=== PATIENT | female | born 1945 | race Caucasian/White ===

== ENCOUNTER 2022-05-08 15:24 | Outpatient (CLI) | payer MEDICARE, BC, SELFPAY ==
[2022-05-08 19:47] LABS: Albumin* 4.6 g/dL (3.3-5.0); Chloride* 98 mmol/L (96-114); Potassium* 3.9 mmol/L (3.6-5.1); Sodium* 137 mmol/L (135-149)
[2022-05-08 19:49] LABS: Bilirubin Total* 0.3 mg/dL (0.1-1.5); Creatinine* 1.2 mg/dL (0.5-1.5); Estimated Glomerular Filt Rate 47 ml/min
[2022-05-08 19:50] LABS: Alanine Aminotransferase* 53 U/L (4-35); Alkaline Phosphatase* 99 U/L (40-150); Aspartate Amino Transferase* 60 U/L (12-35); Blood Urea Nitrogen* 25 mg/dL (7-30); Carbon Dioxide* 21 mmol/L (20-32); Glucose* 219 mg/dL (60-115); Total Protein* 7.6 g/dL (6.0-8.3)
[2022-05-08 20:21] LABS: TSH With Reflex to FT4* 0.293 uIU/mL (0.270-4.200)
== END 2022-05-08 15:25 | disposition home or self-care (01) ==
PROVIDERS: PCP Internal Medicine; Visit Provider Internal Medicine
DX: R40.4 Transient alteration of awareness (principal); I10 Essential (primary) hypertension; E03.9 Hypothyroidism, unspecified; E78.5 Hyperlipidemia, unspecified
CPT/HCPCS: 80053; 84443

== ENCOUNTER 2022-05-09 15:26 | Outpatient (CLI) | payer MEDICARE, BC, SELFPAY ==
--- OUTSIDE RECORDS SUMMARY | 2022-05-09 17:04 | XMS_ITS | Encounter Summary ---
:1945 Author Organization [facility] Address [address] [place] [address] Care Team Providers Name Role Phone Unavailable Primary Care Provider Unavailable Encounter Details Date Type Department Care Team Description 04/26/2021 Hospital Encounter Department of Georges, Abdulaziz Walker Low Back Radiology in [facility], [facility] [address], [address] [place] [address] [facility] [phone] (Wo rk) Social History Tobacco Use Types Packs/Day Years Used Date Smoking Tobacco: Never Smokeless Tobacco: Never Alcohol Use Standard Drinks/Week Comments No 0 (1 standard drink = 0.6 oz pure alcoho l) Alcohol Habits Answer Date Recorded How often do you have a drink containing alcohol? Never 04/26/2021 How many drinks containing alcohol do you have on a typical Not asked day when you are drinking? How often do you have six or more drinks on one occasion? No t asked Comment: Not asked Social Isolation Answer Date Recorded In a typical week, how many times do you Three times a week 04/26/2021 talk on the phone with family, friends, or neighbors? How often do you get together with friends Three times a wee k 06/02/2019 or relatives? How often do you attend denominational or hinduism More than 4 time s per year 04/26/2021 services? Do you belong to any clubs or organizations Yes 04/26/2021 such as denominational groups, unions, fraternal or athletic groups, or school groups? How often do you attend meetings of the More than 4 times pe r year 04/26/2021 clubs or organizations you belong to? Are you now , , , 04/26/2021 , never or living with a partner? Physical Activity Answer Date Recorded On average, how many days per week do you engage in moderate to 0 days 04/26/2021 strenuous exercise (like walking fast, running, jogging, dancing, swimming, biking, or other activities that cause a light or heavy sweat)? On average, how many minutes do you engage in exercise at th is 0 min 04/26/2021 level? Stress Answer Date Recorded Do you feel stress - tense, restless, nervous, or Only a lit tle 04/26/2021 anxious, or unable to sleep at night because your mind is troubled all the time - these days? Financial Resource Strain Answer Date Recorded How hard is it for you to pay for the very basics like Not h areli at all 04/26/2021 food, housing, medical care, and heating? Food Insecurity Answer Date Recorded Within the past 12 months, you worried that your food would Never true 04/26/2021 run out before you got money to buy more. Within the past 12 months, the food you bought just didn't N ever true 04/26/2021 last and you didn't have money to get more. Transportation Needs Answer Date Recorded In the past 12 months, has lack of transportation kept you f rom No 04/26/2021 medical appointments or from getting medications? In the past 12 months, has lack of transportation kept you f rom No 04/26/2021 meetings, work, or getting things needed for daily living? Housing Stability Answer Date Recorded In the last 12 months, was there a time when you were not ab le No 04/26/2021 to pay the mortgage or rent on time? In the last 12 months, how many places have you lived? 1 04/26/2021 In the last 12 months, was there a time when you did not hav e a No 04/26/[address] or slept in a usp (including now)? Education Answer Date Recorded What is the highest level of school Bachelor's degree (e.g., BA, AB, 06/02/2019 you have completed or the highest BS) degree you have received? 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 0 2016 tablet atenolol (for_TENORMIN) 25 Take 25 mg by mouth. 0 03/22/2014 mg tablet B.ANI/L.ACI/L.JULIO/L.PLAN/L. Take 1 capsule by 0 0 03/27/2017 DONAVAN (PROBIOTIC FORMULA mouth daily. ORAL) cetirizine (for_ZyrTEC) 10 Take 10 mg by mouth. 0 03/22/2014 mg tablet ESOMEPRAZOLE MAGNESIUM Take by mouth daily. 0 11/2013 (NEXIUM ORAL) gabapentin (for_NEURONTIN) Take 300 mg by 0 03/22 300 mg capsule mouth. levothyroxine 0 08/14/2017 (for_SYNTHROID, LEVOTHROID) 100 mcg tablet levothyroxine Take 1 tablet by 0 04/29/2013 (for_SYNTHROID, LEVOTHROID) mouth daily. 75 mcg tablet lisinopril Take 1 tablet by 0 03/12/2017 (for_PRINIVIL,ZESTRIL) 10 mouth daily. mg tablet lovastatin (for_ALTOPREV) Take 0.5 tablets by 0 0 04/29/2013 40 mg 24 hr tablet mouth at bedtime. METFORMIN HCL (METFORMIN Take 750 mg by mouth 0 0 10/17/2015 ORAL) daily. MULTIVITAMIN WITH MINERALS Take 1 capsule by 0 ORAL mouth daily. psyllium (for_KONSYL) oral Take by mouth. 0 03/22 powder triamterene-hydroCHLOROthia Take 1 capsule by 0 0 03/22/2014 zide (for_DYAZIDE) 37.5-25 mouth. mg per capsule documented as of this encounter Plan of Treatment Not on filedocumented as of this encounter Procedures Procedure Name Priority Date/Time Associated Comments Diagnosis DX LUMBAR SPINE RAD - Routine 04/26/2021 10:07 Pain Low Back Result s for this 2-3 VIEWS (most inpatients AM CDT procedure a re in and all the results outpatients) section. documented in this encounter Results DX Lumbar Spine 2-3 Views (04/26/2021 10:07 AM CDT) Anatomical Region Laterality Modality Lumbar Spine, Musculoskeletal RST LOS, Neuroradiology N/A Digital Radiography ARZ LOS, Muskuloskeletal FLA LOS Specimen (Source) Anatomical Collection Method Collection Time Re ceived Time Location / / Volume Laterality 04/26/2021 10:07 AM CDT Impressions 04/26/2021 10:10 AM CDT Multilevel disc degeneration, greatest L4-5. Mild anterolisthesis L4 on 5. Trace anterolisthesis L3 on L4. These findings are similar to prior. Moderate to severe mid and lower lumbar facet arthritis. Bilateral THAs. Mild degenerative arthritis of the SI joints and symphysis pubis. Aortic calcifications. Narrative 04/26/2021 10:10 AM CDT EXAM: ??DX LUMBAR SPINE 2-3 VIEWS Procedure Note Porfirio Miller M.D. - 04/26/2021Format ting of this note might be different from the original. EXAM: DX LUMBAR SPINE 2-3 VIEWS IMPRESSION: Multilevel disc degeneration, greatest L 4-5. Mild anterolisthesis L4 on 5. Trace anterolisthesis L3 on L4. These findings are similar to prior. Moderate to severe mid and lower lumbar facet arthritis. Bilateral THAs. Mild degenerative arthritis of the SI joints and symphysis pubis. Aortic calcifications. León [facility] PROCE DAV documented in this encounter Visit Diagnoses Diagnosis Pain Low Back Unspecified documented in this encounter
--- OUTSIDE RECORDS SUMMARY | 2022-05-09 17:04 | XMS_ITS | Encounter Summary ---
:1945 Author Organization [facility] Address [address] [place] [address] Care Team Providers Name Role Phone Unavailable Primary Care Provider Unavailable Reason for Visit Reason Comments Referral Encounter Details Date Type Department Care Team Description 04/26/2021 Clinical Communication Department of Sports Georges, Isaac Quan, Referral Medicine in [address] [place], [place] [id number] Social History Tobacco Use Types Packs/Day Years [...] or relatives? How often do you attend yazidism or yazidism More than 4 time s per year 04/26/2021 services? Do you belong to any clubs or organizations Yes 04/26/2021 such as yazidism groups, unions, fraternal or athletic groups, or [...] place to sleep or slept in a detention (including now)? Education Answer Date Recorded What is the highest level of school Bachelor's degree (e.g., BA, AB, 06/02/2019 you have completed or the highest BS) degree you have received? 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 Telephone Encounter - Basil Cotton - 04/26/2021 1:23 PM CDT Nilo Villegas, I received a call from patient [phone] Su today and she said he had given her an order for PT and she was wondering if we could send her a new one because she forgot it. Thank you, Basil documented in this encounter Plan of Treatment Not on filedocumented as of this encounter Visit Diagnoses Not on filedocumented in this encounter
--- OUTSIDE RECORDS SUMMARY | 2022-05-09 17:04 | XMS_ITS | Encounter Summary ---
:1945 Author Organization [facility] Address [address] [place] [address] Care Team Providers Name Role Phone Unavailable Primary Care Provider Unavailable Reason for Referral Physical Therapy (Routine) - Closed Specialty Diagnoses / Procedures Referred By Contact Refer red To Contact Diagnoses Pain Low Back Unspecified Pain Neck Pain Shoulder Left León Su M.D. [address], [address] [place], [place] [address] Referral ID Status Reason Start Date Expiration Visits Visits Date Requested Authorized [id number] Closed Patient 04/26/2021 04/26/2022 12 12 Preference Reason for Visit Appointment Request (Routine) - Closed Specialty Diagnoses / Procedures Referred By Contact Refer red To Contact Sports Medicine Diagnoses Pain Low Back Unspecified Referral ID Status Reason Start Date Expiration Date Visits Requ ested Visits Authorized [id number] Closed 03/17/2021 03/17/2022 1 1 Encounter Details Date Type Department Care Team Description 04/26/2021 Office Visit Department of León Russell Pa in Low Back (Primary Dx); Medicine in M.D. Spondylosis Lumbar Without Myelopathy; [place], [facility] [address], Pain Neck; [place] [address] Pain Shoulder Left; [address] [place], [place] Primary Osteoarthritis Wrist Left; [place] [address] Primary Osteoarthritis Wrist Right [phone] Social History Tobacco Use Types Packs/Day [...] or relatives? How often do you attend taoism or evangelical More than 4 time s per year 04/26/2021 services? Do you belong to any clubs or organizations Yes 04/26/2021 such as taoism groups, unions, fraternal or athletic groups, or [...] place to sleep or slept in a snf (including now)? Education Answer Date Recorded What is the highest level of school Bachelor's degree (e.g., BA, AB, 06/02/2019 you have completed or the highest BS) degree you have received? 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 - 04/26/2021 10:30 AM CDT SUBJECTIVE CHIEF COMPLAINT/REASON FOR VISIT Followup low back pain, left greater than right shoulder pain, bilateral hand pain, and thoracic pain. HISTORY OF PRESENT ILLNESS Mrs. Bosch returns today in followup. I last saw her on September 01, 2019. She reports that jeison has been doing well over the past nearly 2 years. She did receive excellent benefit following the right L4-L5 transforaminal epidural corticosteroid injection performed on October 06, 2019. She does report that she has lost approximately 25 pounds over the past year and a half secondary to changesin her diet which she feels has been very helpful for her overall. She does note, however, that she is very inactive. She feels that she is limited with what she can do from a mobility standpoint because when she tries to do things she does develop pain in multiple areas of her body. She describes her low back pain as being located across the low back. That typically is worse the more active that she is, including any type of lifting. She has not been experiencing the pain radiating into the right lower extremity as she had been previously. She denies any new paresthesias or focalweakness in her lower extremities. She also can experience pain in the midthoracic region which is similar to what she has had previously. She reports that is very dependent on what she does, especially lifting with her arms in front ofher. Occasionally the pain can radiate into the right and left flank. She also describes right-sidedneck pain on occasion that can radiate to the right upper trapezius. She feels this is very much related to the amount of time that she spends on her laptop computer playing games on her [employer] She has not been experiencing any paresthesias in the left hand that she was previously. She does note pain in both the right and left hand, primarily the region of the 1st CMC joint bilaterally. She wears a brace on her left wrist at night which she does find to be helpful. She also describes left greater than right shoulder pain. This typically occurs in the anterior shoulder on the left and posterior shoulder on the right. Again, this is very much related to the amount of lifting that she does. She tries to avoid things such as carrying groceries or lifting overhead, such as when cooking. OBJECTIVE PHYSICAL EXAMINATION General: Very pleasant 75-year-old female in no acute distress. Spine: Preserved cervical spine range of motion today. Negative Spurling bilaterally. Shoulders: Full range of motion of the bilateral shoulders without pain. Normal strength on testing of rotator cuff musculature bilaterally. Positive Neer's, positive Harden' bilaterally. There is tenderness to palpation of the left greater than right 1st CMC joint without any significant swelling, warmth, erythema about either CMC joint. Spine: -1 globally decreased lumbar spine range of motion. There is palpation tenderness to palpation over the bilateral lower lumbar paraspinals. Strength: All major muscle groups of the bilateral lower extremities have normal and symmetric muscle strength, bulk and tone. DIAGNOSTICS I reviewed lumbar spine x-rays as well as the radiology report from earlier today. Significant findings include there is multilevel disk degeneration, greatest at L4-L5. There is mild anterolisthesis of L4 on L5. There is trace anterolisthesis of L3 on L4. These findings are similar to previous examina tions. There is moderate to severe mid and lower lumbar facet arthritis. There is bilateral total hip arthroplasty. There is mild degenerative arthritis of the SI joints and symphysis pubis. There are aortic calcifications. 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 Bosch has a normal neurologic examination today. I discussed that overall I am very pleased with how she is doing and commended her on her excellent weight loss regimen that she has implemented over the past year and a half. PLAN: 1. I am going to have Mrs. Bosch involved in physical therapy. We are going to work on a comprehensive program including lumbar spine range of motion as well as a scapular stabilizer strengthening program and focusing on her posture. We will also work on a gentle thoracic strengthening program as well. 2. She will continue to use her splint on the left wrist at night. We discussed that if those symptoms were to worsen, we could also consider proceeding with bilateral 1st CMC joint corticosteroid injections. We also discussed the use of topical Voltaren. 3. We spent several minutes today discussing the importance of movement for Mrs. Bosch. I feel thatfredy would benefit greatly from returning to the water which she has been involved with in the past in an aquatic-based aerobic program. We discussed even just walking in the water would be excellent for her. I would like her to start with approximately 15 minutes 3 times per week and increase that by 5 minutes every couple of weeks, depending on how she is progressing. 4. I will plan no formal followup with Mrs. Bosch at the current time as I anticipate she will do well with what is described above, but I am happy to see her any time in the future if she were to have any change in her symptoms or any new symptoms. Mrs. Bosch voiced agreement and understanding withthis plan. Total time 55 minutes. León Su M.D. CT CT Job ID: [id number] documented in this encounter Plan of Treatment Not on filedocumented as of this encounter Results DX Lumbar Spine 2-3 [...] pubis. Aortic calcifications. [facility]ón [facility] MAGGY DEMARCO documented in this encounter Visit Diagnoses Diagnosis Pain Low Back Unspecified - Primary Spondylosis Lumbar Without Myelopathy Pain Neck Pain Shoulder Left Primary Osteoarthritis Wrist Left Primary Osteoarthritis Wrist Right Pain Low Back Unspecified documented in this encounter
--- OUTSIDE RECORDS SUMMARY | 2022-05-09 17:04 | XMS_ITS | Encounter Summary ---
:1945 Author Organization [facility] Address [address] [place] [address] Care Team Providers Name Role Phone Unavailable Primary Care Provider Unavailable Reason for Visit Reason Comments Appointment Encounter Details Date Type Department Care Team Description 03/16/2021 Clinical Communication Department of Sports Georges, Isaac Quan, Appointment Medicine in [address] [place], [place] [phone] Social History Tobacco Use Types Packs/Day [...] or relatives? How often do you attend congregational or congregational More than 4 time s per year 04/26/2021 services? 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 Su. Telephone Encounter - Paola Billingsley - 03/16/2021 12:21 PM CDT Who is calling: Patient Release of information on file: N/A Best call back number: [phone] NOT okay to leave a detailed message. Physician: Dr. Lóen Su Side: back Body Part/Region: Low Back Reason for call: Other: Patient is requesting an appointment with Dr. Su for back pain and other associated issues. She states she has been a long time patient and he will take care of her the rest of her life. She has not been in quite some time due to Covid. Please advise. Action: Message routed to [facility] Athletic Trainers at [facility] documented in this encounter Plan of Treatment Not on filedocumented as of this encounter Visit Diagnoses Not on filedocumented in this encounter
--- OUTSIDE RECORDS SUMMARY | 2022-05-09 17:04 | XMS_ITS | Clinical Summary ---
:1945 Author Organization [facility] Address [address] [place] [address] Care Team Providers Name Role Phone Unavailable Primary Care Provider Unavailable Source Comments Patient records contain information from all sites at [facility]. For routine questions regarding patient records, call [phone] during business hours, M-F 8:00 AM - 5:00 PM Central Time. Record requests for emergency care only can be directed to [phone] at any time.[facility] Allergies Active Allergy Reactions Severity Noted Date Comments Erythromycin GI intolerance 04/29/2013 Morphine Rash 07/23/2018 Medications Medication Sig Dispensed Refills Start Date End Date Status aspirin 81 mg chewable Chew 81 mg daily. 0 7 Active tablet cetirizine (for_ZyrTEC) Take 10 mg by 0 03/22/2014 Active 10 mg tablet mouth. atenolol (for_TENORMIN) Take 25 mg by 0 03/22/2014 Active 25 mg tablet mouth. B.ANI/L.ACI/L.JULIO/L.STACIE Take 1 capsule by 0 03/27/20 17 Active N/L.DONAVAN (PROBIOTIC mouth daily. FORMULA ORAL) lisinopril Take 1 tablet by 0 03/12/2017 A ctive (for_PRINIVIL,ZESTRIL) mouth daily. 10 mg tablet METFORMIN HCL Take 750 mg by 0 10/17/2015 Active (METFORMIN ORAL) mouth daily. MULTIVITAMIN WITH Take 1 capsule by 0 04/29/2013 Active MINERALS ORAL mouth daily. psyllium (for_KONSYL) Take by mouth. 0 03/22/2014 Active oral powder levothyroxine Take 1 tablet by 0 04/29/2013 Active (for_SYNTHROID, mouth daily. LEVOTHROID) 75 mcg tablet gabapentin Take 300 mg by 0 03/22/2014 Act jose (for_NEURONTIN) 300 mg mouth. capsule ESOMEPRAZOLE MAGNESIUM Take by mouth 0 07/19/2014 Active (NEXIUM ORAL) daily. lovastatin Take 0.5 tablets 0 04/29/2013 A ctive (for_ALTOPREV) 40 mg 24 by mouth at hr tablet bedtime. triamterene-hydroCHLORO Take 1 capsule by 0 03/22/20 14 Active thiazide (for_DYAZIDE) mouth. 37.5-25 mg per capsule levothyroxine 0 08/14/2017 Activ e (for_SYNTHROID, LEVOTHROID) 100 mcg tablet Active Problems No known active problems Immunizations Name Administration Dates Next Due HepB Adult 12/08/1993, 07/24/1993, 06/22/1993 Family History Medical History Relation Name Comments Hyperlipidemia Mother paco anna Hypertension Mother paco anna Lung cancer Mother paco anna Transient ischemic attack Mother paco anna Diabetes Paternal Grandfather angelo e wilfrido Relation Name Status Comments Mother paco anna Paternal Grandfather angelo anna Social History Tobacco Use Types Packs/Day Years [...] or relatives? How often do you attend moravian or jew More than 4 time s per year 04/26/2021 services? Do you belong to any clubs or organizations Yes 04/26/2021 such as moravian groups, unions, fraternal or athletic groups, or [...] place to sleep or slept in a long-term (including now)? Education Answer Date Recorded What is the highest level of school Bachelor's degree (e.g., BA, AB, 06/02/2019 you have completed or the highest BS) degree you have received? 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 Filed Vital Signs Vital Sign Reading Time Taken Comments Blood Pressure 128/60 06/02/2019 9:14 AM CDT Pulse 66 06/02/2019 9:14 AM CDT Temperature - - Respiratory Rate - - Oxygen Saturation - - Inhaled Oxygen Concentration - - Weight 93.3 kg (205 lb 11.2 oz) 06/02/2019 9:14 AM CDT Height 162.6 cm (5' 4.02) 06/02/2019 9:14 AM CDT Body Mass Index 35.29 06/02/2019 9:14 AM CDT Plan of Treatment Health Maintenance Due Date Last Done Comments Creatinine Level 1945 Hepatitis C Screening 1945 Potassium Level 1945 Sodium Level 1945 Thyroid Stimulating Hormone (TSH) 1945 test for thyroid function Depression Screening (Annual 09/16/2021 PHQ-2) Fall Risk Screen (Annual) 09/16/2021 Influenza Vaccine (#1) 2022 06/01/2021, 05/30/2020, 06/16/2019, Additional history exists DTaP,Tdap,and Td Vaccines (3 - Td 09/14/2031 09/14/2021, , or Tdap) 04/20/2005 Pneumococcal vaccine (65+ years) Completed 10/21/2014, 10/2010 Zoster Vaccines Completed 10/02/2018, 05/30/2018, 05/28/2007 COVID-19 Vaccine Completed 12/21/2021, 07/13/2021, 11/18/2020, Additional history exists Medical Devices Implanted Type Area Lathing Supervisor Device Shelf Model / Identifier Expiration Serial / Date Lot Hip Implant Hip Implant Bilateral : Hip Insurance Payer Benefit Plan Subscriber ID Effective Phone Address Typ e / Group Dates MEDICARE MEDICARE A [id number] 2010-Pre [address] Medicare AND B garret WalkerEUFEMIA [id number] BLUE CROSS BCBS NIKOLAI [id number] 2016-Pres [phone] PO AMANDEEP X Cost Share BLUE SHIELD BLUE COST ent [phone] [place] [address]
--- OUTSIDE RECORDS SUMMARY | 2022-05-09 17:05 | XMS_ITS | Encounter Summary ---
:1945 Author Organization [facility] Address [address] [place] [address] Care Team Providers Name Role Phone Unavailable Primary Care Provider Unavailable Reason for Visit Appointment Request (Routine) - Closed Specialty Diagnoses / Procedures Referred By Contact Refer red To Contact Sports Medicine Referral ID Status Reason Start Date Expiration Date Visits Requ ested Visits Authorized [id number] Closed 07/14/2018 07/14/2019 1 Encounter Details Date Type Department Care Team Description 07/23/2018 Comprehensive Visit Department of León Su Pain Hip Right (Primary Dx); Sports Medicine in [place] Pain Low Back; [place], [facility] Spondylosis Lum bar Without Myelopathy; [address], [address] Numbness Hand [address] [place] [phone] Social History Tobacco Use Types Packs/Day Years [...] or relatives? How often do you attend baptist or anabaptist More than 4 time s per year 04/26/2021 services? Do you belong to any clubs or organizations Yes 04/26/2021 such as baptist groups, unions, fraternal or athletic groups, or [...] place to sleep or slept in a penitentiary (including now)? Sex Assigned at Date Recorded Female 07/23/2018 9:43 AM GARDENER FLORIST documented as of this encounter Last Filed Vital Signs Vital Sign Reading Time Taken Comments Blood Pressure 143/61 07/23/2018 10:08 AM GARDENER FLORIST Pulse 72 07/23/2018 10:08 AM GARDENER FLORIST Temperature - - Respiratory Rate - - Oxygen Saturation - - Inhaled Oxygen Concentration - - Weight 91.3 kg (201 lb 4.8 oz) 07/23/2018 10:08 AM GARDENER FLORIST Height 163.1 cm (5' 4.21) 07/23/2018 10:08 AM GARDENER FLORIST Body Mass Index 34.32 07/23/2018 10:08 AM GARDENER FLORIST documented in this encounter Consult Notes León Su M.D. - 07/23/2018 10:30 AM CST SUBJECTIVE REFERRAL SOURCE: Self CHIEF COMPLAINT / REASON FOR VISIT Right hip pain and left sided low back pain and left hand paresthesias HISTORY OF PRESENT ILLNESS Ms. Bosch is a very pleasant 73 y.o.-year-old female who is here for evaluation of right hip pain and low back pain. She has a past medical history significant for diabetes, right shoulder arthroscopyin December 2017 and bilateral CHANTEL's. She reports her pain began 1 year(s) ago, with an inciting event.She fell and hyperextended her right leg. The pain is located in the right hip that wraps from the medial groin to the lateral hip. She describes the pain as achy to sharp. It is constant. She rates the pain as a 9/10 at its worst and a 1/10 at its best. Things that tend to worsen the pain include standing, walking and sitting. Things that make the pain better include rest. She has never had pain like this previously. She denies any numbness, tingling or weakness in the bilateral lower extremity. She denies any fever or chills or recent unintentional weight loss. She denies any pain at night. She denies any swelling or mechanical symptoms. She describes primarily left-sided low back pain. This pain is located in the left lower lumbar region. She denies any pain radiating to the left lower extremity. This pain is worse when she goes from a seated to a standing position or if she does any twisting, bending, or lifting. She also describes left hand paresthesias. This typically involves the index, long, and occasionallyring finger. It is worse when she does any knitting or if she uses her hand such as using her phone.Occasionally she can awaken in the morning with the symptoms as well. The paresthesias never extend into the left upper extremity. She has a longstanding history of neck pain which is not worsened withthe left hand paresthesias. She denies any focal weakness in the left upper extremity. MEDS Current Outpatient Prescriptions: ??? aspirin 81 mg chewable tablet, Chew 81 mg daily., Disp: , Rfl: ??? atenolol (for_TENORMIN) 25 mg tablet, Take 25 mg by mouth., Disp: , Rfl: ??? B.ANI/L.ACI/L.JULIO/L.PLAN/L.DONAVAN (PROBIOTIC FORMULA ORAL), Take 1 capsule by mouth daily., Disp: ,Rfl: ??? cetirizine (for_ZyrTEC) 10 mg tablet, Take 10 mg by mouth., Disp: , Rfl: ??? ESOMEPRAZOLE MAGNESIUM (NEXIUM ORAL), Take by mouth daily., Disp: , Rfl: ??? gabapentin (for_NEURONTIN) 300 mg capsule, Take 300 mg by mouth., Disp: , Rfl: ??? glipiZIDE (for_GLUCOTROL) 10 mg tablet, Take 1 tablet by mouth daily., Disp: , Rfl: ??? levothyroxine (for_SYNTHROID, LEVOTHROID) 100 mcg tablet, , Disp: , Rfl: ??? levothyroxine (for_SYNTHROID, LEVOTHROID) 75 mcg tablet, Take 1 tablet by mouth daily., Disp: , Rfl: ??? lisinopril (for_PRINIVIL,ZESTRIL) 10 mg tablet, Take 1 tablet by mouth daily., Disp: , Rfl: ??? lovastatin (for_ALTOPREV) 40 mg 24 hr tablet, Take 1 tablet by mouth at bedtime., Disp: , Rfl: ??? METFORMIN HCL (METFORMIN ORAL), Take 750 mg by mouth daily., Disp: , Rfl: ??? MULTIVITAMIN WITH MINERALS ORAL, Take 1 capsule by mouth daily., Disp: , Rfl: ??? psyllium (for_KONSYL) oral powder, Take by mouth., Disp: , Rfl: ??? triamterene-hydroCHLOROthiazide (for_DYAZIDE) 37.5-25 mg per capsule, Take 1 capsule by mouth., Disp: , Rfl: ALLERGIES Allergies Allergen Reactions ??? Erythromycin GI intolerance ??? Morphine Rash PAST MEDICAL HISTORY Past Medical History: Diagnosis Date ??? Cataract ??? Diabetes Mellitus NOS ??? Gastroesophageal Reflux Disease NOS ??? Hypertension NOS ??? Hyperthyroidism ??? Hypothyroidism ??? Irritable Bowel Syndrome Without Diarrhea ??? Sleep Apnea PAST SURGICAL HISTORY No past surgical history on file. SOCIAL HISTORY Retired FAMILY HISTORY Family History Problem Relation Age of Onset ??? Diabetes Paternal Grandfather ??? Hypertension Mother ??? Hyperlipidemia Mother ??? Transient ischemic attack Mother ??? Lung cancer Mother Vitals: 07/23/18 1008 BP: 143/61 Pulse: 72 OBJECTIVE PHYSICAL EXAM GENERAL: Pleasant 73 y.o. year old female in no acute distress. MENTAL: Oriented to person, place and time. PSYCH: Mood is euthymic, affect is congruent. HEART: No clubbing, cyanosis, or edema. SKIN: No increased erythema, warmth, rashes, or concerning skin lesions. STRENGTH: All major muscle groups of the bilateral upper and lower extremities have normal and symmetric muscle strength, bulk, and tone. NEURO: Normal light touch sensation throughout the bilateral upper and lower extremities. GAIT: Gait is non-antalgic. MUSCULOSKELETAL: No pain with hip range of motion on the right. There is mild tenderness to palpation over the adductor longus tendon on the right. SPINE: Preserved lumbar flexion. She has pain at end range of extension in the left side of her low back. There is tenderness to palpation over the left lower lumbar paraspinals. Positive carpal tunnel compression test on the left at 20 sec. Negative [place] bilaterally. Preserved cervical spine range of motion without pain. IMAGING STUDIES: X-Ray of the right hip and lumbar spine, dated 07/23/18, revealed Mild multilevel disc degeneration throughout the lumbar spine. There is slight anterolisthesis of L3 on L4 and L4 on L5. Moderately severe mid and lower lumbar facet arthritis. Osteopenia. Aortic calcifications. Bilateral THAs. No radiographic evidence for loosening. Nonunited greater trochanteric fragment on the right. Grade II to III heterotopic ossifications about the prostheses, right greater than left.. I personally reviewed these images and shared the findings with the patient. IMPRESSION #1 Chronic low back pain #2 Intermittent left lower extremity pain, currently asymptomatic #3 Intermittent right groin pain #4 History of bilateral total hip arthroplasty #5 Left hand paresthesias, most consistent with carpal tunnel syndrome #6 History of bilateral carpal tunnel release Ms. Bosch has a normal neurologic examination today. We had a long discussion, and I answered several appropriate questions that she had. I feel that her left- sided low back pain is likely multifactorial, with a significant facetogenic etiology. She has known marked degenerative changes in the lower lumbar spine. Her right hip pain could be consistent with a right adductor tendinopathy. Reassuringly, her prosthesis looks well-seated, with no evidence of loosening on her x-rays today, and she did see Dr. Rosenthal, who did not feel that her right hip prosthesis was the cause of her current discomfort.Her left hand paresthesias are most consistent with carpal tunnel syndrome. PLAN: 1. We are going to arrange for left L4-L5 and L5-S1 facet joint corticosteroid injections with Ms. Bosch's discomfort. 2. I am going to have her reinitiate her aquatic-based aerobic fitness program. We went through manyof the exercises she does in the water today in detail, and discussed exercises I would like her notto perform at the current time, but otherwise it could be excellent for her to reinitiate that program, and she is also in agreement with this. 3. She is going to use her left wrist cock-up splint at night, with respect to the left hand paresthesias. 4. We will plan to contact Ms. Bosch in 1 month, to assess her progress, over the phone. She knows she may contact us prior to that time if she notes any worsening symptoms, which were detailed today.Ms. Bosch voiced agreement and understands the plan. Total time 45 minutes, counseling and coordination of care time greater than 25 minutes. ENER FLORIST documented in this encounter Plan of Treatment Not on filedocumented as of this encounter Visit Diagnoses Diagnosis Pain Hip Right - Primary Pain Low Back Unspecified Spondylosis Lumbar Without Myelopathy Numbness Hand documented in this encounter
--- OUTSIDE RECORDS SUMMARY | 2022-05-09 17:05 | XMS_ITS | Encounter Summary ---
:1945 Author Organization [facility] Address [address] [place] [id number] Care Team Providers Name Role Phone Unavailable Primary Care Provider Unavailable Reason for Referral Outpatient (Routine) - Closed Specialty Diagnoses / Procedures Referred By Contact Refer denise To Contact Sports Medicine León Su M. D. [facility] [address] [facility], [address] [place] [address] 3 Referral ID Status Reason Start Date Expiration Date Visits Requ ested Visits Authorized [id number] Closed 06/02/2019 06/01/2020 1 1 hysical Therapy (Routine) - Closed Specialty Diagnoses / Procedures Referred By Contact Bree walker To Contact Diagnoses Pain Low Back Unspecified León Su M.D. [address] [facility], [address] [place] [address] Referral ID Status Reason Start Date Expiration Visits Visits Date Requested Authorized [id number] Closed Patient 06/02/2019 06/01/2020 8 8 Preference Reason for Visit Appointment Request (Routine) - Closed Specialty Diagnoses / Procedures Referred By Contact Bree walker To Contact Sports Medicine Referral ID Status Reason Start Date Expiration Date Visits Requ ested Visits Authorized [id number] Closed 04/27/2019 04/26/2020 1 1 Encounter Details Date Type Department Care Team Description 06/02/2019 Comprehensive Visit Department of León Su Pain Low Back (Primary Dx); Sports Medicine in [place], M.[facility]. Spondylosis Lumbar Without Myelopathy; [place], [address] [place] [facility] [address]; [address] Pain Hip Right; [address] [place], [place]urs[place] [phone] Social History Tobacco Use Types Packs/Day [...] or relatives? How often do you attend bahai or scientologist More than 4 time s per year 04/26/2021 services? Do you belong to any clubs or organizations Yes 04/26/2021 such as bahai groups, unions, fraternal or athletic groups, or [...] place to sleep or slept in a senior care (including now)? Education Answer Date Recorded What is the highest level of school Bachelor's degree (e.g., BA, AB, 06/02/2019 you have completed or the highest BS) degree you have received? Sex Assigned at Date Recorded Female 07/23/2018 9:43 AM PREPLEATER documented as of this encounter Last Filed [...] Mass Index 35.29 06/02/2019 9:14 AM CDT documented in this encounter Progress Notes León Su M.D. - 06/02/2019 9:30 AM CDT SUBJECTIVE CHIEF COMPLAINT/REASON FOR VISIT Low back pain, bilateral lateral hip pain, right lower extremity pain, and left shoulder pain. HISTORY OF PRESENT ILLNESS Mrs. Bosch is a very pleasant 73-year-old female whom I last saw in July 2018. She returns today. She feels that, if anything, her pain is slightly worse than it was when I saw her 10 months ago as well as she feels that she is not as active as she was when I saw her 10 months ago. The main issuefor her is low back pain which can be located across her low back and then radiates into her right gluteal region, right posterior lateral thigh, and then wraps around her knee and then into the anterior leg to the level of the ankle. She has started to note some tingling that can occur in the toes, but she equates that more to her diabetes than related to the pain she can experience in her right lower extremity. She rates the pain at its worst as an 8/10 and at its best as a 3/10. In addition, she can experience a sharp pain that is located in the right groin. That is not new, and she did see Dr. Rosenthal, orthopedic surgeon, with respect to that previously who did not feel it was related to her total hip arthroplasty. Mrs. Bosch denies any focal weakness in her lower extremities, change in her lonnie wel or bladder habits, fever or chills, or recent unintentional weight loss. She does have pain at night when she lies on the right or left lateral hip region. She typically uses 2 Extra-Strength Tylenol in the morning when awakening from sleep. The pain is worse when she is weightbearing. She also describes left shoulder pain. This pain is located in the anterolateral aspect of the left shoulder. It is typically worse when she is doing lifting or carrying. She can occasionally have painin the left shoulder if she lies on her left side as well. She denies any pain radiating distal to the left shoulder. OBJECTIVE PHYSICAL EXAMINATION General: Pleasant 73-year-old female in no acute distress. Gait: Nonantalgic. Strength: All major muscle groups of the bilateral lower extremities have normal and symmetric muscle strength, bulk, and tone except for -1 weakness with testing of the bilateral hip abductors. Normalstrength with testing bilateral upper extremity musculature except for mild weakness with testing the supraspinatus bilaterally which is limited by pain. Reflexes: The right patellar tendon reflex is slightly decreased as compared to the left. The Achilles tendon reflexes are -3 bilaterally. Sensation: Decreased sensation to light touch in a stocking distribution to the level of the ankles bilaterally. Musculoskeletal: No pain with passive hip range of motion on the right. There is mild tenderness to palpation over the proximal adductor tendons on the right. There is marked tenderness to palpation ofthe right greater than left greater trochanteric bursa region. Spine: Preserved lumbar flexion, -1 lumbar extension. There is tenderness to palpation of the bilateral lower lumbar paraspinals. Shoulder: Forward elevation is 160 degrees on the left, abduction 160 degrees on the left with pain in the mid arc on the left. Positive Harden. Negative Neer's. Positive Speed's on the left. There istenderness to palpation on the anterior subacromial space on the left. DIAGNOSTICS I reviewed left shoulder x-rays as well as the radiology report from earlier today. There is a 2.5-cm rounded focus of peripheral calcifications in the medial aspect of the proximal left upper arm which may represent a focus of myositis ossificans. There is moderate degenerative arthritis of the acromi oclavicular and glenohumeral joints. There is no fracture or dislocation. There is remodeling and enthesophyte at the acromial undersurface suggests a component of chronic rotator cuff pathology. The lumbar spine x-rays show a slight convex right midthoracic and convex left thoracolumbar curve with mild degenerative endplate spurring throughout the thoracic and lumbar spine. There is trace anterolisthesis of L3 on L4 and grade 1 anterolisthesis of L4 on L5. There is marked mid and lower lumbar facetarthritis. ASSESSMENT / PLAN #1 Chronic low back pain #2 Lumbar spondylosis #3 Lumbar spinal stenosis #4 Right greater than left bilateral lateral hip pain #5 Intermittent right lower extremity pain #6 History of bilateral total hip arthroplasty #7 Chronic right groin pain #8 Bilateral shoulder pain with history of right rotator cuff repair Mrs. Bosch continues to have a normal neurologic examination. I feel that her symptoms are multifactorial. I do feel that a significant component of her low back pain is related to a facetogenic etiology. She does have pain that can radiate into the right lower extremity which would be in an L4 or potentially L5 distribution. She has known moderate central canal stenosis in the lower lumbar spine. That would not account for her right groin pain, and potentially she may have a component of right adductor pathology. She has seen Dr. Rosenthal who did not feel her pain was related to her hip prosthesis,and there has been no evidence of loosening on her previous right hip x-rays. She has marked weakness with testing of her bilateral hip abductors and has a component of bilateral greater trochanteric pain syndrome. Her left shoulder pain is likely multifactorial, related to both a component of rotatorcuff pathology and likely potentially a full-thickness tear of the supraspinatus and glenohumeral DJD. PLAN: 1. I am going to have Mrs. Bosch involved in physical therapy. We are going to initiate a comprehensive program especially focused on strengthening her hip groups, especially her hip abductors, as well as a core strength and stability program. 2. We will also work on her posture, working on thoracic extension, and a very basic scapular stabilizer strengthening program. 3. I have encouraged Mrs. Bosch to return to her aquatic exercise program as I think that would be very beneficial for her and hopefully that would not cause any exacerbation of her symptoms. 4. Mrs. Bosch will take Extra-Strength Tylenol 2 tablets twice daily. I will plan on seeing Mrs. Bosch in in 3 months to assess her progress. If she has not improved, sandy likely consider proceeding with an MRI of the lumbar spine. She knows she may contact me prior to that time if she notes any worsening or worrisome symptoms which were detailed today. She voiced agreement and understanding with this plan. Total time 45 minutes, counseling and coordination of care time greater than [address] Job ID: [id number]/jeremy documented in this encounter Plan of Treatment Scheduled Referrals Name Type Priority Associated Diagnoses Order [facility] Sports Medicine Outpatient Referral Routine Expec taylor: office visit 09/01/2019 (clinic) (Approximate), Expires: 06/02/2022 documented as of this encounter Visit Diagnoses Diagnosis Pain Low Back Unspecified - Primary Spondylosis Lumbar Without Myelopathy Pain Back Thoracic Pain Hip Right Bursitis Trochanteric Bilateral documented in this encounter
--- OUTSIDE RECORDS SUMMARY | 2022-05-09 17:05 | XMS_ITS | Encounter Summary ---
:1945 Author Organization [facility] Address [address] [place] [id number] Care Team Providers Name Role Phone Unavailable Primary Care Provider Unavailable Encounter Details Date Type Department Care Team Description 04/08/2017 Telemedicine Department of Physical Medicine and Rehab Social History Tobacco Use Types Packs/Day Years Used Date Smoking Tobacco: Never Alcohol Habits Answer Date Recorded How often [...] or relatives? How often do you attend sikh or advent More than 4 time s per year 04/26/2021 services? Do you belong to any clubs or organizations Yes 04/26/2021 such as sikh groups, unions, fraternal or athletic groups, or [...] place to sleep or slept in a retirement (including now)? Sex Assigned at Date Recorded Female 07/23/2018 9:43 AM SAFE EXPERT documented as of this encounter Plan of Treatment Not on filedocumented as of this encounter Procedures Procedure Name Priority Date/Time Associated Diagnosis Comme nts PHYSICAL MEDICINE Routine 04/08/2017 11:25 AM Res ults for this AND REHAB IMAGE CDT procedure ar e in EXAM the results section. documented in this encounter Results PHYSICAL MEDICINE AND REHAB IMAGE EXAM (04/08/2017 11:25 AM CDT) Specimen (Source) Anatomical Collection Method Collection Time Re ceived Time Location / / Volume Laterality 04/08/2017 11:22 AM CDT Narrative [facility] - 04/08/2017 11:28 AM CDT This order has been created and auto-finalized to support the import of images acquired without order. The clini marcos documentation to support these images can be found on the encounter jacob t produced images. Provider Not In System IMG NON RAD IMAGING PROCEDUR ES Performing Organization Address City/State/ZIP Code Phon e Number [facility] NA documented in this encounter Visit Diagnoses Not on filedocumented in this encounter
--- OUTSIDE RECORDS SUMMARY | 2022-05-09 17:05 | XMS_ITS | Encounter Summary ---
:1945 Author Organization [facility] Address [address] [place] [address] Care Team Providers Name Role Phone Unavailable Primary Care Provider Unavailable Encounter Details Date Type Department Care Team Description 11/22/2016 Hospital Encounter HX [facility] PMTR Pranay Engle M.D. [address] [place] [address], [address] [place] [address] (Wo rk) Social History Tobacco Use Types [...] or relatives? How often do you attend protestant or rastafarian More than 4 time s per year 04/26/2021 services? Do you belong to any clubs or organizations Yes 04/26/2021 such as protestant groups, unions, fraternal or athletic groups, or [...] place to sleep or slept in a mcc (including now)? 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 cetirizine (for_ZyrTEC) 10 Take 10 mg by 0 2013 mg tablet mouth. ESOMEPRAZOLE MAGNESIUM Take by mouth 0 07/19/2014 (NEXIUM ORAL) daily. gabapentin (for_NEURONTIN) Take 300 mg by 0 03/22 300 mg capsule mouth. levothyroxine Take 1 tablet by 0 04/29/2013 (for_SYNTHROID, mouth daily. LEVOTHROID) 75 mcg tablet lovastatin (for_ALTOPREV) Take 0.5 tablets by 0 0 04/29/2013 40 mg 24 hr tablet mouth at bedtime. METFORMIN HCL (METFORMIN Take 750 mg by 0 016 ORAL) mouth daily. MULTIVITAMIN WITH MINERALS Take 1 capsule by 0 ORAL mouth daily. psyllium (for_KONSYL) oral Take by mouth. 0 03/22 powder triamterene-hydroCHLOROthi Take 1 capsule by 0 azide (for_DYAZIDE) mouth. 37.5-25 mg per capsule cholecalciferol Take 1 tablet by 0 04/29/201303/2018 (cholecalciferol) 400 Unit mouth daily. tablet diclofenac sodium Apply 2 g topically 0 7 07/23/2018 (VOLTAREN) 1 % gel 3 (three) times a day as needed. documented as of this encounter Progress Notes Harry Engle M.D. - 11/22/2016 10:56 AM CST [id number] CHIEF COMPLAINT/REASON FOR VISIT Low back pain, left greater than right lower extremity pain, and left wrist pain. HISTORY OF PRESENT ILLNESS Ms. Bosch returns today. She has a few different new issues since I saw her in October 2015. She reports that she has been having increased pain in her low back radiating to the left gluteal region. She reports that she can walk for approximately 2 blocks before the pain will intensify and then it is very difficult for her to walk for any distance farther than that because of the pain she can experience primarily in the left gluteal region but also in the right gluteal region and then a heavy sensation especially in her left lower extremity. She denies any focal weakness in her lower extremities,change in her bowel or bladder habits, fevers or chills, or recent unintentional weight loss. She also describes pain as located in the left wrist. She points to the region primarily of the right first CMC joint. She is an avid knitter and it is becoming more and more difficult for her to knit because of the pain she can experience in the region of left 1st CMC joint.Ms. Bosch has not had a fall in the past 12 months. PHYSICAL EXAMINATION GENERAL: A pleasant 71-year-old female, in no acute distress. WRIST: There is tenderness to palpation directly over left 1st CMC joint. Positive 1st CMC grind on the left. SPINE: -1 globally decreased lumbar spine range of motion. Palpation: There is tenderness to palpation of the left lower lumbar paraspinals. STRENGTH: All major muscle groups of the bilateral lower extremities have normal and symmetric muscle strength, bulk and tone. IMPRESSION/REPORT/PLAN 1. Low back pain. 2. Left greater than right lower extremity pain. 3. History of left lower extremity pain and weakness following a left total hip arthroplasty on 2012. 4. Left wrist pain. Ms. Bosch's neurologic examination is unchanged. I feel her symptoms are multifactorial. Some of the pain she is describing especially when she is ambulating could be consistent with lumbar spinal stenosis. She does report using a shopping cart typically helps improve her symptoms. However the majority of her pain is confined to her low back. She describes a heaviness that can occur in her bilaterallower extremities after walking for approximately 2 blocks. PLAN: 1. We are going to proceed today with x-rays of the left wrist with Ms. Bosch's discomfort. 2. I am going to provide her a prescription for a left opponens splint as well as I am going to provide her a prescription for Voltaren gel which she can use in the region of the left 1st carpometacarpal joint. 3. We are going to proceed with an MRI of the lumbar spine with Ms. Bosch's discomfort. 4. I will plan on seeing Ms. Bosch following the lumbar spine MRI to discuss the results and the next step in her management. She knows to be in contact with me prior to that time if she notes any worsening symptoms which we went over in detail today. She voiced agreement and understanding with this plan. Total time 25 minutes, counseling, coordination and coordination of care time greater than 15 minutes. Harry Engle M.D./epi Electronically Signed By: HARRY ENGLE MD On: 11/26/2016 10:51 AM Modified by and Electronically Signed by: HARRY ENGLE MD On: 11/26/2016 10:51 AM Source: [facility] MHSDOLBEYNONRADSYS Document Id: [id number] documented in this encounter Miscellaneous Notes Telephone Encounter - Conversion, Historical Provider Ser - 11/27/2016 12:16 PM CDT *Phone Message/Dr. Engle Document Contains Addenda Addendum by CRYSTAL BALL LPN on December 03, 2016 14:57:48 CDT Order faxed Addendum by MJ LAST on December 03, 2016 14:51:02 CDT Frannie from [facility] calling, would like MRI order faxed, states patient has contacted themto get this scheduled. Please advise. Fax number is [phone] Addendum by MARCO ANTONIO KHAN on November 27, 2016 13:33:15 CDT I called the patient and let her know that we did fax the results over today after waiting to see if a prior auth was needed from [employer]. From: TORI MCGOWAN ( [employer]ist) To: Physical Medicine and Rehabilitation Staff; Sent: 11/27/2016 12:16:19 CDT Subject: *Phone Message/Dr. Engle Caller is: (x ) Patient ( ) Mother ( ) Father ( ) Spouse ( ) Daughter ( ) Son ( ) Pharmacy ( ) Other: Physician: Dr. Engle Patient MRN #: Reason for Call: Message: Patient states that Dr. Engle was going to order an MRI for her in [place]. She just called them and they have not received an order yet. Please call her back at [phone] to advise. Advice/Action: Source used: ( ) Verbalizes understanding of instructions ( ) Instructed to call back if symptoms worsen or do not resolve ( ) Refused to see provider ( ) Appointment Scheduled ( ) OK to leave message on voice mail ( ) Patient told to expect return call: ( ) today ( ) tomorrow ( ) next work day ( ) Patient's email ( ) Patient told physician out of office, will call upon return call on ( ) ( ) Patient told physician out of office, routed to other physician ( ) Other ( ) Call back telephone number ( ) Call back cell phone number ( ) Source: [facility] [employer] Document Id: [id number] Miscellaneous - Harry Engle M.D. - 11/22/2016 12:58 PM CST Ambulatory Patient Summary [address] [id number] Visit Information Name: ALISHA BOSCH [facility] Number: [id number] Current Date: 11/22/2016 12:58:07 Physicians Attending Provider: HARRY ENGLE MD Primary Care Provider: PCP, ALISHA TYLER BRAYAN has been given the following list of follow-up instructions, medication list, and patient education materials: Follow-up Instructions Your Medications Here is a list of your medications. It is important to take your medications as directed. Use a pillbox or chart to help remind you to take your medications. Please let your doctor or nurse know if you have problems taking your medications. Medication/Strength How to Take Indications/Special Instructions/Comments/Notes for Patient Medication Changes/Routing atenolol (atenolol 25 mg oral tablet) 0.5 Tablet(s), once a day cetirizine (ZyrTEC 10 mg oral tablet) 1 Tablet(s), Oral, once a day diclofenac topical (Voltaren 1% topical gel) 2 gm, Topical, three times a day as needed for Pain NewRouted to [facility] [address] [place], [place] [id number] ergocalciferol (Vitamin D 400 iu oral tablet) 1 Tablet(s), Oral, once a day esomeprazole (NexIUM) Oral, once a day gabapentin (gabapentin 300 mg oral capsule) 3 cap, Oral, three times a day levothyroxine (Levothroid 75 mcg (0.075 mg) oral tablet) 1 Tablet(s), Oral, once a day lovastatin (lovastatin 40 mg oral tablet, extended release) 1 Tablet(s), Oral, once a day (at bedtime) metFORMIN (metFORMIN) 750 mg, Oral, once a day Misc Prescription (Krill Oil) See Instructions Daily multivitamin with minerals (multivitamin with minerals Multiple Vitamins with Zinc oral capsule) 1 cap, Oral, once a day psyllium (Metamucil) Oral with calcium. triamterene-hydrochlorothiazide (triamterene-hydrochlorothiazide 37.5 mg-25 mg oral tablet) 1 Tablet(s), Oral, once a day Stop Taking the Following Medications: Medication list as of 11-22-16 12:58 Attention: If you have any medications at home that are not on this list, DO NOT take them until youcontact your provider for clarification. Give a copy of your medication list to your primary care provider. Update your medication list any time medications or doses are changed and carry your medication list at all times in case of emergency. Electronically Signed By: HARRY ENGLE MD Signed On:22-NOV-2016 12:57:43 Your Allergies & Intolerances Substance Reaction Symptoms Category Comments erythromycin Emesis Drug Your Problem List Problem Status Onset Comments No Problems found Your Upcoming Appointments Date Time Location Provider 12/10/2016 13:00 [facility] PM&R Harry Engle MD Attention: Contact your local Clinic if further appointment detail needed. Consider Using Patient Online Services Patient Online Services is a secure online and Mobile application that lets you: ?? View lab and test results ?? View portions of your medical record including clinical notes, immunizations and discharge summaries ?? Request an appointment or medication refill ?? Review your appointment schedule ?? Send secure messages to your care team Its easy to create an account if you dont have one. Go to [email or web address] and click on Create Your Account. Then, follow the directions to complete the online form. Youll be asked for your [facility] number which you can find at the top of this document. Your Goals/Additional instructions: Source: [facility] POWERCHART Document Id: [id number] ITURE STAINER Miscellaneous - Harry Engle M.D. - 11/22/2016 12:58 PM CST Ambulatory Discharge Medication List [address] [id number] Visit Information Name: DOUGLASALISHA KELLOGG [facility] Number: [id number] Current Date: 11/22/2016 12:58:06 Attending Provider: HARRY ENGLE MD Primary Care Provider: PCP, HERNAN BOSCH ALISHA BRAYAN has been given the following list of medications: Your Medications It is important to take your medications as directed. Use a pill box or chart to help remind you to take your medications. Please let your doctor or nurse know if you have problems taking your medications. Medication/Strength How to Take Indications/Special Instructions/Comments/Notes for Patient Medication Changes/Routing atenolol (atenolol 25 mg oral tablet) 0.5 Tablet(s), once a day cetirizine (ZyrTEC 10 mg oral tablet) 1 Tablet(s), Oral, once a day diclofenac topical (Voltaren 1% topical gel) 2 gm, Topical, three times a day as needed for Pain NewRouted to [address] [phone] ergocalciferol (Vitamin D 400 iu oral tablet) 1 Tablet(s), Oral, once a day esomeprazole (NexIUM) Oral, once a day gabapentin (gabapentin 300 mg oral capsule) 3 cap, Oral, three times a day levothyroxine (Levothroid 75 mcg (0.075 mg) oral tablet) 1 Tablet(s), Oral, once a day lovastatin (lovastatin 40 mg oral tablet, extended release) 1 Tablet(s), Oral, once a day (at bedtime) metFORMIN (metFORMIN) 750 mg, Oral, once a day Misc Prescription (Krill Oil) See Instructions Daily multivitamin with minerals (multivitamin with minerals Multiple Vitamins with Zinc oral capsule) 1 cap, Oral, once a day psyllium (Metamucil) Oral with calcium. triamterene-hydrochlorothiazide (triamterene-hydrochlorothiazide 37.5 mg-25 mg oral tablet) 1 Tablet(s), Oral, once a day Stop Taking the Following Medications: Medication list as of 11-22-16 12:58 Attention: If you have any medications at home that are not on this list, DO NOT take them until youcontact your provider for clarification. Give a copy of your medication list to your primary care provider. Update your medication list any time medications or doses are changed and carry your medication list at all times in case of emergency. Electronically Signed By: HARRY ENGLE MD Signed On:22-NOV-2016 12:57:43 Additional Information: Source: [facility] POWERCHART Document Id: [id number] ITURE STAINER Miscellaneous - Clifford Turner LKatalinaPKatalinaN. - 11/22/2016 12:08 PM CST *General Message Document Contains Addenda Addendum by CLIFFORD TURNER LPN on November 27, 2016 09:36:49 CDT Order faxed Addendum by NICKY GREER on November 23, 2016 16:29:51 FURNITURE STAINER From: NICKY GREER ([facility] Chemistry Account Manager/Radiology [facility]) To: CLIFFORD TURNER LPN; Sent: 11/23/2016 16:29:51 FURNITURE STAINER Subject: RE: *General Message No auth needed, ok to schedule From: CLIFFORD TURNER LPN To: [facility] Chemistry Account Manager/Radiology [facility]; Sent: 11/22/2016 12:08:45 FURNITURE STAINER Subject: *General Message Patient Referred to Provider or Facility: _[facility] Ordering Provider: _Pranay Engle Appointment Date (if known): _ Imaging Service Ordered: (list CPT code or body part to be scanned) _ _ W/ Contrast _x W/O Contrast _ W/O Contrast followed by with _ _ CT/CTA _x MRI _ MRA _ PET _Nuclear Cardiology Study _ Other: (list): _ Diagnosis (CPT code if Known): _ Injury Related _ Yes x_ No If yes, date and type of injury: _ [facility] Document Id: [id number] Electronically signed by S[facility] Laborer [place] [id number] at 02/26/2017 6:21 AM CDT Miscellaneous - Clifford Turner L.P.N. - 11/22/2016 11:06 AM CST Adult Insulation Engineman Intake/History Adult Insulation Engineman Intake/History Entered On: 11/22/2016 11:07 FURNITURE STAINER Performed On: 11/22/2016 11:06 FURNITURE STAINER by CLIFFORD TURNER LPN Intake Systolic Blood Pressure : 130 mmHg Diastolic Blood Pressure : 58 mmHg NIBP Mean : 82 mmHg BP Location : Left upper extremity Blood Pressure Cuff Size : Regular Actual Weight : 97.85 kg(Converted to: 215 lb 12 oz) Dosing Weight Clinic : 97.85 kg CLIFFORD TURNER LPN - 11/22/2016 11:06 FURNITURE STAINER General Info Information Given By : Patient Languages : Urdu Is Patient Female and 13-50 no hysterectomy : No CLIFFORD TURNER LPN - 11/22/2016 11:06 FURNITURE STAINER Subjective Pain Symptoms : CLIFFORD Oates LPN - 11/22/2016 11:06 FURNITURE STAINER Dependent Habits Exposure to Tobacco Smoke : Other: never Smoking Status : Never smoker Tobacco 2A : No Tobacco Use/Currently Using : No Tobacco Use/Last 30 Days : No Tobacco Use/Last 12 months : CLIFFORD Oates LPN - 11/22/2016 11:06 FURNITURE STAINER [facility] POWER[facility] Document Id: [id number] FURNITURE STAINER!22 ITURE STAINER documented in this encounter Plan of Treatment Not on filedocumented as of this encounter Procedures Procedure Name Priority Date/Time Associated Diagnosis Comme nts DX WRIST LEFT 2 Routine 11/22/2016 12:07 PM Resul ts for this VIEWS FURNITURE STAINER procedure are i n the results section. documented in this encounter Results DX Wrist Left 2 Views (11/22/2016 12:07 PM FURNITURE STAINER) Anatomical Region Laterality Modality Upper Extremity, Wrist Left Radiographic Imag ing Specimen (Source) Anatomical Collection Method Collection Time Re ceived Time Location / / Volume Laterality 11/22/2016 12:07 PM FURNITURE STAINER Addenda Addendum by Provider, Parker Mcdaniels 11/22/2016 12:07 PM FURNITURE STAINER RAD^^^OW XR Wrist Left 2 views 11/22/2016 12:07:53 Impressions 11/22/2016 12:45 PM FURNITURE STAINER Moderately prominent degenerative changes of the left first MCP, CMC, STT joint spaces. 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 No erosions. No appreciable acute osseou s injury of the left wrist. Narrative 11/22/2016 12:45 PM FURNITURE STAINER EXAM: ??XR Wrist Left 2 views. DEMOGRAPHICS: ??71 years Female. INDICATION: ??wrist pain. ??No reported trauma. COMPARISON: ??None FINDINGS/ Procedure Note Saulo Prakash M.D. / Provider, Harriet mccormack M.D. - 03/04/2017 EXAM: XR Wrist Left 2 views. DEMOGRAPHICS: 71 years Female. INDICATION: wrist pain. No reported trau ma. COMPARISON: None FINDINGS/IMPRESSION: Moderately prominen t degenerative changes of the left first MCP, CMC, STT joint spaces. 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 No erosions. No appreciable acute osseou s injury of the left wrist. Sarah Martinez(R), RDana(R)(M) IMG DIAGNOSTIC IMAGING PROCEDURES documented in this encounter Visit Diagnoses Not on filedocumented in this encounter
--- OUTSIDE RECORDS SUMMARY | 2022-05-09 17:05 | XMS_ITS | Encounter Summary ---
:1945 Author Organization [facility] Address [address] [place] [address] Care Team Providers Name Role Phone Unavailable Primary Care Provider Unavailable Reason for Visit Outpatient (Routine) - Closed Specialty Diagnoses / Procedures Referred By Contact Refer red To Contact Sports Medicine León Su M. D. [facility] [address], [address] [place], [place] [address] Referral ID Status Reason Start Date Expiration Date Visits Requ ested Visits Authorized [id number] Closed 06/02/2019 06/01/2020 1 1 Encounter Details Date Type Department Care Team Description 09/01/2019 Office Visit Department of Sports León Su Sp ondylosis Lumbar Without Myelopathy (Primary Dx); Medicine in M.D. 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 - 09/01/2019 1:30 PM CST SUBJECTIVE CHIEF COMPLAINT / REASON FOR VISIT Follow up: Low back pain, bilateral lateral hip pain, right lower extremity pain, and left shoulder pain. HISTORY OF PRESENT ILLNESS Ms. Bosch returns in follow up. She reports she is 0% improved since I saw her 3 months ago. Today she localizes her pain to her right low back into her right leg. She describes the pain as sharp shooting pain in her low back. She denies any new symptoms, however states the frequency and intensity ofof her pain has increased. She is unable to lay on her right side without pain and has difficulty sitting on hard surfaces. She also reports difficulty with walking more than 100 yards. She has recently completed her physical therapy. It was recommended for her to workout in the pool 3x a week which she states is very helpful when she is able to do it on a regular basis. She enjoys sitting in the hottub and especially likes using the jets against her back and leg. She has increased her extra strength Tylenol use to 4x/day with 1-2 Tylenol PM's at night. MEDS Current Outpatient Medications: ??? lovastatin (for_ALTOPREV) 40 mg 24 hr tablet, Take 0.5 tablets by mouth at bedtime. , Disp: , Rfl: ??? aspirin 81 mg chewable tablet, Chew [...] by mouth daily., Disp: , Rfl: ??? METFORMIN HCL (METFORMIN [...] ??? Erythromycin GI intolerance ??? Morphine Rash OBJECTIVE PHYSICAL EXAM GENERAL: Pleasant 74 y.o. year old female in no acute distress. STRENGTH: All major muscle groups of the bilateral lower extremities have normal and symmetric muscle strength, bulk, and tone except for mild weakness with testing of her right hip abductors. NEURO: Straight leg raise is negative for radiating pain and paraesthesias bilaterally. GAIT: Gait is non-antalgic. MUSCULOSKELETAL: There's tenderness to palpation over the right lower lumbar paraspinals as well as over the right greater trochanter bursa region IMPRESSION #1 Chronic low back pain #2 Lumbar spondylosis #3 Lumbar spinal stenosis #4 Right greater than left bilateral hip pain #5 Intermittent right lower extremity pain #6 History of bilateral total hip arthroplasty I had a long discussion today with Mrs. Bosch. I feel that her symptoms are likely multifactorial. The symptoms she is describing into her right lower extremity could be consistent with potentially a right L4 or right L5 radiculopathy. I also feel she has a component of right greater trochanteric pain syndrome with her tenderness to palpation of the right greater trochanteric bursa region and the weakness today with testing of her right hip abductors. She does have a normal neurologic examination today. PLAN: 1. With the length of time these symptoms have persisted for Mrs. Bosch despite a variety of interventions, we are going to proceed with an MRI of the lumbar spine. We will have this performed in [place] which will be closer to her home for her. I will then plan on contacting her over the phone todiscuss the results of the MRI with her at that time. 2. Mrs. Bosch will continue to progress her aerobic program in the pool, and we discussed the importance of that today, and she is very motivated to continue with that. 3. I will plan to contact Mrs. Bosch over the phone following the lumbar spine MRI. She knows to contact me prior to that time if she notes any worsening symptoms which were detailed today. She voicedagreement and understanding with this plan. Total time 30 minutes, counseling and coordination of care time greater than 15 minutes. STANT SALES MANAGER documented in this encounter Plan of Treatment Not on filedocumented as of this encounter Visit Diagnoses Diagnosis Spondylosis Lumbar Without Myelopathy - Primary Pain Low Back Unspecified Bursitis Trochanteric Bilateral documented in this encounter
--- OUTSIDE RECORDS SUMMARY | 2022-05-09 17:05 | XMS_ITS | Encounter Summary ---
:1945 Author Organization [facility] Address [address] [place] [id number] Care Team Providers Name Role Phone Unavailable Primary Care Provider Unavailable Encounter Details Date Type Department Care Team Description 07/23/2018 Hospital Encounter Department of Georges, Abdulaziz Walker Hip Right; Radiology in M.D. Pain Low Back [address] [place] [address] [phone] Social History Tobacco Use Types Packs/Day Years [...] How often do you attend taoism or scientology More than 4 time s per year [...] at Date Recorded Female 07/23/2018 9:43 AM DIRECTOR CLINICAL APPLICATIONS documented as of this encounter Medications at Time of Discharge Medication Sig Dispensed Refills Start Date End Date aspirin 81 mg chewable Chew 81 mg daily. 0 2016 tablet atenolol (for_TENORMIN) 25 Take 25 mg by 0 2013 mg tablet mouth. B.ANI/L.ACI/L.JULIO/L.PLAN/L Take 1 capsule by 0 .DONAVAN (PROBIOTIC FORMULA mouth daily. ORAL) cetirizine (for_ZyrTEC) 10 Take 10 mg by 0 2013 mg tablet mouth. ESOMEPRAZOLE MAGNESIUM Take by mouth 0 07/19/2014 (NEXIUM ORAL) daily. gabapentin (for_NEURONTIN) Take 300 mg by 0 03/22 300 mg capsule mouth. levothyroxine 0 08/14/2017 (for_SYNTHROID, LEVOTHROID) 100 mcg tablet levothyroxine Take 1 tablet by 0 04/29/2013 (for_SYNTHROID, mouth daily. LEVOTHROID) 75 mcg tablet lisinopril Take 1 tablet [...] azide (for_DYAZIDE) mouth. 37.5-25 mg per capsule glipiZIDE (for_GLUCOTROL) Take 1 tablet by 0 11/1504/26/2021 10 mg tablet mouth daily. documented as of this encounter Plan of Treatment Not on filedocumented as of this encounter Procedures Procedure Name Priority Date/Time Associated Comments Diagnosis DX HIP AND PELVIS RAD - Routine 07/23/2018 9:31 Pain Hip Right Resu lts for this RIGHT 2-3 VIEWS (most inpatients AM DIRECTOR CLINICAL APPLICATIONS procedur e are in and all the results outpatients) section. DX LUMBAR SPINE RAD - Routine 07/23/2018 9:31 Pain Low Back Results for this 2-3 VIEWS (most inpatients AM DIRECTOR CLINICAL APPLICATIONS procedure a re in and all the results outpatients) section. documented in this encounter Results DX Lumbar Spine 2-3 Views (07/23/2018 9:31 AM DIRECTOR CLINICAL APPLICATIONS) Anatomical Region Laterality Modality Lumbar Spine, Musculoskeletal RST LOS, Neuroradiology N/A Digital Radiography ARZ LOS, Muskuloskeletal FLA LOS Specimen (Source) Anatomical Collection Method Collection Time Re ceived Time Location / / Volume Laterality 07/23/2018 9:36 AM DIRECTOR CLINICAL APPLICATIONS Impressions 07/23/2018 9:39 AM DIRECTOR CLINICAL APPLICATIONS IMPRESSION: ??Mild multilevel disc degeneration throughout the lumbar spine. There is slight anterolisthesis of L3 on L4 and L4 on L5. Moderately severe mid and lower lumbar facet arthritis. Osteop enia. Aortic calcifications. Bilateral THAs. No radiographic evidence for loose key. 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 Narrative 07/23/2018 9:39 AM DIRECTOR CLINICAL APPLICATIONS EXAM: ??DX LUMBAR SPINE 2-3 VIEWS, DX HIP AND PELVIS RIGHT 2-3 VIEWS Procedure Note Porfirio Miller M.D. - 07/23/2018Format ting of this note might be different from the original. EXAM: DX LUMBAR SPINE 2-3 VIEWS, DX HIP AND PELVIS RIGHT 2-3 VIEWS IMPRESSION: Mild multilevel disc degener ation throughout the lumbar spine. There is slight anterolisthesis of L3 on L4 and L4 on L5. Moderately severe mid and lower lumbar facet arthritis. Osteop enia. Aortic calcifications. Bilateral THAs. No radiographic evidence for loose key. 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 [facility]E DAV DX Hip And Pelvis Right 2-3 Views (07/23/2018 9:31 AM DIRECTOR CLINICAL APPLICATIONS) Anatomical Region Laterality Modality Lower Extremity, Pelvis, Hip, Musculoskeletal RST LOS, Right Digital Radiography Musculoskeletal ARZ LOS, Muskuloskeletal FLA LOS Specimen (Source) Anatomical Collection Method Collection Time Re ceived Time Location / / Volume Laterality 07/23/2018 9:36 AM DIRECTOR CLINICAL APPLICATIONS Impressions 07/23/2018 9:39 AM DIRECTOR CLINICAL APPLICATIONS IMPRESSION: ??Mild multilevel disc degeneration throughout the lumbar spine. There is slight anterolisthesis of L3 on L4 and L4 on L5. Moderately severe mid and lower lumbar facet arthritis. Osteop enia. Aortic calcifications. Bilateral THAs. No radiographic evidence for loose key. 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 Narrative 07/23/2018 9:39 AM DIRECTOR CLINICAL APPLICATIONS EXAM: ??DX LUMBAR SPINE 2-3 VIEWS, DX HIP AND PELVIS RIGHT 2-3 VIEWS Procedure Note Porfirio Miller M.D. - 07/23/2018Format ting of this note might be different from the original. EXAM: DX LUMBAR SPINE 2-3 VIEWS, DX HIP AND PELVIS RIGHT 2-3 VIEWS IMPRESSION: Mild multilevel disc degener ation throughout the lumbar spine. There is slight anterolisthesis of L3 on L4 and L4 on L5. Moderately severe mid and lower lumbar facet arthritis. Osteop enia. Aortic calcifications. Bilateral THAs. No radiographic evidence for loose key. 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 [facility] MAGGY DEMARCO documented in this encounter Visit Diagnoses Diagnosis Pain Hip Right Pain Low Back Unspecified documented in this encounter
--- OUTSIDE RECORDS SUMMARY | 2022-05-09 17:05 | XMS_ITS | Encounter Summary ---
:1945 Author Organization [facility] Address [address] [place] [address] Care Team Providers Name Role Phone Unavailable Primary Care Provider Unavailable Encounter Details Date Type Department Care Team Description 03/12/2017 Hospital Encounter HX [facility] Pranay Su M.D. [address] [place] [address], [address] [place] [address] (Wo rk) Social History Tobacco [...] or relatives? How often do you attend yarsanism or moravian More than 4 time s per year 04/26/2021 services? Do you belong to any clubs or organizations Yes 04/26/2021 such as yarsanism groups, unions, fraternal or athletic groups, or [...] place to sleep or slept in a nursing home (including now)? 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 glipiZIDE (for_GLUCOTROL) Take 1 tablet by 0 11/1504/26/2021 10 mg tablet mouth daily. documented as of this encounter Progress Notes Harry Su M.D. - 03/12/2017 9:22 AM CDT [id number] CHIEF COMPLAINT/REASON FOR VISIT Follow up low back pain and history of left shoulder pain. HISTORY OF PRESENT ILLNESS Ms. Bosch returns today. Unfortunately on February 17 she was at her water aerobics class and she was walking at the [facility] she had a fall in the shower area when she was walking from the tile to the cement. She fell and landed on her left side and left shoulder. She reports that she had immediate pain in the left shoulder. She was hoping that it would resolve but it has been persistent since that time. She also developed some pain in her left gluteal region but that has been steadily improving. She describes her left shoulder pain as being located diffusely in the left shoulder that is worse if she does certain movements such as trying to reach her arm out to the side or behind her back or overhead. She can have pain at night when she lies on her left side as well. She can also have some pain in the region the left trapezius that can radiate into the left side of her neck although that is not as frequent. Very occasionally the pain can radiate into the lateral humerus and into the dorsal aspect of the forearm although again that is also not frequent. She has had intermittent pain in the left shoulder previously but nothing to this extent since her fall that she had on February 17. With respect to her low back pain she feels that she has been making progress working in physical therapy until the fall that she experienced. She has been going to water aerobics 4 times per week which she finds to be very helpful overall. She has been able to continue that even following the fall but she has been having to alter what she has been doing with her left shoulder. PHYSICAL EXAMINATION GENERAL: Pleasant 71-year-old female in no acute distress. NEUROLOGICAL: Oriented to person, place and time. Appropriate mood and affect. GAIT: Normal сергей and stride. Toe and heel walking are normal. STRENGTH: All major muscle groups of the bilateral upper and lower extremities have normal and symmetric muscle strength, bulk and tone except for -1 weakness with testing of left supraspinatus which is limited by pain. SPINE: Preserved cervical spine range of motion today without pain. There is no midline cervical spinous process tenderness. There is negative Spurling bilaterally. PALPATION: There is minimal tenderness to palpation in the left upper trapezius. Shoulder forward elevation is to 1 70 degrees bilaterally, abduction is 100 degrees in the right and 90 degrees in the left, internal rotation is to L1 bilaterally, rotation is 75 degrees bilaterally. Positive Neer's, positive Harden, [place] causes pain in the 1st and 2nd positions equally and positive Speed's on the left. IMPRESSION/REPORT/PLAN 1. Left shoulder pain following a fall on February 17. 2. Chronic low back pain. 3. Intermittent left lower extremity pain. 4. History of left lower extremity pain and weakness following a left total hip arthroplasty performed on March 25, 2013. 5. Lumbar spondylosis. 6. Lumbar spinal stenosis. PLAN: 1. We are going to proceed today with x-rays of Ms. Bosch's left shoulder as well as an MRI of the left shoulder with her weakness that she has with testing of her supraspinatus today following the fall that she experienced on February 17. 2. I will plan to see Ms. Bosch back following her imaging studies to review the results and discuss the next step in her management. She knows to be in contact with me prior to that time if she notesany worsening or worrisome symptoms which we went over in detail today. Ms. Bosch voiced agreement and understanding with this plan. Total time 25 minutes, counseling and coordination of care time greater than 15 minutes. Harry Su M.D./epi Electronically Signed By: HARRY SU MD On: 03/13/2017 10:06 AM Modified by and Electronically Signed by: HARRY SU MD On: 03/13/2017 10:06 AM Source: [facility] MHSDOLBEYNONRADSYS Document Id: [id number] documented in this encounter Miscellaneous Notes Miscellaneous - Clifford Turner L.P.N. - 03/12/2017 11:07 AM CDT *General Message Document Contains Addenda Addendum by CRYSTAL BALL LPN on March 13, 2017 16:30:07 CDT Order faxed Addendum by NICKY GREER on March 13, 2017 15:54:41 CDT From: NICKY GREER ([facility] Medical Records Library Professor/Radiology Outside [facility]) To: Physical Medicine and Rehabilitation Staff; Sent: 03/13/2017 15:54:41 CDT Subject: RE: *General Message No auth needed From: CLIFFORD TURNER LPN ( Physical Medicine and Rehabilitation Staff) To: [facility] Medical Records Library Professor/Radiology Outside [facility]; Sent: 03/12/2017 11:07:00 CDT Subject: *General Message Patient Referred to Provider or Facility: _[facility] Ordering Provider: _Pranay Su Appointment Date (if known): _ Imaging Service Ordered: (list CPT code or body part to be scanned) _Left Shoulder _ W/ Contrast _X W/O Contrast _ W/O Contrast followed by with _ _ CT/CTA _X MRI _ MRA _ PET _Nuclear Cardiology Study _ Other: (list): _ Diagnosis (CPT code if Known): _Left shoulder pain and limited movement Injury Related _X Yes _ No If yes, date and type of injury: _ 02/20/2017 Source: [facility] [employer] Document Id: [id number] Miscellaneous - Harry Su M.D. - 03/12/2017 10:56 AM CDT Ambulatory Patient Summary [facility] [address] [place] [id number] Visit Information Name: ALISHA BOSCH [facility] Number: [id number] Current Date: 03/12/2017 10:56:26 Physicians Attending Provider: HARRY US MD Primary Care Provider: PCPHERNAN ALISHA BOSCH has been given the following list of [...] Take Indications/Special Instructions/Comments/Notes for Patient Medication Changes/Routing aspirin (Aspir 81) 81 mg, Oral, once a day atenolol (atenolol 25 mg oral tablet) 0.5 Tablet(s), once a day cetirizine (ZyrTEC 10 mg oral tablet) 1 Tablet(s), Oral, once a day diclofenac topical (Voltaren 1% topical gel) 2 gm, Topical, three times a day as needed for Pain ergocalciferol (Vitamin D 400 iu oral tablet) 1 Tablet(s), Oral, once a day esomeprazole (NexIUM) Oral, once a day gabapentin (gabapentin 300 mg oral capsule) 3 cap, Oral, three times a day glipiZIDE (glipiZIDE 10 mg oral tablet) 1 Tablet(s), Oral, once a day levothyroxine (Levothroid 75 mcg (0.075 mg) oral tablet) 1 Tablet(s), Oral, once a day lisinopril (lisinopril 10 mg oral tablet) 1 Tablet(s), Oral, once a day lovastatin (lovastatin 40 mg oral tablet, extended release) 1 Tablet(s), Oral, once a day (at bedtime) metFORMIN (metFORMIN) 750 mg, Oral, once a day multivitamin with minerals (multivitamin with minerals Multiple Vitamins with Zinc oral capsule) 1 cap, Oral, once a day psyllium (Metamucil) Oral with calcium. triamterene-hydrochlorothiazide (triamterene-hydrochlorothiazide 37.5 mg-25 mg oral tablet) 1 Tablet(s), Oral, once a day Stop Taking the Following Medications: Medication list as of 03-12-17 10:56 Attention: If you have any medications at home that are not on this list, DO NOT take them until youcontact your provider for clarification. Give a copy of your medication list to your primary care provider. Update your medication list any time medications or doses are changed and carry your medication list at all times in case of emergency. Electronically Signed By: HARRY SU MD Signed On:12-MAR-2017 10:43:58 Your Allergies & Intolerances Substance Reaction Symptoms Category Comments erythromycin Emesis Drug Your Problem List Problem Status Onset Comments No Problems found Your Upcoming Appointments Date Time Location Provider No Appointments found Attention: Contact your local Clinic if further [...] if you dont have one. Go to [email or web address] and click on Create Your Account. Then, follow the directions to complete the online form. Youll be asked for your [facility] number which you can find at the top of this document. Your Goals/Additional instructions: Source: [facility] [employer] Document Id: [id number] Miscellaneous - Harry Su M.D. - 03/12/2017 10:56 AM CDT Ambulatory Discharge Medication List [address] [phone] Visit Information Name: ALISHA BOSCH [facility] Number: [id number] Current Date: 03/12/2017 10:56:25 Attending Provider: HARRY SU MD Primary Care Provider: PCP, HERNAN COLEKOJOFco ALISHA BRAYAN has been given the following list of medications: Your Medications It is important to take your medications as directed. Use a pill box or chart to help remind you to take your medications. Please let your doctor or nurse know if you have problems taking your medications. Medication/Strength How to Take Indications/Special Instructions/Comments/Notes for Patient Medication Changes/Routing aspirin (Aspir 81) 81 mg, Oral, once a day atenolol (atenolol 25 mg oral tablet) 0.5 Tablet(s), once a day cetirizine (ZyrTEC 10 mg oral tablet) 1 Tablet(s), Oral, once a day diclofenac topical (Voltaren 1% topical gel) 2 gm, Topical, three times a day as needed for Pain ergocalciferol (Vitamin D 400 iu oral tablet) 1 Tablet(s), Oral, once a day esomeprazole (NexIUM) Oral, once a day gabapentin (gabapentin 300 mg oral capsule) 3 cap, Oral, three times a day glipiZIDE (glipiZIDE 10 mg oral tablet) 1 Tablet(s), Oral, once a day levothyroxine (Levothroid 75 mcg (0.075 mg) oral tablet) 1 Tablet(s), Oral, once a day lisinopril (lisinopril 10 mg oral tablet) 1 Tablet(s), Oral, once a day lovastatin (lovastatin 40 mg oral tablet, extended release) 1 Tablet(s), Oral, once a day (at bedtime) metFORMIN (metFORMIN) 750 mg, Oral, once a day multivitamin with minerals (multivitamin with minerals Multiple Vitamins with Zinc oral capsule) 1 cap, Oral, once a day psyllium (Metamucil) Oral with calcium. triamterene-hydrochlorothiazide (triamterene-hydrochlorothiazide 37.5 mg-25 mg oral tablet) 1 Tablet(s), Oral, once a day Stop Taking the Following Medications: Medication list as of 03-12-17 10:56 Attention: If you have any medications at home that are not on this list, DO NOT take them until youcontact your provider for clarification. Give a copy of your medication list to your primary care provider. Update your medication list any time medications or doses are changed and carry your medication list at all times in case of emergency. Electronically Signed By: HARRY SU MD Signed On:12-MAR-2017 10:43:58 Additional Information: Source: [facility] Document Id: [id number] Miscellaneous - Clifford Turner LKatalinaPKatalinaN. 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 Intake/History Entered On: 03/12/2017 10:14 CDT Performed On: 03/12/2017 10:12 CDT by CLIFFORD TURNER POLISHER DIAL Intake Systolic Blood Pressure : 124 mmHg Diastolic Blood Pressure : 68 mmHg NIBP Mean : 87 mmHg BP Location : Left upper extremity Blood Pressure Cuff Size : Regular Actual Weight : 98.40 kg(Converted to: 216 lb 15 oz) Dosing Weight Clinic : 98.4 kg CLIFFORD TURNER [employer] D[employer] - 03/12/2017 10:12 CDT General Info Information Given By : Patient Languages : Palestinian Is Patient Female and 13-50 no hysterectomy : No CLIFFORD TURNER [facility] - 03/12/2017 10:12 CDT Subjective Pain Symptoms : No CLIFFORD TURNER [employer] - 03/12/2017 10:12 CDT Dependent Habits Exposure to Tobacco Smoke : Other: never Smoking Status : Never smoker Tobacco 2A : No Tobacco Use/Currently Using : No Tobacco Use/Last 30 Days : No Tobacco Use/Last 12 months : CLIFFORD Oates POLISHER DIAL - 03/12/2017 10:12 CDT Source: [facility] [employer] Document Id: [id number] CDT!22 documented in this encounter Plan of Treatment Not on filedocumented as of this encounter Procedures Procedure Name Priority Date/Time Associated Diagnosis Comme nts DX SHOULDER LEFT 2+ Routine 03/12/2017 10:54 AM R esults for this VIEWS CDT procedure are i n the results section. documented in this encounter Results DX Shoulder Left 2+ Views (03/12/2017 10:54 AM CDT) Anatomical Region Laterality Modality Upper Extremity, Shoulder Left Radiographic I maging Specimen (Source) Anatomical Collection Method Collection Time Re ceived Time Location / / Volume Laterality 03/12/2017 10:54 AM CDT Addenda Addendum by Provider, Parker Mcdaniels 03/12/2017 10:54 AM CDT RAD^^^OW XR Shoulder Left 2 or more views 03/12/2017 10:54:03 Impressions 03/12/2017 12:20 PM CDT No acute findings. Narrative 03/12/2017 12:20 PM CDT EXAM: ??XR Shoulder Left 2 or more views . DEMOGRAPHICS: ??71 years Female. INDICATION: ??shoulder pain after a fall . COMPARISON: ??October 17, 2015. FINDINGS: ??Moderately prominent degener ative changes of the left acromioclavicular joint space. Mild/mode rately prominent degenerative changes of the left acromioclavicular mónica int space. Negative for fracture or dislocation. Minimal change since prior evaluation. I f pain persists consider follow-up imaging. Procedure Note Saulo Prakash M.D. / Provider, Harriet mccormack M.D. - 03/22/2017 EXAM: XR Shoulder Left 2 or more views. DEMOGRAPHICS: 71 years Female. INDICATION: shoulder pain after a fall. COMPARISON: October 17, 2015. FINDINGS: Moderately prominent degenerat jose changes of the left acromioclavicular joint space. Mild/mode rately prominent degenerative changes of the left acromioclavicular mónica int space. Negative for fracture or dislocation. Minimal change since prior evaluation. I f pain persists consider follow-up imaging. IMPRESSION: No acute findings. Shanthi Jason R.T.(R), R.T.(R)(M) IMG DIAGNOSTIC IM AGING PROCEDURES documented in this encounter Visit Diagnoses Not on filedocumented in this encounter
--- OUTSIDE RECORDS SUMMARY | 2022-05-09 17:05 | XMS_ITS | Encounter Summary ---
:1945 Author Organization [facility] Address [address] [place] [address] Care Team Providers Name Role Phone Unavailable Primary Care Provider Unavailable Encounter Details Date Type Department Care Team Description 12/10/2016 Hospital Encounter HX [facility] Pranay Su M.D. [address] [place] [address], [address] [place] [address] (Wo rk) Social History Tobacco [...] or relatives? How often do you attend hindu or hoahaoism More than 4 time s per year 04/26/2021 services? Do you belong to any clubs or organizations Yes 04/26/2021 such as hindu groups, unions, fraternal or athletic groups, or [...] place to sleep or slept in a long term (including now)? 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 - 12/10/2016 12:39 PM CDT [id number] CHIEF COMPLAINT/REASON FOR VISIT Low back pain and left greater than right lower extremity pain. HISTORY OF PRESENT ILLNESS Ms. Bosch returns today in followup. She had an MRI performed of the lumbar spine on December 04, 2016. I reviewed the images with her in detail. Significant findings include moderate central canal stenosis at L3-L4 and L4-L5 with 6 mm of degenerative spondylolisthesis, L4 on L5. There are hypertrophic facet changes at L3-L4, L4-L5, and L5-S1. There is an intra-foraminal synovial cyst at L4-L5 on the left resulting in a left L4 ganglionic nerve root impingement. Also at L3-L4, there is right disk protrusion moderately compressing the right L4 nerve root. Ms. Manns symptoms continue to be primarily located in her low back with occasional pain radiating to her lower extremities, more of a feeling of heaviness and pain per se in the lower extremities. PHYSICAL EXAMINATION None performed today. IMPRESSION/REPORT/PLAN 1. Low back pain. 2. Left greater than right lower extremity pain. 3. History of left lower extremity pain and weakness following a left total hip arthroplasty on 2012. 4. Lumbar spondylosis. 5. Lumbar spinal stenosis. 6. Left wrist pain. 7. Left 1st carpometacarpal degenerative joint disease. I feel that Ms. Manns symptoms are multifactorial. She does have central canal stenosis at L3-L4 and L4-L5 but the majority of her pain is located in her low back. PLAN: 1. At the current time, I am going to have Ms. Bosch involved in physical therapy. I am giving her a detailed prescription today. We are going to work on a comprehensive program including primarily anaquatic-based rehabilitation program. Ms. Bosch recently has been diagnosed with diabetes mellitus and so hopefully this will help her be able to initiate an aerobic exercise program as well. I also discussed the use of a recumbent bicycle. 2. Ms. Bosch will continue to use her gabapentin 300 mg 3 times daily. 3. I will plan on seeing Ms. Bosch following physical therapy or sooner if she notes any worsening or worrisome symptoms, which we went over in detail today. Ms. Bosch voiced agreement and understanding with this plan. Total time 30 minutes, counseling and coordination of care time greater than 25 minutes. Harry Su M.D./epi Electronically Signed By: HARRY SU MD On: 12/11/2016 05:44 PM Modified by and Electronically Signed by: HARRY SU MD On: 12/11/2016 05:44 PM Source: [facility] MHSDOLBEYNONRADSYS Document Id: [id number] documented in this encounter Miscellaneous Notes Miscellaneous - Harry Su M.D. - 12/10/2016 1:42 PM CDT Ambulatory Patient Summary [address] [id number] Visit Information Name: ALISHA BOSCH [facility] Number: [id number] Current Date: 12/10/2016 13:42:37 Physicians Attending Provider: HARRY SU MD Primary Care Provider: PCPHERNAN ALISHA BOSCH [...] the Following Medications: Medication list as of 12-10-16 13:42 Attention: If you have any medications at [...] Electronically Signed By: HARRY SU MD Signed On:10-DEC-2016 13:42:16 Your Allergies & Intolerances Substance Reaction Symptoms [...] if you dont have one. Go to [email or web address] and click on Create Your Account. Then, follow the directions to complete the online form. Youll be asked for your [facility] number which you can find at the top of this document. Your Goals/Additional instructions: Source: [facility] POWERCHART Document Id: [id number] Miscellaneous - Harry Su M.D. - 12/10/2016 1:42 PM CDT Ambulatory Discharge Medication List [address] [id number] Visit Information Name: ALISHA BOCSH [facility] Number: [id number] Current Date: 12/10/2016 13:42:36 Attending Provider: HARRY SU MD Primary Care Provider: PCPHERNAN ALISHA BOSCH [...] the Following Medications: Medication list as of 12-10-16 13:42 Attention: If you have any medications at [...] Electronically Signed By: HARRY SU MD Signed On:10-DEC-2016 13:42:16 Additional Information: Source: [facility] [employer] Document Id: [id number] Miscellaneous - Heena Ball L.P.N. 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 Intake/History Entered On: 12/10/2016 13:03 CDT Performed On: 12/10/2016 13:02 CDT by HEENA BALL LPN Intake Systolic Blood Pressure : 104 mmHg Diastolic Blood Pressure : 60 mmHg NIBP Mean : 75 mmHg BP Location : Left upper extremity Blood Pressure Cuff Size : Large Actual Weight : 98.15 kg(Converted to: 216 lb 6 oz) Dosing Weight Clinic : 98.15 kg HEENA BALL LPN - 12/10/2016 13:02 CDT General Info Information Given By : Patient Languages : Lithuanian Is Patient Female and 13-50 no hysterectomy : No HEENA BALL LPN - 12/10/2016 13:02 CDT Subjective Pain Symptoms : No HEENA BALL LPN - 12/10/2016 13:02 CDT Dependent Habits Exposure to Tobacco Smoke : Other: never Smoking Status : Never smoker Tobacco 2A : No Tobacco Use/Currently Using : No Tobacco Use/Last 30 Days : No Tobacco Use/Last 12 months : No HEENA BALL LPN - 12/10/2016 13:02 CDT Source: [facility] [employer] Document Id: [id number] CDT!22 documented in this encounter Plan of Treatment Not on filedocumented as of this encounter Visit Diagnoses Not on filedocumented in this encounter
--- OUTSIDE RECORDS SUMMARY | 2022-05-09 17:05 | XMS_ITS | Encounter Summary ---
:1945 Author Organization [facility] Address [address] [place] [address] Care Team Providers Name Role Phone Unavailable Primary Care Provider Unavailable Reason for Referral Outpatient (Routine) - Closed Specialty Diagnoses / Referred By Contact Referred To Contact Procedures Physical Medicine and León Su, [facility] M.D. [address] [facility], [address] [place] [address] Referral ID Status Reason Start Date Expiration Date Visits Requ ested Visits Authorized [id number] Closed 08/28/2017 02/24/2018 1 1 EL SCRAPPER Reason for Visit Reason Comments Other left leg pain Appointment Request (Routine) - Closed Specialty Diagnoses / Procedures Referred By Contact Refer red To Contact Pain Medicine Referral ID Status Reason Start Date Expiration Date Visits Requ ested Visits Authorized [id number] Closed 07/26/2017 01/22/2018 1 1 Encounter Details Date Type Department Care Team Description 08/28/2017 Office Visit Department of Physical León Su, Pain Low Back (Primary Dx); Medicine and M.D. Spondylosis Lumbar Without Myelopathy; Rehabilitation in [address] [facility], Radic ulopathy Lumbar Fourth; [place], [place] [address] Bursitis Trochanteric Left [address] [place] [id number] [phone] Social History Tobacco Use Types Packs/Day Years Used Date Smoking Tobacco: Never Smokeless Tobacco: Never Alcohol Habits Answer Date Recorded [...] or relatives? How often do you attend hinduism or jewish More than 4 time s per year 04/26/2021 services? Do you belong to any clubs or organizations Yes 04/26/2021 such as hinduism groups, unions, fraternal or athletic groups, or [...] place to sleep or slept in a group home (including now)? 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 - 08/28/2017 12:00 AM CST SUBJECTIVE CHIEF COMPLAINT/REASON FOR VISIT Followup low back pain and left lower extremity pain. HISTORY OF PRESENT ILLNESS Patient returns today in followup. She does feel that the left greater trochanteric bursa corticosteroid injection was helpful for her performed in March. However, she had a fall in July where she fell with her left leg extending in front of her and her right leg out to the side. She rep orts that s samantha that time she has been having more pain in her low back with pain radiating into the left lowerextremity primarily into the left gluteal region and the left anterior thigh and anterior leg to thelevel of the ankle. She estimates that she can stand for approximately 5 to 10 minutes before the pain intensifies in her left lower extremity. If she is sitting she typically does not have as much disc omfort. She denies any new paresthesias in the left lower extremity or focal weakness in the left lower extremity. OBJECTIVE PHYSICAL EXAMINATION General: Pleasant 72-year-old female in no acute distress. Gait: Non-antalgic. Spine: -1 globally decreased lumbar spine range of motion. Palpation: There is tenderness on palpation of the left lower lumbar paraspinals as well as in the left gluteal region. Strength: Normal strength in the lower extremities except for -1 weakness testing of left hip abductors. There is tenderness to palpation of the left greater trochanteric bursa region. Straight leg raise causes pain in the left gluteus without any radiating pain. There is mild tenderness on palpation of the hamstring origin on the ischium. ASSESSMENT / PLAN #1 Acute exacerbation of chronic low back pain following a fall on July 24 #2 Left lower cervical extremity pain #3 History of left lower extremity pain and weakness following a left total hip arthroplasty performed on March 25, 2013 #4 Left greater trochanteric pain syndrome #5 Spondylosis #6 Lumbar spinal stenosis Ms. Manns symptoms and examination are suspicious for a diagnosis of a left L4 radiculopathy as being the cause of her pain. I also feel she has a component of left greater trochanteric pain syndrome as documented in my notes previously. Her neurologic examination is unchanged. Her previous lumbar spine MRI performed in November does show potential compression of the left L4 nerve root. Plan 1. We are going to arrange for a left L4 transforaminal epidural corticosteroid injection for both diagnostic and therapeutic purposes with Ms. Bosch's discomfort. 2. I would like her to return to her aquatic-based exercise program approximately 7 to 10 days following the epidural corticosteroid injection. She has been holding off on that recently because of the degree of her discomfort, and hopefully this will help decrease her pain and allow her to return to the water which I think is very beneficial for her overall. 3. I will plan on Ms. Bosch will slowly start to reinitiate the exercises she was shown in physicaltherapy as well hopefully following the epidural corticosteroid injection. 4. I will plan on seeing Ms. Bosch in 6 weeks to assess her progress or sooner if she notes any worsening symptoms which we went over in detail today. She voiced agreement and understanding with this plan. Total time 30 minutes, counseling and coordination of care time greater than 15 minutes. Job ID: [id number] CC: - - - - Sir[facility] Quiroga [facility].D., [facility] [address] [address] F: [phone] EL SCRAPPER documented in this encounter Plan of Treatment Scheduled Referrals Name Type Priority Associated Order Schedule Diagnoses Physical Medicine and Outpatient Referral Routine Expected: Rehabilitation office 2017 visit (clinic) (Approximate) , Expires: 08/28/2020 documented as of this encounter Visit Diagnoses Diagnosis Pain Low Back Unspecified - Primary Spondylosis Lumbar Without Myelopathy Radiculopathy Lumbar Fourth Bursitis Trochanteric Left documented in this encounter
--- OUTSIDE RECORDS SUMMARY | 2022-05-09 17:05 | XMS_ITS | Encounter Summary ---
:1945 Author Organization [facility] Address [address] [place] [address] Care Team Providers Name Role Phone Unavailable Primary Care Provider Unavailable Encounter Details Date Type Department Care Team Description 04/27/2019 Clinical Communication Department of Sports Isaac Su, Medicine in .[place], [place] [address], [address] [facility] [address] [place] [address] [phone] Social History Tobacco Use Types Packs/Day Years [...] or relatives? How often do you attend confucianism or advent More than 4 time s per year 04/26/2021 services? Do you belong to any clubs or organizations Yes 04/26/2021 such as confucianism groups, unions, fraternal or athletic groups, or [...] place to sleep or slept in a [facility] (including now)? 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 - 04/27/2019 11:58 AM CDT Ok to see back in 60 minutes. I have added x-ray orders for the following (lumbar spine, thoracic spine and shoulder) please schedule accordingly. Telephone Encounter - Carleen Stephens - 04/27/2019 11:39 AM CDT Who is calling: Patient Physician: Dr. Su Body Part/Region: Back pain-- lumbar and thoracic, left shoulder Reason for call: Other: The patient called us today seeking an appointment. She had seen Dr. Su for her lower back and shoulder last year and is wanting to come back for those as well as pain in herthoracic back, which he saw her for in [facility]. She did have a recent fall and thinks she may havedone her shoulder more harm. I would like to confirm that Dr. Su will see her for a follow up of these concerns. Can you advise if he will and if he wants more time beyond the standard hour to address these? Action: Message routed to Athletic Trainers at [facility] documented in this encounter Plan of Treatment Not on filedocumented as of this encounter Results DX Shoulder Left 2+ Views (06/02/2019 8:49 AM CDT) Anatomical Region Laterality Modality Upper Extremity, Shoulder, Musculoskeletal RST LOS, Left Digital Radiography Musculoskeletal ARZ LOS, Muskuloskeletal FLA LOS Specimen (Source) Anatomical Collection Method Collection Time Re ceived Time Location / / Volume Laterality 06/02/2019 8:51 AM CDT Impressions 06/02/2019 8:54 AM CDT There is a 2.5 cm rounded focus of peripheral calcification within the medial aspect of the proximal left u pper arm may represent a focus of myositis ossificans. Moderate degenerati ve arthritis of the acromioclavicular and glenohumeral joints, similar to prio r radiographs. No fracture or dislocation. There is remodeling and ent hesophyte at the acromial undersurface suggesting a component of chronic rotato r cuff pathology. Aortic calcifications. Narrative 06/02/2019 8:54 AM CDT EXAM: ??DX SHOULDER LEFT 2+ VIEWS Procedure Note Porfirio Miller M.D. - 06/02/2019Format ting of this note might be different from the original. EXAM: DX SHOULDER LEFT 2+ VIEWS IMPRESSION: There is a 2.5 cm rounded focus of perip heral calcification within the medial aspect of the proximal left u pper arm may represent a focus of myositis ossificans. Moderate degenerati ve arthritis of the acromioclavicular and glenohumeral joints, similar to prio r radiographs. No fracture or dislocation. There is remodeling and ent hesophyte at the acromial undersurface suggesting a component of chronic rotato r cuff pathology. Aortic calcifications. León HANSON DIAGNOSTIC IMAGING PROCE DAV DX Thoracic Spine 2 Views (06/02/2019 8:49 AM CDT) Anatomical Region Laterality Modality Thoracic Spine, Musculoskeletal RST LOS, N/A Digital Radiography Neuroradiology ARZ LOS, Muskuloskeletal FLA LOS Specimen (Source) Anatomical Collection Method Collection Time Re ceived Time Location / / Volume Laterality 06/02/2019 8:54 AM CDT Impressions 06/02/2019 8:57 AM CDT Slight convex right midthoracic and convex left thoracolumbar curve. Mild multilevel degenerative endp late spurring throughout the thoracic and lumbar spine. Trace anterolisthesis L3 on L4. Grade 1 anterolisthesis L4 on L5. These findings are similar to prior radiographs. Marked mid and lower lumbar facet arthritis bilateral THAs. Osteopen ia. No fractures. Aortic calcifications. Narrative 06/02/2019 8:57 AM CDT EXAM: ??DX THORACIC SPINE 2 VIEWS, DX LUMBAR SPINE 2-3 VIEWS Procedure Note Porfirio Miller M.D. - 06/02/2019Format ting of this note might be different from the original. EXAM: DX THORACIC SPINE 2 VIEWS, DX LUMB AR SPINE 2-3 VIEWS IMPRESSION: Slight convex right midthoracic and conv ex left thoracolumbar curve. Mild multilevel degenerative endp late spurring throughout the thoracic and lumbar spine. Trace anterolisthesis L3 on L4. Grade 1 anterolisthesis L4 on L5. These findings are similar to prior radiographs. Marked mid and lower lumbar facet arthritis bilateral THAs. Osteopen ia. No fractures. Aortic calcifications. León HANSON DIAGNOSTIC IMAGING PROCE DURES DX Lumbar Spine 2-3 Views (06/02/2019 8:49 AM CDT) Anatomical Region Laterality Modality Lumbar Spine, Musculoskeletal RST LOS, Neuroradiology N/A Digital Radiography ARZ LOS, Muskuloskeletal FLA LOS Specimen (Source) Anatomical Collection Method Collection Time Re ceived Time Location / / Volume Laterality 06/02/2019 8:54 AM CDT Impressions 06/02/2019 8:57 AM CDT Slight convex right midthoracic and convex left thoracolumbar curve. Mild multilevel degenerative endp late spurring throughout the thoracic and lumbar spine. Trace anterolisthesis L3 on L4. Grade 1 anterolisthesis L4 on L5. These findings are similar to prior radiographs. Marked mid and lower lumbar facet arthritis bilateral THAs. Osteopen ia. No fractures. Aortic calcifications. Narrative 06/02/2019 8:57 AM CDT EXAM: ??DX THORACIC SPINE 2 VIEWS, DX LUMBAR SPINE 2-3 VIEWS Procedure Note Porfirio Miller M.D. - 06/02/2019Format ting of this note might be different from the original. EXAM: DX THORACIC SPINE 2 VIEWS, DX LUMB AR SPINE 2-3 VIEWS IMPRESSION: Slight convex right midthoracic and conv ex left thoracolumbar curve. Mild multilevel degenerative endp late spurring throughout the thoracic and lumbar spine. Trace anterolisthesis L3 on L4. Grade 1 anterolisthesis L4 on L5. These findings are similar to prior radiographs. Marked mid and lower lumbar facet arthritis bilateral THAs. Osteopen ia. No fractures. Aortic calcifications. León HANSON DIAGNOSTIC IMAGING PROCE DURDANIE documented in this encounter Visit Diagnoses Diagnosis Pain Shoulder Left - Primary Pain Back Lumbar Pain Back Thoracic Pain Back Lumbar Pain Back Thoracic Pain Shoulder Left documented in this encounter
--- OUTSIDE RECORDS SUMMARY | 2022-05-09 17:05 | XMS_ITS | Encounter Summary ---
:1945 Author Organization [facility] Address [address] [place] [address] Care Team Providers Name Role Phone Unavailable Primary Care Provider Unavailable Encounter Details Date Type Department Care Team Description 08/20/2017 Abstract Department of Family Medicine, Provider, Historical [facility], in [place], [place] [address], [place] [address] [facility] [phone] Social History Tobacco Use Types Packs/Day Years [...] or relatives? How often do you attend presybeterian or bahai More than 4 time s per year 04/26/2021 services? 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
--- OUTSIDE RECORDS SUMMARY | 2022-05-09 17:05 | XMS_ITS | Encounter Summary ---
:1945 Author Organization [facility] Address [address] [place] [address] Care Team Providers Name Role Phone Unavailable Primary Care Provider Unavailable Reason for Visit Reason Onset Date Comments Triage for Sarah Pt 07/14/2018 Encounter Details Date Type Department Care Team Description 07/14/2018 Clinical Department of León Su for Communication Sports Medicine [place] Pt [address], [address] [place] [phone] Social History Tobacco Use Types Packs/Day Years [...] or relatives? How often do you attend zoroastrian or jehovah's witness More than 4 time s per year 04/26/2021 services? Do you belong to any clubs or organizations Yes 04/26/2021 such as zoroastrian groups, unions, fraternal or athletic groups, or [...] place to sleep or slept in a alf (including now)? 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 - 07/14/2018 2:12 PM CDT XR ordered. Please schedule. Thanks! Telephone Encounter - Cristy Guzman - 07/14/2018 2:04 PM CDT The patient is scheduled to see Dr. Su on 07/15 3:45, Right hip and low back. This is scheduled as a [address] x-ray orders. Please route all messages to T SPM SCHEDULING Thank you, Cristy Telephone Encounter - Mirian Tee L.A.T., A.T.C. - 07/14/2018 9:33 AM CDT Please schedule the patient for 30 min follow up appointment with Dr. Su Telephone Encounter - Carleen Stephens - 07/14/2018 9:29 AM CDT The patient is one of Dr. Su's [facility] patients seeking return care. She was last seen in [place] would like to be seen in [place] to address her right hip and lower back. Please let us knowif he would be willing to see. Thank you, Harika documented in this encounter Plan of Treatment Not on filedocumented as of this encounter Results DX Lumbar Spine 2-3 Views (07/23/2018 9:31 AM LABORATORY MECHANIC HELPER) Anatomical Region Laterality Modality Lumbar Spine, Musculoskeletal RST LOS, Neuroradiology N/A Digital Radiography ARZ LOS, Muskuloskeletal FLA LOS Specimen (Source) Anatomical Collection Method Collection Time Re ceived Time Location / / Volume Laterality 07/23/2018 9:36 AM LABORATORY MECHANIC HELPER Impressions 07/23/2018 9:39 AM LABORATORY MECHANIC HELPER IMPRESSION: ??Mild multilevel disc degeneration throughout the [...] greater than left. Narrative 07/23/2018 9:39 AM LABORATORY MECHANIC HELPER EXAM: ??DX LUMBAR SPINE 2-3 VIEWS, DX [...] the prostheses, right greater than left. León Su M.D. IMG DIAGNOSTIC IMAGING PROCE DAV DX Hip And Pelvis Right 2-3 Views (07/23/2018 9:31 AM LABORATORY MECHANIC HELPER) Anatomical Region Laterality Modality Lower Extremity, Pelvis, Hip, Musculoskeletal RST LOS, Right Digital Radiography Musculoskeletal ARZ LOS, Muskuloskeletal FLA LOS Specimen (Source) Anatomical Collection Method Collection Time Re ceived Time Location / / Volume Laterality 07/23/2018 9:36 AM LABORATORY MECHANIC HELPER Impressions 07/23/2018 9:39 AM LABORATORY MECHANIC HELPER IMPRESSION: ??Mild multilevel disc degeneration throughout the [...] greater than left. Narrative 07/23/2018 9:39 AM LABORATORY MECHANIC HELPER EXAM: ??DX LUMBAR SPINE 2-3 VIEWS, DX [...] the prostheses, right greater than left. León Su M.D. IMXavi DIAGNOSTIC IMAGING MAGGY DEMARCO documented in this encounter Visit Diagnoses Diagnosis Pain Hip Right - Primary Pain Low Back Unspecified Pain Hip Right Pain Low Back Unspecified documented in this encounter
--- OUTSIDE RECORDS SUMMARY | 2022-05-09 17:05 | XMS_ITS | Encounter Summary ---
:1945 Author Organization [facility] Address [address] [place] [address] Care Team Providers Name Role Phone Unavailable Primary Care Provider Unavailable Reason for Visit Reason Comments Communication Encounter Details Date Type Department Care Team Description 10/31/2017 Clinical Communication Department [facility] Isaac Kimball, [facility], [address] [phone] Social History Tobacco Use Types Packs/Day Years [...] or relatives? How often do you attend taoist or worship More than 4 time s per year 04/26/2021 services? Do you belong to any clubs or organizations Yes 04/26/2021 such as taoist groups, unions, fraternal or athletic groups, or [...] place to sleep or slept in a skilled nursing (including now)? 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 - 10/31/2017 1:32 PM CST Spoke with patient. AGE CONTROL CLERK Telephone Encounter - Genesis Nelson - 10/31/2017 1:04 PM CST Pt calling to speak with nurse regarding an appt for shoulder surgery, please call back AGE CONTROL CLERK documented in this encounter Plan of Treatment Not on filedocumented as of this encounter Visit Diagnoses Not on filedocumented in this encounter
--- OUTSIDE RECORDS SUMMARY | 2022-05-09 17:05 | XMS_ITS | Encounter Summary ---
:[address] [facility] Address [address] [place] [address] Care Team Providers Name Role Phone Unavailable Primary Care Provider Unavailable Encounter Details Date Type Department Care Team Description 07/26/2017 Clinical Communication Department of León Su, Internal Medicine in [place], [place] 600 [facility], [address] [place] [address] [address] [place] [address] [phone] Social History Tobacco Use Types Packs/Day Years [...] How often do you attend taoism or synagogue More than 4 time s per year [...] to sleep or slept in a senior living (including now)? 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
--- OUTSIDE RECORDS SUMMARY | 2022-05-09 17:05 | XMS_ITS | Encounter Summary ---
:1945 Author Organization [facility] Address [address] [place] [address] Care Team Providers Name Role Phone Unavailable Primary Care Provider Unavailable Encounter Details Date Type Department Care Team Description 10/12/2019 Documentation Department of Sports Georges, Pranay Quan M.D. Medicine in [place], [address] [place] [address] [address] [place] [address] [place], [place] [phone] (Wo rk) [phone] Social History Tobacco Use Types Packs/Day Years [...] How often do you attend taoism or anabaptist More than 4 time s [...] place to sleep or slept in a chcf (including now)? Education Answer Date Recorded What is the highest level of school Bachelor's degree (e.g., BA, AB, 06/02/2019 you have completed or the highest BS) degree you have received? 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 - 10/12/2019 12:37 PM CST I spoke with Mrs. Bosch on the phone today following the right L4-L5 transforaminal corticosteroid injection she had performed on October 06 at [facility]. She reports that this has been very helpful for thelower extremity pain that she has been experiencing. She still does have some focal pain in the right lateral hip, but the pain she is experiencing radiating distal has improved markedly which she is very pleased with. She reports that her pain at this point is livable. She did, however, have what sounds like a reaction to the contrast. She has developed a rash all over her body. She reports that shedid develop similar symptoms after her last epidural which I was not aware of. She reports she was pretreated by [facility] this time with methylprednisolone, but these symptoms have been persistent. I also discussed with her the results of her MRI of the thoracic spine performed on October 05, 2019. Significant findings include there is multilevel spondylosis with left disk protrusions at T6-T7, T7-T8 with no significant central stenosis or cord compression. There is also multilevel chronic hypert rophic facet joint degeneration with foraminal stenosis. This is most pronounced bilaterally at T8-T9 and T10-T11, but there is mild to moderate bilateral foraminal stenosis and mild to moderate foraminal stenosis in left T9-T10. I am going to have Mrs. Bosch meet with her primary care physician, Dr. Quiroga in [place], with the symptoms she is experiencing. I did discuss placing her on prednisone, but she does report that she has noticed some areas of the rash around her eyes, and so I think it would be best if she saw . Mrs. Bosch is also in agreement with this, and I very much appreciate Dr. Quiroga's input with respect to Mrs. Bosch's situation. We discussed that, if we were to ever proceed with an epiduralagain, we may want to use gadolinium. With respect to her thoracic pain, Mrs. Bosch will continue to advance her current program that shehas been working on in physical therapy. We also discussed that, if she were to note any change in her symptoms or worsening symptoms, I would like to see her with respect to that. She did voice agreement with this. We also discussed that potentially we may consider proceeding with an ultrasound-guided right greater trochanteric bursa corticosteroid injection, but we will defer that currently with the symptoms she is experiencing related to the contrast, and Mrs. Bosch is also in agreement with this. She will contact me in 1 week to let me know if she is progressing or sooner if she notes any change in her symptoms. Mrs. Bosch voiced agreement with this plan. CT CT Job ID: [id number] CHANGER documented in this encounter Plan of Treatment Not on filedocumented as of this encounter Visit Diagnoses Not on filedocumented in this encounter
--- OUTSIDE RECORDS SUMMARY | 2022-05-09 17:05 | XMS_ITS | Encounter Summary ---
:1945 Author Organization [facility] Address [address] [place] [address] Care Team Providers Name Role Phone Unavailable Primary Care Provider Unavailable Encounter Details Date Type Department Care Team Description 04/08/2017 Hospital Encounter HX [facility] Pranay Su M.D. [address] [place] [address], [address] [place] [address] (Wo rk) Social History Tobacco [...] or relatives? How often do you attend synagogue or mormon More than 4 time s per year 04/26/2021 services? 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 documented as of this encounter Procedure Notes Harry Su M.D. - 04/08/2017 12:00 AM CDT 1RPT DIAGNOSIS: Left greater trochanteric bursitis. HISTORY/INDICATION: Please see my clinical note dated 03/27/17 for details of the HPI. PROCEDURE PERFORMED: Ultrasound-guided left greater trochanteric bursa corticosteroid injection. PATIENT EDUCATION: Ready to learn. No apparent learning barriers were identified. Learning preferences include listening. Explained diagnosis and treatment of plan. The patient expressed understanding of the content. Following denial of allergy and review of potential side effects and complications including but notnecessarily limited to infection, allergic reaction, local tissue breakdown, systemic effects of corticosteroids, elevation of blood glucose, injury to soft tissues and/or nerves, and seizure, the patient indicated understanding and agreed to proceed. Signed informed consent was obtained. Ms. Bosch is diabetic. She understands her blood sugar may become elevated following today's procedure. If it becomes quite elevated, she will be in contact with either ne or Dr. Quiroga. The use of direct ultrasound visualization of the needle (rather than a non- guided injection) was required to increase patient safety by excluding inadvertent intramuscular or intratendinous placement and minimizing bleeding by avoiding osteochondral or vascular injury from the needle. Additionally, the increased accuracy of placement may increase clinical effectiveness and will allow higher diagnostic specificity when evaluating effectiveness of this injection. DESCRIPTION OF PROCEDURE: Prior to starting the procedure, a pause was performed to confirm the patients name, affected area, and proposed procedure. The patient was placed in a lateral decubitus position. Next, an optimal, ultrasound image of the tissue plane between the left gluteus angie and gluteus medius, as well as the left greater trochanter was obtained with a 5-1 curvilinear array transducer. A preprocedure image was saved to the hard drive. Following this, the area was prepped with a ChloraPrep scrub x2, then re-examined using the same transducer, a sterile ultrasound transducer cover, and sterile ultrasound transducer gel. Next, 2 mL of 1% lidocaine was used for local anesthesia usinga 25-gauge 2-inch needle. Following delivery of local anesthesia, real time ultrasound was used to guide a 22-gauge 2-1/2-inch needle into the tissue plane between the gluteus angie and gluteus medius. After visualization of the tip in the target area and negative aspiration for blood, a mixture of 5 mL 1% lidocaine and 1 mL of 40 mg/mL of Depo-Medrol was delivered to the target area while observing injectate flow with real time ultrasonographic imaging. The injectate was delivered without complications. No Depo-Medrol was wasted due to single use vials for infection control purposes. The patient tolerated the procedure well. She was observed for an appropriate amount of time and discharged under her own power. She was given my card and instructed to contact me with any questions pertaining to the injection. She was also instructed that should she experience any fever, chills, excessive redness at the injection site, or numbness or weakness, she should phone me immediately. She was instructed that she should use ice over the area of injection, and limit activity for the rest of the day. ADDITIONAL INSTRUCTIONS: Ms. Bosch will be in contact with us if she has any difficulty following todays procedure. Otherwise, we will plan on being in contact with her over the phone in two weeks to assess her progress. Ms. Bosch voiced agreement and understanding with this plan. Harry Su M.D./jay Electronically Signed By: HARRY SU MD On: 04/09/2017 01:24 PM Modified by and Electronically Signed by: HARRY SU MD On: 04/09/2017 01:24 PM Source: [facility] MHSDOLBEYNONRADSYS Document Id: [id number] documented in this encounter Miscellaneous Notes Miscellaneous - Clifford Turner L.PKatalinaNKatalina - 04/08/2017 12:15 PM CDT Reminder Msg Document Contains Addenda Addendum by CLIFFORD TURNER LPN on April 26, 2017 10:28:28 CDT Patient stated that the injection didn't help at all. Patient stated that she will try using ice more often and see if that helps. From: CLIFFORD TURNER LPN ([facility] Physical Medicine and Rehabilitation Staff) To: Physical Medicine and Rehabilitation Staff; Sent: 04/08/2017 12:15:08 CDT Show up: 04/22/2017 12:14:00 CDT Subject: Reminder Msg Please Remember to: Call Patient to see how she is doing after left greater troch corticosteroid injection. PATIENT: ( ) Call Patient ( ) Ask Patient to ( ) ( ) Call Relative ( ) Schedule Patient ( ) ( ) Call for Sugar Plantation Manager ( ) Follow up on Results ( ) Other: PROVIDER: ( ) Call Physician ( ) Call Pharmacist ( ) Call Lab ( ) Other: Special Instructions: Comments: Source: [facility] POWERCHART Document Id: [id number] DDLE BUG Miscellaneous - Harry Su M.D. - 04/08/2017 11:26 AM CDT Ambulatory Patient Summary [address] [id number] Visit Information Name: AVNI BOSCHBertrand SCHMIDT [facility] Number: [id number] Current Date: 04/08/2017 11:26:19 Physicians Attending Provider: HARRY SU MD Primary Care Provider: PCP, HERNAN ALISHA BOSCH has been given the following [...] oral tablet) 0.5 Tablet(s), once a day bifidobacterium-lactobacillus (Probiotic Formula) 1 cap, Oral, once a day cetirizine (ZyrTEC 10 mg [...] the Following Medications: Medication list as of 04-08-17 11:26 Attention: If you have any medications at [...] Electronically Signed By: HARRY SU MD Signed On:08-APR-2017 11:26:05 Your Allergies & Intolerances Substance Reaction Symptoms [...] if you dont have one. Go to [email or web address] and click on Create Your Account. Then, follow the directions to complete the online form. Youll be asked for your [facility] number which you can find at the top of this document. Your Goals/Additional instructions: Source: [facility] POWERCHART Document Id: [id number] Miscellaneous - Harry Su M.D. - 04/08/2017 11:26 AM CDT Ambulatory Discharge Medication List [address] [id number] Visit Information Name: ALIHSA BOSCH [facility] Number: [id number] Current Date: 04/08/2017 11:26:18 Attending Provider: HARRY SU MD Primary Care Provider: PCP, HERNAN BOSCH [...] oral tablet) 0.5 Tablet(s), once a day bifidobacterium-lactobacillus (Probiotic Formula) 1 cap, Oral, once a day cetirizine (ZyrTEC 10 mg [...] the Following Medications: Medication list as of 04-08-17 11:26 Attention: If you have any medications at [...] Electronically Signed By: HARRY SU MD Signed On:08-APR-2017 11:26:05 Additional Information: Source: [facility] POWERCHART Document Id: [id number] Miscellaneous - Clifford Turner, L.P.N. - 04/08/2017 11:01 AM CDT Adult Station Mechanic Intake/History Adult Station Mechanic Intake/History Entered On: 04/08/2017 11:02 CDT Performed On: 04/08/2017 11:01 CDT by CLIFFORD TURNER LPN Intake Systolic Blood Pressure : 126 mmHg Diastolic Blood Pressure : 68 mmHg NIBP Mean : 87 mmHg BP Location : Left upper extremity Blood Pressure Cuff Size : Regular Actual Weight : 97.70 kg(Converted to: 215 lb 6 oz) Dosing Weight Clinic : 97.7 kg CLIFFORD TURNER LPN - 04/08/2017 11:01 CDT General Info Information Given By : Patient Languages : Irish Is Patient Female and 13-50 no hysterectomy : No CLIFFORD TURNER LPN - 04/08/2017 11:01 CDT Subjective Pain Symptoms : No CLIFFORD TURNER LPN - 04/08/2017 11:01 CDT Dependent Habits Exposure to Tobacco Smoke : Other: never Smoking Status : Never smoker Tobacco 2A : No Tobacco Use/Currently Using : No Tobacco Use/Last 30 Days : No Tobacco Use/Last 12 months : CLIFFORD Oates LPN - 04/08/2017 11:01 CDT [facility] Document Id: [id number] CDT!22 documented in this encounter Plan of Treatment Not on filedocumented as of this encounter Visit Diagnoses Not on filedocumented in this encounter
--- OUTSIDE RECORDS SUMMARY | 2022-05-09 17:05 | XMS_ITS | Encounter Summary ---
:1945 Author Organization [facility] Address [address] [place] [address] Care Team Providers Name Role Phone Unavailable Primary Care Provider Unavailable Reason for Visit Reason Comments Communication Encounter Details Date Type Department Care Team Description 09/20/2017 Clinical Communication Department of León Su, Communication Internal Medicine in [place], [place] 600 [facility], [address] [place] [address] [address] [place] [address] [phone] Social History Tobacco Use Types Packs/Day Years [...] or relatives? How often do you attend rastafari or faith More than 4 time s per year 04/26/2021 services? 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 - 09/20/2017 10:39 AM ENVIRONMENTAL SERVICES SUPERVISOR Spoke with patient. RONMENTAL SERVICES SUPERVISOR Telephone Encounter - Namrata Wolff - 09/20/2017 10:14 AM CST Patient would like to know where Dr. Su referred her in [place]. States she has an appointment with them next week, and was told something would be mailed to her with instructions, and she has notreceived it. She does not know the name of the facility so she can't call them. Please advise and call [phone] RONMENTAL SERVICES SUPERVISOR documented in this encounter Plan of Treatment Not on filedocumented as of this encounter Visit Diagnoses Not on filedocumented in this encounter
--- OUTSIDE RECORDS SUMMARY | 2022-05-09 17:05 | XMS_ITS | Encounter Summary ---
:1945 Author Organization [facility] Address [address] [place] [address] Care Team Providers Name Role Phone Unavailable Primary Care Provider Unavailable Reason for Visit Reason Comments Communication Encounter Details Date Type Department Care Team Description 08/30/2017 Clinical Communication Department of [facility] Vinod Blanco, Communication Medicine, [facility], in [address] [address] Social History Tobacco Use Types Packs/Day Years [...] or relatives? How often do you attend latter day or yazdanism More than 4 time s per year 04/26/2021 services? 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 - 09/05/2017 12:51 PM BOND WRITER Order faxed. WRITER documented in this encounter Plan of Treatment Not on filedocumented as of this encounter Visit Diagnoses Not on filedocumented in this encounter
--- OUTSIDE RECORDS SUMMARY | 2022-05-09 17:05 | XMS_ITS | Encounter Summary ---
:1945 Author Organization [facility] Address [address] [place] [address] Care Team Providers Name Role Phone Unavailable Primary Care Provider Unavailable Reason for Referral Outpatient (Routine) - Closed Specialty Diagnoses / Referred By Contact Referred To Contact Procedures Physical León Wilson [facility] Rehabilitation M.Bud [address] [facility], [address] [place] [address] Referral ID Status Reason Start Date Expiration Date Visits Requ ested Visits Authorized [id number] Closed 10/09/2017 04/07/2018 1 1 ING CONSULTANT Reason for Visit Reason Comments Follow-up after injection- has helped Outpatient (Routine) - Closed Specialty Diagnoses / Referred By Contact Referred To Contact Procedures León Zepeda [facility] M.DKatalina [address] [facility], [address] [place] [address] Referral ID Status Reason Start Date Expiration Date Visits Requ ested Visits Authorized [id number] Closed 08/28/2017 02/24/2018 1 1 Encounter Details Date Type Department Care Team Description 10/09/2017 Office Visit Department of Physical León Su, Radiculopathy Lumbar Fourth (Primary Dx); Medicine and M.DKatalina Pain Shoulder Right Rehabilitation in [address] [place] [address] [address] [place] [phone] Social History Tobacco Use Types Packs/Day Years [...] or relatives? How often do you attend spiritism or sabianist More than 4 time s per year 04/26/2021 services? Do you belong to any clubs or organizations Yes 04/26/2021 such as spiritism groups, unions, fraternal or athletic groups, or [...] or slept in a detention (including now)? 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 - 10/09/2017 12:00 AM CST SUBJECTIVE CHIEF COMPLAINT/REASON FOR VISIT Follow up left L4 radiculopathy and new issue of right shoulder pain. HISTORY OF PRESENT ILLNESS Ms. Bosch returns today. She did have a left L4 transforaminal epidural corticosteroid injection performed at [facility] and she has found that to be very helpful. All the sharp stabbing pain she was having in her left lower extremity has resolved. She still has a dull ache in the left lower extremity but that is much more tolerable for her and she is very pleased with the progress she has made following the injection. She would like to discuss right shoulder pain. She reports it has been present for several months, worse after a fall that she experienced in July. It is located in the anterior lateral right shoulder and is especially prominent at night when she tries to sleep on her right side which will often wake her from sleep. She also has to be careful reaching across her body or behind her back. OBJECTIVE PHYSICAL EXAMINATION General: Pleasant 72-year-old female in no acute distress. Shoulder: Forward elevation is 170 degrees bilaterally, abduction 180 degrees on the right with painin the mid arc on the right, positive Neer's, positive Harden, negative Speed, negative scarf on the right. There is tenderness to palpation in the anterior subacromial space on the right. Relatively preserved strength testing of right rotator cuff musculature except for mild weakness at the right supraspinatus which is limited by pain. ASSESSMENT / PLAN #1 Low back and left lower extremity pain, consistent with left L4 radiculopathy #2 Right shoulder pain Ms. Bosch has made excellent progress following the left L4 transforaminal epidural corticosteroid injection. PLAN: 1. I encouraged Ms. Bosch to reinitiate her aquatic-based rehabilitation program and she is going to begin that next week hopefully. 2. We are going to proceed with an MRI of the right shoulder for Ms. Bosch's persistent discomfort and her physical examination findings today as I cannot rule out a full-thickness rotator cuff tear. 3. I will plan to see Ms. Bosch following the right shoulder MRI. She knows she may contact me prior to that time if she notes any worsening symptoms which we went over in detail today. Ms. Bosch voiced agreement and understanding with this plan. Total time 25 minutes, counseling and coordination of care time greater than 15 minutes. Job ID: [id number] ING CONSULTANT documented in this encounter Plan of Treatment Scheduled Referrals Name Type Priority Associated Order Schedule Diagnoses Physical Medicine and Outpatient Referral Routine Expected: Rehabilitation office 2017 visit (clinic) (Approximate) , Expires: 10/09/2020 documented as of this encounter Visit Diagnoses Diagnosis Radiculopathy Lumbar Fourth - Primary Pain Shoulder Right documented in this encounter
--- OUTSIDE RECORDS SUMMARY | 2022-05-09 17:05 | XMS_ITS | Encounter Summary ---
:1945 Author Organization [facility] Address [address] [place] [address] Care Team Providers Name Role Phone Unavailable Primary Care Provider Unavailable Reason for Visit Reason Comments Communication Encounter Details Date Type Department Care Team Description 10/10/2017 Clinical Communication Department of [facility] Vinod Blanco, Communication Medicine, [facility], in [address] [phone] Social History Tobacco Use Types [...] How often do you attend taoist or oriental orthodox More than 4 time s per year [...] slept in a senior care (including now)? 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
--- OUTSIDE RECORDS SUMMARY | 2022-05-09 17:05 | XMS_ITS | Encounter Summary ---
:1945 Author Organization [facility] Address [address] [place] [address] Care Team Providers Name Role Phone Unavailable Primary Care Provider Unavailable Reason for Visit Reason Onset Date Comments Injection reaction 10/12/2019 Encounter Details Date Type Department Care Team Description 10/12/2019 Clinical Department of León Su Injection re action Communication Sports Medicine in [place] [facility], [address] [place] [address], [address] [place] [phone] Social History Tobacco Use Types Packs/Day Years [...] How often do you attend confucianism or adventism More than 4 time s per year [...] at Date Recorded 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 - 10/12/2019 12:[address] Su spoke with the patient and she will be following up with her PCP. Appointment with Dr. Su today was cancelled. TRICAL AND INSTRUMENT MECHANIC Telephone Encounter - Alana Esquivel - 10/12/2019 10:00 AM CST Frannie, Patient is aware and will keep her phone close by. Thank you Alana TRICAL AND INSTRUMENT MECHANIC Telephone Encounter - Frannie Bedoya L.A.T., A.T.C. - 10/12/2019 9:18 AM ELECTRICAL AND INSTRUMENT MECHANIC Dr. Su said he will call her. He'll make a decision after the call if he'd like to see her in clinic so still hang onto the appointment. Thank you. TRICAL AND INSTRUMENT MECHANIC Telephone Encounter - Carleen Stephens - 10/12/2019 8:45 AM CST Who is calling: Patient Best call back number: [phone] Okay to leave detailed voicemail message on number listed. Physician: Dr. León Su Side: Lumbar Body Part/Region: Back Reason for call: The patient had a lumbar injection a week ago and beginning Saturday, she started to break out in a rash. This rash is all over her body, she has warm patches all over her body, but doesnot note any swelling She wanted to discuss results of thoracic MR done the same day of the procedure and the bursitis in her right leg as well. I did find an appointment for today at 4:15, which we will hold onto for now. Can Dr. Su spare a call to discuss all of these things, or should we keep the appointment? Action: Message routed to [facility] Athletic Trainers at [facility] TRICAL AND INSTRUMENT MECHANIC documented in this encounter Plan of Treatment Not on filedocumented as of this encounter Visit Diagnoses Not on filedocumented in this encounter
--- OUTSIDE RECORDS SUMMARY | 2022-05-09 17:05 | XMS_ITS | Encounter Summary ---
:1945 Author Organization [facility] Address [address] [place] [address] Care Team Providers Name Role Phone Unavailable Primary Care Provider Unavailable Reason for Visit Reason Comments Phone Contact Encounter Details Date Type Department Care Team Description 09/25/2019 Clinical Communication Department of Sports Georges, Isaac Quan, Phone Contact Medicine in [address] [place], [place] [phone] Social History Tobacco Use Types Packs/Day [...] or relatives? How often do you attend restorationist or jainism More than 4 time s per year 04/26/2021 services? Do you belong to any clubs or organizations Yes 04/26/2021 such as restorationist groups, unions, fraternal or athletic groups, or [...] place to sleep or slept in a custodial (including now)? Education Answer Date Recorded What is the highest level of school Bachelor's degree (e.g., BA, AB, 06/02/2019 you have completed or the highest BS) degree you have received? 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 Su an order for a right L4 transforaminal epidural and thoracic spine MRI at [facility] in [facility]. Confirmation # [id number] - [id number] L ASSEMBLER Telephone Encounter - Carleen Stephens - 09/25/2019 10:56 AM CST Who is calling: Patient Best call back number: [phone] Okay to leave detailed voicemail message on number listed. Physician: Dr. León Su Side: Lumbar Body Part/Region: Spine Reason for call: Other: The patient called wondering if Dr. Su had hgotten the chance to review last week's MRI. She would like to proceed with the injection discussed if Dr. Su is in agreement. Action: Message routed to [facility] Athletic Trainers at [facility] L ASSEMBLER documented in this encounter Plan of Treatment Not on filedocumented as of this encounter Visit Diagnoses Not on filedocumented in this encounter
--- OUTSIDE RECORDS SUMMARY | 2022-05-09 17:05 | XMS_ITS | Encounter Summary ---
:1945 Author Organization [facility] Address [address] [place] [address] Care Team Providers Name Role Phone Unavailable Primary Care Provider Unavailable Reason for Referral Outpatient (Routine) - Closed Specialty Diagnoses / Referred By Contact Referred To Contact Procedures León Zepeda [facility] [place] [facility] Rehabilitation M.Bud [address] [facility], [address] [place] [address] Referral ID Status Reason Start Date Expiration Date Visits Requ ested Visits Authorized [id number] Closed 10/23/2017 04/21/2018 1 1 CLUB REPAIRER Reason for Visit Reason Comments Results MRI 10/18/17 Outpatient (Routine) - Closed Specialty Diagnoses / Referred By Contact Referred To Contact Procedures León Zepeda [facility] M.DKatalina [address] [facility], [address] [place] [address] Referral ID Status Reason Start Date Expiration Date Visits Requ ested Visits Authorized [id number] Closed 10/09/2017 04/07/2018 1 1 Encounter Details Date Type Department Care Team Description 10/23/2017 Office Visit Department of Physical León Su, Pain Shoulder Right (Primary Dx); Medicine and MRadha Rotator Cuff Disorder Right Rehabilitation in [address] [place] [address] [address] [place] [phone] Social History Tobacco Use Types Packs/Day Years [...] or relatives? How often do you attend rastafarian or christianity More than 4 time s per year 04/26/2021 services? Do you belong to any clubs or organizations Yes 04/26/2021 such as rastafarian groups, unions, fraternal or athletic groups, or [...] place to sleep or slept in a [place] [facility] [place] (including now)? 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 - 10/23/2017 12:00 AM CST SUBJECTIVE CHIEF COMPLAINT/REASON FOR VISIT Follow up right shoulder pain. HISTORY OF PRESENT ILLNESS Ms. Bosch returns today in followup. She had an MRI performed of her right shoulder on October 18. I reviewed the findings with her in detail today. There is a moderate size segment of tear involving superficial and deep fibers of the mid to anterior supraspinatus tendon insertion with likely superimposed 6 mm full-thickness component. There is no evidence of any tendon retraction or muscle belly atrophy. There is moderate infraspinatus tendinopathy. There is moderate to marked AC joint DJD and moderate fluid signal within the subacromial/subdeltoid bursa. Ms. Bosch's symptoms have not changed since I saw her just previous to the MRI. OBJECTIVE PHYSICAL EXAMINATION None performed today. ASSESSMENT / PLAN #1 Right shoulder pain #2 Right rotator cuff tear Ms. Bosch's MRI does show findings consistent with a short segment of full- thickness tear of the supraspinatus tendon. Reassuring there is no tender retraction or atrophy at this time. PLAN: 1. I discussed various options with Ms. Bosch. With the fact that her pain did start following a fall in July and her findings on her physical examination and imaging findings, I think it would beworthwhile for her to meet with an orthopedic surgeon at this point to obtain their opinion with respect to her supraspinatus tear and Ms. Bosch is also agreeing with this. Will make that referral forher. 2. I will plan to see Ms. Bosch in 1 month to assess her progress with respect to her low back and left lower extremity pain and she knows to be in contact prior to that time if she notes any worsening symptoms which we went over in detail today. Ms. Bosch voiced her agreement and understanding withthis plan. Job ID: [id number] CLUB REPAIRER documented in this encounter Miscellaneous Notes Letter - León Su M.D. - 10/23/2017 12:00 AM CST October 29, 2017 Dr. ROSENTHAL [facility] RE: HARSHA BOSCH #: [id number] : [address] Rosenthal: Thank you very much for seeing Ms. Bosch. She is a very pleasant, 72-year-old female who had a fallin July and subsequently developed right shoulder pain. I recently saw her and obtained an MRI of her right shoulder in [place]. Based on her symptoms, examination findings, and imaging findings, I am referring her to you for management options at this time. Thank you very much for seeing Ms. Bosch. Sincerely, León Su M.D. Job ID: [id number] CLUB REPAIRER documented in this encounter Plan of Treatment Scheduled Referrals Name Type Priority Associated Order Schedule Diagnoses Physical Medicine and Outpatient Referral Routine Expected: Rehabilitation office 2017 visit (clinic) (Approximate) , Expires: 10/23/2020 documented as of this encounter Visit Diagnoses Diagnosis Pain Shoulder Right - Primary Rotator Cuff Disorder Right documented in this encounter
--- OUTSIDE RECORDS SUMMARY | 2022-05-09 17:05 | XMS_ITS | Encounter Summary ---
:1945 Author Organization [facility] Address [address] [place] [address] Care Team Providers Name Role Phone Unavailable Primary Care Provider Unavailable Reason for Visit Reason Comments Follow-up right shoulder Outpatient (Routine) - Closed Specialty Diagnoses / Referred By Contact Referred To Contact Procedures Physical Medicine and León Su, [facility] Rehabilitation M.D. [address] [facility], [address] [place] [address] Referral ID Status Reason Start Date Expiration Date Visits Requ ested Visits Authorized [id number] Closed 10/23/2017 04/21/2018 1 1 Encounter Details Date Type Department Care Team Description 11/27/2017 Office Visit Department of Physical León Su, Pain Back (Primary Dx); Medicine and M.D. Spondylosis Lumbar Without Myelopathy; Rehabilitation in [address] [facility] [address], Pain Shoulder Right [place], [place] [address] [place] [phone] Social History Tobacco Use Types Packs/Day Years [...] or relatives? How often do you attend anglican or church More than 4 time s per year 04/26/2021 services? 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 - 11/27/2017 12:00 AM CDT SUBJECTIVE CHIEF COMPLAINT/REASON FOR VISIT Follow up right shoulder pain and low back and left lower extremity pain. HISTORY OF PRESENT ILLNESS Ms. Bosch returns today in followup. Since I last saw her she did meet with Dr. Ham, and she is going to have rotator cuff surgery on December 20, 2017. She reports that overall her low back pain is similar to when I saw her previously. She reports she is not having radiating pain now to her left lower extremity which is consistent with L4 radiculopathy like previously and she had very good response to left L4 transforaminal corticosteroid injection. Ms. Bosch denies any new symptoms since I last saw her. OBJECTIVE PHYSICAL EXAMINATION General: A very pleasant 72-year-old female in no acute distress. Gait: Nonantalgic. ASSESSMENT / PLAN #1 Chronic low back pain #2 Intermittent left lower extremity pain, consistent with a left L4 radiculopathy-currently asymptomatic #3 Right shoulder pain #4 Right rotator cuff tear 1. I had a long discussion with Ms. Bosch and answered multiple appropriate questions that she had.We discussed the importance of continuing her aquatic based aerobic exercise program and she has been diligent with that to this point which I commended her on. She will obviously have some time away from the aquatic based program with her coming rotator cuff surgery but then return to that after. 2. I discussed with Ms. Bosch that I am transitioning from the [place] practice over the next fewweeks. I did give her my contact information in [place] if she would have any questions, and I would be happy to see her there if she were to have any worsening pain or new issues. Ms. Bosch voiced agreement and understanding with this plan. Total time 25 minutes, counseling and coordination care time greater than 20 minutes. Job ID: [id number] documented in this encounter Plan of Treatment Not on filedocumented as of this encounter Visit Diagnoses Diagnosis Pain Back - Primary Spondylosis Lumbar Without Myelopathy Pain Shoulder Right documented in this encounter
--- OUTSIDE RECORDS SUMMARY | 2022-05-09 17:05 | XMS_ITS | Encounter Summary ---
:1945 Author Organization [facility] Address [address] [place] [address] Care Team Providers Name Role Phone Unavailable Primary Care Provider Unavailable Reason for Visit Reason Onset Date Comments Fall 07/24/2017 Encounter Details Date Type Department Care Team Description 07/24/2017 Clinical Communication Department of Physical Micha Su, Fall Medicine and M.DKatalina Rehabilitation in [address] [place], [place] [address] [place] [phone] Social History Tobacco Use Types Packs/Day Years [...] or relatives? How often do you attend orthodoxy or jain More than 4 time s per year 04/26/2021 services? 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 - 08/07/2017 11:08 AM BOOK BINDER Patient fell 2 weeks ago and is having a lot of hip pain. She has an appt for 08/28/17 but in the meantime she will see if her Primary care Dr. Ramírez can order xray. BINDER Telephone Encounter - Namrata Wolff - 08/07/2017 10:02 AM CST Patient called again. She still has not gotten a call back. Please call her. BINDER Telephone Encounter - Sayda Lovell - 07/24/2017 9:56 AM CST Called to schedule an appt, just recently fell so pain is worse, would like to discuss with nurse. BINDER documented in this encounter Plan of Treatment Not on filedocumented as of this encounter Visit Diagnoses Not on filedocumented in this encounter
--- OUTSIDE RECORDS SUMMARY | 2022-05-09 17:05 | XMS_ITS | Encounter Summary ---
:1945 Author Organization [facility] Address [address] [place] [address] Care Team Providers Name Role Phone Unavailable Primary Care Provider Unavailable Encounter Details Date Type Department Care Team Description 06/02/2019 Hospital Encounter Department of León Su Pai n Back Lumbar; Radiology in M.[place]. Pain Back Thoracic; [place] [address], Pain Shoul derek Left [place] [address] [place], [place] [id number] Social History Tobacco Use Types Packs/Day [...] or relatives? How often do you attend hoahaoism or gnosticism More than 4 time s per year 04/26/2021 services? Do you belong to any clubs or organizations Yes 04/26/2021 such as hoahaoism groups, unions, fraternal or athletic groups, or [...] place to sleep or slept in a fdc (including now)? Education Answer Date Recorded What is the highest level of school Bachelor's degree (e.g., BA, AB, 06/02/2019 you have completed or the highest BS) degree you have received? 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 DX LUMBAR SPINE RAD - Routine 06/02/2019 8:49 Pain Back Lumbar Resu lts for this 2-3 VIEWS (most inpatients AM CDT procedure a re in and all the results outpatients) section. DX THORACIC SPINE RAD - Routine 06/02/2019 8:49 Pain Back Result s for this 2 VIEWS (most inpatients AM CDT Thoracic procedure a re in and all the [...] Region Laterality Modality Thoracic Spine, Musculoskeletal RST [facility], N/A Digital Radiography Neuroradiology [facility] Specimen (Source) Anatomical Collection Method Collection Time [...] Osteopen ia. No fractures. Aortic calcifications. León Su M.D. [facility]E DURDANIE DX Lumbar Spine 2-3 Views (06/02/2019 8:49 AM CDT) Anatomical Region Laterality Modality Lumbar Spine, Musculoskeletal RST [facility], Neuroradiology N/A [facility] Specimen (Source) Anatomical Collection Method Collection Time [...] fractures. Aortic calcifications. León [facility] MAGGY DEMARCO documented in this encounter Visit Diagnoses Diagnosis Pain Back Lumbar Pain Back Thoracic Pain Shoulder Left documented in this encounter
--- OUTSIDE RECORDS SUMMARY | 2022-05-09 17:05 | XMS_ITS | Encounter Summary ---
:1945 Author Organization [facility] Address [address] [place] [id number] Care Team Providers Name Role Phone Unavailable Primary Care Provider Unavailable Reason for Visit Reason Onset Date Comments Allergic Reaction to Injection 08/26/2018 Encounter Details Date Type Department Care Team Description 08/26/2018 Clinical Department of León Su Casandra nicolas Communication Sports Medicine in [place]. to Injection [address], [address] [place] [phone] Social History Tobacco Use Types Packs/Day Years [...] or relatives? How often do you attend catholic or judaism More than 4 time s per year 04/26/2021 services? Do you belong to any clubs or organizations Yes 04/26/2021 such as catholic groups, unions, fraternal or athletic groups, or [...] place to sleep or slept in a residential (including now)? 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 We do not have the ability to add this to patient chart. Please route all messages to RST SPM SCHEDULING Thank you, Cristy CTION WAX MOLDER documented in this encounter Plan of Treatment Not on filedocumented as of this encounter Visit Diagnoses Not on filedocumented in this encounter
--- OUTSIDE RECORDS SUMMARY | 2022-05-09 17:05 | XMS_ITS | Encounter Summary ---
:1945 Author Organization [facility] Address [address] [place] [address] Care Team Providers Name Role Phone Unavailable Primary Care Provider Unavailable Reason for Visit Reason Onset Date Comments Fusion? 06/02/2019 Encounter Details Date Type Department Care Team Description 06/02/2019 Clinical Communication Department of Sports Isaac Su, Fusion? Medicine in [place], [place] [address], [address] [place] [address] [address] [place] [id number] [phone] Social History Tobacco Use Types Packs/Day Years [...] or relatives? How often do you attend lutheran or yarsanism More than 4 time s per year 04/26/2021 services? Do you belong to any clubs or organizations Yes 04/26/2021 such as lutheran groups, unions, fraternal or athletic groups, or [...] place to sleep or slept in a jail (including now)? Education Answer Date Recorded What is the highest level of school Bachelor's degree (e.g., BA, AB, 06/02/2019 you have completed or the highest BS) degree you have received? 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 Su, Patient called stating she just saw you for lower back pain wondering about scheduling the fusion for L lower back. Are you wanting patient to meet with our spine department in [place] otherwise she said she will disregard plan. Side note: I know you just saw her, giving you time to dictate but I wanted to send a message per patient request. Thank you, Candy documented in this encounter Plan of Treatment Not on filedocumented as of this encounter Visit Diagnoses Not on filedocumented in this encounter
--- OUTSIDE RECORDS SUMMARY | 2022-05-09 17:05 | XMS_ITS | Encounter Summary ---
:1945 Author Organization [facility] Address [address] [place] [address] Care Team Providers Name Role Phone Unavailable Primary Care Provider Unavailable Encounter Details Date Type Department Care Team Description 09/30/2019 Documentation Department of Sports Georges, Pranay Quan M.D. 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 - 09/30/2019 9:01 AM CST I spoke with Ms. Bosch on the phone with respect to the lumbar spine MRI that she had performed in [facility]. Significant findings include there is moderate central stenosis and grade 1 degenerative spondylolisthesis at L4-L5 with hypertrophic and active ongoing inflammatory facet osteoarthropathy. At L3- L4, there is mild disk degeneration 2 mm of spondylolisthesis, facet hypertrophy, and disk bulging in the disk, 3 mm right disk protrusion which results in mild right subarticular L4 impingement. There is also bilateral L4-L5 facet joint effusions and a small left intraspinal synovial cyst. There is hypertrophic facet joint degeneration at L5-S1 without stenosis or impingement. I discussed all these findings in detail with Ms. Bosch. Based on her symptoms, physical examination findings, and imaging findings, we are going to arrange for a right L4 transforaminal epidural corticosteroid injection for diagnostic and therapeutic purposes. If this were not to be helpful for her,we likely would consider an ultrasound-guided right greater trochanteric bursa corticosteroid injection. Ms. Bosch also reports that she is continuing to have mid-thoracic pain. It is very limiting for her. This has been despite being involved in physical therapy. At this point, we are going to proceed with an MRI of the thoracic spine due to the persistent symptoms that she is experiencing. I will thenplan on contacting Ms. Bosch following the thoracic spine MRI to discuss the results with her. She voiced agreement and understanding with this plan. CT CT Job ID: [id number]/hernandez ANCE WILDLIFE SPECIALIST documented in this encounter Plan of Treatment Not on filedocumented as of this encounter Visit Diagnoses Not on filedocumented in this encounter
--- OUTSIDE RECORDS SUMMARY | 2022-05-09 17:05 | XMS_ITS | Encounter Summary ---
:1945 Author Organization [facility] Address [address] [place] [address] Care Team Providers Name Role Phone Unavailable Primary Care Provider Unavailable Encounter Details Date Type Department Care Team Description 03/27/2017 Hospital Encounter HX [facility]TR Pranay Su M.D. [address] [place] [address], [address] [place] [address] (Wo rk) Social History Tobacco [...] or relatives? How often do you attend druze or christian More than 4 time s per year 04/26/2021 services? 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 - 03/27/2017 11:36 AM CDT [id number] CHIEF COMPLAINT/REASON FOR VISIT Follow up left shoulder pain, low back pain and left lateral hip pain. HISTORY OF PRESENT ILLNESS Ms. Bosch returns today in followup. She had an MRI performed of her left shoulder on March 20, 2017.I reviewed the images with her in detail. Significant findings include there is small partial thickness undersurface tear of the mid supraspinatus tendon maximally involving 2/3 of the fiber thickness.There is mild to moderate supraspinatus tendinopathy and moderate infraspinatus tendinopathy. There is a small poorly defined partial thickness tear of the far superior subscapularis tendon insertion. There is medial subluxation of the long head of the biceps tendon at the far superior bicipital groove with moderate to marked intra-articular tendinopathy. There is mild to moderate AC DJD. There is mild to moderate subacromial/subdeltoid bursitis. Ms. Bosch reports that her left shoulder pain has not changed since I saw her just previous to the MRI. She did spend several minutes today discussing her left lateral hip pain. This typically is worse when she is standing or walking for any period of time or if she lies on her left side at night. She reports that the pain does not radiate distal to the lateral hip. She still continues to have low back and bilateral gluteal pain although that has improved with working in physical therapy which she is pleased with. PHYSICAL EXAMINATION GENERAL: Pleasant 71-year-old female in no acute distress. GAIT: Slight Trendelenburg gait on the left. NEUROLOGIC: Strength: All major muscle groups of the bilateral lower extremities have normal and symmetric muscle strength, bulk and tone except for weakness testing of the bilateral hip abductors. Palpation: There is marked tenderness to palpation over the left greater trochanteric bursa region. IMPRESSION/REPORT/PLAN 1. Left shoulder pain following a fall on February 17. 2. Partial-thickness left supraspinatus tear. 3. Right biceps tendinopathy. 4. Right rotator cuff tendinopathy. 5. Chronic low back pain. 6. History of left lower extremity pain and weakness following a left total hip arthroplasty performed on March 25, 2013. 7. Left greater trochanteric pain syndrome. 8. Lumbar spondylosis. 9. Lumbar spinal stenosis. PLAN: 1. I am going have Ms. Bosch involved in physical therapy with respect to her left shoulder discomfort. We are going to have her work on a comprehensive program including a strengthening program for the scapular stabilizers as well as left shoulder range of motion. We will progress to a rotator cuff s trengthening program as Ms. Bosch's range of motion and strength hopefully improve. 2. We are going to arrange for an ultrasound-guided left greater trochanteric bursa corticosteroid injection for both diagnostic and therapeutic purposes with respect to Ms. Bosch's left lateral hip pain. 3. We will plan on being in contact with Ms. Bosch 2 weeks following the left greater trochanteric bursa corticosteroid injection and she knows to be in contact with us prior to that time if she notesany worsening or worrisome symptoms which we went over in detail today. Ms. Bosch voiced agreement and understanding of this plan. Total time 25 minutes, counseling and coordination of care time greater than 15 minutes. Harry Su M.D./epi Electronically Signed By: HARRY SU MD On: 03/28/2017 09:23 AM Modified by and Electronically Signed by: HARRY SU MD On: 03/28/2017 09:22 AM Source: [facility] [id number] Document Id: [id number] documented in this encounter Miscellaneous Notes Miscellaneous - Harry Su M.D. - 03/27/2017 12:26 PM CDT Ambulatory Patient Summary [address] [id number] Visit Information Name: ALISHA BOSCH [facility] Number: [id number] Current Date: 03/27/2017 12:26:56 Physicians Attending Provider: HARRY SU MD Primary Care Provider: PCP, ELSEWHERE ALISHA BOSCH has been given the following [...] the Following Medications: Medication list as of 03-27-17 12:26 Attention: If you have any medications at [...] Electronically Signed By: HARRY SU MD Signed On:27-MAR-2017 12:26:20 Your Allergies & Intolerances Substance Reaction Symptoms [...] if you dont have one. Go to [email or web address] and click on Create Your Account. Then, follow the directions to complete the online form. Youll be asked for your [facility] number which you can find at the top of this document. Your Goals/Additional instructions: Source: [facility] [employer] Document Id: [id number] Miscellaneous - Harry Su M.D. - 03/27/2017 12:26 PM CDT Ambulatory Discharge Medication List [address] [id number] Visit Information Name: ALISHA BOSCH [facility] Number: [id number] Current Date: 03/27/2017 12:26:55 Attending Provider: HARRY SU MD Primary Care Provider: PCP, ALISHA TYLER [...] the Following Medications: Medication list as of 03-27-17 12:26 Attention: If you have any medications at [...] Electronically Signed By: HARRY SU MD Signed On:27-MAR-2017 12:26:20 Additional Information: Source: [facility] POWERCHART Document Id: [id number] Miscellaneous - Eryn Turner L.PKatalinaNKatalina - 03/27/2017 11:45 AM CDT 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/History 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/History Entered On: 03/27/2017 11:46 CDT Performed On: 03/27/2017 11:45 CDT by ERYN TURNER LPN Intake Systolic Blood Pressure : 118 mmHg Diastolic Blood Pressure : 60 mmHg NIBP Mean : 79 mmHg BP Location : Left upper extremity Blood Pressure Cuff Size : Regular Actual Weight : 97.45 kg(Converted to: 214 lb 13 oz) Dosing Weight Clinic : 97.45 kg ERYN TURNER LPN - 03/27/2017 11:45 CDT General Info Information Given By : Patient Languages : Welsh Is Patient Female and 13-50 no hysterectomy : ERYN Oates LPN - 03/27/2017 11:45 CDT Subjective Pain Symptoms : ERYN Oates LPN - 03/27/2017 11:45 CDT Dependent Habits Exposure to Tobacco Smoke : Other: never Smoking Status : Never smoker Tobacco 2A : No Tobacco Use/Currently Using : No Tobacco Use/Last 30 Days : No Tobacco Use/Last 12 months : ERYN Oates LPN - 03/27/2017 11:45 CDT Source: [facility] POWERCHART Document Id: [id number] CDT!22 documented in this encounter Plan of Treatment Not on filedocumented as of this encounter Visit Diagnoses Not on filedocumented in this encounter
--- OUTSIDE RECORDS SUMMARY | 2022-05-09 17:06 | XMS_ITS | Encounter Summary ---
:1945 Author Organization [facility] Address [address] [place] [address] Care Team Providers Name Role Phone Unavailable Primary Care Provider Unavailable Encounter Details Date Type Department Care Team Description 08/27/2013 Hospital Encounter HX [facility] Pranay Su M.D. [address] [place] [address], [address] [place] [address] (Wo rk) Social History Tobacco Use Types Packs/Day Years Used Date Smoking Tobacco: Never Assessed Alcohol Habits Answer Date Recorded How often [...] or relatives? How often do you attend episcopal or adventist More than 4 time s per year 04/26/2021 services? 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 75 mcg tablet lovastatin (for_ALTOPREV) Take 0.5 tablets 0 04/16 40 mg 24 hr tablet by mouth at bedtime. MULTIVITAMIN WITH MINERALS Take 1 capsule by 0 ORAL mouth daily. cholecalciferol Take 1 tablet by 0 04/29/201303/2018 (cholecalciferol) 400 Unit mouth daily. tablet documented as of this encounter Progress Notes Harry Su M.D. - 08/27/2013 10:21 AM CST [id number] CHIEF COMPLAINT / REASON FOR VISIT Followup left lower extremity pain and weakness following a left total hip arthroplasty HISTORY OF PRESENT ILLNESS Ms. Bosch returns today in followup. Overall she has been making very good progress. She feels herstrength has improved significantly in the left lower extremity. She does however continue to note atightness feeling alternating with burning, tingling sensation that can occur that wraps around her left ankle then extends into plantar aspect of the foot. She is noticing this more recently which sheattributes to wearing shoes in the winter. The pain does not extend proximal to the ankle. She is also having more discomfort in her right hip and is going to meet again with orthopedic surgery in [place] for consideration of right total hip arthroplasty. She has been using her gabapentin 900 mg inthe morning, 600 mg in the afternoon, 900 mg at night and is inquiring about the possibly increasingthe afternoon dose as she notices that she tends to have more pain with using the 600 mg dose and she also notes that about 5-6 hours after taking gabapentin is when the pain starts to intensify as well as she thinks it has been very helpful for her. PHYSICAL EXAMINATION GENERAL: Pleasant 68-year-old female in no acute distress. GAIT: No steppage gait today. She is slightly antalgic favoring the right lower extremity. EXTREMITIES: Strength: Hip flexor 0/0, quadriceps 0/0, hamstrings 0/0, ankle dorsiflexors 0/trace weakness, toe extensor 0/trace weakness, EHL 0/-1, ankle evertors 0/0, ankle invertors 0/0, ankle plantar flexors 0/0. Ankle: There is tenderness to palpation in the region of the tibiotalar joint medially. IMPRESSION/REPORT/PLAN 1. Left lower extremity pain and weakness following a left total hip arthroplasty on March 25, 2013 2. Low back pain 3. Lumbar spondylosis 4. Left ankle pain Overall, Ms. Bosch has continued to make excellent progress. Her strength has improved markedly over where it was initially. 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 The pain that she is experiencing in the distal left lower extremity is consistent with neuropathic pain. PLAN 1. We are going to proceed with left ankle x-rays today as Ms. Bosch is tender over the tibiotalar joint and is describing some achiness in addition to her neuropathic pain. 2. I am going to have Ms. Bosch increase her gabapentin to 900 mg three times per day. She has beentolerating this well and it has been very helpful for her to this point. 3. Ms. Bosch is going to meet with an orthopedic surgeon in [place] to discuss the possibility of right total arthroplasty. I will plan on seeing her back a couple months after that is performed orsooner if she notes any worsening or worrisome symptoms which we went over in detail today. Also, wewill plan on being in contact with her after I have had a chance to review the results of her left ankle x-rays. Ms. Bosch voiced agreement with this plan. Total time 30 minutes, counseling time 20 minutes Harry Su M.D./luke Electronically Signed By: HARRY SU MD On: 09/02/2013 10:13 AM Modified by and Electronically Signed by: HARRY SU MD On: 09/02/2013 10:13 AM Source: [facility] MHSDOLBEYNONRADSYS Document Id: [id number] PROGRAM DIRECTOR documented in this encounter Miscellaneous Notes Miscellaneous - Harry Su M.D. - 08/27/2013 11:04 AM CST [place] [address] Visit Information Name: ALISHA BOSCH [facility] Number: [id number] Current Date: 08/27/2013 11:04:56 Physicians Attending Provider: HARRY SU MD Primary [...] tablet) 1 Tablet(s), Oral, once a day docusate (docusate sodium 100 mg oral capsule) 1 cap, Oral, two times a day ergocalciferol (Vitamin D 400 iu oral tablet) 1 Tablet(s), Oral, once a day gabapentin (gabapentin 300 mg oral capsule) 1 cap, Oral, three times a day This is a CHANGE Routed to [address] [address] gabapentin (gabapentin 600 mg oral tablet) 1 Tablet(s), Oral, three times a day Routed to [address] [address] glucosamine-chondroitin (glucosamine-chondroitin 500 mg-400 mg oral tablet) hydrOXYzine (Vistaril 25 mg oral capsule) 1 cap, Oral, four times a day as needed for anxiety 25-50mg PO q4-6hr levothyroxine (Levothroid 75 mcg (0.075 mg) oral tablet) 1 Tablet(s), Oral, once a day lovastatin (lovastatin 40 mg oral tablet, extended release) 1 Tablet(s), Oral, once a day (at bedtime) [facility]Krill Oil) See Instructions Daily multivitamin with minerals (multivitamin with minerals Multiple Vitamins with Zinc oral capsule) 1 cap, Oral, once a day omeprazole (omeprazole 20 mg oral delayed release tablet) 2 Tablet(s), Oral, once a day potassium chloride (potassium chloride 10 mEq oral capsule, extended release) 1 cap, Oral, once a day psyllium (Metamucil) Oral with calcium. triamterene-hydrochlorothiazide (triamterene-hydrochlorothiazide 37.5 mg-25 mg oral tablet) 1 Tablet(s), Oral, once a day warfarin (warfarin 4 mg oral tablet) 2 Tablet(s), Oral, once a day Stop Taking the Following Medications: Medication list as of 08-27-13 11:04 Attention: If you have any medications at home that are not on this list, DO NOT take them until youcontact your provider for clarification. Give a copy of your medication list to your primary care provider. Update your medication list any time medications or doses are changed and carry your medication list at all times in case of emergency. Your Allergies & Intolerances Substance Reaction Symptoms Category Comments erythromycin Emesis Drug Your Problem List Problem Status Onset Comments No Problems found Your Upcoming Appointments Date Time Location Reason Provider No Appointments found Attention: Contact your local Clinic if further appointment detail needed. Your Goals/Additional instructions: Source: [facility] POWERCHART Document Id: [id number] PROGRAM DIRECTOR Miscellaneous - Harry Su M.D. - 08/27/2013 11:04 AM CST [place] [address] Visit Information Name: ALISHA BOSCH [facility] Number: [id number] Visit Date: 08/27/2013 11:04:53 Attending Provider: HARRY SU MD Primary Care Provider: PCP, HERNAN COLEALISHA KELLOGG has been given the following list of [...] tablet) 1 Tablet(s), Oral, once a day docusate (docusate sodium 100 mg oral capsule) 1 cap, Oral, two times a day ergocalciferol (Vitamin D 400 iu oral tablet) 1 Tablet(s), Oral, once a day gabapentin (gabapentin 300 mg oral capsule) 1 cap, Oral, three times a day This is a CHANGE Routed to [address] [address] gabapentin (gabapentin 600 mg oral tablet) 1 Tablet(s), Oral, three times a day Routed to [address] [address] glucosamine-chondroitin (glucosamine-chondroitin 500 mg-400 mg oral tablet) hydrOXYzine (Vistaril 25 mg oral capsule) 1 cap, Oral, four times a day as needed for anxiety 25-50mg PO q4-6hr levothyroxine (Levothroid 75 mcg (0.075 mg) oral tablet) 1 Tablet(s), Oral, once a day lovastatin (lovastatin 40 mg oral tablet, extended release) 1 Tablet(s), Oral, once a day (at bedtime) [facility] [place] (Krill Oil) See Instructions Daily multivitamin with minerals (multivitamin with minerals Multiple Vitamins with Zinc oral capsule) 1 cap, Oral, once a day omeprazole (omeprazole 20 mg oral delayed release tablet) 2 Tablet(s), Oral, once a day potassium chloride (potassium chloride 10 mEq oral capsule, extended release) 1 cap, Oral, once a day psyllium (Metamucil) Oral with calcium. triamterene-hydrochlorothiazide (triamterene-hydrochlorothiazide 37.5 mg-25 mg oral tablet) 1 Tablet(s), Oral, once a day warfarin (warfarin 4 mg oral tablet) 2 Tablet(s), Oral, once a day Stop Taking the Following Medications: Medication list as of 08-27-13 11:04 Attention: If you have any medications at home that are not on this list, DO NOT take them until youcontact your provider for clarification. Give a copy of your medication list to your primary care provider. Update your medication list any time medications or doses are changed and carry your medication list at all times in case of emergency. Additional Information: Source: [facility] Supersolid Document Id: [id number] PROGRAM DIRECTOR Miscellaneous - Marlene Valentine P.A.-C. 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 Hand Intake/History Entered On: 08/27/2013 10:32 CARE PROGRAM DIRECTOR Performed On: 08/27/2013 10:32 CARE PROGRAM DIRECTOR by MARLENE VALENTINE Intake Systolic Blood Pressure : 142 mmHg (HI) Diastolic Blood Pressure : 64 mmHg NIBP Mean : 90 mmHg BP Location : Right upper extremity Blood Pressure Cuff Size : Regular Actual Weight : 96.2 kg(Converted to: 212 lb 1 oz) Weight Source : Standing scale Dosing Weight Clinic : 96.2 kg MARLENE VALENTINE - 08/27/2013 10:32 CARE PROGRAM DIRECTOR General Info Information Given By : Patient Preferred Communication Mode : Verbal Languages : [place]raini MARLENE VALENTINE - 08/27/2013 10:32 CARE PROGRAM DIRECTOR Subjective Pain Symptoms : No MARLENE VALENTINE - 08/27/2013 10:32 CARE PROGRAM DIRECTOR Dependent Habits Tobacco Use/Currently Using : No Exposure to Tobacco Smoke : Other: never Smoking Status : Never smoker MARLENE VALENTINE - 08/27/2013 10:32 CARE PROGRAM DIRECTOR Source: [facility] Supersolid Document Id: [id number] CARE PROGRAM DIRECTOR!20 PROGRAM DIRECTOR documented in this encounter Plan of Treatment Not on filedocumented as of this encounter Visit Diagnoses Not on filedocumented in this encounter
--- OUTSIDE RECORDS SUMMARY | 2022-05-09 17:06 | XMS_ITS | Encounter Summary ---
:1945 Author Organization [facility] Address [address] [place] [address] Care Team Providers Name Role Phone Unavailable Primary Care Provider Unavailable Encounter Details Date Type Department Care Team Description 07/10/2013 Hospital Encounter HX [facility] Pranay Su M.D. [address] [place] [address], [address] [place] [address] (Wo rk) Social History Tobacco [...] or relatives? How often do you attend mu-ism or bahai More than 4 time s per year 04/26/2021 services? 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 tablet documented as of this encounter Miscellaneous Notes Miscellaneous - Harry Su M.D. - 07/10/2013 4:49 PM CDT [place] [address] Visit Information Name: HARSHA BOSCH [facility] Number: [id number] Current Date: 07/10/2013 16:49:27 Physicians Attending Provider: HARRY SU MD Primary Care Provider: PCP, HERNAN BOSCH HARSHA BRAYAN has been given the following list [...] you have problems taking your medications. Medication/Strength Dose Route Frequency Indications/Special Instructions/Comments/Notes gabapentin (gabapentin 600 mg oral tablet) 600 mg Oral three times a day gabapentin (gabapentin 300 mg oral capsule) 300 mg Oral once a day (at bedtime) ergocalciferol (Vitamin D 400 iu oral tablet) 400 IntU Oral once a day Misc Prescription (Krill Oil) See Instructions Daily psyllium (Metamucil) Oral with calcium. potassium chloride (potassium chloride 10 mEq oral capsule, extended release) 10 meq Oral once a day multivitamin with minerals (multivitamin with minerals Multiple Vitamins with Zinc oral capsule) 1 cap(s) Oral once a day glucosamine-chondroitin (glucosamine-chondroitin 500 mg-400 mg oral tablet) cetirizine (ZyrTEC 10 mg oral tablet) 10 mg Oral once a day atenolol (atenolol 25 mg oral tablet) 12.5 mg once a day warfarin (warfarin 4 mg oral tablet) 8 mg Oral once a day triamterene-hydrochlorothiazide (triamterene-hydrochlorothiazide 37.5 mg-25 mg oral tablet) 1 tab(s)Oral once a day omeprazole (omeprazole 20 mg oral delayed release tablet) 40 mg Oral once a day lovastatin (lovastatin 40 mg oral tablet, extended release) 40 mg Oral once a day (at bedtime) levothyroxine (Levothroid 75 mcg (0.075 mg) oral tablet) 75 mcg Oral once a day hydrOXYzine (Vistaril 25 mg oral capsule) 25 mg Oral four times a day as needed for anxiety 25-50mg PO q4-6hr docusate (docusate sodium 100 mg oral capsule) 100 mg Oral two times a day Attention: If you have any medications at home that are not on this list, DO NOT take them until youcontact your provider for clarification. Your Allergies & Intolerances Substance Reaction Symptoms Category Comments erythromycin Emesis Drug Your Problem List Problem Status Onset Comments No Problems found Your Upcoming Appointments Date Time Location Reason Provider No Appointments found Attention: Contact your local Clinic if further appointment detail needed. Your Goals/Additional instructions: Source: [facility] POWERCHART Document Id: [id number] Miscellaneous - Harry Su M.D. - 07/10/2013 4:49 PM CDT [place] [address] Visit Information Name: HARSHA BOSCH [facility] Number: [id number] Visit Date: 07/10/2013 16:49:26 Attending Provider: HARRY SU MD Primary Care Provider: PCP, HERNAN BOSCH HARSHA SCHMIDT has been given the following list of medications: Your Medications It is important to take your medications as directed. Use a pill box or chart to help remind you to take your medications. Please let your doctor or nurse know if you have problems taking your medications. Medication/Strength Dose Route Frequency Indications/Special Instructions/Comments/Notes gabapentin (gabapentin 600 mg oral tablet) 600 mg Oral three times a day gabapentin (gabapentin 300 mg oral capsule) 300 mg Oral once a day (at bedtime) ergocalciferol (Vitamin D 400 iu oral tablet) 400 IntU Oral once a day Misc Prescription (Krill Oil) See Instructions Daily psyllium (Metamucil) Oral with calcium. potassium chloride (potassium chloride 10 mEq oral capsule, extended release) 10 meq Oral once a day multivitamin with minerals (multivitamin with minerals Multiple Vitamins with Zinc oral capsule) 1 cap(s) Oral once a day glucosamine-chondroitin (glucosamine-chondroitin 500 mg-400 mg oral tablet) cetirizine (ZyrTEC 10 mg oral tablet) 10 mg Oral once a day atenolol (atenolol 25 mg oral tablet) 12.5 mg once a day warfarin (warfarin 4 mg oral tablet) 8 mg Oral once a day triamterene-hydrochlorothiazide (triamterene-hydrochlorothiazide 37.5 mg-25 mg oral tablet) 1 tab(s)Oral once a day omeprazole (omeprazole 20 mg oral delayed release tablet) 40 mg Oral once a day lovastatin (lovastatin 40 mg oral tablet, extended release) 40 mg Oral once a day (at bedtime) levothyroxine (Levothroid 75 mcg (0.075 mg) oral tablet) 75 mcg Oral once a day hydrOXYzine (Vistaril 25 mg oral capsule) 25 mg Oral four times a day as needed for anxiety 25-50mg PO q4-6hr docusate (docusate sodium 100 mg oral capsule) 100 mg Oral two times a day Attention: If you have any medications at home that are not on this list, DO NOT take them until youcontact your provider for clarification. Additional Information: Source: [facility] POWERCHART Document Id: [id number] Miscellaneous - Marlene Valentine P.A.-C. - 07/10/2013 3:05 PM CDT Adult Piccoloist Intake/History Adult Piccoloist Intake/History Entered On: 07/10/2013 15:06 CDT Performed On: 07/10/2013 15:05 CDT by MARLENE VALENTINE Intake Systolic Blood Pressure : 126 mmHg Diastolic Blood Pressure : 54 mmHg NIBP Mean : 78 mmHg BP Location : Left upper extremity Blood Pressure Cuff Size : Regular Actual Weight : 94.6 kg(Converted to: 208 lb 9 oz) Weight Source : Standing scale Dosing Weight Clinic : 94.6 kg MARLENE VALENTINE - 07/10/2013 15:05 CDT General Info Information Given By : Patient Preferred Communication Mode : Verbal Languages : [place] MARLENE VALENTINE - 07/10/2013 15:05 CDT Subjective Pain Symptoms : No MARLENE VALENTINE - 07/10/2013 15:05 CDT Dependent Habits Tobacco Use/Currently Using : No Exposure to Tobacco Smoke : Other: never Smoking Status : Never smoker MARLENE VALENTINE - 07/10/2013 15:05 CDT Source: [facility] POWERCHART Document Id: [id number] CDT!20 documented in this encounter Plan of Treatment Not on filedocumented as of this encounter Visit Diagnoses Not on filedocumented in this encounter
--- OUTSIDE RECORDS SUMMARY | 2022-05-09 17:06 | XMS_ITS | Encounter Summary ---
:[address] [facility] Address [address] [place] [id number] Care Team Providers Name Role Phone Unavailable Primary Care Provider Unavailable Encounter Details Date Type Department Care Team Description 05/25/2013 Hospital Encounter HX [facility] Pranay Su M.D. [address] [place] [address], [address] [place] [address] (Wo rk) Social History Tobacco [...] or relatives? How often do you attend mandaen or temple More than 4 time s per year 04/26/2021 services? Do you belong to any clubs or organizations Yes 04/26/2021 such as mandaen groups, unions, fraternal or athletic groups, or [...] place to sleep or slept in a fpc (including now)? 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 - 05/25/2013 3:00 PM CDT [id number] CHIEF COMPLAINT / REASON FOR VISIT Followup left lower extremity pain and weakness following a left total hip arthroplasty HISTORY OF PRESENT ILLNESS Ms. Bosch returns today in followup. Since I last saw her, she has been using gabapentin 600 mg three times daily which she has found to be helpful. She does find that if she is very active during the day or has physical therapy, she can have more pain at night that makes it difficult for her to sleep and this tends to exacerbate her pain the next day as well. She has been tolerating the Gabapentinwell without any issues. She feels like she has been making some progress with respect to her strength in her left foot although it is very slow. She has been able to completely wean off for oxycodone and Oxycontin. She is using ibuprofen 400 mg three times daily. She reports that the worst pain for he r again is located in the dorsum of the foot and she feels there is a tight band wrapping around herankle. She describes this as an achy alternating with burning pain. She also has numbness and tingling throughout the left foot. PHYSICAL EXAMINATION GENERAL: Pleasant 57-year-old female in no acute distress. GAIT: She is walking with her walker. She has a steppage gait in the left. STRENGTH: Hip flexors 0/0, quadriceps 0/0, hamstrings 0/0, ankle dorsiflexors 0/-3, toe extensors 0/-3, EHL 0/-2, -3, ankle evertors 0/-2, ankle invertors 0/- 2, ankle plantar flexion 0/trace weakness. Sensation: There is hyperalgesia pinprick in the dorsum left foot. REFLEXES: Patellar tendon 0/0, internal hamstrings 0/0, Achilles 0/-4. IMPRESSION/REPORT/PLAN 1. Left extremity pain and weakness following a left total hip arthroplasty on March 25, 2013 Ms. Bosch's prominent weakness is again primarily located in peroneal innervated muscles on the left. 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 PLAN 1. We are going to have Ms. Bosch increase her gabapentin to 900 mg at bedtime. She can continue with the 600 mg in the morning and 600 mg in the afternoon. She also will continue to use her ibuprofenas needed for pain. 2. She will continue physical therapy as she has been doing. We spent several minutes discussing that if she were noticing that this was causes increased pain, we need to back off the number of repetitions that she is performing and instead just work to the point where she is not having an exacerbation of her symptoms. 3. Ms. Bosch had multiple appropriate questions about her recovery to this point which I answered to the best of my ability. 4. I will plan on seeing Ms. Bosch back in 1 month to assess her progress. We may consider proceeding with an EMG at that time depending on how she is progressing. Ms. Bosch knows to be in contact with me prior to that time if she notes any worsening or worrisome symptoms which we went over in detail today. She voiced agreement and understanding with this plan. Total time 30 minutes and counseling time 20 minutes. Harry Su M.D./luke cc: [address] [address] Electronically Signed By: HARRY SU MD On: 05/27/2013 10:23 AM Modified by and Electronically Signed by: HARRY SU MD On: 05/27/2013 10:23 AM Source: [facility] MHSDOLBEYNONRADSYS Document Id: [id number] documented in this encounter Miscellaneous Notes Miscellaneous - Marlene Valentine P.A.-C. - 05/25/2013 3:07 PM CDT Adult Rn Community Intake/History Adult Rn Community Intake/History Entered On: 05/25/2013 15:07 CDT Performed On: 05/25/2013 15:07 CDT by MARLENE VALENTINE Intake Systolic Blood Pressure : 138 mmHg Diastolic Blood Pressure : 58 mmHg NIBP Mean : 85 mmHg BP Location : Left upper extremity Blood Pressure Cuff Size : Large Actual Weight : 91.2 kg(Converted to: 201 lb 1 oz) Weight Source : Standing scale Dosing Weight Clinic : 91.2 kg MARLENE VALENTINE - 05/25/2013 15:07 CDT General Info Information Given By : Patient Preferred Communication Mode : Verbal Languages : Malawian MARLENE VALENTINE - 05/25/2013 15:07 CDT Subjective Pain Symptoms : No MARLENE VALENTINE - 05/25/2013 15:07 CDT Dependent Habits Tobacco Use/Currently Using : No Exposure to Tobacco Smoke : Other: never Smoking Status : Never smoker MARLENE VALENTINE - 05/25/2013 15:07 CDT Source: [facility] POWERCHART Document Id: [id number] CDT!20 documented in this encounter Plan of Treatment Not on filedocumented as of this encounter Visit Diagnoses Not on filedocumented in this encounter
--- OUTSIDE RECORDS SUMMARY | 2022-05-09 17:06 | XMS_ITS | Encounter Summary ---
:1945 Author Organization [facility] Address [address] [place] [id number] Care Team Providers Name Role Phone Unavailable Primary Care Provider Unavailable Encounter Details Date Type Department Care Team Description 12/25/2013 Hospital Encounter HX [facility] Pranay Su M.D. [address] [place] [address], [address] [place] [address] (Wo rk) Social History Tobacco [...] or relatives? How often do you attend advent or anabaptist More than 4 time s per year 04/26/2021 services? 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 - 12/25/2013 10:17 AM CDT [id number] CHIEF COMPLAINT/REASON FOR VISIT Followup of left lower extremity pain and weakness following a left total hip arthroplasty. CHIEF COMPLAINT/REASON FOR VISIT Ms. Bosch returns today in followup. Since I last saw her, she had a right total hip arthroplasty performed on October 25, 2013. She reports she is doing very well with respect to that. She has returned to aquatic therapy. She feels that she has had the return of normal strength in her left lower extremity, which she is extremely pleased with. She still does have discomfort, primarily in 2 differentareas about the foot and ankle. She describes a tight band around the left ankle and then a pulling sensation on the plantar aspect of the foot as well as the lateral aspect of the foot and a burning alternating with numbness and a tingling sensation in the tips of the toes, extending to the plantar as pect of the foot and occasionally the dorsum of the foot as well. She continues to use her gabapentin 900 mg 3 times daily and finds this to be very helpful, as approximately an hour before she takes the gabapentin, she feels that the symptoms start to worsen. PHYSICAL EXAMINATION GENERAL: Pleasant 68-year-old female, in no acute distress. GAIT: Nonantalgic. EXTREMITIES: All major muscle groups of the bilateral lower extremities have normal and symmetric muscle strength, bulk and tone. Normal pinprick and light touch sensation through lower extremities. IMPRESSION/REPORT/PLAN 1. Left lower extremity pain and weakness following a left total hip arthroplasty on March 25, 2013. 2. Low back pain. 3. Lumbar spondylosis. 4. Left ankle pain. 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 She has had the return of normal strength and sensation in the left lower extremity. She has continued to be botheredby neuropathic pain, although that has also improved. Specifically, she gives an example of how she no longer feels as if she is walking on rigo or rocks. PLAN: 1. I am going to have Ms. Bosch continue her gabapentin 900 mg 3 times daily. She inquired today about the possibility of decreasing that, and I think that would be reasonable to try and decrease her to 600 mg 3 times daily, and we went through how to do that today. If she finds that she has increased discomfort with decreasing to 600 mg 3 times daily, she can increase back to 900 mg 3 times daily. 2. Ms. Bosch will continue her work in physical therapy which she has found to be very helpful. 3. I will plan to see Ms. Bosch back in 6 months to assess her progress, and she knows to be in contact prior to that time if she notes any worsening or worrisome symptoms, which we went over in detail today. Ms. Bosch voiced agreement and understanding with this plan. Total time 25 minutes, counseling time 15 minutes. Harry Su M.D./epi Electronically Signed By: HARRY SU MD On: 12/29/2013 04:28 PM Modified by and Electronically Signed by: HARRY SU MD On: 12/29/2013 04:28 PM Source: [facility] MHSDOLBEYNONRADSYS Document Id: [id number] documented in this encounter Miscellaneous Notes Miscellaneous - Radha Ovalles R.N. - 06/02/2014 9:14 AM CDT Gabapentin Document Contains Addenda Addendum by HARRY SU MD on 02 June 2014 13:17:01 CDT Submitted: Order:gabapentin (gabapentin 300 mg oral capsule) 3 cap(s) PO 3xDay Qty: 270 cap(s) Refills: 5 Substitutions Allowed Route To Pharmacy - [facility] Rx Signed by HARRY SU MD 06/02/2014 13:16:48 From: RADHA OVALLES ([facility] Medication Refill) To: HARRY SU MD; Sent: 06/02/2014 09:14:01 CDT Subject: Gabapentin Caller is: ( ) Patient ( ) Mother ( ) Father ( ) Spouse ( ) Daughter ( ) Son ( rightsource ) Pharmacy ( ) Other: Provider: [facility]: Name of Medications Needing Refill: gabapentin 300 mg Last Refill Date: qty 270 Additional Information: 3 caps TID.... Last / Future Appointment: 12/25/13 Disposition: ( x ) Send to Pharmacy ( ) Call to Pharmacy ( ) Patient will pick up worker Script ( ) Mail Rxto Patient Source: [facility] POWERCHART Document Id: [id number] Electronically signed by Sussy [facility] Assistant Film Editor [id number] at 02/12/2017 7:57 AM CDT Miscellaneous - Harry Su M.D. - 12/25/2013 11:11 AM CDT Ambulatory Patient Summary [facility] [address] [place] [id number] Visit Information Name: ALISHA BOSCH [facility] Number: [id number] Current Date: 12/25/2013 11:11:44 Physicians Attending Provider: HARRY SU MD Primary [...] Tablet(s), Oral, once a day gabapentin (gabapentin 600 mg oral tablet) 1 Tablet(s), Oral, three times a day gabapentin (gabapentin 300 mg oral capsule) 1 cap, Oral, three times a day glucosamine-chondroitin (glucosamine-chondroitin 500 mg-400 mg oral tablet) *hydrOXYzine (Vistaril 25 mg oral capsule) 1 cap, Oral, four times a day as needed for anxiety 25-50mg PO q4-6hr levothyroxine (Levothroid 75 mcg (0.075 mg) oral tablet) 1 Tablet(s), Oral, once a day lovastatin (lovastatin 40 mg oral tablet, extended release) 1 Tablet(s), Oral, once a day (at bedtime) [place] Prescription (Krill Oil) See Instructions Daily multivitamin [...] tablet) 1 Tablet(s), Oral, once a day *warfarin (warfarin 4 mg oral tablet) 2 Tablet(s), Oral, once a day * You have let us know that you are not taking this medication as listed. Please talk with your primary care provider or the health care provider who prescribed the medication as soon as possible. Stop Taking the Following Medications: Medication list as of 12-25-13 11:11 Attention: If you have any medications at [...] Electronically Signed By: HARRY SU MD Signed On:25-DEC-2013 11:10:45 Your Allergies & Intolerances Substance Reaction Symptoms Category Comments erythromycin Emesis Drug Your Problem List Problem Status Onset Comments No Problems found Your Upcoming Appointments Date Time Location Reason Provider No Appointments found Attention: Contact your local Clinic if further appointment detail needed. Your Goals/Additional instructions: Source: [facility] POWERCHART Document Id: [id number] Miscellaneous - Harry Su M.D. - 12/25/2013 11:11 AM CDT Ambulatory Discharge Medication List [address] [id number] Visit Information Name: DOUGLASVALDEZ ALISHABertrand SCHMIDT [facility] Number: [id number] Visit Date: 12/25/2013 11:11:41 Attending Provider: HARRY SU MD Primary Care [...] Tablet(s), Oral, once a day gabapentin (gabapentin 600 mg oral tablet) 1 Tablet(s), Oral, three times a day gabapentin (gabapentin 300 mg oral capsule) 1 cap, Oral, three times a day glucosamine-chondroitin (glucosamine-chondroitin 500 mg-400 mg oral tablet) *hydrOXYzine (Vistaril 25 mg oral capsule) 1 cap, Oral, four times a day as needed for anxiety 25-50mg PO q4-6hr levothyroxine (Levothroid 75 mcg (0.075 mg) oral tablet) 1 Tablet(s), Oral, once a day lovastatin (lovastatin 40 mg oral tablet, extended release) 1 Tablet(s), Oral, once a day (at bedtime) [place] Prescription (Krill Oil) See Instructions Daily multivitamin [...] tablet) 1 Tablet(s), Oral, once a day *warfarin (warfarin 4 mg oral tablet) 2 Tablet(s), Oral, once a day * You have let us know that you are not taking this medication as listed. Please talk with your primary care provider or the health care provider who prescribed the medication as soon as possible. Stop Taking the Following Medications: Medication list as of 12-25-13 11:11 Attention: If you have any medications at [...] Electronically Signed By: HARRY SU MD Signed On:25-DEC-2013 11:10:45 Additional Information: Source: [facility] POWERCHART Document Id: [id number] Miscellaneous - Marlene Valentine P.A.-C. - 12/25/2013 10:27 AM CDT Adult Director Park Intake/History Adult Director Park Intake/History Entered On: 12/25/2013 10:30 CDT Performed On: 12/25/2013 10:27 CDT by MARLENE VALENTINE Intake Systolic Blood Pressure : 110 mmHg Diastolic Blood Pressure : 70 mmHg NIBP Mean : 83 mmHg BP Location : Right upper extremity Blood Pressure Cuff Size : Regular Actual Weight : 96.9 kg(Converted to: 213 lb 10 oz) Weight Source : Standing scale Dosing Weight Clinic : 96.9 kg MARLENE VALENTINE - 12/25/2013 10:27 CDT General Info Information Given By : Patient Preferred Communication Mode : Verbal Languages : Mohawk MARLENE VALENTINE - 12/25/2013 10:27 CDT Subjective Pain Symptoms : No MARLENE VALENTINE - 12/25/2013 10:27 CDT Dependent Habits Tobacco Use/Currently Using : No Exposure to Tobacco Smoke : Other: never Smoking Status : Never smoker MARLENE VALENTINE - 12/25/2013 10:27 CDT Source: [employer] Document Id: [id number] CDT!20 documented in this encounter Plan of Treatment Not on filedocumented as of this encounter Visit Diagnoses Not on filedocumented in this encounter
--- OUTSIDE RECORDS SUMMARY | 2022-05-09 17:06 | XMS_ITS | Encounter Summary ---
:1945 Author Organization [facility] Address [address] [place] [address] Care Team Providers Name Role Phone Unavailable Primary Care Provider Unavailable Encounter Details Date Type Department Care Team Description 10/01/2014 Hospital Encounter HX [facility] Pranay Su M.D. [address] [place] [address], [address] [place] [address] (Wo rk) Social History Tobacco [...] or relatives? How often do you attend gnosticism or episcopal More than 4 time s per year 04/26/2021 services? 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 mg per capsule cholecalciferol Take 1 tablet by 0 04/29/201303/2018 (cholecalciferol) 400 Unit mouth daily. tablet documented as of this encounter Progress Notes Harry Su M.D. - 10/01/2014 8:27 AM CST [id number] CHIEF COMPLAINT/REASON FOR VISIT Followup left lower extremity pain and new issue of right shoulder pain and right elbow pain. HISTORY OF PRESENT ILLNESS Ms. Bosch returns today. We had attempted to decrease her gabapentin and switch her to Lyrica to see if this could help some of the residual paresthesias and pain that she was having in her left foot.She decreased the gabapentin to 300 mg 3 times daily and had a strong feeling of dread and she was itching and had a very difficult night the first night she decreased it to 300 mg 3 times daily. Therefore, she ended up returning back to 900 mg 3 times daily and did not institute the Lyrica. She would also like to discuss right shoulder pain and right elbow pain that has been present for atleast the past 3 months. She describes her right elbow pain as being located in the right lateral elbow. It is worse when she does any cooking, slicing in the kitchen or any lifting. Her right shoulderpain is primarily located in the anterior lateral shoulder. It is worse when she does any lifting orreaching overhead. She very occasionally can have some numbness in all the digits of the right hand but that is very infrequent. She denies any focal weakness in her right upper extremity. PHYSICAL EXAMINATION GENERAL: Pleasant 69-year-old female in no acute distress. EXTREMITIES: Strength: All major muscle groups of the bilateral upper extremities have normal and symmetric muscle strength, bulk and tone. Shoulder forward elevation is 180 degrees on the right and abduction is 180 degrees on the right. Internal rotation is to L2 on the right and external rotation isto 80 degrees on the right. Normal strength with testing rotator cuff musculature. Negative Neer, positive Harden, negative speed, negative scarf. There is tenderness to palpation of the anterior subacromial space on the right. Full range of motion of the right elbow. There is tenderness to palpationdirectly over the right lateral epicondyle. Positive Cozen and positive resisted third digit extension test on the right. IMPRESSION/REPORT/PLAN 1. Left lower extremity pain and weakness following a left total hip arthroplasty on March 25, 2013. 2. Right shoulder pain. 3. Right lateral elbow pain, most consistent with lateral epicondylosis. PLAN: 1. I am going to proceed today with x-rays of the right shoulder with Ms. Bosch's discomfort. This seems most consistent with right shoulder impingement syndrome, likely secondary to rotator cuff tendinopathy. I am going have her involved in physical therapy and gave her a detailed prescription for this today. We will work on a comprehensive program including a scapular stabilizer strengthening program. 2. With respect to her right lateral epicondylosis, I am also going to have her involved in physicaltherapy. We are going to work on a comprehensive program for that as well including initiating a basic eccentric strengthening program for the common extensor tendon. 3. We had a long discussion today about Ms. Bosch's reaction with decreasing the gabapentin. We discussed the possibility of decreasing the gabapentin more slowly and overlapping it with Lyrica to seeif that would alleviate the symptoms that she is experiencing with decreasing the gabapentin. At thecurrent time, she feels she would like to stay at the gabapentin 900 mg 3 times daily and think about that further, which I think is very reasonable. 4. I will plan to see Ms. Bosch back in 6 weeks to assess her progress and she knows to be in contact with me prior to that time if she notes any worsening or worrisome symptoms which we went over in detail today. Ms. Bosch voiced agreement and understanding of this plan. Total time 25 minutes, counseling time 15 minutes. Harry Su M.D./epi Electronically Signed By: HARRY SU MD On: 10/04/2014 10:25 AM Modified by and Electronically Signed by: HARRY SU MD On: 10/04/2014 10:25 AM Source: [facility] Document Id: [id number] STRIAL ELECTRICIAN documented in this encounter Miscellaneous Notes Miscellaneous - Analilia Burrows, RKatalinaN. - 05/25/2015 9:21 AM CDT *Medication Refill Msg Document Contains Addenda Addendum by HARRY SU MD on 26 May 2015 08:46:39 CDT Submitted: Order:gabapentin (gabapentin 300 mg oral capsule) 3 cap(s) PO 3xDay Qty: 610 cap(s) Refills: 0 Substitutions Allowed Route To Pharmacy - [facility] Mail [facility] Signed by HARRY SU MD 05/26/2015 08:46:19 From: ANALILIA BURROWS RN To: HARRY SU MD; Sent: 05/25/2015 09:21:17 CDT Subject: *Medication Refill Msg Caller is: ( ) Patient ( ) Mother ( ) Father ( ) Spouse ( ) Daughter ( ) Son ( ) Pharmacy ( ) Other: Provider: Pharmacy: right source Name of Medications Needing Refill:gabapentin 300mg cap- - take 3 caps three times daily Last Refill Date:04-06-15 #610 Additional Information: Last / Future Appointment:11-11-14 Disposition: ( ) Send to Pharmacy ( ) Call to Pharmacy ( ) 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 - 01/04/2015 3:01 PM CDT *Medication Refill Msg Document Contains Addenda Addendum by HARRY SU MD on 04 January 2015 15:42:29 CDT Submitted: Order:gabapentin (gabapentin 300 mg oral capsule) 3 cap(s) PO 3xDay Qty: 610 cap(s) Refills: 0 Substitutions Allowed Route To Pharmacy - [facility] Signed by HARRY SU MD 01/04/2015 15:42:19 From: ANALILIA BURROWS To: HARRY SU MD; Sent: 01/04/2015 15:01:53 CDT Subject: *Medication Refill Msg Caller is: ( ) Patient ( ) Mother ( ) Father ( ) Spouse ( ) Daughter ( ) Son ( ) Pharmacy ( ) Other: Provider: Pharmacy: right source - Name of Medications Needing Refill:gabapentin 300mg cap- take 3 caps three times daily Last Refill Date:#610 Additional Information: Last / Future Appointment:11-11-14 Disposition: ( ) Send to Pharmacy ( ) Call to Pharmacy ( ) Patient will rock picker Script ( ) [facility] Id: [id number] Electronically signed by Conversion, [facility] Executive Meeting Manager [id number] at 02/10/2017 1:09 PM CDT Harry Rubio M.D. - 10/01/2014 9:11 AM CST Ambulatory Patient Summary [address] [id number] Visit Information Name: ALISHA BOSCH [facility] Number: [id number] Current Date: 10/01/2014 09:11:17 Physicians Attending Provider: HARRY SU MD Primary [...] (NexIUM) Oral, once a day gabapentin (gabapentin 600 mg oral tablet) 1 Tablet(s), Oral, three times a day gabapentin (gabapentin 300 mg oral capsule) 3 cap, Oral, three times a day glucosamine-chondroitin (glucosamine-chondroitin 500 mg-400 mg oral tablet) hydrOXYzine (Vistaril 25 mg oral capsule) 1 cap, Oral, four times a day as needed for anxiety 25-50mg PO q4-6hr levothyroxine (Levothroid 75 mcg (0.075 mg) oral tablet) 1 Tablet(s), Oral, once a day lovastatin (lovastatin 40 mg oral tablet, extended release) 1 Tablet(s), Oral, once a day (at bedtime) Misc Prescription (Krill Oil) See Instructions Daily multivitamin with minerals (multivitamin with minerals Multiple Vitamins with Zinc oral capsule) 1 cap, Oral, once a day omeprazole (omeprazole 20 mg oral delayed release tablet) 2 Tablet(s), Oral, once a day potassium chloride (potassium chloride 10 mEq oral capsule, extended release) 1 cap, Oral, once a day *pregabalin (Lyrica 150 mg oral capsule) 1 cap, Oral, two times a day psyllium (Metamucil) Oral with calcium. [...] the Following Medications: Medication list as of 10-01-14 09:11 Attention: If you have any medications at [...] Electronically Signed By: HARRY SU MD Signed On:01-OCT-2014 09:10:25 Your Allergies & Intolerances Substance Reaction Symptoms Category Comments erythromycin Emesis Drug Your Problem List Problem Status Onset Comments No Problems found Your Upcoming Appointments Date Time Location Provider No Appointments found Attention: Contact your local Clinic if further appointment detail needed. Your Goals/Additional instructions: Source: [facility] Document Id: [id number] STRIAL ELECTRICIAN Miscellaneous - Harry Su M.D. - 10/01/2014 9:11 AM CST Ambulatory Discharge Medication List [address] [id number] Visit Information Name: DOUGLASVALDEZAVNIBertrand BOBOE [facility] Number: [id number] Visit Date: 10/01/2014 09:11:15 Attending Provider: HARRY SU MD Primary Care [...] (NexIUM) Oral, once a day gabapentin (gabapentin 600 mg oral tablet) 1 Tablet(s), Oral, three times a day gabapentin (gabapentin 300 mg oral capsule) 3 cap, Oral, three times a day glucosamine-chondroitin (glucosamine-chondroitin 500 mg-400 mg oral tablet) hydrOXYzine (Vistaril 25 mg oral capsule) 1 cap, Oral, four times a day as needed for anxiety 25-50mg PO q4-6hr levothyroxine (Levothroid 75 mcg (0.075 mg) oral tablet) 1 Tablet(s), Oral, once a day lovastatin (lovastatin 40 mg oral tablet, extended release) 1 Tablet(s), Oral, once a day (at bedtime) [facility] Prescription (Krill Oil) See Instructions Daily multivitamin with minerals (multivitamin with minerals Multiple Vitamins with Zinc oral capsule) 1 cap, Oral, once a day omeprazole (omeprazole 20 mg oral delayed release tablet) 2 Tablet(s), Oral, once a day potassium chloride (potassium chloride 10 mEq oral capsule, extended release) 1 cap, Oral, once a day *pregabalin (Lyrica 150 mg oral capsule) 1 cap, Oral, two times a day psyllium (Metamucil) Oral with calcium. [...] the Following Medications: Medication list as of 10-01-14 09:11 Attention: If you have any medications at [...] Electronically Signed By: HARRY SU MD Signed On:01-OCT-2014 09:10:25 Additional Information: Source: [facility] Document Id: [id number] STRIAL ELECTRICIAN Miscellaneous - Taryn Murphy - 10/01/2014 8:39 AM CST Adult Patient [facility]mb[facility]sperson Intake/History Adult Patient Ombudsperson Intake/History Entered On: 10/01/2014 8:40 INDUSTRIAL ELECTRICIAN Performed On: 10/01/2014 8:39 INDUSTRIAL ELECTRICIAN by TARYN MURPHY Intake Systolic Blood Pressure : 118 mmHg Diastolic Blood Pressure : 64 mmHg NIBP Mean : 82 mmHg BP Location : Left upper extremity Blood Pressure Cuff Size : Regular Actual Weight : 100.4 kg(Converted to: 221 lb 6 oz) Weight Source : Standing scale Dosing Weight Clinic : 100.4 kg TARYN MURPHY - 10/01/2014 8:39 INDUSTRIAL ELECTRICIAN General Info Information Given By : Patient Preferred Communication Mode : Verbal Languages : Ivorian Is Patient Female and 13-50 no hysterectomy : TARYN Smith - 10/01/2014 8:39 INDUSTRIAL ELECTRICIAN Subjective Pain Symptoms : TARYN Smith - 10/01/2014 8:39 INDUSTRIAL ELECTRICIAN Dependent Habits Tobacco Use/Currently Using : No Exposure to Tobacco Smoke : Other: never Smoking Status : Never smoker TARYN MURPHY - 10/01/2014 8:39 INDUSTRIAL ELECTRICIAN ID Screen Drug Resistant Organism : No Travel Within Last 21 Days : TARYN Smith 10/01/2014 8:39 INDUSTRIAL ELECTRICIAN Source: [employer] Document Id: [id number] INDUSTRIAL ELECTRICIAN!24 STRIAL ELECTRICIAN documented in this encounter Plan of Treatment Not on filedocumented as of this encounter Visit Diagnoses Not on filedocumented in this encounter
--- OUTSIDE RECORDS SUMMARY | 2022-05-09 17:06 | XMS_ITS | Encounter Summary ---
:1945 Author Organization [facility] Address [address] [place] [address] Care Team Providers Name Role Phone Unavailable Primary Care Provider Unavailable Encounter Details Date Type Department Care Team Description 10/01/2014 Hospital Encounter HX [facility] Pranay Martinez M.D. [address] [place] [address], [address] [place] [address] (Wo rk) Social History Tobacco [...] or relatives? How often do you attend mandaeism or caodaism More than 4 time s per year 04/26/2021 services? Do you belong to any clubs or organizations Yes 04/26/2021 such as mandaeism groups, unions, fraternal or athletic groups, or [...] or slept in a chcf (including now)? 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 Addendum by HARRY ENGLE MD on 20 October 2014 12:11:04 FORENSIC SPECIALIST From: HARRY ENGLE MD To: Physical Medicine and Rehabilitation Staff; Sent: 10/20/2014 12:11:04 FORENSIC SPECIALIST Subject: RE: *Phone Message Yes, she can start it tonight. Thanks. Addendum by TARYN MURPHY on 20 October 2014 09:58:33 FORENSIC SPECIALIST From: TARYN MURPHY ( Physical Medicine and Rehabilitation Staff) To: HARRY ENGLE MD; Sent: 10/20/2014 09:58:33 FORENSIC SPECIALIST Subject: FW: *Phone Message Spoke with patient, she was down to 5 gabapentin yesterday and today should be 4, she would like to start the Lyrica tonight vs tomorrow because she started having the severe itching and prickling again. Is this ok? From: WINNIE WILKINSON ( Pankaj Business Analytics Manager) To: Physical Medicine and Rehabilitation Staff; Sent: 10/20/2014 08:31:48 FORENSIC SPECIALIST Subject: *Phone Message Caller is: ( x ) Patient ( ) Mother ( ) Father ( ) Spouse ( ) Daughter ( ) Son ( ) Pharmacy ( ) Other: Physician: Patient MRN #: Reason for Call: S: Patient is struggling with her pain medication. She may need to change some things. She can't go through another night like last night B: A: R: Please call her at [phone] Message: Advice/Action: Source used: ( ) Verbalizes understanding [...] back cell phone number ( ) Source: [employer] Document Id: [id number] documented in this encounter Plan of Treatment Not on filedocumented as of this encounter Procedures Procedure Name Priority Date/Time Associated Diagnosis Comme nts DX SHOULDER RIGHT Routine 10/01/2014 9:11 AM Resu lts for this 2+ VIEWS FORENSIC SPECIALIST procedure are i n the results section. documented in this encounter Results DX Shoulder Right 2+ Views (10/01/2014 9:11 AM FORENSIC SPECIALIST) Anatomical Region Laterality Modality Upper Extremity, Shoulder Right Radiographic I maging Specimen (Source) Anatomical Collection Method Collection Time Re ceived Time Location / / Volume Laterality 10/01/2014 9:11 AM FORENSIC SPECIALIST Addenda Addendum by ProviderArslan M.D. o n 10/01/2014 9:11 AM FORENSIC SPECIALIST RAD^^^OW XR Shoulder Right 2 or more views 10/01/2014 09:11:53 Impressions 10/01/2014 9:39 AM FORENSIC SPECIALIST Negative right shoulder. Narrative 10/01/2014 9:39 AM FORENSIC SPECIALIST EXAM: XR Shoulder Right 2 or more views INDICATION: shoulder pain COMPARISON: None. FINDINGS: Soft tissues are unremarkable. No fracture or destructive lesion is identified. Shoulder joint spa roberta are preserved. Procedure Note Steven Canales Jr., M.D. / Arslan Adams M.D. - 01/23/2017 EXAM: XR Shoulder Right 2 or more views INDICATION: shoulder pain COMPARISON: None. FINDINGS: Soft tissues are unremarkable. No fracture or destructive lesion is identified. Shoulder joint spa roberta are preserved. IMPRESSION: Negative right shoulder. Shanthi Kearns.T.(R), R.T.(R)(M) IMG DIAGNOSTIC IM AGING PROCEDURES documented in this encounter Visit Diagnoses Not on filedocumented in this encounter
--- OUTSIDE RECORDS SUMMARY | 2022-05-09 17:06 | XMS_ITS | Encounter Summary ---
:1945 Author Organization [facility] Address [address] [place] [address] Care Team Providers Name Role Phone Unavailable Primary Care Provider Unavailable Encounter Details Date Type Department Care Team Description 10/17/2015 Hospital Encounter HX [facility] Pranay Martinez M.D. [address] [place] [address], [address] [place] [address] (Wo rk) Social History Tobacco [...] How often do you attend denominational or taoism More than 4 time s per year [...] place to sleep or slept in a intermediate (including now)? 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 METFORMIN HCL (METFORMIN Take [...] daily. tablet documented as of this encounter Plan of Treatment Not on filedocumented as of this encounter Procedures Procedure Name Priority Date/Time Associated Diagnosis Comme nts DX SHOULDER LEFT 2+ Routine 10/17/2015 11:29 AM R esults for this VIEWS GRAPHIC ARTS INSTRUCTOR procedure are i n the results section. documented in this encounter Results DX Shoulder Left 2+ Views (10/17/2015 11:29 AM GRAPHIC ARTS INSTRUCTOR) Anatomical Region Laterality Modality Upper Extremity, Shoulder Left Radiographic I maging Specimen (Source) Anatomical Collection Method Collection Time Re ceived Time Location / / Volume Laterality 10/17/2015 11:29 AM GRAPHIC ARTS INSTRUCTOR Addenda Addendum by Arslan Reed M.D. o n 10/17/2015 11:29 AM GRAPHIC ARTS INSTRUCTOR RAD^^^OW XR Shoulder Left 2 or more views 10/17/2015 11:29:33 Impressions 10/17/2015 12:17 PM GRAPHIC ARTS INSTRUCTOR Acromioclavicular degenerative joint disease. Narrative 10/17/2015 12:17 PM GRAPHIC ARTS INSTRUCTOR EXAM: XR Shoulder Left 2 or more views INDICATION: shoulder pain AGE: 70 years-old COMPARISON: None. FINDINGS: No acute fracture or subluxati on. 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 Procedure Note Ibrahima Clemons M.D. / Arslan Reed M.D. - 01/18/2017 EXAM: XR Shoulder Left 2 or more views INDICATION: shoulder pain AGE: 70 years-old COMPARISON: None. FINDINGS: No acute fracture or subluxati on. 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 IMPRESSION: Acromioclavicular degenerati ve joint disease. Jenna Martinez(R), R.T.(R)(M) IMG DIAGNOSTIC IMAG ING PROCEDURES documented in this encounter Visit Diagnoses Not on filedocumented in this encounter
--- OUTSIDE RECORDS SUMMARY | 2022-05-09 17:06 | XMS_ITS | Encounter Summary ---
:1945 Author Organization [facility] Address [address] [place] [address] Care Team Providers Name Role Phone Unavailable Primary Care Provider Unavailable Encounter Details Date Type Department Care Team Description 04/29/2013 Hospital Encounter HX [facility] Pranay Su M.D. [address] [place] [address], [address] [place] [address] (Wo rk) Social History Tobacco [...] or relatives? How often do you attend jainism or jewish More than 4 time s per year 04/26/2021 services? 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 tablet documented as of this encounter Consult Notes Harry Su M.D. - 04/29/2013 8:17 AM CDT [id number] CHIEF COMPLAINT / REASON FOR VISIT Left lower extremity pain and weakness following left total hip arthroplasty. Referring physician Dr. Michelle Hartmann D.O. HISTORY OF PRESENT ILLNESS Ms. Bosch is a pleasant 67-year-old female who underwent a left total hip arthroplasty via a posterior approach on March 25, 2013 in [place]. She did well with respect to the total hip arthroplasty itself. It sounds as if she had a femoral block and as the femoral block wore off she noted that she was still having numbness in her distal left lower extremity and was having difficulty dorsiflexing her ankle and moving her toes. She reports she has had some improvement in the weakness in her left lower extremity but the weakness persists and she has been having pain in the left lower extremity. was having significant pain at night making it difficult for her to sleep and so she presented to the Emergency Department on April 20. There she was given an injection of medication as well as was started on gabapentin. She reports that has helped her pain. Currently, Ms. Bosch describes pain that is located in a few different areas. She has an achy discomfort that is located in her posterior leg extending from the posterior knee to the level of the ankle. She also has an achy discomfort that can occur in the posterolateral leg to the level of the ankle. She does have pain proximal to the knee in the region of her hip which she describes as a totally different type of pain than what she experiences distal to her knee. She also feels as if there is a tourniquet wrapped around her left ankle. She also feels that when she is walking it feels as if she is walking on nails and glass. She also describes a feeling of gel underneath her foot and that her foot does not feel right. She describes numbness and tingling that can occur on the dorsum of the foot both medially and laterally. She describes weakness of her left ankle groups. She denies any changes in bowel or bladder habits other than constipation that she attributes to her opioid use, fevers or chills. She occasionally has some left-sided low back pain but this is not typical. She rates her painat its worse as a 9/10 and its best as 1 out of 10. The worst pain tends to be at night and prior toinitiating the gabapentin as well as OxyContin that she has been using at night she was having a very difficult time sleeping at all secondary to the discomfort as well as she was experiencing spasms in the left lower extremity. That seems to have improved with those 2 medications. The pain is worse if she is walking as well as if she is sitting with any type of pressure against her leg. She is scheduled to see Dr. Henderson, orthopedic surgeon, back next week in followup. Currently Ms. Bosch is using gabapentin 300 mg 3 times daily, Vistaril 25 mg 4 times daily as needed and oxycodone/acetaminophen 5/325 typically 2 tablets per day and OxyContin 20 mg at bedtime. CURRENT MEDICATIONS Reviewed as per EMR. ALLERGIES Reviewed as per EMR. PAST MEDICAL/SURGICAL HISTORY Hypothyroidism. Hyperlipidemia. Irritable bowel syndrome. Chronic sleep apnea on CPAP. GERD. History of bilateral carpal tunnel syndrome. Tubal ligation. SOCIAL HISTORY Ms. Bosch lives in [place]. 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 She does not use any tobacco products. PHYSICAL EXAMINATION GENERAL: Pleasant 67-year-old female in no acute distress. GAIT: She is using a cane in her right hand. She takes very slow steps. With the few steps that she takes in the room she does have a mild steppage gait on the left. STRENGTH: All major muscle groups of the bilateral upper extremities have normal and symmetric muscle strength, bulk and tone. Hip flexors 0/trace weakness, quadriceps extensors 0/0, hamstrings 0/0, ankle dorsiflexors 0/-3, toe extensors 0/-3, EHL 0/-3, ankle evertors 0/-2, ankle invertors 0/-2, ankleplantar flexion 0/-1. Sensation hyperalgesia to pinprick in the dorsum of the left foot. REFLEXES: Bilateral upper extremity muscle stretch reflexes are physiologic and symmetric. Patellar tendon 0/0, hamstrings 0/0, Achilles 0/-3. IMPRESSION/REPORT/PLAN 1. Left lower extremity pain and weakness following a left total hip arthroplasty on March 25, 2013. I had a long discussion with Ms. Bosch and her who accompanied her to her visit. Ms. Bosch's predominant weakness is in peroneal innervated muscles including her ankle dorsiflexors, EHL, and toe extensors. 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 PLAN: 1. I discussed with Ms. Bosch the possibility of proceeding with an EMG of the left lower extremityto further clarify the neuropathy. However, it has only been 1 month since this began and I think itwould be reasonable to wait until approximately 12 weeks to consider an EMG of the left lower extremity, especially with her discomfort that she is in at the current time. 2. Ms. Bosch is scheduled to meet with Dr. Henderson next week and will likely begin physical therapyat that point which I think will be very important for her going forward and we discussed this today. Ms. Bosch has already been performing some exercises for her hip that she was shown immediately following surgery and that does not seem to exacerbate her symptoms in her left lower extremity. 3. We did discuss Ms. Bosch's medications today. The gabapentin has helped her significantly to this point and I am going to have her gradually increase that to 600 mg 3 times daily and went over how to do this in detail today. She will do that over the course of the next week. She has been trying todecrease her oxycodone use and yesterday went from taking 2 to 0 and felt anxious, jittery, and not like herself until she took her OxyContin. I am going to have her start to wean off her oxycodone as the gabapentin has been helpful for her and I hope that as we increase the gabapentin she will need the oxycodone less but I am going to have her do it in a slower fashion as she has been on that for a month now. We are going to have her decrease by one-half tablet every 3 days and following that she will just use the oxycodone as needed for discomfort. As we increase her gabapentin I also anticipate we will be able to have her discontinue her OxyContin but as her pain has been primarily at night preventing her from sleep and the combination of the gabapentin and OxyContin has helped her sleep we will continue that until she has increased her gabapentin to 600 mg 3 times daily and is not requiring her oxycodone during the day. I am also going to have her discontinue her Vistaril at the current time. 4. I will plan on seeing Ms. Bosch back in 1 month to assess her progress. She also knows to be in contact with me if she notes any change in her symptoms or has any difficulty with increasing the gabapentin dose. Ms. Bosch voiced agreement and understanding with this plan. Harry Su M.D./robin cc: [facility] Michelle Hartmann D.O. [address] [place] [id number] Electronically Signed By: HARRY SU MD On: 05/05/2013 12:01 PM Modified by and Electronically Signed by: HARRY SU MD On: 05/05/2013 12:01 PM Source: [facility] MHSDOLBEYNONRADSYS Document Id: [id number] documented in this encounter Miscellaneous Notes Miscellaneous - Harry Su M.D. - 04/29/2013 9:31 AM CDT Ambulatory Patient Summary [address] [address] Visit Information Name: ALISHA BOSCH [facility] Number: [id number] Current Date: 04/29/2013 09:31:11 Physicians Attending Provider: HARRY SU MD Primary Care Provider: PCP, ELSEWHERE Your Medications Here is a list of your medications. It is important to take your medications as directed. Use a pillbox or chart to help remind you to take your medications. Please let your doctor or nurse know if you have problems taking your medications. Medication/Strength Dose Route Frequency Indications/Special Instructions/Comments/Notes ergocalciferol (Vitamin D 400 iu oral tablet) [...] oral tablet) 1 tab(s)Oral once a day oxyCODONE-acetaminophen (oxyCODONE-acetaminophen 5 mg-325 mg oral tablet) 1 to 2 tablets Oral every 4 hours as needed for Pain 1-2 tablets po q4-6hr / No more than 4,000mg acetaminophen/24hrs oxyCODONE (OxyCONTIN 20 mg oral tablet, extended release) 20 mg Oral every evening omeprazole (omeprazole 20 mg oral delayed release [...] as needed for anxiety 25-50mg PO q4-6hr gabapentin (gabapentin 300 mg oral tablet) 300 mg Oral three times a day docusate (docusate sodium 100 mg [...] Time Location Reason Provider No Appointments found Your Goals/Additional instructions: Source: [facility] POWERCHART Document Id: [id number] Miscellaneous - Harry Su M.D. - 04/29/2013 9:31 AM CDT [place] [address] Visit Information Name: DOUGLASALISHA KELLOGG [facility] Number: [phone] Visit Date: 04/29/2013 09:31:10 Attending Provider: HARRY SU MD Primary Care [...] medications. Medication/Strength Dose Route Frequency Indications/Special Instructions/Comments/Notes ergocalciferol (Vitamin D 400 iu oral tablet) [...] oral tablet) 1 tab(s)Oral once a day oxyCODONE-acetaminophen (oxyCODONE-acetaminophen 5 mg-325 mg oral tablet) 1 to 2 tablets Oral every 4 hours as needed for Pain 1-2 tablets po q4-6hr / No more than 4,000mg acetaminophen/24hrs oxyCODONE (OxyCONTIN 20 mg oral tablet, extended release) 20 mg Oral every evening omeprazole (omeprazole 20 mg oral delayed release [...] as needed for anxiety 25-50mg PO q4-6hr gabapentin (gabapentin 300 mg oral tablet) 300 mg Oral three times a day docusate (docusate sodium 100 mg oral capsule) 100 mg Oral two times a day Attention: If you have any medications at home that are not on this list, DO NOT take them until youcontact your provider for clarification. Additional Information: Source: [facility] POWERCHART Document Id: [id number] Miscellaneous - Conversion, Historical Provider Ser - 04/29/2013 8:42 AM CDT Adult Supervisor Of Instruction Intake/History Adult Supervisor Of Instruction Intake/History Entered On: 04/29/2013 8:44 CDT Performed On: 04/29/2013 8:42 CDT by STUART CAIN LPN Intake Chief Complaint : bad muscle spasms referral from to help with pain management, on attempt to withdraw has alot of muscle spasms. Nerve damage from hip surgery. Systolic Blood Pressure : 122 mmHg Diastolic Blood Pressure : 66 mmHg NIBP Mean : 85 mmHg BP Location : Right upper extremity Blood Pressure Cuff Size : Regular Actual Weight : 89.3 kg(Converted to: 196 lb 14 oz) Weight Source : Standing scale Dosing Weight Clinic : 89.3 kg STUART CAIN LPN - 04/29/2013 8:42 CDT General Info Information Given By : Patient Languages : French STUART CAIN LPN - 04/29/2013 8:42 CDT Subjective Pain Symptoms : No STUART CAIN LPN - 04/29/2013 8:42 CDT Dependent Habits Tobacco Use/Currently Using : No Smoking Status : Never smoker PAYTON STUART Eagle LPN - 04/29/2013 8:42 CDT Source: [facility] [employer] Document Id: [id number] CDT!19 documented in this encounter Plan of Treatment Not on filedocumented as of this encounter Visit Diagnoses Not on filedocumented in this encounter
--- OUTSIDE RECORDS SUMMARY | 2022-05-09 17:06 | XMS_ITS | Encounter Summary ---
:1945 Author Organization [facility] Address [address] [place] [address] Care Team Providers Name Role Phone Unavailable Primary Care Provider Unavailable Encounter Details Date Type Department Care Team Description 10/17/[address] [facility] Pranay Martinez M.D. 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 documented in this encounter Results DX Foot Left 3+ Views (10/17/2015 11:29 AM RUBBER DOWN) Anatomical Region Laterality Modality Lower Extremity, Foot Left Radiographic Imagi ng Specimen (Source) Anatomical Collection Method Collection Time Re ceived Time Location / / Volume Laterality 10/17/2015 11:29 AM RUBBER DOWN Addenda Addendum by Provider, Parker Mcdaniels 10/17/2015 11:29 AM RUBBER DOWN RAD^^^OW XR Foot Left 3 or more views 10/17/2015 11:29:32 Impressions 10/17/2015 12:13 PM RUBBER DOWN Mild degenerative joint disease. Narrative 10/17/2015 12:13 PM RUBBER DOWN EXAM: XR Foot Left 3 or more views INDICATION: foot pain AGE: 70 years-old COMPARISON: None. FINDINGS: No acute fracture or subluxati on. 3 views left foot show mild degenerative joint disease of first metatarsophalangeal joint and first tars ometatarsal joint. Single view right foot shows mild first metatarsophalangeal degenerative joint disease. Procedure Note Ibrahima Clemons M.D. / ProviderArslan M.D. - 01/18/2017 EXAM: XR Foot Left 3 or more views INDICATION: foot pain AGE: 70 years-old COMPARISON: None. FINDINGS: No acute fracture or subluxati on. 3 views left foot show mild degenerative joint disease of first metatarsophalangeal joint and first tars ometatarsal joint. Single view right foot shows mild first metatarsophalangeal degenerative joint disease. IMPRESSION: Mild degenerative joint dise ase. Jenna Martinez(R), RKatalinaTKatalina(R)(M) IMG DIAGNOSTIC IMAG ING PROCEDURES documented in this encounter Visit Diagnoses Not on filedocumented in this encounter
--- OUTSIDE RECORDS SUMMARY | 2022-05-09 17:06 | XMS_ITS | Encounter Summary ---
:1945 Author Organization [facility] Address [address] [place] [address] Care Team Providers Name Role Phone Unavailable Primary Care Provider Unavailable Encounter Details Date Type Department Care Team Description 08/27/2013 Hospital Encounter HX [facility] Pranay Martinez M.D. [address] [place] [address], [address] [place] [address] (Wo rk) Social History Tobacco [...] or relatives? How often do you attend anabaptism or rastafari More than 4 time s per year 04/26/2021 services? 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 documented in this encounter Results DX Ankle Left 3+ Views (08/27/2013 11:47 AM PAPER FOLDER) Anatomical Region Laterality Modality Lower Extremity, Ankle Left Radiographic Imag ing Specimen (Source) Anatomical Collection Method Collection Time Re ceived Time Location / / Volume Laterality 08/27/2013 11:47 AM PAPER FOLDER Addenda Addendum by ProviderArslan M.D. o tonio 08/27/2013 11:47 AM PAPER FOLDER RAD^^^OW XR Ankle Left 3 or more views 08/27/2013 11:47:27 Narrative 08/27/2013 12:12 PM PAPER FOLDER Technique: Multiple views of the left an kle were obtained. No prior studies are available for comparison. FINDINGS: There are no evidence of fract ure, dislocation/subluxation or focal destruction. The ankle mortise is maintained.Mild to moderate soft tissue swelling about the ankle. ??No radiopaque foreign bodies identified. Impression: No radiographic evidence of acute osseou s pathology. Procedure Note Matt Friedman M.D. / ProviderIssa M.D. - 02/01/2017 Technique: Multiple views of the left an kle were obtained. No prior studies are available for comparison. FINDINGS: There are no evidence of fract ure, dislocation/subluxation or focal destruction. The ankle mortise is maintained.Mild to moderate soft tissue swelling about the ankle. No radiopaque foreign bodies identified. Impression: No radiographic evidence of acute osseou s pathology. Johnnie Martinez(Urmila)(M) IMG DIAGNOSTIC IMAGING PROCE DURES documented in this encounter Visit Diagnoses Not on filedocumented in this encounter
--- OUTSIDE RECORDS SUMMARY | 2022-05-09 17:06 | XMS_ITS | Encounter Summary ---
:1945 Author Organization [facility] Address [address] [place] [address] Care Team Providers Name Role Phone Unavailable Primary Care Provider Unavailable Encounter Details Date Type Department Care Team Description 11/11/2014 Hospital Encounter [facility]X [facility] Pranay Engle M.D. [address] [place] [address], [address] [place] [address] (Wo rk) Social History Tobacco [...] or relatives? How often do you attend congregation or yazidism More than 4 time s per year 04/26/2021 services? Do you belong to any clubs or organizations Yes 04/26/2021 such as congregation groups, unions, fraternal or athletic groups, or [...] or slept in a long-term (including now)? 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 - 11/11/2014 1:47 PM CST [id number] CHIEF COMPLAINT/REASON FOR VISIT Left lower extremity pain. HISTORY OF PRESENT ILLNESS Ms. Bosch returns today. She has been using Lyrica 150 mg 2 times daily. She does feel this has been helpful for her. She feels it has been slightly more helpful than the gabapentin but similar. She specifically notes that her pain in the morning and evening is very good but she is having discomfort that typically starts to increase around 2 or 3 in the afternoon and reaches its peak in the late afternoon and she can feel that the a.m. dose of the Lyrica is wearing off. She describes this as her typical symptoms including a prickly sensation in her left foot and a leathery strap-type sensation around her left foot. She has been tolerating the Lyrica otherwise very well. PHYSICAL EXAMINATION None performed today. IMPRESSION/REPORT/PLAN 1. Left lower extremity pain and weakness following A left total hip arthroplasty on March 25, 2013. 2. Right shoulder pain. 3. Right lateral elbow pain, consistent with lateral epicondylosis. PLAN: 1. I am going to have Ms. Bosch continue her Lyrica 150 mg 2 times daily and we are going to add a 50 mg dose in the early afternoon to see if this can cover her increased discomfort that occurs around that time. 2. Ms. Bosch will continue working in physical therapy with respect to her right elbow and right shoulder and she has been making progress with respect to that. 3. I will plan to see Ms. Bosch back in 6 weeks to assess her progress, and she voiced agreement and understanding with this plan. Harry Engle M.D./epi Electronically Signed By: HARRY ENGLE MD On: 11/15/2014 05:25 PM Modified by and Electronically Signed by: HARRY ENGLE MD On: 11/15/2014 05:25 PM Source: [facility] MHSDOLBEYNONRADSYS Document Id: [id number] FACTURING HELPER documented in this encounter Nursing Notes Rahel Lion L.P.N. - 11/12/2014 9:03 AM CST Prior authorization request Lyrica Prior Authorization Request for Lyrica completed by phone, inventory representative on phone stated prior authorization was not needed for that dose, states he will be sending a fax with this statement on it. Time spent on form 20 minutes. Electronically Signed By: RAHEL LION LPN On: 11/12/2014 09:05 AM Source: [facility] POWEROneWire Document Id: [id number] FACTURING HELPER documented in this encounter Miscellaneous Notes Miscellaneous - Radha Ovalles R.N. - 10/10/2015 2:59 PM CST gabapentin Document Contains Addenda Addendum by HARRY ENGLE MD on 10 October 2015 15:23:42 MANUFACTURING HELPER Submitted: Order:gabapentin (gabapentin 300 mg oral capsule) 3 cap(s) PO 3xDay Qty: 610 cap(s) Refills: 0 Substitutions Allowed Route To Pharmacy - [facility] Mail [facility] Signed by HARRY ENGLE MD 10/10/2015 15:23:31 Submitted: Complete:pregabalin (Lyrica 150 mg oral capsule) Signed by HARRY ENGLE MD 10/10/2015 15:23:24 Submitted: Complete:pregabalin (Lyrica 50 mg oral capsule) Signed by HARRY ENGLE MD 10/10/2015 15:23:22 From: RADHA OVALLES RN To: HARRY ENGLE MD; Sent: 10/10/2015 14:59:53 MANUFACTURING HELPER Subject: gabapentin Caller is: ( ) Patient ( ) Mother ( ) Father ( ) Spouse ( ) Daughter ( ) Son ( ) Pharmacy ( ) Other: Provider: [facility] Name of Medications Needing Refill:gabapentin 300mg caps - - take 3 caps three times daily Last Refill Date: #610 Additional Information: Last / Future Appointment: Disposition: ( ) Send to Pharmacy ( ) Call to Pharmacy ( ) Patient will sampler pickup Script ( ) Mail Rx to Patient Source: [facility] POWERCHART Document Id: [id number] Electronically signed by [facility]ussy [facility] [id number] at 02/11/2017 12:46 AM CDT Miscellaneous - Kerry Naylor, RKatalinaN. - 07/11/2015 11:38 AM CDT *Medication Refill Msg Document Contains Addenda Addendum by HARRY ENGLE MD on 11 July 2015 16:34:12 CDT Submitted: Order:gabapentin (gabapentin 300 mg oral capsule) 3 cap(s) PO 3xDay Qty: 610 cap(s) Refills: 0 Substitutions Allowed Route To Pharmacy - [facility] Signed by HARRY ENGLE MD 07/11/2015 16:34:02 From: KERRY NAYLOR RN To: HARRY ENGLE MD; Sent: 07/11/2015 11:38:46 CDT Subject: *Medication Refill Msg Caller is: ( ) Patient ( ) Mother ( ) Father ( ) Spouse ( ) Daughter ( ) Son ( ) Pharmacy ( ) Other: Provider: Pharmacy: [facility] fax: Name of Medications Needing Refill: gabapentin 300mg cap Last Refill Date: 05/26/15 #610 Additional Information: Last / Future Appointment:11/11/14 Disposition: ( ) Send to Pharmacy ( ) Call to Pharmacy ( ) Patient will sampler pickup Script ( ) Mail Rx to Patient Source: [facility] POWERCHART Document Id: [id number] Telephone Encounter - Conversion, Historical Provider Ser - 02/24/2015 9:56 AM CDT *Phone Message Document Contains Addenda Addendum by TARYN MURPHY on 24 February 2015 14:48:27 CDT Spoke with patient; medication has been refilled. From: FREDY LANDA To: [facility] Medicine [facility] Rehabilitation Staff; Sent: 02/24/2015 09:56:52 CDT Subject: *Phone Message Caller is: ( ) Patient ( ) Mother ( ) Father ( ) Spouse ( ) Daughter ( ) Son ( ) Pharmacy ( ) Other: Physician: Patient Reason for Call: Message: S: Patient called to leave message with nurse B: [facility] faxed a request for a prescription and they need it faxed back to them A: R: Patient can be reached at [phone] Advice/Action: Source used: ( ) Verbalizes understanding [...] back cell phone number ( ) Source: [facility] CrestHireCHART Document Id: [id number] Miscellaneous - Radha Ovalles R.N. - 02/18/2015 4:08 PM CDT gabapentin Document Contains Addenda Addendum by HARRY ENGLE MD on 22 February 2015 09:37:17 CDT Submitted: Order:gabapentin (gabapentin 300 mg oral capsule) 3 cap(s) PO 3xDay Qty: 610 cap(s) Refills: 0 Substitutions Allowed Route To Pharmacy - [facility] Mail Delivery Signed by HARRY ENGLE MD 02/22/2015 09:37:04 From: RADHA OVALLES ([facility] [place] Medication Refill) To: HARRY ENGLE MD; Sent: 02/18/2015 16:08:44 CDT Subject: gabapentin Caller is: ( ) Patient ( ) Mother ( ) Father ( ) Spouse ( ) Daughter ( ) Son ( [facility] ) Pharmacy ( ) Other: Provider: [facility] Pharmacy: Name of Medications Needing Refill: gabapentin 300 mg Last Refill Date:qty 610 Additional Information: 3 caps po TID.... Last / Future Appointment: 11/11/14 Disposition: ( x ) Send to Pharmacy ( ) Call to Pharmacy ( ) Patient will sampler pickup Script ( ) Mail Rxto Patient Source: [facility] Ntractive Document Id: [id number] Telephone Encounter - Conversion, Historical Provider Ser - 11/22/2014 12:13 PM CDT *Phone Message/Dr. Engle Document Contains Addenda Addendum by TARYN MURPHY on 24 November 2014 08:49:48 CDT Spoke with patient. Addendum by HARRY ENGLE MD on 22 November 2014 15:32:14 CDT From: HARRY ENGLE MD To: [facility] Medicine [facility] Rehabilitation Staff; Sent: 11/22/2014 15:32:14 CDT Subject: RE: *Phone Message/Dr. Engle Prescription written. She should discontinue the am dose of Lyrica for 2 days and then she can discontinue the pm dose of Lyrica and start the Gabapentin 300 mg po qhs that same night and increase by 300 mg per day. Thanks. Addendum by TARYN MURPHY on 22 November 2014 12:53:44 CDT From: TARYN MURPHY ( [facility] Rehabilitation Staff) To: HARRY ENGLE MD; Sent: 11/22/2014 12:53:44 CDT Subject: FW: *Phone Message/Dr. Engle Spoke with patient; she is requesting to switch back to gabapentin due to the insurance and cost of it. How does she come off the lyrica and restart the gabapentin? The gabapentin will have to get sent to [facility] and a 3 month supply. From: TORI MCGOWAN ( [place] Index Clerk) To: Physical Medicine and Rehabilitation Staff; Sent: 11/22/2014 12:13:34 CDT Subject: *Phone Message/Dr. Engle Caller is: ( x ) Patient ( ) Mother ( ) Father ( ) Spouse ( ) Daughter ( ) Son ( ) Pharmacy ( ) Other: Physician: Dr. Engle Patient MRN #: Reason for Call: Message: S Patient states that she was scheduled to see Dr. Engle on the 23 of December. She is leaving for [place] on the 21 of December. She will need to see Dr. Engle a few days before the because she has some medications that she needs straightened out before she goes. B A R Please call patient back at [phone] to advise. Advice/Action: Source used: ( ) [...] back cell phone number ( ) Source: [facility] POWERCHART Document Id: [id number] Telephone Encounter - Radha Ovalles R.N. - 11/17/2014 9:53 AM CST lyrica Document Contains Addenda Addendum by RAHEL LION LPN on 17 November 2014 10:54:29 MANUFACTURING HELPER Prior Authorization was approved for this medication, states the reqested drug Lyrica 50 MG [id number]/30 is available to the member at the contracted copayment. Addendum by TARYN MURPHY on 17 November 2014 10:42:33 MANUFACTURING HELPER From: TARYN MURPHY ( [facility] Staff) To: Garry Medication Refill; FB/ Medication Prior Auth; Sent: 11/17/2014 10:42:33 MANUFACTURING HELPER Subject: RE: maria e Spoke with Ke[facility] in [place], they stated a prior authorization form has been sent on this medication. Addendum by RADHA OVALLES on 17 November 2014 10:35:08 MANUFACTURING HELPER From: RADHA OVALLES ( [place] Medication Refill) To: [facility] Rehabilitation Staff; Sent: 11/17/2014 10:35:08 MANUFACTURING HELPER Subject: RE: lyrica In chart it says it does not need prior authorization. I am not sure where the 92 dollars came from please check with Dr. Engle. Addendum by TARYN MURPHY on 17 November 2014 10:25:40 MANUFACTURING HELPER From: TARYN MURPHY ( [facility]) To: [place] Medication Refill; Sent: 11/17/2014 10:25:40 MANUFACTURING HELPER Subject: RE: lyrica There was a prior authorization done on this medication, I believe that must be what she is talking about. Another prior authorization may need to be done on this. From: RADHA OVALLES ( [place] Medication Refill) To: HARRY ENGLE MD; Cc: [facility] Staff; Sent: 11/17/2014 09:53:20 MANUFACTURING HELPER Subject: lyrica Caller is: ( ) Patient ( ) Mother ( ) Father ( ) Spouse ( ) Daughter ( ) Son ( [facility] )Pharmacy ( ) Other: Physician: calvin Patient MRN #: Reason for Call: Message: S Lyrica B Message from pharmacy pt claims dr called ins and got garcia down to $92 \. pt is requesting clinic get this override again. Advice/Action: Source used: ( ) Verbalizes understanding [...] back cell phone number ( ) Source: [facility] POWERCHART Document Id: [id number] Miscellaneous - Harry Engle M.D. - 11/11/2014 2:32 PM CST Ambulatory Patient Summary [address] [id number] Visit Information Name: ALISHA BOSCH [facility] Number: [id number] Current Date: 11/11/2014 14:32:47 Physicians Attending Provider: HARRY ENGLE MD Primary Care Provider: PCP, HERNAN BOSCH ALISHA SCHMIDT has been given the following list [...] day esomeprazole (NexIUM) Oral, once a day glucosamine-chondroitin (glucosamine-chondroitin 500 mg-400 [...] release) 1 cap, Oral, once a day pregabalin (Lyrica 150 mg oral capsule) 1 cap, Oral, two times a day pregabalin (Lyrica 50 mg oral capsule) See Instructions 1 cap po afternoon in addition to the 150 mgpo bid Called to pharmacy psyllium (Metamucil) Oral with calcium. triamterene-hydrochlorothiazide (triamterene-hydrochlorothiazide 37.5 mg-25 mg oral tablet) 1 Tablet(s), Oral, once a day warfarin (warfarin 4 mg oral tablet) 2 Tablet(s), Oral, once a day Stop Taking the Following Medications: Medication list as of 11-11-14 14:32 Attention: If you have any medications at [...] Electronically Signed By: HARRY ENGLE MD Signed On:11-NOV-2014 14:30:32 Your Allergies & Intolerances Substance Reaction Symptoms Category Comments erythromycin Emesis Drug Your Problem List Problem Status Onset Comments No Problems found Your Upcoming Appointments Date Time Location Provider 12/23/2014 14:00 [facility]BCV PM&R Harry Engle MD Attention: Contact your local Clinic if further appointment detail needed. Your Goals/Additional instructions: Source: [facility] POWERCHART Document Id: [id number] FACTURING HELPER Miscellaneous - Harry Engle M.D. - 11/11/2014 2:32 PM CST Ambulatory Discharge Medication List [address] [id number] Visit Information Name: DIPAKFcoALISHA BRAYAN [facility] Number: [id number] Visit Date: 11/11/2014 14:32:46 Attending Provider: HARRY ENGLE MD Primary Care Provider: PCP, HERNAN COLEALISHA [...] day esomeprazole (NexIUM) Oral, once a day glucosamine-chondroitin (glucosamine-chondroitin 500 mg-400 mg oral tablet) hydrOXYzine (Vistaril 25 mg oral capsule) 1 cap, Oral, four times a day as needed for anxiety 25-50mg PO q4-6hr levothyroxine (Levothroid 75 mcg (0.075 mg) oral tablet) 1 Tablet(s), Oral, once a day lovastatin (lovastatin 40 mg oral tablet, extended release) 1 Tablet(s), Oral, once a day (at bedtime) [facility] Prescription (Krill Oil) See Instructions Daily multivitamin with minerals (multivitamin with minerals Multiple Vitamins with Zinc oral capsule) 1 cap, Oral, once a day omeprazole (omeprazole 20 mg oral delayed release tablet) 2 Tablet(s), Oral, once a day potassium chloride (potassium chloride 10 mEq oral capsule, extended release) 1 cap, Oral, once a day pregabalin (Lyrica 150 mg oral capsule) 1 cap, Oral, two times a day pregabalin (Lyrica 50 mg oral capsule) See Instructions 1 cap po afternoon in addition to the 150 mgpo bid Called to pharmacy psyllium (Metamucil) Oral with calcium. 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 Turner Intake/History Adult Axle Turner Intake/History Entered On: 11/11/2014 14:12 MANUFACTURING HELPER Performed On: 11/11/2014 14:10 MANUFACTURING HELPER by TARYN MURPHY Intake Systolic Blood Pressure : 128 mmHg Diastolic Blood Pressure : 66 mmHg NIBP Mean : 87 mmHg BP Location : Left upper extremity Blood Pressure Cuff Size : Regular Actual Weight : 102.1 kg(Converted to: 225 lb 1 oz) Weight Source : Standing scale Dosing Weight Clinic : 102.1 kg TARYN MURPHY - 11/11/2014 14:10 MANUFACTURING HELPER General Info Information Given By : Patient Preferred Communication Mode : Verbal Languages : Sinhala Is Patient Female and 13-50 no hysterectomy : TARYN Smith - 11/11/2014 14:10 MANUFACTURING HELPER Subjective Pain Symptoms : TARYN Smith - 11/11/2014 14:10 MANUFACTURING HELPER Dependent Habits Tobacco Use/Currently Using : No Exposure to Tobacco Smoke : Other: never Smoking Status : Never smoker TARYN MURPHY - 11/11/2014 14:10 MANUFACTURING HELPER ID Screen Drug Resistant Organism : No Travel Within Last 21 Days : No Contact with someone with Ebola : TARYN Smith - 11/11/2014 14:10 MANUFACTURING HELPER Source: [employer] Document Id: [id number] MANUFACTURING HELPER!25 FACTURING HELPER documented in this encounter Plan of Treatment Not on filedocumented as of this encounter Visit Diagnoses Not on filedocumented in this encounter
--- OUTSIDE RECORDS SUMMARY | 2022-05-09 17:06 | XMS_ITS | Encounter Summary ---
:1945 Author Organization [facility] Address [address] [place] [address] Care Team Providers Name Role Phone Unavailable Primary Care Provider Unavailable Encounter Details Date Type Department Care Team Description 06/22/2013 Hospital Encounter [facility]X [facility] Pranay Su M.D. [address] [place] [address], [address] [place] [address] (Wo rk) Social History Tobacco [...] or relatives? How often do you attend caodaism or bahai More than 4 time s per year 04/26/2021 services? Do you belong to any clubs or organizations Yes 04/26/2021 such as caodaism groups, unions, fraternal or athletic groups, or [...] or slept in a custodial (including now)? 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 - 06/22/2013 11:43 AM CDT [id number] CHIEF COMPLAINT/REASON FOR VISIT Followup left lower extremity pain and weakness following a left total hip arthroplasty HISTORY OF PRESENT ILLNESS Ms. Bosch returns today in followup. She reports that she is making progress. She feels that her strength is improving her left ankle and foot as well as she is having less pain. She still does have discomfort in the left foot she describes as a feeling that her muscles are very tight and occasionally some tingling that she can experience in her toes which she describes as a numb and prickly feelingalthough this is happening less frequently. She has been working in physical therapy on Saturday and Wednesdays and is involved in an aquatic exercise program on Tuesdays and . She has been using her gabapentin 600 mg in the morning, 600 mg in the afternoon and 900 mg at bedtime. She did have Charles performed of her lumbar spine for low back pain. She reports she has had longstanding low back pain for past few years that predates her left total hip arthroplasty. She has been noticing some mildincreased discomfort in that primarily located in the left side of her back that can radiate into the left gluteal region and occasionally into left posterior thigh although that is not frequent. Dhara was experiencing this prior to the weakness that she developed in her left lower extremity. She had a MRI performed of her lumbar spine in [place] on June 05. I have the report which mentions multilevel degenerative changes including grade 1 anterior spondylolisthesis of L4-L5 and moderateleft subarticular recess stenosis with mild impingement traversing left L5 nerve root. There is alsomoderate left foraminal stenosis at L4-L5 with mild ganglionic impingement on the left. PHYSICAL EXAMINATION GENERAL: Pleasant 67-year-old female in no acute distress. GAIT: Minimal steppage gait today in the left. She is not using a gait aid. EXTREMITIES: Strength: Hip flexors 0/0, quadriceps 0/0, hamstrings 0/0, ankle dorsiflexor 0/-2, toe extensors 0/-3, EHL 0/-2, ankle evertors 0/-1, ankle invertors 0/-2, ankle plantar flexors 0/trace weakness. Reflexes: Patellar tendon 0/0, internal hamstrings 0/0, Achilles 0/-4. IMPRESSION/REPORT/PLAN 1. Left extremity pain and weakness following a left total hip arthroplasty on March 25, 2013 2. Low back pain 3. Lumbar spondylosis Overall, Ms. Bosch has made excellent progress since I last saw her at the beginning of May. She has had improvement in her strength as well as has had a decrease in her pain. PLAN 1. I am going to have Ms. Bosch increase her gabapentin to 900 mg in the morning, 600 mg in the afternoon and 900 mg at bedtime as she has found this to be very helpful and has not had any side effects but does note that she can tell later in the morning towards noon she has more discomfort. 2. We discussed previously the possibility of proceeding with an EMG and I think it would be reasonable to proceed with that and we will arrange for this to occur at the first available time. 3. I will plan on seeing Ms. Bosch back in approximately 6 weeks to assess her progress and she knows to be in contact with me prior to that time if she notes any worsening or worrisome symptoms whichwe went over in detail today. She voiced agreement and understanding with this plan. Total time 25 minutes and counseling time 15 minutes. Harry Su M.D./luke Electronically Signed By: HARRY SU MD On: 06/24/2013 10:17 AM Modified by and Electronically Signed by: HARRY SU MD On: 06/24/2013 10:17 AM Source: [facility] Document Id: [id number] documented in this encounter Miscellaneous Notes Miscellaneous - Harry Su M.D. - 06/22/2013 1:08 PM CDT [place] [address] Visit Information Name: ALISHA BOSCH [facility] Number: [id number] Current Date: 06/22/2013 13:08:30 Physicians Attending Provider: HARRY SU MD Primary [...] No Appointments found Your Goals/Additional instructions: Source: [facility] POWERCHART Document Id: [id number] Miscellaneous - Harry Su M.D. - 06/22/2013 1:08 PM CDT [place] [address] Visit Information Name: ALISHA BOSCH [facility] Number: [id number] Visit Date: 06/22/2013 13:08:29 Attending Provider: HARRY SU MD Primary Care [...] your provider for clarification. Additional Information: Source: [facility] POWERCHART Document Id: [id number] Miscellaneous - Marlene Valentine P.A.-C. 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 Intake/History Entered On: 06/22/2013 11:50 CDT Performed On: 06/22/2013 11:48 CDT by MARLENE VALENTINE Intake Systolic Blood Pressure : 138 mmHg Diastolic Blood Pressure : 60 mmHg NIBP Mean : 86 mmHg BP Location : Left upper extremity Blood Pressure Cuff Size : Large Actual Weight : 93.2 kg(Converted to: 205 lb 8 oz) Weight Source : Standing scale Dosing Weight Clinic : 93.2 kg MARLENE VALENTINE - 06/22/2013 11:48 CDT General Info Information Given By : Patient Preferred Communication Mode : Verbal Languages : Taiwanese MARLENE VALENTINE - 06/22/2013 11:48 CDT Subjective Pain Symptoms : No MARLENE VALENTINE - 06/22/2013 11:48 CDT Dependent Habits Tobacco Use/Currently Using : No Exposure to Tobacco Smoke : Other: never Smoking Status : Never smoker MARLENE VALENTINE - 06/22/2013 11:48 CDT [facility] Document Id: [id number] CDT!20 documented in this encounter Plan of Treatment Not on filedocumented as of this encounter Visit Diagnoses Not on filedocumented in this encounter
--- OUTSIDE RECORDS SUMMARY | 2022-05-09 17:06 | XMS_ITS | Encounter Summary ---
:1945 Author Organization [facility] Address [address] [place] [address] Care Team Providers Name Role Phone Unavailable Primary Care Provider Unavailable Encounter Details Date Type Department Care Team Description 07/19/2014 Hospital Encounter HX [facility] Pranay Simpson M.D. [address] [place] [address], [address] [place] [address] (Wo rk) Social History Tobacco [...] or relatives? How often do you attend mormonism or restoration More than 4 time s per year 04/26/2021 services? Do you belong to any clubs or organizations Yes 04/26/2021 such as mormonism groups, unions, fraternal or athletic groups, or [...] place to sleep or slept in a half-way (including now)? Sex Assigned at Date Recorded Female 07/23/2018 9:43 AM TECHNICAL FELLOW documented as of this encounter Last Filed Vital Signs Vital Sign Reading Time Taken Comments Blood Pressure 118/64 07/19/2014 9:27 AM TECHNICAL FELLOW Pulse - - Temperature - - Respiratory Rate - - Oxygen Saturation - - Inhaled Oxygen Concentration - - Weight 101 kg (222 lb 3.6 oz) 07/19/2014 9:27 AM TECHNICAL FELLOW Height - - Body Mass Index - [...] as of this encounter Progress Notes Harry Simpson M.D. - 07/19/2014 9:18 AM CST [id number] CHIEF COMPLAINT/REASON FOR VISIT Follow up left lower extremity pain and weakness following a left total hip arthroplasty. HISTORY OF PRESENT ILLNESS Ms. Bosch returns today in followup. She reports that since I last saw her 6 months ago, she feels things have plateaued. She still feels that she has good strength in her left lower extremity, but continues to be bothered by a few different areas of discomfort, primarily now in her left foot and ankle. She describes a tingling sensation that occurs primarily through the tips of her 2nd through 5th toes and extends slightly proximally onto the plantar aspect of the distal foot. She then feels a leathery-strap type sensation that runs along the plantar aspect of the foot and then wraps around her left ankle. This is additionally bothersome for her at night, as any type of sheet or with any object just brushing her skin causes her increased tingling and discomfort. She also notes if she walks for a prolonged period of time, she also notes worsening symptoms. She has been very active, continuing to walk in the pool 3 times per week for an hour each time, which I commended her on. She did try to decrease her gabapentin, but felt her symptoms worsen, so she has been using gabapentin 900 mg 3 timesdaily. She does feel that she has been having some issues with her memory with the gabapentin. PHYSICAL EXAMINATION GENERAL: Pleasant 69-year-old female in no acute distress. GAIT: Non-antalgic. EXTREMITIES: All major muscle groups of the bilateral lower extremities have normal and symmetric muscle strength, bulk and tone. Intact sensation to light touch in the bilateral lower extremities. Shehas allodynia involving the 2nd through 5th toes and gentle brushing of the skin causes her discomfort. IMPRESSION/REPORT/PLAN 1. Left lower extremity pain and weakness following a left total hip arthroplasty on March 25, 2013. 2. Low back pain. 3. Lumbar spondylosis. 4. Left ankle pain. While Ms. 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 PLAN: 1. We discussed switching her to Lyrica to see if this could provide her more benefit, and Ms. Bosch would like to try this. I am going to have her decrease her gabapentin and went through how to do that today in detail, and then she will initiate Lyrica 75 mg 2 times daily, progressing to a goal of 150 mg 2 times daily. We went over the side effects of this medication in detail. 2. We did discuss the possibility of potentially using amitriptyline/ketamine cream at night to see if this can help with the pain that she is experiencing. She would like to see how things progress with the Lyrica first, which is very reasonable, but this may be an option depending on how things progress. 3. Ms. Bosch will be in contact with us and let us know how she is progressing with the Lyrica in approximately 3 months, and she knows to be in contact with us prior to that time if she notes any worsening or worrisome symptoms, which we went over in detail today. Ms. Bosch voiced agreement and understanding with this plan. ADMINISTRATIVE BILLING Total time 30 minutes, counseling time 20 minutes. Harry Simpson M.D./epi Electronically Signed By: HARRY SIMPSON MD On: 07/21/2014 10:54 AM Modified by and Electronically Signed by: HARRY SIMPSON MD On: 07/21/2014 10:54 AM Source: [facility] MHSDOLBEYNONRADSYS Document Id: [id number] NICAL FELLOW documented in this encounter Nursing Notes Conversion, Historical Provider Ser - 07/26/2014 9:41 AM CST prior authorization-lyrica Document Contains Addenda Addendum by GAEL GARCIA LPN on 19 August 2014 9:34 TECHNICAL FELLOW letter from Dr Simpson is sent to [employer]. Modified by and Electronically Signed by: GAEL GARCIA LPN On: 08/19/2014 09:34 AM Addendum by GAEL GARCIA LPN on 29 July 2014 11:44 TECHNICAL FELLOW prior authorization for Lyrica has been denied. Dr Simpson is notified Modified by and Electronically Signed by: GAEL GARCIA LPN On: 07/29/2014 11:44 AM prior authorization request sent to [employer] for the medication Lyrica 75mg, time spent 20 minutes Electronically Signed By: GAEL GARCIA LPN On: 07/26/2014 09:43 AM Source: [facility] POWERCHART Document Id: [id number] documented in this encounter Miscellaneous Notes Miscellaneous - Analilia Larry R.N. - 08/23/2015 3:05 PM CST *Medication Refill Msg Document Contains Addenda Addendum by HARRY SIMPSON MD on 23 August 2015 15:43:51 TECHNICAL FELLOW Submitted: Order:gabapentin (gabapentin 300 mg oral capsule) 3 cap(s) PO 3xDay Qty: 610 cap(s) Refills: 0 Substitutions Allowed Route To Pharmacy - [facility] Signed by HARRY SIMPSON MD 08/23/2015 15:43:38 From: ANALILIA LARRY RN To: HARRY SIMPSON MD; Sent: 08/23/2015 15:05:16 TECHNICAL FELLOW Subject: *Medication Refill Msg Caller is: ( ) Patient ( ) Mother ( ) Father ( ) Spouse ( ) Daughter ( ) Son ( ) Pharmacy ( ) Other: Provider: Pharmacy: [facility] Name of Medications Needing Refill:gabapentin 300mg caps - - take 3 caps three times daily Last Refill Date: #610 Additional Information: Last / Future Appointment: Disposition: ( ) Send to Pharmacy ( ) Call to Pharmacy ( ) 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 Addendum by TARYN MURPHY on 01 September 2014 10:30:57 TECHNICAL FELLOW Message left for patient to return call. From: KATHERIN THOMSON ( [place] Administrative Assistant) To: Physical Medicine and Rehabilitation Staff; Sent: 09/01/2014 08:50:18 TECHNICAL FELLOW Subject: *Phone Message/dr simpson Caller is: (x ) Patient ( ) Mother ( ) Father ( ) Spouse ( ) Daughter ( ) Son ( ) Pharmacy ( ) Other: Physician: Patient MRN #: Reason for Call: S has question on medication B A R please call [phone] Message: Advice/Action: Source used: ( ) Verbalizes [...] back cell phone number ( ) Source: [facility] 99.coCHART Document Id: [id number] Telephone Encounter - Crystal Blanco L.P.N. - 08/30/2014 4:20 PM CST *Phone Message Document Contains Addenda Addendum by TARYN MURPHY on 31 August 2014 13:17:00 TECHNICAL FELLOW Done. Addendum by HARRY SIMPSON MD on 31 August 2014 11:45:53 TECHNICAL FELLOW From: HARRY SIMPSON MD To: TARYN MURPHY; Sent: 08/31/2014 11:45:53 TECHNICAL FELLOW Subject: FW: *Phone Message Please call. Addendum by HARRY SIMPSON MD on 31 August 2014 11:45:38 TECHNICAL FELLOW Submitted: Order:pregabalin (Lyrica 150 mg oral capsule) 1 cap(s) PO 2xDay Qty: 60 cap(s) Refills: 2 Substitutions Allowed Don't Print - called to pharmacy (Rx) Signed by HARRY SIMPSON MD 08/31/2014 11:45:18 From: CRYSTAL BLANCO LPN ( Physical Medicine and Rehabilitation Staff) To: HARRY SIMPSON MD; Sent: 08/30/2014 16:20:19 TECHNICAL FELLOW Subject: *Phone Message Caller is: ( x ) Patient ( ) Mother ( ) Father ( ) Spouse ( ) Daughter ( ) Son ( ) Pharmacy ( ) Other: Physician: Patient MRN #: Reason for Call: Will you send the Lyrica 150 mg BID to [facility]? Message: Advice/Action: Source used: ( ) Verbalizes [...] back cell phone number ( ) Source: [facility] POWERCHART Document Id: [id number] Electronically signed by Conversion, [facility] Catalogue Clerk [id number] at 02/12/2017 9:10 PM CDT Telephone Encounter - Conversion, Historical Provider Ser - 08/30/2014 11:58 AM CST *Phone Message Document Contains Addenda Addendum by CRYSTAL BLANCO LPN on 30 August 2014 16:20:36 TECHNICAL FELLOW Returned call to patient. Addendum by ALICIA MYERS on 30 August 2014 15:15:03 TECHNICAL FELLOW From: ALICIA MYERS ( Physical Medicine and Rehabilitation Staff) To: Physical Medicine and Rehabilitation Staff; Sent: 08/30/2014 15:15:03 TECHNICAL FELLOW Subject: FW: *Phone Message Alisha called returning a call to Crystal. No answer, please call Alisha again Addendum by CRYSTAL BLANCO LPN on 30 August 2014 12:50:17 TECHNICAL FELLOW Left message for patient to return call. From: WINNIE WILKINSON ([facility] Medicine Nurse) To: Physical Medicine and Rehabilitation Staff; Sent: 08/30/2014 11:58:32 TECHNICAL FELLOW Subject: *Phone Message Caller is: (x ) Patient ( ) Mother ( ) Father ( ) Spouse ( ) Daughter ( ) Son ( ) Pharmacy ( ) Other: Physician: Patient MRN #: Reason for Call: Patient tried calling Radha back. Its regarding perscription issues. Please try jan at [phone] Message: Advice/Action: Source used: ( ) Verbalizes [...] back cell phone number ( ) Source: [facility] POWERCHART Document Id: [id number] Telephone Encounter - Conversion, Historical Provider Ser - 08/23/2014 2:46 PM CST *Phone Message Document Contains Addenda Addendum by HARRY SIMPSON MD on 26 August 2014 14:30:06 TECHNICAL FELLOW From: HARRY SIMPSON MD To: BENJAMIN --WADE; Sent: 08/26/2014 14:30:06 TECHNICAL FELLOW Subject: FW: *Phone Message Addendum by TARYN MURPHY on 23 August 2014 16:27:54 TECHNICAL FELLOW From: TARYN MURPHY ( Physical Medicine and Rehabilitation Staff) To: HARRY SIMPSON MD; Sent: 08/23/2014 16:27:54 TECHNICAL FELLOW Subject: FW: *Phone Message Spoke with patient, she is still unable to get an authorization for the medication and she decided at the cost of the medication she didn't want to try it. She will continue to take the gabapentin. From: WINNIE WILKINSON ( [place] Administrative Assistant) To: Physical Medicine and Rehabilitation Staff; Sent: 08/23/2014 14:46:21 TECHNICAL FELLOW Subject: *Phone Message Caller is: ( x ) Patient ( ) Mother ( ) Father ( ) Spouse ( ) Daughter ( ) Son ( ) Pharmacy ( ) Other: Physician: Patient MRN #: Reason for Call: Patient wanted to inform you she has given up on the Lyrica and will take Gabapentin. Message: Advice/Action: Source used: ( ) Verbalizes [...] back cell phone number ( ) Source: [facility] NextIO Document Id: [id number] Telephone Encounter - Conversion, Historical Provider Ser - 08/11/2014 1:19 PM CST *Phone Message Document Contains Addenda Addendum by TARYN MURPHY on 18 August 2014 10:56:12 TECHNICAL FELLOW Done. Addendum by HARRY SIMPSON MD on 17 August 2014 16:37:25 TECHNICAL FELLOW From: HARRY SIMPSON MD To: Physical Medicine and Rehabilitation Staff; Sent: 08/17/2014 16:37:25 TECHNICAL FELLOW Subject: RE: *Phone Message She can decrease the gabapentin by 300 mg per day. I did write her a prescription for a 90 day supply. Thanks. Addendum by TARYN MURPHY on 17 August 2014 16:34:32 TECHNICAL FELLOW From: TARYN MURPHY ( Physical Medicine and Rehabilitation Staff) To: HARRY SIMPSON MD; Sent: 08/17/2014 16:34:32 TECHNICAL FELLOW Subject: RE: *Phone Message Spoke with patient, she does have more pain during the day vs at night, with wearing shoes and walking. She also was wondering how to wean off the gabapentin now? She also stated her insurance will cover it for a 90 day supply. Addendum by HARRY SIMPSON MD on 17 August 2014 10:23:20 TECHNICAL FELLOW From: HARRY SIMPSON MD To: Physical Medicine and Rehabilitation Staff; Sent: 08/17/2014 10:23:20 TECHNICAL FELLOW Subject: RE: *Phone Message Please call. Thanks. Addendum by HARRY SIMPSON MD on 17 August 2014 10:23:13 TECHNICAL FELLOW Submitted: Order:pregabalin (Lyrica 150 mg oral capsule) 1 cap(s) PO 2xDay Qty: 180 cap(s) Refills: 0 Substitutions Allowed Don't Print - called to pharmacy (Rx) Signed by HARRY SIMPSON MD Submitted: Complete:pregabalin (Lyrica 75 mg oral capsule) Signed by HARRY SIMPSON MD 08/17/2014 10:22:43 Addendum by CRYSTAL BLANCO LPN on 11 August 2014 14:59:46 TECHNICAL FELLOW From: CRYSTAL BLANCO LPN ( Physical Medicine and Rehabilitation Staff) To: HARRY SIMPSON MD; Sent: 08/11/2014 14:59:46 TECHNICAL FELLOW Subject: FW: *Phone Message Spoke with patient. She knows that you are out until Saturday and that is ok with her to wait until then. From: WINNIE WILKINSON ([facility] Administrative Assistant) To: Physical Medicine and Rehabilitation Staff; Sent: 08/11/2014 13:19:47 TECHNICAL FELLOW Subject: *Phone Message Caller is: ( x ) Patient ( ) Mother ( ) Father ( ) Spouse ( ) Daughter ( ) Son ( ) Pharmacy ( ) Other: Physician: Patient MRN #: Reason for Call: S: Patient is still having trouble getting her perscription for Lyrica approved through her insurance B: Dr. Simpson did the pre-approval, but now they are telling patient Dr. Simpson will need to re-writethe script to be 150 2 x a day ...if that is ok for the patient to take it this way. A: R: Please call patient [phone] Message: Advice/Action: Source used: ( ) Verbalizes [...] back cell phone number ( ) Source: [facility] NextIO Document Id: [id number] Miscellaneous - Harry Simpson M.D. - 08/06/2014 12:00 AM CST [id number] August 06, 2014 [employer] [address] [address] [place] [address] RE: Alisha Bosch : 1944 To Whom It May Concern: Thank you very much for reviewing Ms. Bosch's situation. She is a pleasant, 69-year-old female who underwent a left total hip arthroplasty via a posterior approach on March 25, 2013. After the surgery,however, she developed numbness in her distal left lower extremity and was having difficult dorsiflexing her ankle and moving her toes. She also developed significant neuropathic pain around that same time. Her strength has improved as well as her pain has improved but she has continued to be botheredby neuropathic pain. She did have an EMG performed of the left lower extremity which did show evidence of a left sciatic neuropathy. Ms. Bosch has been using gabapentin at a dose of 900 mg 3 times daily. Unfortunately, her symptoms have plateaued over the past several months and she is continued to be bothered by a burning alternating with numbness and tingling sensation in the left lower extremity.Based on her persistent symptoms and findings of the sciatic neuropathy and her plateau with respectto the use of gabapentin, I am writing this letter to appeal the decision to deny the Lyrica for latoya I feel this potentially could be a very helpful medication for her current neuropathic pain. Thank you very much for reviewing Ms. Bosch's situation. Sincerely, Harry Simpson M.D. Department of Physical Med & Rehab ap Electronically Signed By: HARRY SIMPSON MD On: 08/09/2014 01:54 PM Modified by and Electronically Signed by: HARRY SIMPSON MD On: 08/09/2014 01:54 PM Source: [facility] MHSDOLBEYNONRADSYS Document Id: [id number] NICAL FELLOW Miscellaneous - Conversion, Historical Provider Ser - 07/29/2014 11:48 AM TECHNICAL FELLOW Karinea henri Document Contains Addenda Addendum by INDIGO ROSARIO on 29 July 2014 15:27:12 TECHNICAL FELLOW From: INDIGO ROSARIO To: Physical Medicine and Rehabilitation Staff; Sent: 07/29/2014 15:27:12 TECHNICAL FELLOW Subject: FW: Arley álvarez From: GAEL GARCIA LPN To: HARRY SIMPSON MD; INDIGO ROSARIO; Sent: 07/29/2014 11:48:09 TECHNICAL FELLOW Subject: Karinea [address] is denied by [employer] stating that this medication request is not medically necessary. I am sending you the information to review. Thanks Gael Source: [facility] POWERCHART Document Id: [id number] Miscellaneous - Harry Simpson M.D. - 07/19/2014 10:19 AM CST Ambulatory Patient Summary [address] [id number] Visit Information Name: ALISHA BOSCH [facility] Number: [id number] Current Date: 07/19/2014 10:19:02 Physicians Attending Provider: HARRY SIMPSON MD Primary Care Provider: PCP, ALISHA TYLERE has been given the following list of [...] tablet) 1 Tablet(s), Oral, once a day *docusate (docusate sodium 100 mg oral capsule) 1 cap, Oral, two times a day ergocalciferol (Vitamin D 400 iu oral tablet) 1 Tablet(s), Oral, once a day esomeprazole (NexIUM) Oral, once a day *gabapentin (gabapentin 600 mg oral tablet) 1 Tablet(s), Oral, three times a day gabapentin (gabapentin 300 mg oral capsule) 3 cap, Oral, three times a day *glucosamine-chondroitin (glucosamine-chondroitin 500 mg-400 mg oral tablet) *hydrOXYzine (Vistaril 25 mg oral capsule) 1 cap, Oral, four times a day as needed for anxiety 25-50mg PO q4-6hr levothyroxine (Levothroid 75 mcg (0.075 mg) oral tablet) 1 Tablet(s), Oral, once a day lovastatin (lovastatin 40 mg oral tablet, extended release) 1 Tablet(s), Oral, once a day (at bedtime) [facility] Prescription (Krill Oil) See Instructions Daily multivitamin with minerals (multivitamin with minerals Multiple Vitamins with Zinc oral capsule) 1 cap, Oral, once a day *omeprazole (omeprazole 20 mg oral delayed release tablet) 2 Tablet(s), Oral, once a day *potassium chloride (potassium chloride 10 mEq oral capsule, [...] the Following Medications: Medication list as of 07-19-14 10:19 Attention: If you have any medications at home that are not on this list, DO NOT take them until youcontact your provider for clarification. Give a copy of your medication list to your primary care provider. Update your medication list any time medications or doses are changed and carry your medication list at all times in case of emergency. Electronically Signed By: HARRY SIMPSON MD Signed On:19-JUL-2014 10:18:24 Your Allergies & Intolerances Substance Reaction Symptoms Category Comments erythromycin Emesis Drug Your Problem List Problem Status Onset Comments No Problems found Your Upcoming Appointments Date Time Location Provider No Appointments found Attention: Contact your local Clinic if further appointment detail needed. Your Goals/Additional instructions: Source: [facility] POWERCHART Document Id: [id number] NICAL FELLOW Miscellaneous - Harry Simpson M.D. - 07/19/2014 10:18 AM CST Ambulatory Discharge Medication List [address] [id number] Visit Information Name: LUCIA ALISHA SCHMIDT [facility] Number: [id number] Visit Date: 07/19/2014 10:18:55 Attending Provider: HARRY SIMPSON MD Primary Care Provider: PCP, HERNAN ALISHA [...] tablet) 1 Tablet(s), Oral, once a day *docusate (docusate sodium 100 mg oral capsule) 1 cap, Oral, two times a day ergocalciferol (Vitamin D 400 iu oral tablet) 1 Tablet(s), Oral, once a day esomeprazole (NexIUM) Oral, once a day *gabapentin (gabapentin 600 mg oral tablet) 1 Tablet(s), Oral, three times a day gabapentin (gabapentin 300 mg oral capsule) 3 cap, Oral, three times a day *glucosamine-chondroitin (glucosamine-chondroitin 500 mg-400 mg oral tablet) *hydrOXYzine (Vistaril 25 mg oral capsule) 1 cap, Oral, four times a day as needed for anxiety 25-50mg PO q4-6hr levothyroxine (Levothroid 75 mcg (0.075 mg) oral tablet) 1 Tablet(s), Oral, once a day lovastatin (lovastatin 40 mg oral tablet, extended release) 1 Tablet(s), Oral, once a day (at bedtime) [facility] (Krill Oil) See Instructions Daily multivitamin with minerals (multivitamin with minerals Multiple Vitamins with Zinc oral capsule) 1 cap, Oral, once a day *omeprazole (omeprazole 20 mg oral delayed release tablet) 2 Tablet(s), Oral, once a day *potassium chloride (potassium chloride 10 mEq oral capsule, [...] the Following Medications: Medication list as of 07-19-14 10:18 Attention: If you have any medications at home that are not on this list, DO NOT take them until youcontact your provider for clarification. Give a copy of your medication list to your primary care provider. Update your medication list any time medications or doses are changed and carry your medication list at all times in case of emergency. Electronically Signed By: HARRY SIMPSON MD Signed On:19-JUL-2014 10:18:24 Additional Information: Source: [facility] NextIO Document Id: [id number] NICAL FELLOW Miscellaneous - Crystal Blanco L.P.N. 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 Intake/History Entered On: 07/19/2014 9:29 TECHNICAL FELLOW Performed On: 07/19/2014 9:27 TECHNICAL FELLOW by CRYSTAL BLANCO LPN Intake Systolic Blood Pressure : 118 mmHg Diastolic Blood Pressure : 64 mmHg NIBP Mean : 82 mmHg BP Location : Left upper extremity Blood Pressure Cuff Size : Large Actual Weight : 100.8 kg(Converted to: 222 lb 4 oz) Dosing Weight Clinic : 100.8 kg CRYSTAL BLANCO LPN - 07/19/2014 9:27 TECHNICAL FELLOW General Info Information Given By : Patient Languages : Kinyarwanda Is Patient Female and 13-50 no hysterectomy : No CRYSTAL BLANCO LPN - 07/19/2014 9:27 TECHNICAL FELLOW Subjective Pain Symptoms : No CRYSTAL BLANCO LPN - 07/19/2014 9:27 TECHNICAL FELLOW Dependent Habits Tobacco Use/Currently Using : No Exposure to Tobacco Smoke : Other: never Smoking Status : Never smoker CRYSTAL BLANCO LPN - 07/19/2014 9:27 TECHNICAL FELLOW ID Screen Travel Within Last 21 Days : No CRYSTAL BLANCO LPN - 07/19/2014 9:27 TECHNICAL FELLOW [facility] Document Id: [id number] TECHNICAL FELLOW!21 NICAL FELLOW documented in this encounter Plan of Treatment Not on filedocumented as of this encounter Visit Diagnoses Not on filedocumented in this encounter
--- OUTSIDE RECORDS SUMMARY | 2022-05-09 17:06 | XMS_ITS | Encounter Summary ---
:1945 Author Organization [facility] Address [address] [place] [address] Care Team Providers Name Role Phone Unavailable Primary Care Provider Unavailable Encounter Details Date Type Department Care Team Description 10/17/2015 Hospital Encounter HX [facility] Pranay Su M.D. [address] [place] [address], [address] [place] [address] (Wo rk) Social History Tobacco [...] How often do you attend gnosticism or alevism More than 4 time s per year [...] at Date Recorded Female 07/23/2018 9:43 AM LCPC documented as of this encounter Last Filed Vital Signs Vital Sign Reading Time Taken Comments Blood Pressure 122/78 10/17/2015 10:05 AM LCPC Pulse - - Temperature - - Respiratory Rate - - Oxygen Saturation - - Inhaled Oxygen Concentration - - Weight 99.4 kg (219 lb 2.2 oz) 10/17/2015 10:05 AM LCPC Height - - Body Mass Index - [...] encounter Progress Notes Harry Su M.D. - 10/17/2015 9:48 AM CST [id number] CHIEF COMPLAINT/REASON FOR VISIT Follow up left lower extremity pain and new issue of left shoulder pain. HISTORY OF PRESENT ILLNESS Ms. Bosch returns today. I last saw her in October of 2014. She reports that her left lower extremity symptoms are basically unchanged since I saw her previously. She does feel that the gabapentin ishelping her. She typically takes 300 mg 3 times daily. She does note however, that she can feel drowsy and is taking naps in the afternoon which she never did previously as well as can only focus on one thing at a time and is wondering if maybe gabapentin is affecting that. She again describes her left foot sensation as a prickly sensation as well as a leathery strap type sensation around the left foot. She has also developed slightly different pain over the past year which primarily consists of an achy tight feeling in the dorsum of the left foot in the region of the first MTP joint. She reports that pain is only present when she is standing or walking compared to the other pain which is present at all times. She has not noted any swelling in the left foot but she does note that her left great toe is starting to move under her 2nd digit. She also would like to discuss left greater than right shoulder pain. She has noted this over the past several months. This is especially bothersome for her when she tries to reach behind her such as reaching into the backseat of her vehicle or reaching overhead. The pain is typically located anteriorlateral shoulder. PHYSICAL EXAMINATION GENERAL: Pleasant 70-year-old female in no acute distress. GAIT: Nonantalgic. FOOT: There is no swelling in the left foot. There is tenderness to palpation directly over the leftfirst MTP joint. Shoulder forward elevation is to 160 degrees bilaterally and abduction to 180 degrees bilaterally with pain in the mid arc on the left. External rotation to 85 degrees bilaterally. Internal rotation is to L5 bilaterally. Minus 1 strength with testing of left supraspinatus and left shoulder external rotators which is limited by pain. Positive Neer's, positive Harden, negative speed'sand negative scarf on the left. IMPRESSION/REPORT/PLAN 1. Left lower extremity pain and weakness following a left total hip arthroplasty on March 25, 2013. 2. Left foot pain. 3. Left shoulder pain. Ms. Manns left shoulder pain is most consistent with evidence of left shoulder impingement syndrome likely secondary to rotator cuff tendinopathy. However, I cannot rule out a full-thickness rotatorcuff tear with the weakness she has on her examination today. 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 PLAN: 1. We are going to proceed today with x-rays of the left shoulder and left foot with Ms. Bosch's discomfort. 2. We did discuss altering her gabapentin dose. I am going have her very slowly adjust this where she would decrease by 300 mg every 1 to 2 weeks to see how her response is to that and if she notices adifference with respect to some of her drowsiness and memory as well as if that makes any differencewith respect to any increase in her pain. 3. I am going to have Ms. Bosch involved in physical therapy with respect to her left shoulder painand gave her a detailed prescription for this today. We are going to work on a comprehensive programwhich I outlined with her today. 4. We will plan on being in contact with Ms. Bosch after her x-rays. She will also be in contact with us in 6 to 8 weeks if she has not noted improvement following physical therapy. Ms. Bosch voiced agreement and understanding with this plan. Total time 35 minutes, counseling and coordination of care time greater than 20 minutes. Harry Su M.D./epi Electronically Signed By: HARRY SU MD On: 10/19/2015 06:30 PM Modified by and Electronically Signed by: HARRY SU MD On: 10/19/2015 06:30 PM Source: [facility] MHSDOLBEYNONRADSYS Document Id: [id number] documented in this encounter Miscellaneous Notes Telephone Encounter - Conversion, Historical Provider Ser - 10/20/2015 8:41 AM CST *Phone Message/Dr. Su Document Contains Addenda Addendum by HARRY SU MD on 20 October 2015 11:09:38 LCPC From: HARRY SU MD To: Physical Medicine and Rehabilitation Staff; Sent: 10/20/2015 11:09:38 LCPC Subject: RE: *Phone Message/Dr. Su I spoke with her. Thanks. Addendum by HEENA BALL LPN on 20 October 2015 09:41:01 LCPC From: HEENA BALL LPN ( Physical Medicine and Rehabilitation Staff) To: HARRY SU MD; Sent: 10/20/2015 09:41:01 LCPC Subject: FW: *Phone Message/Dr. Su From: TORI MCGOWAN ([facility] Jewel Gauger) To: Physical Medicine and Rehabilitation Staff; Sent: 10/20/2015 08:41:37 LCPC Subject: *Phone Message/Dr. Su Caller is: ( x ) Patient ( ) Mother ( ) Father ( ) Spouse ( ) Daughter ( ) Son ( ) Pharmacy ( ) Other: Physician: Dr. Su Patient MRN #: Reason for Call: Message: Patient is waiting for xray results. Please call her back at [phone] with results. Advice/Action: Source used: ( ) Verbalizes understanding [...] back cell phone number ( ) Source: [facility] Scutum Document Id: [id number] Miscellaneous - Harry Su M.D. - 10/17/2015 12:46 PM CST Ambulatory Patient Summary [facility] [address] [place] [id number] Visit Information Name: ALISHA BOSCH [facility] Number: [id number] Current Date: 10/17/2015 12:46:26 Physicians Attending Provider: HARRY SU MD Primary Care Provider: PCPHERNANVALDEZ ALISHA SCHMIDT has been given the following [...] Take Indications/Special Instructions/Comments/Notes for Patient Medication Changes/Routing *atenolol (atenolol 25 mg oral tablet) 0.5 Tablet(s), [...] as needed for anxiety 25-50mg PO q4-6hr *levothyroxine (Levothroid 75 mcg (0.075 mg) oral tablet) 1 Tablet(s), Oral, once a day lovastatin (lovastatin 40 mg oral tablet, extended release) 1 Tablet(s), Oral, once a day (at bedtime) metFORMIN (metFORMIN) 500 mg, Oral, once a day Misc Prescription [...] tablet) 1 Tablet(s), Oral, once a day * You have let us know that you are not taking this medication as listed. Please talk with your primary care provider or the health care provider who prescribed the medication as soon as possible. Stop Taking the Following Medications: Medication list as of 10-17-15 12:46 Attention: If you have any medications at [...] Electronically Signed By: HARRY SU MD Signed On:17-OCT-2015 12:45:55 Your Allergies & Intolerances Substance Reaction Symptoms [...] if you dont have one. Go to [email or web address] and click on Create Your Account. Then, follow the directions to complete the online form. Youll be asked for your [facility] number which you can find at the top of this document. Your Goals/Additional instructions: Source: [facility] POWERCHART Document Id: [id number] Miscellaneous - Harry Su M.D. - 10/17/2015 12:46 PM CST Ambulatory Discharge Medication List [address] [id number] Visit Information Name: ALISHA BOSCH [facility] Number: [id number] Visit Date: 10/17/2015 12:46:24 Attending Provider: HARRY SU MD Primary Care [...] Take Indications/Special Instructions/Comments/Notes for Patient Medication Changes/Routing *atenolol (atenolol 25 mg oral tablet) 0.5 Tablet(s), [...] as needed for anxiety 25-50mg PO q4-6hr *levothyroxine (Levothroid 75 mcg (0.075 mg) oral tablet) 1 Tablet(s), Oral, once a day lovastatin (lovastatin 40 mg oral tablet, extended release) 1 Tablet(s), Oral, once a day (at bedtime) metFORMIN (metFORMIN) 500 mg, Oral, once a day Misc Prescription [...] tablet) 1 Tablet(s), Oral, once a day * You have let us know that you are not taking this medication as listed. Please talk with your primary care provider or the health care provider who prescribed the medication as soon as possible. Stop Taking the Following Medications: Medication list as of 10-17-15 12:46 Attention: If you have any medications at [...] Electronically Signed By: HARRY SU MD Signed On:17-OCT-2015 12:45:55 Additional Information: Source: [facility] SimplyCastCHART Document Id: [id number] Miscellaneous - Heena Ball LKatalinaP.N. - 10/17/2015 10:05 AM CST Adult Water Attendant Intake/History Adult Water Attendant Intake/History Entered On: 10/17/2015 10:07 LCPC Performed On: 10/17/2015 10:05 LCPC by HEENA BALL LPN Intake Systolic Blood Pressure : 122 mmHg Diastolic Blood Pressure : 78 mmHg NIBP Mean : 93 mmHg BP Location : Right upper extremity Blood Pressure Cuff Size : Large Actual Weight : 99.4 kg(Converted to: 219 lb 2 oz) Dosing Weight Clinic : 99.4 kg HEENA BALL LPN - 10/17/2015 10:05 LCPC General Info Information Given By : Patient Languages : Syriac Is Patient Female and 13-50 no hysterectomy : No HEENA BALL LPN - 10/17/2015 10:05 LCPC Subjective Pain Symptoms : No HEENA BALL LPN - 10/17/2015 10:05 LCPC Dependent Habits Exposure to Tobacco Smoke : Other: never Smoking Status : Never smoker Tobacco 2A : No Tobacco Use/Currently Using : No Tobacco Use/Last 30 Days : No Tobacco Use/Last 12 months : No HEENA BALL LPN - 10/17/2015 10:05 LCPC Source: [facility] [employer]CastCHART Document Id: [id number] LCPC!22 documented in this encounter Plan of Treatment Not on filedocumented as of this encounter Visit Diagnoses Not on filedocumented in this encounter
[2022-05-12 15:49] LABS: Hours Collected 24 hr; Total Volume 1100 mL
[2022-05-13 04:41] LABS: Hours Collected 24 hr; Normetanephrine Urine CRT 272 ug/g CRT (0-400); Total Volume 1100 mL
[2022-05-13 15:12] LABS: DopamUrRatioCRT 135 ug/g CRT (0-250); Hours Collected 24 hr; NorepinephrineUr - per 24h 38 ug/d (14-120); NorepinephrineUr - per vol 35 ug/L; NorepinephrineUr - ratioToCRT 32 ug/g CRT (0-45); Total Volume 1100 mL
== END 2022-05-09 15:27 | disposition home or self-care (01) ==
PROVIDERS: PCP Internal Medicine; Visit Provider Internal Medicine
DX: R40.4 Transient alteration of awareness (principal); E03.9 Hypothyroidism, unspecified; N95.1 Menopausal and female climacteric states; I10 Essential (primary) hypertension; E78.5 Hyperlipidemia, unspecified
CPT/HCPCS: 82384; 83497; 83835

== ENCOUNTER 2022-06-21 12:36 | Outpatient (CLI) | payer MEDICARE, BC, SELFPAY ==
--- OUTSIDE RECORDS SUMMARY | 2022-06-21 12:39 | XMS_ITS | Clinical Summary ---
:1945 Author Organization [facility] [place] [address] Care Team Providers Name Role Phone Michelle Hartmann Primary Care Provider [phone] Allergies Active Allergy Reactions Severity Noted Date Comments Erythromycin Vomiting 03/22/2014 Medications Medication Sig Dispensed Refills Start Date End Date Status lovastatin (MEVACOR) 40 Take 1 tablet 0 03/22/2014 Active mg tablet by mouth at bedtime. esomeprazole (NEXIUM) 40 Take 1 capsule 0 03/22/2014 Active mg capsule by mouth once daily before a meal. triamterene-hydrochlorot Take 1 capsule 0 03/22/2014 Active hiazide, 37.5-25 mg, by mouth every (DYAZIDE) 37.5-25 mg morning. capsule atenolol (TENORMIN) 25 Take 1 tablet 0 03/22/2014 Active mg tablet by mouth once daily. levothyroxine Take 1 tablet 0 03/22/2014 A ctive (SYNTHROID) 75 mcg by mouth once tablet daily. cholecalciferol (VITAMIN Take 1 capsule 0 03/22/2014 Active D3) 1,000 unit capsule by mouth once daily. pyridoxine (VITAMIN B6) Take by mouth 0 03/22/2014 Active 100 mg tablet once daily. gabapentin (NEURONTIN) Take 1 tablet 0 03/22/2014 Active 600 mg tablet by mouth 3 times daily. gabapentin (NEURONTIN) Take 1 capsule 0 03/22/2014 Active 300 mg capsule by mouth 3 times daily. cetirizine (ZYRTEC) 10 Take 1 tablet 0 03/22/2014 Active mg tablet by mouth once daily. psyllium (METAMUCIL Take 1 tsp by 0 03/22/2014 Active SMOOTH TEXTURE) powd mouth once daily. Tueltiqi-Apblbwn-Qlbo-Lashawn Take by mouth. 0 03/22/2014 Active tein (CENTRUM SILVER ULTRA WOMEN'S) tab esomeprazole (NEXIUM) 40 Take 1 capsule 90 capsule 3 4 Active mg capsule by mouth once daily before a meal. ranitidine (ZANTAC) 150 Take 1 tablet 180 tablet 3 03/22/2014 Active mg tablet by mouth 2 times daily. Active Problems Not on file Social History Tobacco Use Types Packs/Day Years Used Date Never Smoker Smokeless Tobacco: Former User Tobacco Cessation: Counseling Given: Yes Alcohol Use Standard Drinks/Week Comments Not Asked 0 (1 standard drink = 0.6 oz pure alcoho l) Sex Assigned at Date Recorded Not on file Obstetrics History Last Filed Vital Signs Vital Sign Reading Time Taken Comments Blood Pressure 123/71 03/22/2014 3:40 PM CDT Pulse 58 03/22/2014 3:40 PM CDT Temperature 36.8 ??C (98.3 ??F) 03/22/2014 3:40 PM CDT Respiratory Rate - - Oxygen Saturation 95% 03/22/2014 3:40 PM CDT Inhaled Oxygen Concentration - - Weight 100.4 kg (221 lb 5 oz) 03/22/2014 3:40 PM CDT Height 165.1 cm (5' 5) 03/22/2014 3:40 PM CDT Body Mass Index 36.83 03/22/2014 3:40 PM CDT Plan of Treatment Upcoming Encounters Date Type Specialty Care Team Description 06/21/2022 Orders Only Health Maintenance Due Date Last Done Comments COVID-19 vaccine series (#1) 01/14/1946 Tdap 1956 Depression screening for age 12+ 1957 BMI (ht and wt on same day) for age 18+ 1963 Hepatitis C screening for age 18-79 1963 Tetanus booster 1965 Zoster (shingles) series for age 50+ (1 of 2) 1995 DEXA/DXA scan for age 65+ 2010 Pneumococcal series for age 65+ (1 - PCV) 2010 Influenza for age 65+ 05/17/2022 Results Not on filefrom Last 3 Months Insurance Payer Benefit Plan / Subscriber ID Effective Dates Phone Addre ss Type Group BLUE [employer]OSS [place] BL[employer]OSS [id number] 2013-Present [address] [address] [place] BLUE MR JOAQUIN ESCAMILLA [place] [phone] Care Teams Senior Librarian Relationship Specialty Start Date End Date Michelle Hartmann DO PCP - General Family Practice 03/22/14
--- OUTSIDE RECORDS SUMMARY | 2022-06-21 12:39 | XMS_ITS | Clinical Summary ---
:1945 Author Organization [facility] Address [address] [place] [address] Care Team Providers Name Role Phone Unavailable Primary Care Provider Unavailable Source Comments Patient records contain information from all sites at [facility]. For routine questions regarding patient records, call [phone] during business hours, M-F 8:00 AM - 5:00 PM Central Time. 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 Last Filed Vital Signs Vital Sign Reading [...] 09/16/2021 PHQ-2) Fall Risk Screen (Annual) 09/16/2021 COVID-19 Vaccine (5 - Booster for 02/15/2022 12/21/2021, , Moderna series) 11/18/2020, Additional history exists Influenza Vaccine (#1) 2022 06/01/2021, 05/30/2020, 06/16/2019, Additional history exists DTaP,Tdap,and Td Vaccines (3 - Td 09/14/2031 09/14/2021, , or Tdap) 04/20/2005 Hepatitis B Vaccines Completed 12/08/1993, 07/24/1993, 06/22/1993 Pneumococcal vaccine (65+ years) Completed 10/21/2014, 10/2010 Zoster Vaccines Completed 10/02/2018, 05/30/2018, 05/28/2007 Medical Devices Implanted Type Area Electrical Helper Device Shelf Model / Identifier Expiration Serial / Date Lot Hip Implant Hip Implant Bilateral : Hip Insurance Payer Benefit Plan Subscriber ID Effective Phone Address Typ e / Group Dates MEDICARE MEDICARE A [id number] 2010-Pre [address] Medicare [place] [facility] [place] [address] BLUE CROSS BCBS [place] [id number] 2016-Pres [phone] PO AMANDEEP X Cost Share BLUE SHIELD BLUE COST ent [phone] [place] [address]
--- OUTSIDE RECORDS SUMMARY | 2022-06-21 12:39 | XMS_ITS | Encounter Summary ---
:1945 Author Organization [facility] Address [address] [place] [address] Care Team Providers Name Role Phone Unavailable Primary Care Provider Unavailable Encounter Details Date Type Department Care Team Description 10/12/2019 Documentation Department of Sports Georges, Pranay Quan M.D. Medicine in [place], [address] [place] [address] [address] [place] [address] [place], [place] [phone] (Wo rk) [address] [phone] Social History Tobacco Use Types Packs/Day Years [...] or relatives? How often do you attend cheondoism or scientologist More than 4 time s per year 04/26/2021 services? Do you belong to any clubs or organizations Yes 04/26/2021 such as cheondoism groups, unions, fraternal or athletic groups, or [...] or slept in a m[facility]p (including now)? Education Answer Date Recorded What is the highest level of school Bachelor's degree (e.g., BA, AB, 06/02/2019 you have completed or the highest BS) degree you have received? 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 - 10/12/2019 12:37 PM CST I spoke with Mrs. Bosch on the phone today following the right L4-L5 transforaminal corticosteroid injection she had performed on October 06 at [facility]. She reports that this has [...] of. She reports she was pretreated by [facility] this time with methylprednisolone, but [...] her primary care physician, Dr. Quiroga in [place], with the symptoms she is experiencing. I [...] with this plan. CT CT Job ID: [id number] LIANCE TECHNICIAN documented in this encounter Plan of Treatment Not on filedocumented as of this encounter Visit Diagnoses Not on filedocumented in this encounter
--- OUTSIDE RECORDS SUMMARY | 2022-06-21 12:39 | XMS_ITS | Encounter Summary ---
:1945 Author Organization [facility] Address [address] [place] [address] Care Team Providers Name Role Phone Unavailable Primary Care Provider Unavailable Reason for Visit Reason Comments Phone Contact Encounter Details Date Type Department Care Team Description 09/25/2019 Clinical Communication Department of Sports Georges, Isaac Quan, Phone Contact Medicine in [address] [place], [place] [phone] Social History Tobacco Use Types Packs/Day [...] How often do you attend hoahaoism or baptism More than 4 time s per year [...] place to sleep or slept in a prison (including now)? Education Answer Date Recorded What is the highest level of school Bachelor's degree (e.g., BA, AB, 06/02/2019 you have completed or the highest BS) degree you have received? 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 Su an order for a right L4 transforaminal epidural and thoracic spine MRI at [facility] in [facility]. Confirmation # [id number] - [id number] OMER ACCOUNT MANAGER Telephone Encounter - Carleen Stephens - 09/25/2019 10:56 AM CST Who is calling: Patient Best call back number: [phone] Okay to leave detailed voicemail message on number listed. Physician: Dr. León Su Side: Lumbar Body Part/Region: Spine Reason for call: Other: The patient called wondering if Dr. Su had hgotten the chance to review last week's MRI. She would like to proceed with the injection discussed if Dr. Su is in agreement. Action: Message routed to [facility] Athletic Trainers at [facility] OMER ACCOUNT MANAGER documented in this encounter Plan of Treatment Not on filedocumented as of this encounter Visit Diagnoses Not on filedocumented in this encounter
--- OUTSIDE RECORDS SUMMARY | 2022-06-21 12:39 | XMS_ITS | Encounter Summary ---
:1945 Author Organization [facility] Address [address] [place] [address] Care Team Providers Name Role Phone Unavailable Primary Care Provider Unavailable Reason for Visit Reason Comments Referral Encounter Details Date Type Department Care Team Description 04/26/2021 Clinical Communication Department of Sports Georges, Isaac Quan, Referral Medicine in [address] [place], [place] [phone] Social History Tobacco Use Types Packs/Day [...] How often do you attend lutheran or scientologist More than 4 time s [...] at Date Recorded Female 07/23/2018 9:43 AM 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 Telephone Encounter - Basil Cotton - 04/26/2021 1:23 PM CDT Nilo Villegas, I received a call from patient [phone] Su today and she [...]
--- OUTSIDE RECORDS SUMMARY | 2022-06-21 12:39 | XMS_ITS | Encounter Summary ---
:1945 Author Organization [facility] Address [address] [place] [address] Care Team Providers Name Role Phone Unavailable Primary Care Provider Unavailable Reason for Visit Reason Comments Appointment Encounter Details Date Type Department Care Team Description 03/16/2021 Clinical Communication Department of Sports Georges, Isaac Quan, Appointment Medicine in [address] [place], [place] [phone] Social History Tobacco Use Types Packs/Day [...] or relatives? How often do you attend jehovah's witness or gnosticism More than 4 time s per year 04/26/2021 services? 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 Su. Telephone Encounter - Paola Billingsley - 03/16/2021 12:21 PM CDT Who is calling: Patient Release of information on file: N/A Best call back number: [phone] NOT okay to leave a detailed message. Physician: Dr. León Su Side: back Body Part/Region: Low Back [...] Covid. Please advise. Action: Message routed to [facility] Athletic Trainers at [facility] documented in this encounter Plan of Treatment Not on filedocumented as of this encounter Visit Diagnoses Not on filedocumented in this encounter
--- OUTSIDE RECORDS SUMMARY | 2022-06-21 12:39 | XMS_ITS | Encounter Summary ---
:1945 Author Organization [facility] Address [address] [place] [address] Care Team Providers Name Role Phone Unavailable Primary Care Provider Unavailable Encounter Details Date Type Department Care Team Description 09/30/2019 Documentation Department of Sports Georges, Pranay Quan M.D. Medicine in [place], [address] [place] [address] [address] [place] [address] [place], [place] [phone] (Wo rk) [phone] Social History Tobacco Use Types Packs/Day Years [...] How often do you attend orthodoxy or zoroastrian More than 4 time s per year [...] slept in a group home (including now)? Education Answer Date Recorded What is the highest level of school Bachelor's degree (e.g., BA, AB, 06/02/2019 you have completed or the highest BS) degree you have received? Sex Assigned at Date Recorded Female 07/23/2018 9:43 AM MEDICATION ASSISTANT documented as of this encounter Progress Notes León Su M.D. - 09/30/2019 9:01 AM CST I spoke with Ms. Bosch on the phone with respect to the lumbar spine MRI that she had performed in [facility]. Significant findings include there is moderate [...] with this plan. CT CT Job ID: [id number] CATION ASSISTANT documented in this encounter Plan of Treatment Not on filedocumented as of this encounter Visit Diagnoses Not on filedocumented in this encounter
--- OUTSIDE RECORDS SUMMARY | 2022-06-21 12:39 | XMS_ITS | Encounter Summary ---
:1945 Author Organization [facility] Address [address] [place] [address] Care Team Providers Name Role Phone Unavailable Primary Care Provider Unavailable Encounter Details Date Type Department Care Team Description 04/26/2021 Hospital Encounter Department of Georges, Abdulaziz Walker Low Back Radiology in [facility], [facility] [address], [address] [place] [address] [facility] [phone] (Wo rk) Social History Tobacco Use Types [...] or relatives? How often do you attend roman catholic or buddhism More than 4 time s per year 04/26/2021 services? 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
--- OUTSIDE RECORDS SUMMARY | 2022-06-21 12:39 | XMS_ITS | Encounter Summary ---
:1945 Author Organization [facility] Address [address] [place] [address] Care Team Providers Name Role Phone Unavailable Primary Care Provider Unavailable Reason for Referral Physical Therapy (Routine) - Closed Specialty Diagnoses / Procedures Referred By Contact Refer red To Contact Diagnoses Pain Low Back Unspecified Pain Neck Pain Shoulder Left León Su M.D. [address], [address] [place], [place] [address] Referral ID Status Reason Start Date Expiration Visits Visits Date Requested Authorized [id number] Closed Patient 04/26/2021 04/26/2022 12 12 Preference Reason for Visit Appointment Request (Routine) - Closed Specialty Diagnoses / Procedures Referred By Contact Refer red To Contact Sports Medicine Diagnoses Pain Low Back Unspecified Referral ID Status Reason Start Date Expiration Date Visits Requ ested Visits Authorized [id number] Closed 03/17/2021 03/17/2022 1 1 Encounter Details Date Type Department Care Team Description 04/26/2021 Office Visit Department of León Russell Pa in Low Back (Primary Dx); Medicine in M.D. Spondylosis Lumbar Without Myelopathy; [place], [facility] [address], Pain Neck; [place] [address] Pain Shoulder Left; [address] [place], [place] Primary Osteoarthritis Wrist Left; [place] [address] Primary Osteoarthritis Wrist Right [phone] Social History [...] or relatives? How often do you attend restoration or cheondoism More than 4 time s per year 04/26/2021 services? Do you belong to any clubs or organizations Yes 04/26/2021 such as restoration groups, unions, fraternal or athletic groups, or [...] place to sleep or slept in a longterm (including now)? Education Answer Date Recorded What is the highest level of school Bachelor's degree (e.g., BA, AB, 06/02/2019 you have completed or the highest BS) degree you have received? 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 She has not been experiencing any paresthesias [...] León Su M.D. CT CT Job ID: [id number] documented in this encounter Plan of Treatment [...]
--- OUTSIDE RECORDS SUMMARY | 2022-06-21 12:40 | XMS_ITS | Encounter Summary ---
:1945 Author Organization [facility] Address [address] [place] [address] Care Team Providers Name Role Phone Unavailable Primary Care Provider Unavailable Reason for Visit Appointment Request (Routine) - Closed Specialty Diagnoses / Procedures Referred By Contact Refer red To Contact Sports Medicine Referral ID Status Reason Start Date Expiration Date Visits Requ ested Visits Authorized [id number] Closed 07/14/2018 07/14/2019 1 Encounter Details Date Type Department Care Team Description 07/23/2018 Comprehensive Visit Department of León Su Pain Hip Right (Primary Dx); Sports Medicine in [place] Pain Low Back; [place], [facility] [place] Spondylosis Lum bar Without Myelopathy; [address], [address] Numbness Hand [address] [place] [phone] Social History Tobacco Use Types Packs/Day Years [...] How often do you attend rastafarian or pentecostal More than 4 time s per year [...] place to sleep or slept in a halfway (including now)? 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 R AND SANDER documented in this encounter Plan of Treatment Not on filedocumented as of this encounter Visit Diagnoses Diagnosis Pain Hip Right - Primary Pain Low Back Unspecified Spondylosis Lumbar Without Myelopathy Numbness Hand documented in this encounter
--- OUTSIDE RECORDS SUMMARY | 2022-06-21 12:40 | XMS_ITS | Encounter Summary ---
:1945 Author Organization [facility] Address [address] [place] [address] Care Team Providers Name Role Phone Unavailable Primary Care Provider Unavailable Reason for Referral Outpatient (Routine) - Closed Specialty Diagnoses / Referred By Contact Referred To Contact Procedures Physical León Wilson [facility] Rehabilitation M.Bud [address] [facility], [address] [place] [address] Referral ID Status Reason Start Date Expiration Date Visits Requ ested Visits Authorized [id number] Closed 10/09/2017 04/07/2018 1 1 WORKER FOREMAN Reason for Visit Reason Comments Follow-up after injection- has helped Outpatient (Routine) - Closed Specialty Diagnoses / Referred By Contact Referred To Contact Procedures León Zepeda [facility] M.DKatalina [address] [facility], [address] [place] [address] Referral ID Status Reason Start Date Expiration Date Visits Requ ested Visits Authorized [id number] Closed 08/28/2017 02/24/2018 1 1 Encounter Details Date Type Department Care Team Description 10/09/2017 Office Visit Department of Physical León Su, Radiculopathy Lumbar Fourth (Primary Dx); Medicine and M.DKatalina Pain Shoulder Right Rehabilitation in [address] [place] [address] [address] [place] [phone] Social History Tobacco Use Types Packs/Day Years [...] or relatives? How often do you attend jewish or samaritan More than 4 time s per year 04/26/2021 services? Do you belong to any clubs or organizations Yes 04/26/2021 such as jewish groups, unions, fraternal or athletic groups, or [...] or slept in a jail (including now)? 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 - 10/09/2017 12:00 AM CST SUBJECTIVE CHIEF COMPLAINT/REASON FOR VISIT Follow up left L4 radiculopathy and new issue of right shoulder pain. HISTORY OF PRESENT ILLNESS Ms. Bosch returns today. She did have a left L4 transforaminal epidural corticosteroid injection performed at [facility] and she has found that to be [...] time greater than 15 minutes. Job ID: [id number] WORKER FOREMAN documented in this encounter Plan of Treatment Scheduled Referrals Name Type Priority Associated Order Schedule Diagnoses Physical Medicine and Outpatient Referral Routine Expected: Rehabilitation office 2017 visit (clinic) (Approximate) , Expires: 10/09/2020 documented as of this encounter Visit Diagnoses Diagnosis Radiculopathy Lumbar Fourth - Primary Pain Shoulder Right documented in this encounter
--- OUTSIDE RECORDS SUMMARY | 2022-06-21 12:40 | XMS_ITS | Encounter Summary ---
:1945 Author Organization [facility] Address [address] [place] [address] Care Team Providers Name Role Phone Unavailable Primary Care Provider Unavailable Reason for Visit Reason Comments Communication Encounter Details Date Type Department Care Team Description 08/30/2017 Clinical Communication Department of [facility] Vinod Blanco, Communication Medicine, [facility], in [address] [phone] Social History Tobacco Use Types [...] or relatives? How often do you attend christian or latter-day More than 4 time s per year 04/26/2021 services? Do you belong to any clubs or organizations Yes 04/26/2021 such as christian groups, unions, fraternal or athletic groups, or [...] place to sleep or slept in a fci (including now)? 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 - 09/05/2017 12:51 PM PRINTED CIRCUIT BOARD ASSEMBLER Order faxed. TED CIRCUIT BOARD ASSEMBLER documented in this encounter Plan of Treatment Not on filedocumented as of this encounter Visit Diagnoses Not on filedocumented in this encounter
--- OUTSIDE RECORDS SUMMARY | 2022-06-21 12:40 | XMS_ITS | Encounter Summary ---
:1945 Author Organization [facility] Address [address] [place] [address] Care Team Providers Name Role Phone Unavailable Primary Care Provider Unavailable Reason for Referral Outpatient (Routine) - Closed Specialty Diagnoses / Referred By Contact Referred To Contact Procedures León Zepeda [facility] [place] [facility] Rehabilitation M.Bud [address] [facility], [address] [place] [address] Referral ID Status Reason Start Date Expiration Date Visits Requ ested Visits Authorized [id number] Closed 10/23/2017 04/21/2018 1 1 FACTURER'S REPRESENTATIVE Reason for Visit Reason Comments Results MRI 10/18/17 Outpatient (Routine) - Closed Specialty Diagnoses / Referred By Contact Referred To Contact Procedures León Zepeda [facility] M.DKatalina [address] [facility], [address] [place] [address] Referral ID Status Reason Start Date Expiration Date Visits Requ ested Visits Authorized [id number] Closed 10/09/2017 04/07/2018 1 1 Encounter Details Date Type Department Care Team Description 10/23/2017 Office Visit Department of Physical León Su, Pain Shoulder Right (Primary Dx); Medicine and MRadha Rotator Cuff Disorder Right Rehabilitation in [address] [place] [address] [address] [place] [phone] Social History Tobacco Use Types Packs/Day Years [...] How often do you attend congregation or evangelical More than 4 time s [...] at Date Recorded Female 07/23/2018 9:43 AM 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 Job ID: [id number] FACTURER'S REPRESENTATIVE documented in this encounter Miscellaneous Notes Letter - Lenó Su M.D. - 10/23/2017 12:00 AM CST October 29, 2017 Dr. ROSENTHAL [facility] RE: HARSHA BOSCH #: [id number] : [address] Rosenthal: Thank you very much for seeing Ms. Bosch. She is a very pleasant, 72-year-old female who had a fallin July and subsequently developed right shoulder pain. I recently saw her and obtained an MRI of her right shoulder in [place]. Based on her symptoms, examination findings, and imaging findings, I am referring her to you for management options at this time. Thank you very much for seeing Ms. Bosch. Sincerely, León Su M.D. Job ID: [id number] FACTURER'S REPRESENTATIVE documented in this encounter Plan of Treatment Scheduled Referrals Name Type Priority Associated Order Schedule Diagnoses Physical Medicine and Outpatient Referral Routine Expected: Rehabilitation office 2017 visit (clinic) (Approximate) , Expires: 10/23/2020 documented as of this encounter Visit Diagnoses Diagnosis Pain Shoulder Right - Primary Rotator Cuff Disorder Right documented in this encounter
--- OUTSIDE RECORDS SUMMARY | 2022-06-21 12:40 | XMS_ITS | Encounter Summary ---
:1945 Author Organization [facility] Address [address] [place] [address] Care Team Providers Name Role Phone Unavailable Primary Care Provider Unavailable Reason for Visit Reason Comments Communication Encounter Details Date Type Department Care Team Description 10/31/2017 Clinical Communication Department of Isaac Kimball, Communication [facility], [facility], [address] [phone] Social History Tobacco Use Types Packs/Day Years [...] How often do you attend spiritism or taoism More than 4 time s [...] at Date Recorded Female 07/23/2018 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 - 10/31/2017 1:32 PM CST Spoke with patient. TITY SURVEYOR Telephone Encounter - Genesis Nelson - 10/31/2017 1:04 PM CST Pt calling to speak with nurse regarding an appt for shoulder surgery, please call back TITY SURVEYOR documented in this encounter Plan of Treatment Not on filedocumented as of this encounter Visit Diagnoses Not on filedocumented in this encounter
--- OUTSIDE RECORDS SUMMARY | 2022-06-21 12:40 | XMS_ITS | Encounter Summary ---
:1945 Author Organization [facility] Address [address] [place] [address] Care Team Providers Name Role Phone Unavailable [...] or relatives? How often do you attend nondenominational or buddhism More than 4 time s per year 04/26/2021 services? 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
--- OUTSIDE RECORDS SUMMARY | 2022-06-21 12:40 | XMS_ITS | Encounter Summary ---
:1945 Author Organization [facility] Address [address] [place] [address] Care Team Providers Name Role Phone Unavailable Primary Care Provider Unavailable Encounter Details Date Type Department Care Team Description 11/22/2016 Hospital Encounter HX [facility] Pranay Engle M.D. 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 - 11/22/2016 10:56 AM CST [id number] CHIEF COMPLAINT/REASON FOR VISIT Low back pain, [...] ENGLE MD On: 11/26/2016 10:51 AM Source: [facility] MHSDOLBEYNONRADSYS Document Id: [id number] documented in this encounter Miscellaneous Notes Telephone Encounter - Conversion, Historical Provider Ser - 11/27/2016 12:16 PM CDT *Phone Message/Dr. Engle Document Contains Addenda Addendum by CRYSTAL BALL LPN on December 03, 2016 14:57:48 CDT Order faxed Addendum by MJ LAST on December 03, 2016 14:51:02 CDT Frannie from [facility] calling, would like MRI order faxed, states patient has contacted themto get this scheduled. Please advise. Fax number is [phone] Addendum by MARCO ANTONIO KHAN on November 27, 2016 13:33:15 CDT I called the patient and let her know that we did fax the results over today after waiting to see if a prior auth was needed from [employer]. From: TORI MCGOWAN ( [place] [employer] Duct Worker Supervisor) To: Physical Medicine and Rehabilitation Staff; Sent: [...] to order an MRI for her in [place]. She just called them and they have not received an order yet. Please call her back at [phone] to advise. Advice/Action: Source used: ( ) [...] ( ) Source: [facility] [employer] Document Id: [id number] Miscellaneous - Harry Engle M.D. - 11/22/2016 12:58 PM CST Ambulatory Patient Summary [address] [id number] Visit Information Name: ALISHA BOSCH [facility] Number: [id number] Current Date: 11/22/2016 12:58:07 Physicians Attending Provider: HARRY ENLGE MD Primary Care Provider: PCP, ALISHA TYLER [...] day as needed for Pain NewRouted to [facility] [address] [place], [place] [phone] ergocalciferol (Vitamin D 400 iu oral tablet) [...] if you dont have one. Go to [email or web address] and click on Create Your Account. Then, follow the directions to complete the online form. Youll be asked for your [facility] number which you can find at the top of this document. Your Goals/Additional instructions: Source: [facility] POWERCHART Document Id: [id number] OR CLIMATE ADVISOR Miscellaneous - Harry Engle M.D. - 11/22/2016 12:58 PM CST Ambulatory Discharge Medication List [address] [id number] Visit Information Name: DOUGLASALISHA KELLOGG [facility] Number: [id number] Current Date: 11/22/2016 12:58:06 [...] day as needed for Pain NewRouted to [address] [phone] ergocalciferol (Vitamin D 400 iu oral tablet) [...] MD Signed On:22-NOV-2016 12:57:43 Additional Information: Source: [facility] POWERCHART Document Id: [id number] OR CLIMATE ADVISOR Miscellaneous - Clifford Turner LKatalinaPKatalinaN. - 11/22/2016 12:08 PM CST *General Message Document Contains Addenda Addendum by CLIFFORD TURNER LPN on November 27, 2016 09:36:49 CDT Order faxed Addendum by NICKY GREER on November 23, 2016 16:29:51 SENIOR CLIMATE ADVISOR From: NICKY GREER ([facility] Architectural Examiner/Radiology Outside [facility]) To: CLIFFORD TURNER LPN; Sent: 11/23/2016 16:29:51 SENIOR CLIMATE ADVISOR Subject: RE: *General Message No auth needed, ok to schedule From: CLIFFORD TURNER LPN To: [facility] Architectural Examiner/Radiology [facility]; Sent: 11/22/2016 12:08:45 SENIOR CLIMATE ADVISOR Subject: *General Message Patient Referred to Provider or Facility: _[facility] Ordering Provider: _Pranay Engle Appointment [...] date and type of injury: _ [facility] Document Id: [id number] Miscellaneous - Clifford Turner L.P.N. 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 Intake/History Entered On: 11/22/2016 11:07 SENIOR CLIMATE ADVISOR Performed On: 11/22/2016 11:06 SENIOR CLIMATE ADVISOR by CLIFFORD TURNER LPN Intake Systolic Blood Pressure : 130 mmHg Diastolic Blood Pressure : 58 mmHg NIBP Mean : 82 mmHg BP Location : Left upper extremity Blood Pressure Cuff Size : Regular Actual Weight : 97.85 kg(Converted to: 215 lb 12 oz) Dosing Weight Clinic : 97.85 kg CLIFFORD TURNER LPN - 11/22/2016 11:06 SENIOR CLIMATE ADVISOR General Info Information Given By : Patient Languages : Upper Sorbian Is Patient Female and 13-50 no hysterectomy : No CLIFFORD TURNER LPN - 11/22/2016 11:06 SENIOR CLIMATE ADVISOR Subjective Pain Symptoms : CLIFFORD Oates LPN - 11/22/2016 11:06 SENIOR CLIMATE ADVISOR Dependent Habits Exposure to Tobacco Smoke : Other: never Smoking Status : Never smoker Tobacco 2A : No Tobacco Use/Currently Using : No Tobacco Use/Last 30 Days : No Tobacco Use/Last 12 months : CLIFFORD Oates LPN - 11/22/2016 11:06 SENIOR CLIMATE ADVISOR [facility] Document Id: [id number] SENIOR CLIMATE ADVISOR!22 OR CLIMATE ADVISOR documented in this encounter Plan of Treatment Not on filedocumented as of this encounter Procedures Procedure Name Priority Date/Time Associated Diagnosis Comme nts DX WRIST LEFT 2 Routine 11/22/2016 12:07 PM Resul ts for this VIEWS SENIOR CLIMATE ADVISOR procedure are i n the results section. documented in this encounter Results DX Wrist Left 2 Views (11/22/2016 12:07 PM SENIOR CLIMATE ADVISOR) Anatomical Region Laterality Modality Upper Extremity, Wrist Left Radiographic Imag ing Specimen (Source) Anatomical Collection Method Collection Time Re ceived Time Location / / Volume Laterality 11/22/2016 12:07 PM SENIOR CLIMATE ADVISOR Addenda Addendum by Provider, Parker Mcdaniels 11/22/2016 12:07 PM SENIOR CLIMATE ADVISOR RAD^^^OW XR Wrist Left 2 views 11/22/2016 12:07:53 Impressions 11/22/2016 12:45 PM SENIOR CLIMATE ADVISOR Moderately prominent degenerative changes of the left first MCP, CMC, STT joint spaces. 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 No erosions. No appreciable acute osseou s injury of the left wrist. Narrative 11/22/2016 12:45 PM SENIOR CLIMATE ADVISOR EXAM: ??XR Wrist Left 2 views. DEMOGRAPHICS: [...]
--- OUTSIDE RECORDS SUMMARY | 2022-06-21 12:40 | XMS_ITS | Encounter Summary ---
:1945 Author Organization [facility] Address [address] [place] [address] Care Team Providers Name Role Phone Unavailable Primary Care Provider Unavailable Reason for Visit Reason Onset Date Comments Fall 07/24/2017 Encounter Details Date Type Department Care Team Description 07/24/2017 Clinical Communication Department of Physical Micha Su, Fall Medicine and M.DKatalina Rehabilitation in [address] [place], [place] [address] [place] [phone] Social History Tobacco Use Types Packs/Day Years [...] How often do you attend mormonism or yazidi More than 4 time s per year [...] at Date Recorded Female 07/23/2018 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 - 08/07/2017 11:08 AM BELT BUILDER HELPER Patient fell 2 weeks ago and is having a lot of hip pain. She has an appt for 08/28/17 but in the meantime she will see if her Primary care Dr. Ramírez can order xray. BUILDER HELPER Telephone Encounter - Namrata Wolff - 08/07/2017 10:02 AM CST Patient called again. She still has not gotten a call back. Please call her. BUILDER HELPER Telephone Encounter - Sayda Lovell - 07/24/2017 9:56 AM CST Called to schedule an appt, just recently fell so pain is worse, would like to discuss with nurse. BUILDER HELPER documented in this encounter Plan of Treatment Not on filedocumented as of this encounter Visit Diagnoses Not on filedocumented in this encounter
--- OUTSIDE RECORDS SUMMARY | 2022-06-21 12:40 | XMS_ITS | Encounter Summary ---
:1945 Author Organization [facility] Address [address] [place] [address] Care Team Providers Name Role Phone Unavailable Primary Care Provider Unavailable Reason for Visit Reason Comments Communication Encounter Details Date Type Department Care Team Description 10/10/2017 Clinical Communication Department of [facility] Vinod Blanco, Communication Medicine, [facility], in [address] [phone] Social History Tobacco Use Types [...] or relatives? How often do you attend tenriism or faith More than 4 time s per year 04/26/2021 services? Do you belong to any clubs or organizations Yes 04/26/2021 such as tenriism groups, unions, fraternal or athletic groups, or [...] at Date Recorded Female 07/23/2018 9:43 AM CLASSER documented as of this encounter Plan of Treatment Not on filedocumented as of this encounter Visit Diagnoses Not on filedocumented in this encounter
--- OUTSIDE RECORDS SUMMARY | 2022-06-21 12:40 | XMS_ITS | Encounter Summary ---
:1945 Author Organization [facility] Address [address] [place] [address] Care Team Providers Name Role Phone Unavailable Primary Care Provider Unavailable Reason for Visit Reason Onset Date Comments Triage for Sarah Pt 07/14/2018 Encounter Details Date Type Department Care Team Description 07/14/2018 Clinical Department of León Su for Communication Sports Medicine Parker Munroe Pt [address], [address] [place] [phone] Social History Tobacco Use Types Packs/Day Years [...] How often do you attend baptist or sabianism More than 4 time s per year [...] at Date Recorded 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 Su's [facility] patients seeking return care. She was last seen in [place] would like to be seen in [place] to address her right hip and lower back. Please let us knowif he would be willing to see. Thank you, Harika documented in this encounter Plan of Treatment Not on filedocumented as of this encounter Results DX Lumbar Spine 2-3 Views (07/23/2018 9:31 AM DISTILLATION OPERATOR) Anatomical Region Laterality Modality Lumbar Spine, Musculoskeletal RST LOS, Neuroradiology N/A Digital Radiography ARZ LOS, Muskuloskeletal FLA LOS Specimen (Source) Anatomical Collection Method Collection Time Re ceived Time Location / / Volume Laterality 07/23/2018 9:36 AM DISTILLATION OPERATOR Impressions 07/23/2018 9:39 AM DISTILLATION OPERATOR IMPRESSION: ??Mild multilevel disc degeneration throughout the [...] greater than left. Narrative 07/23/2018 9:39 AM DISTILLATION OPERATOR EXAM: ??DX LUMBAR SPINE 2-3 VIEWS, DX [...] Pelvis Right 2-3 Views (07/23/2018 9:31 AM DISTILLATION OPERATOR) Anatomical Region Laterality Modality Lower Extremity, Pelvis, Hip, Musculoskeletal RST LOS, Right Digital Radiography Musculoskeletal ARZ LOS, Muskuloskeletal FLA LOS Specimen (Source) Anatomical Collection Method Collection Time Re ceived Time Location / / Volume Laterality 07/23/2018 9:36 AM DISTILLATION OPERATOR Impressions 07/23/2018 9:39 AM DISTILLATION OPERATOR IMPRESSION: ??Mild multilevel disc degeneration throughout the [...] greater than left. Narrative 07/23/2018 9:39 AM DISTILLATION OPERATOR EXAM: ??DX LUMBAR SPINE 2-3 VIEWS, DX HIP AND PELVIS RIGHT 2-3 VIEWS Procedure Note Porfiiro Miller M.D. - 07/23/2018Format ting of this [...]
--- OUTSIDE RECORDS SUMMARY | 2022-06-21 12:40 | XMS_ITS | Encounter Summary ---
:1945 Author Organization [facility] Address [address] [place] [address] Care Team Providers Name Role Phone Unavailable Primary Care Provider Unavailable Encounter Details Date Type Department Care Team Description 10/17/2015 Hospital Encounter HX [facility] Pranay Martinez M.D. 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 documented in this encounter Results DX Foot Left 3+ Views (10/17/2015 11:29 AM INSPECTOR MACHINE CUT GLASS) Anatomical Region Laterality Modality Lower Extremity, Foot Left Radiographic Imagi ng Specimen (Source) Anatomical Collection Method Collection Time Re ceived Time Location / / Volume Laterality 10/17/2015 11:29 AM INSPECTOR MACHINE CUT GLASS Addenda Addendum by Provider, Parker Mcdaniels 10/17/2015 11:29 AM INSPECTOR MACHINE CUT GLASS RAD^^^OW XR Foot Left 3 or more views 10/17/2015 11:29:32 Impressions 10/17/2015 12:13 PM INSPECTOR MACHINE CUT GLASS Mild degenerative joint disease. Narrative 10/17/2015 12:13 PM INSPECTOR MACHINE CUT GLASS EXAM: XR Foot Left 3 or more [...]
--- OUTSIDE RECORDS SUMMARY | 2022-06-21 12:40 | XMS_ITS | Encounter Summary ---
:[address] [facility] Address [address] [place] [address] Care Team Providers Name Role Phone Unavailable Primary Care Provider Unavailable Reason for Referral Outpatient (Routine) - Closed Specialty Diagnoses / Referred By Contact Referred To Contact Procedures Physical Medicine and León Su, [facility] Rehabilitation M.D. [address] [facility], [address] [place] [address] Referral ID Status Reason Start Date Expiration Date Visits Requ ested Visits Authorized [id number] Closed 08/28/2017 02/24/2018 1 1 BIN OPERATOR Reason for Visit Reason Comments Other left leg pain Appointment Request (Routine) - Closed Specialty Diagnoses / Procedures Referred By Contact Refer red To Contact Pain Medicine Referral ID Status Reason Start Date Expiration Date Visits Requ ested Visits Authorized [id number] Closed 07/26/2017 01/22/2018 1 1 Encounter Details Date Type Department Care Team Description 08/28/2017 Office Visit Department of Physical León Su, Pain Low Back (Primary Dx); Medicine and M.D. Spondylosis Lumbar Without Myelopathy; Rehabilitation in [address] [facility], Radic ulopathy Lumbar Fourth; [place], [place] [address] Bursitis Trochanteric Left [address] [place] [phone] Social History Tobacco Use Types Packs/Day Years [...] How often do you attend restorationist or pentecostalism More than 4 time s per year [...] or slept in a snf (including now)? 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 Job ID: [id number] CC: - - - - Siri Quiroga M.D., [facility] [address] [address] F: [phone] BIN OPERATOR documented in this encounter Plan of Treatment [...]
--- OUTSIDE RECORDS SUMMARY | 2022-06-21 12:40 | XMS_ITS | Encounter Summary ---
:1945 Author Organization [facility] Address [address] [place] [address] Care Team Providers Name Role Phone Unavailable Primary Care Provider Unavailable Encounter Details Date Type Department Care Team Description 12/10/2016 Hospital Encounter HX [facility] Pranay Su M.D. [address] [place] [address], [address] [place] [address] (Wo rk) Social History Tobacco [...] How often do you attend rastafari or zoroastrianism More than 4 time s per year [...] or slept in a prison (including now)? 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 - 12/10/2016 12:39 PM CDT [id number] CHIEF COMPLAINT/REASON FOR VISIT Low back pain [...] SU MD On: 12/11/2016 05:44 PM Source: [facility] MHSDOLBEYNONRADSYS Document Id: [id number] documented in this encounter Miscellaneous Notes Miscellaneous - Harry Su M.D. - 12/10/2016 1:42 PM CDT Ambulatory Patient Summary [address] [id number] Visit Information Name: ALISHA BOSCH [facility] Number: [id number] Current Date: 12/10/2016 13:42:37 Physicians [...] if you dont have one. Go to [email or web address] and click on Create Your Account. Then, follow the directions to complete the online form. Youll be asked for your [facility] number which you can find at the top of this document. Your Goals/Additional instructions: Source: [facility] POWERCHART Document Id: [id number] Miscellaneous - Harry Su M.D. - 12/10/2016 1:42 PM CDT Ambulatory Discharge Medication List [address] [id number] Visit Information Name: ALISHA BOSCH [facility] Number: [id number] Current Date: 12/10/2016 13:42:36 Attending [...] MD Signed On:10-DEC-2016 13:42:16 Additional Information: Source: [facility] [employer] Document Id: [id number] Miscellaneous - Heena Ball L.P.N. 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 [employer] Document Id: [id number] CDT!22 documented in this encounter Plan of Treatment Not on filedocumented as of this encounter Visit Diagnoses Not on filedocumented in this encounter
--- OUTSIDE RECORDS SUMMARY | 2022-06-21 12:40 | XMS_ITS | Encounter Summary ---
:1945 Author Organization [facility] Address [address] [place] [address] Care Team Providers Name Role Phone Unavailable Primary Care Provider Unavailable Reason for Visit Reason Onset Date Comments Allergic Reaction to Injection 08/26/2018 Encounter Details Date Type Department Care Team Description 08/26/2018 Clinical Department of León Su Casandra nicolas Communication Sports Medicine in [place]. to Injection [address], [address] [place] [phone] Social History Tobacco Use Types Packs/Day Years [...] or relatives? How often do you attend shinto or buddhist More than 4 time s per year 04/26/2021 services? 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 We do not have the ability to add this to patient chart. Please route all messages to RST SPM SCHEDULING Thank you, Cristy D HOCKEY AND LACROSSE COACH documented in this encounter Plan of Treatment Not on filedocumented as of this encounter Visit Diagnoses Not on filedocumented in this encounter
--- OUTSIDE RECORDS SUMMARY | 2022-06-21 12:40 | XMS_ITS | Encounter Summary ---
:1945 Author Organization [facility] Address [address] [place] [address] Care Team Providers Name Role Phone Unavailable Primary Care Provider Unavailable Reason for Visit Outpatient (Routine) - Closed Specialty Diagnoses / Procedures Referred By Contact Refer red To Contact Sports Medicine León Su M. D. [facility] [address], [address] [place], [place] [address] Referral ID Status Reason Start Date Expiration Date Visits Requ ested Visits Authorized [id number] Closed 06/02/2019 06/01/2020 1 1 Encounter Details Date Type Department Care Team Description 09/01/2019 Office Visit Department of Sports León Su Sp ondylosis Lumbar Without Myelopathy (Primary Dx); Medicine in M.D. Pain Low Back; [place] [address], Bursitis T rochanteric Bilateral [place] [address] [place] [phone] Social History Tobacco Use Types Packs/Day Years [...] or relatives? How often do you attend methodist or advent More than 4 time s per year 04/26/2021 services? Do you belong to any clubs or organizations Yes 04/26/2021 such as methodist groups, unions, fraternal or athletic groups, or [...] for the very basics like Not h arlei at all 04/26/2021 food, housing, medical care, [...] a [place] [facility] (including now)? Education Answer Date Recorded What is the highest level of school Bachelor's degree (e.g., BA, AB, 06/02/2019 you have completed or the highest BS) degree you have received? 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 Boshc. I feel that her symptoms are likely [...] spine. We will have this performed in [place] which will be closer to her home [...] of care time greater than 15 minutes. OMATIC INTERPRETER documented in this encounter Plan of Treatment Not on filedocumented as of this encounter Visit Diagnoses Diagnosis Spondylosis Lumbar Without Myelopathy - Primary Pain Low Back Unspecified Bursitis Trochanteric Bilateral documented in this encounter
--- OUTSIDE RECORDS SUMMARY | 2022-06-21 12:40 | XMS_ITS | Encounter Summary ---
:1945 Author Organization [facility] Address [address] [place] [address] Care Team Providers Name Role Phone Unavailable Primary Care Provider Unavailable Encounter Details Date Type Department Care Team Description 03/27/2017 Hospital Encounter HX [facility] Pranay Su M.D. 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 - 03/27/2017 11:36 AM CDT [id number] CHIEF COMPLAINT/REASON FOR VISIT Follow up left [...] SU MD On: 03/28/2017 09:22 AM Source: [facility] MHSDOLBEYNONRADSYS Document Id: [id number] documented in this encounter Miscellaneous Notes Miscellaneous - Harry Su M.D. - 03/27/2017 12:26 PM CDT Ambulatory Patient Summary [address] [id number] Visit Information Name: ALISHA BOSCH [facility] Number: [id number] Current Date: 03/27/2017 12:26:56 Physicians [...] you dont have one. Go to [email or web address] and click on Create Your Account. Then, follow the directions to complete the online form. Youll be asked for your [facility] number which you can find at the top of this document. Your Goals/Additional instructions: Source: [facility] Message Systems Document Id: [id number] Miscellaneous - Harry Su M.D. 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 Intake/History Entered On: 03/27/2017 11:46 CDT Performed [...] Information Given By : Patient Languages : Latvian Is Patient Female and 13-50 no hysterectomy : ERYN Oates LPN - 03/27/2017 11:45 CDT Subjective Pain Symptoms : EYRN Oates LPN - 03/27/2017 11:45 CDT Dependent Habits Exposure to Tobacco Smoke : Other: never Smoking Status : Never smoker Tobacco 2A : No Tobacco Use/Currently Using : No Tobacco Use/Last 30 Days : No Tobacco Use/Last 12 months : ERYN Oates LPN - 03/27/2017 11:45 CDT Source: [facility] POWERCHART Document Id: [id number] CDT!22 documented in this encounter Plan of Treatment Not on filedocumented as of this encounter Visit Diagnoses Not on filedocumented in this encounter
--- OUTSIDE RECORDS SUMMARY | 2022-06-21 12:40 | XMS_ITS | Encounter Summary ---
:1945 Author Organization [facility] Address [address] [place] [address] Care Team Providers Name Role Phone Unavailable Primary Care Provider Unavailable Reason for Referral Outpatient (Routine) - Closed Specialty Diagnoses / Procedures Referred By Contact Refer denise To Contact Sports Medicine León Su M. D. [facility] [address] [facility], [address] [place] [address] Referral ID Status Reason Start Date Expiration Date Visits Requ ested Visits Authorized [id number] Closed 06/02/2019 06/01/2020 1 1 hysical Therapy (Routine) - Closed Specialty Diagnoses / Procedures Referred By Contact Bree walker To Contact Diagnoses Pain Low Back Unspecified León Su M.D. [address] [facility], [address] [place] [address] Referral ID Status Reason Start Date Expiration Visits Visits Date Requested Authorized [id number] Closed Patient 06/02/2019 06/01/2020 8 8 Preference Reason for Visit Appointment Request (Routine) - Closed Specialty Diagnoses / Procedures Referred By Contact Bree walker To Contact Sports Medicine Referral ID Status Reason Start Date Expiration Date Visits Requ ested Visits Authorized [id number] Closed 04/27/2019 04/26/2020 1 1 Encounter Details Date Type Department Care Team Description 06/02/2019 Comprehensive Visit Department of León Su Pain Low Back (Primary Dx); Sports Medicine in M, M.D. Spondylosis Lumbar Without Myelopathy; [place], [address]; [address] Pain Hip Right; [address] [place], [place] Bursitis [place] [phone] Social History Tobacco Use Types Packs/Day [...] or relatives? How often do you attend buddhism or scientology More than 4 time s per year 04/26/2021 services? Do you belong to any clubs or organizations Yes 04/26/2021 such as buddhism groups, unions, fraternal or athletic groups, or [...] or slept in a [facility] (including now)? Education Answer Date Recorded What is the highest level of school Bachelor's degree (e.g., BA, AB, 06/02/2019 you have completed or the highest BS) degree you have received? 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 Job ID: [id number] documented in this encounter Plan of Treatment Scheduled Referrals Name Type Priority Associated Diagnoses Order S [facility] Sports Medicine Outpatient Referral Routine Expec taylor: office visit 09/01/2019 (clinic) (Approximate), Expires: 06/02/2022 documented as of this encounter Visit Diagnoses Diagnosis Pain Low Back Unspecified - Primary Spondylosis Lumbar Without Myelopathy Pain Back Thoracic Pain Hip Right Bursitis Trochanteric Bilateral documented in this encounter
--- OUTSIDE RECORDS SUMMARY | 2022-06-21 12:40 | XMS_ITS | Encounter Summary ---
:1945 Author Organization [facility] Address [address] [place] [address] Care Team Providers Name Role Phone Unavailable Primary Care Provider Unavailable Encounter Details Date Type Department Care Team Description 03/12/2017 Hospital Encounter HX [facility] PM[facility] Pranay Su M.D. [address] [place] [address], [address] [place] [address] (Wo rk) Social History Tobacco [...] or relatives? How often do you attend latter-day or oriental orthodox More than 4 time s per year 04/26/2021 services? 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 - 03/12/2017 9:22 AM CDT [id number] CHIEF COMPLAINT/REASON FOR VISIT Follow up low back pain and history of left shoulder pain. HISTORY OF PRESENT ILLNESS Ms. Bosch returns today. Unfortunately on February 17 she was at her water aerobics class and she was walking at the [facility] she had a fall in the shower [...] 75 degrees bilaterally. Positive Neer's, positive Harden, [place] causes pain in the 1st and 2nd [...] SU MD On: 03/13/2017 10:06 AM Source: [facility] MHSDOLBEYNONRADSYS Document Id: [id number] documented in this encounter Miscellaneous Notes Miscellaneous - Clifford Turner L.P.N. - 03/12/2017 11:07 AM CDT *General Message Document Contains Addenda Addendum by CRYSTAL BALL LPN on March 13, 2017 16:30:07 CDT Order faxed Addendum by NICKY GREER on March 13, 2017 15:54:41 CDT From: NICKY GREER ([facility] Machine Turner/Radiology Outside [facility]) To: Physical Medicine and Rehabilitation Staff; Sent: 03/13/2017 15:54:41 CDT Subject: RE: *General Message No auth needed From: CLIFFORD TURNER LPN ( Physical Medicine and Rehabilitation Staff) To: [facility] Machine Turner/Radiology Outside [facility]; Sent: 03/12/2017 11:07:00 CDT Subject: *General Message Patient Referred to Provider or Facility: _[facility] Ordering Provider: _Pranay Su Appointment [...] and type of injury: _ 02/20/2017 Source: [facility] [employer] Document Id: [id number] Miscellaneous - Harry Su M.D. - 03/12/2017 10:56 AM CDT Ambulatory Patient Summary [facility] [address] [place] [id number] Visit Information Name: ALISHA BOSCH [facility] Number: [id number] Current Date: 03/12/2017 10:56:26 Physicians Attending Provider: HARRY SU MD Primary [...] if you dont have one. Go to [email or web address] and click on Create Your Account. Then, follow the directions to complete the online form. Youll be asked for your [facility] number which you can find at the top of this document. Your Goals/Additional instructions: Source: [facility] POWERCHART Document Id: [id number] Miscellaneous - Harry Su M.D. - 03/12/2017 10:56 AM CDT Ambulatory Discharge Medication List [address] [id number] Visit Information Name: ALISHA BOSCH [facility] Number: [id number] Current Date: 03/12/2017 10:56:25 Attending [...] MD Signed On:12-MAR-2017 10:43:58 Additional Information: Source: [facility] POWERCHART Document Id: [id number] Miscellaneous - Clifford Turner LKatalinaPKatalinaN. - 03/12/2017 10:12 AM CDT Adult Box Turner Intake/History Adult Box Turner Intake/History Entered On: 03/12/2017 10:14 CDT Performed On: 03/12/2017 10:12 CDT by CLIFFORD TURNER STOCK PREPARATION SUPERVISOR Intake Systolic Blood Pressure : 124 mmHg Diastolic Blood Pressure : 68 mmHg NIBP Mean : 87 mmHg BP Location : Left upper extremity Blood Pressure Cuff Size : Regular Actual Weight : 98.40 kg(Converted to: 216 lb 15 oz) Dosing Weight Clinic : 98.4 kg CLIFFORD TURNER STOCK PREPARATION SUPERVISOR - 03/12/2017 10:12 CDT General Info Information Given By : Patient Languages : Ecuadorean Is Patient Female and 13-50 no hysterectomy : No CLIFFORD TURNER [facility] - 03/12/2017 10:12 CDT Subjective Pain Symptoms : No CLIFFORD TURNER STOCK PREPARATION SUPERVISOR - 03/12/2017 10:12 CDT Dependent Habits Exposure to Tobacco Smoke : Other: never Smoking Status : Never smoker Tobacco 2A : No Tobacco Use/Currently Using : No Tobacco Use/Last 30 Days : No Tobacco Use/Last 12 months : CLIFFORD Oates STOCK PREPARATION SUPERVISOR - 03/12/2017 10:12 CDT Source: [facility] [employer] Document Id: [id number] CDT!22 documented in this encounter Plan of [...]
--- OUTSIDE RECORDS SUMMARY | 2022-06-21 12:40 | XMS_ITS | Encounter Summary ---
:1945 Author Organization [facility] Address [address] [place] [address] Care Team Providers Name Role Phone Unavailable Primary Care Provider Unavailable Encounter Details Date Type Department Care Team Description 07/26/2017 Clinical Communication Department of León Su, Internal Medicine in [place], [place] [address] [facility], [address] [place] [address] [address] [place] [address] [phone] Social History Tobacco Use Types Packs/Day Years [...] or relatives? How often do you attend scientologist or yarsanism More than 4 time s per year 04/26/2021 services? 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
--- OUTSIDE RECORDS SUMMARY | 2022-06-21 12:40 | XMS_ITS | Encounter Summary ---
:1945 Author Organization [facility] Address [address] [place] [address] Care Team Providers Name Role Phone Unavailable Primary Care Provider Unavailable Encounter Details Date Type Department Care Team Description 08/20/2017 Abstract Department of Family Medicine, Provider, Historical [facility], in [place], [place] [address] [address] [facility] [phone] Social History Tobacco Use Types Packs/Day Years [...] or relatives? How often do you attend adventist or taoist More than 4 time s per year 04/26/2021 services? 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
--- OUTSIDE RECORDS SUMMARY | 2022-06-21 12:40 | XMS_ITS | Encounter Summary ---
:1945 Author Organization [facility] Address [address] [place] [address] Care Team Providers Name Role Phone Unavailable Primary Care Provider Unavailable Reason for Visit Reason Onset Date Comments Fusion? 06/02/2019 Encounter Details Date Type Department Care Team Description 06/02/2019 Clinical Communication Department of Sports Isaac Su, Fusion? Medicine in [place], [place] [address], [address] [place] [address] [address] [place] [address] [phone] Social History Tobacco Use Types Packs/Day Years [...] How often do you attend caodaism or yazidism More than 4 time s [...] or slept in a retirement (including now)? Education Answer Date Recorded What is the highest level of school Bachelor's degree (e.g., BA, AB, 06/02/2019 you have completed or the highest BS) degree you have received? 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 Su, Patient called stating she just saw you for lower back pain wondering about scheduling the fusion for L lower back. Are you wanting patient to meet with our spine department in [place] otherwise she said she will disregard plan. Side note: I know you just saw her, giving you time to dictate but I wanted to send a message per patient request. Thank you, Candy documented in this encounter Plan of Treatment Not on filedocumented as of this encounter Visit Diagnoses Not on filedocumented in this encounter
--- OUTSIDE RECORDS SUMMARY | 2022-06-21 12:40 | XMS_ITS | Encounter Summary ---
:1945 Author Organization [facility] Address [address] [place] [address] Care Team Providers Name Role Phone Unavailable Primary Care Provider Unavailable Reason for Visit Reason Comments Follow-up right shoulder Outpatient (Routine) - Closed Specialty Diagnoses / Referred By Contact Referred To Contact Procedures Physical Medicine and León Su, [facility] Rehabilitation M.D. [address] [facility], [address] [place] [address] Referral ID Status Reason Start Date Expiration Date Visits Requ ested Visits Authorized [id number] Closed 10/23/2017 04/21/2018 1 1 Encounter Details Date Type Department Care Team Description 11/27/2017 Office Visit Department of Physical León Su, Pain Back (Primary Dx); Medicine and M.D. 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 I did give her my contact information in [place] if she would have any questions, and I would be happy to see her there if she were to have any worsening pain or new issues. Ms. Bosch voiced agreement and understanding with this plan. Total time 25 minutes, counseling and coordination care time greater than 20 minutes. Job ID: [id number] documented in this encounter Plan of Treatment Not on filedocumented as of this encounter Visit Diagnoses Diagnosis Pain Back - Primary Spondylosis Lumbar Without Myelopathy Pain Shoulder Right documented in this encounter
--- OUTSIDE RECORDS SUMMARY | 2022-06-21 12:40 | XMS_ITS | Encounter Summary ---
:1945 Author Organization [facility] Address [address] [place] [address] Care Team Providers Name Role Phone Unavailable Primary Care Provider Unavailable Encounter Details Date Type Department Care Team Description 07/23/2018 Hospital Encounter Department of Georges, Abdulaziz Walker Hip Right; Radiology in M.D. 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 DX LUMBAR SPINE RAD - Routine 07/23/2018 9:31 Pain Low Back Results for this 2-3 VIEWS (most inpatients AM PULP REFINER OPERATOR procedure a re in and all the results outpatients) section. documented in this encounter Results DX Lumbar Spine 2-3 Views (07/23/2018 9:31 AM PULP REFINER OPERATOR) Anatomical Region Laterality Modality Lumbar Spine, Musculoskeletal RST LOS, Neuroradiology N/A Digital Radiography ARZ LOS, Muskuloskeletal FLA LOS Specimen (Source) Anatomical Collection Method Collection Time Re ceived Time Location / / Volume Laterality 07/23/2018 9:36 AM PULP REFINER OPERATOR Impressions 07/23/2018 9:39 AM PULP REFINER OPERATOR IMPRESSION: ??Mild multilevel disc degeneration throughout [...] greater than left. Narrative 07/23/2018 9:39 AM PULP REFINER OPERATOR EXAM: ??DX LUMBAR SPINE 2-3 VIEWS, [...] Pelvis Right 2-3 Views (07/23/2018 9:31 AM PULP REFINER OPERATOR) Anatomical Region Laterality Modality Lower Extremity, Pelvis, Hip, Musculoskeletal RST LOS, Right Digital Radiography Musculoskeletal ARZ LOS, Muskuloskeletal FLA LOS Specimen (Source) Anatomical Collection Method Collection Time Re ceived Time Location / / Volume Laterality 07/23/2018 9:36 AM PULP REFINER OPERATOR Impressions 07/23/2018 9:39 AM PULP REFINER OPERATOR IMPRESSION: ??Mild multilevel disc degeneration throughout [...] greater than left. Narrative 07/23/2018 9:39 AM PULP REFINER OPERATOR EXAM: ??DX LUMBAR SPINE 2-3 VIEWS, [...]
--- OUTSIDE RECORDS SUMMARY | 2022-06-21 12:40 | XMS_ITS | Encounter Summary ---
:1945 Author Organization [facility] Address [address] [place] [address] Care Team Providers Name Role Phone Unavailable Primary Care Provider Unavailable Encounter Details Date Type Department Care Team Description 04/27/2019 Clinical Communication Department of Sports Isaac Su, Medicine in .[place], [place] [address], [address] [facility] [address] [place] [address] [phone] Social History Tobacco Use Types Packs/Day Years [...] or relatives? How often do you attend alevism or samaritan More than 4 time s per year 04/26/2021 services? 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 - 04/27/2019 11:58 AM CDT [...] back, which he saw her for in [facility]. She did have a recent fall and thinks she may havedone her shoulder more harm. I would like to confirm that Dr. Su will see her for a follow up of these concerns. Can you advise if he will and if he wants more time beyond the standard hour to address these? Action: Message routed to Athletic Trainers at [facility] documented in this encounter Plan of Treatment [...]
--- OUTSIDE RECORDS SUMMARY | 2022-06-21 12:40 | XMS_ITS | Encounter Summary ---
:1945 Author Organization [facility] Address [address] [place] [address] Care Team Providers Name Role Phone Unavailable Primary Care Provider Unavailable Encounter Details Date Type Department Care Team Description 04/08/2017 Hospital Encounter HX [facility] PMTR Pranay Su M.D. [address] [place] [address], [address] [place] [address] (Wo rk) Social History Tobacco [...] or relatives? How often do you attend religion or yazdanism More than 4 time s per year 04/26/2021 services? 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 Quiroga. The use of direct [...] SU MD On: 04/09/2017 01:24 PM Source: [facility] MHSDOLBEYNONRADSYS Document Id: [id number] documented in this encounter Miscellaneous Notes Miscellaneous [...] Patient ( ) ( ) Call for Marketing Services Vice President ( ) Follow up on Results ( ) Other: PROVIDER: ( ) Call Physician ( ) Call Pharmacist ( ) Call Lab ( ) Other: Special Instructions: Comments: Source: [facility] POWERCHART Document Id: [id number] WARE ENGINEERING SUPERVISOR Miscellaneous - Harry Su M.D. - 04/08/2017 11:26 AM CDT Ambulatory Patient Summary [address] [id number] Visit Information Name: AVNI BOSCHBertrand SCHMIDT [facility] Number: [id number] Current Date: 04/08/2017 11:26:19 Physicians [...] if you dont have one. Go to [email or web address] and click on Create Your Account. Then, follow the directions to complete the online form. Youll be asked for your [facility] number which you can find at the top of this document. Your Goals/Additional instructions: Source: [facility] POWERCHART Document Id: [id number] Miscellaneous - Harry Su M.D. - 04/08/2017 11:26 AM CDT Ambulatory Discharge Medication List [address] [id number] Visit Information Name: ALISHA BOSCH [facility] Number: [id number] Current Date: 04/08/2017 11:26:18 Attending [...] MD Signed On:08-APR-2017 11:26:05 Additional Information: Source: [facility] POWERCHART Document Id: [id number] Miscellaneous - Clifford Turner, L.P.N. - 04/08/2017 11:01 AM CDT Adult Desizing Machine Back Tender Intake/History Adult Desizing Machine Back Tender Intake/History Entered On: 04/08/2017 11:02 CDT Performed [...] Information Given By : Patient Languages : Nepali Is Patient Female and 13-50 no hysterectomy [...] Oates LPN - 04/08/2017 11:01 CDT [facility] Document Id: [id number] CDT!22 documented in this encounter Plan of Treatment Not on filedocumented as of this encounter Visit Diagnoses Not on filedocumented in this encounter
--- OUTSIDE RECORDS SUMMARY | 2022-06-21 12:40 | XMS_ITS | Encounter Summary ---
:1945 Author Organization [facility] Address [address] [place] [address] Care Team Providers Name Role Phone Unavailable Primary Care Provider Unavailable Encounter Details Date Type Department Care Team Description 06/02/2019 Hospital Encounter Department of León Su Pai n Back Lumbar; Radiology in M.D. 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
--- OUTSIDE RECORDS SUMMARY | 2022-06-21 12:41 | XMS_ITS | Encounter Summary ---
:1945 Author Organization [facility] Address [address] [place] [address] Care Team Providers Name Role Phone Unavailable Primary Care Provider Unavailable Encounter Details Date Type Department Care Team Description 04/29/2013 Hospital Encounter HX [facility]BC[facility] PMTR Pranay Su M.D. [address] [place] [address], [address] [place] [address] (Wo rk) Social History Tobacco [...] or relatives? How often do you attend amish or protestant More than 4 time s per year 04/26/2021 services? Do you belong to any clubs or organizations Yes 04/26/2021 such as amish groups, unions, fraternal or athletic groups, or [...] place to sleep or slept in a assisted (including now)? 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 - 04/29/2013 8:17 AM CDT [id number] CHIEF COMPLAINT / REASON FOR VISIT Left lower extremity pain and weakness following left total hip arthroplasty. Referring physician Dr. Michelle Hartmann D.O. HISTORY OF PRESENT ILLNESS Ms. Bosch is a pleasant 67-year-old female who underwent a left total hip arthroplasty via a posterior approach on March 25, 2013 in [place]. She did well with respect to the [...] ligation. SOCIAL HISTORY Ms. Bosch lives in [place]. 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 She does [...] with this plan. Harry Su M.D./robin cc: [facility] Michelle Hartmann D.O. [address] [place] [phone] Electronically Signed By: HARRY SU MD On: 05/05/2013 12:01 PM Modified by and Electronically Signed by: HARRY SU MD On: 05/05/2013 12:01 PM Source: [facility] MHSDOLBEYNONRADSYS Document Id: [id number] documented in this encounter Miscellaneous Notes Miscellaneous - Harry Su M.D. - 04/29/2013 9:31 AM CDT Ambulatory Patient Summary [address] [id number] Visit Information Name: ALISHA BOSCH [facility] Number: [id number] Current Date: 04/29/2013 09:31:11 Physicians [...] No Appointments found Your Goals/Additional instructions: Source: [facility] POWERCHART Document Id: [id number] Miscellaneous - Harry Su M.D. - 04/29/2013 9:31 AM CDT [place] [address] Visit Information Name: DOUGLASALISHA KELLOGG [facility] Number: [id number] Visit Date: 04/29/2013 09:31:10 Attending [...] your provider for clarification. Additional Information: Source: [facility] POWERCHART Document Id: [id number] Miscellaneous - Conversion, Historical Provider Ser - 04/29/2013 8:42 AM CDT Adult Laundry Bag Punch Operator Intake/History Adult Laundry Bag Punch Operator Intake/History Entered On: 04/29/2013 8:44 CDT Performed [...] Information Given By : Patient Languages : Armenian STUART CAIN LPN - 04/29/2013 8:42 CDT Subjective Pain Symptoms : No STUART CAIN LPN - 04/29/2013 8:42 CDT Dependent Habits Tobacco Use/Currently Using : No Smoking Status : Never smoker PAYTON STUART Eagle LPN - 04/29/2013 8:42 CDT Source: [facility] [employer] Document Id: [id number] CDT!19 documented in this encounter Plan of Treatment Not on filedocumented as of this encounter Visit Diagnoses Not on filedocumented in this encounter
--- OUTSIDE RECORDS SUMMARY | 2022-06-21 12:41 | XMS_ITS | Encounter Summary ---
:1945 Author Organization [facility] Address [address] [place] [address] Care Team Providers Name Role Phone Unavailable Primary Care Provider Unavailable Encounter Details Date Type Department Care Team Description 05/25/2013 Hospital Encounter HX [facility] FBCV PMTR Pranay Su M.D. 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 - 05/25/2013 3:00 PM CDT [id number] CHIEF COMPLAINT / REASON FOR VISIT Followup [...] time 20 minutes. Harry Su M.D./luke cc: [address] [id number] Electronically Signed By: HARRY SU MD On: 05/27/2013 10:23 AM Modified by and Electronically Signed by: HARRY SU MD On: 05/27/2013 10:23 AM Source: [facility] MHSDOLBEYNONRADSYS Document Id: [id number] documented in this encounter Miscellaneous Notes Miscellaneous - Marlene Valentine P.A.-C. - 05/25/2013 3:07 PM CDT Adult Data Processing Equipment Repairer Intake/History Adult Data Processing Equipment Repairer Intake/History Entered On: 05/25/2013 15:07 CDT Performed [...] Preferred Communication Mode : Verbal Languages : Montserratian MARLENE VALENTINE - 05/25/2013 15:07 CDT Subjective Pain Symptoms : No MARLENE VALENTINE - 05/25/2013 15:07 CDT Dependent Habits Tobacco Use/Currently Using : No Exposure to Tobacco Smoke : Other: never Smoking Status : Never smoker MARLENE VALENTINE - 05/25/2013 15:07 CDT Source: [facility] POWERCHART Document Id: [id number] CDT!20 documented in this encounter Plan of Treatment Not on filedocumented as of this encounter Visit Diagnoses Not on filedocumented in this encounter
--- OUTSIDE RECORDS SUMMARY | 2022-06-21 12:41 | XMS_ITS | Encounter Summary ---
:1945 Author Organization [facility] Address [address] [place] [address] Care Team Providers Name Role Phone Unavailable Primary Care Provider Unavailable Encounter Details Date Type Department Care Team Description 12/25/2013 Hospital Encounter HX [facility] Pranay Su M.D. [address] [place] [address], [address] [place] [address] (Wo rk) Social History Tobacco [...] or relatives? How often do you attend gnosticist or judaism More than 4 time s per year 04/26/2021 services? 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 - 12/25/2013 10:17 AM CDT [id number] CHIEF COMPLAINT/REASON FOR VISIT Followup of left [...] SU MD On: 12/29/2013 04:28 PM Source: [facility] MHSDOLBEYNONRADSYS Document Id: [id number] documented in this encounter Miscellaneous Notes Miscellaneous - Radha Ovalles R.N. - 06/02/2014 9:14 AM CDT Gabapentin Document Contains Addenda Addendum by HARRY SU MD on 02 June 2014 13:17:01 CDT Submitted: Order:gabapentin (gabapentin 300 mg oral capsule) 3 cap(s) PO 3xDay Qty: 270 cap(s) Refills: 5 Substitutions Allowed Route To Pharmacy - [facility] Rx Signed by HARRY SU MD 06/02/2014 13:16:48 From: RADHA OVALLES ([facility] Medication Refill) To: HARRY SU MD; Sent: [...] Call to Pharmacy ( ) Patient will pepper picker Script ( ) Mail Rxto Patient Source: [facility] POWERCHART Document Id: [id number] Miscellaneous - Harry Su M.D. - 12/25/2013 11:11 AM CDT Ambulatory Patient Summary [facility] [address] [place] [id number] Visit Information Name: ALISHA BOSCH [facility] Number: [id number] Current Date: 12/25/2013 11:11:44 Physicians [...] Tablet(s), Oral, once a day (at bedtime) [facility] Prescription (Krill Oil) See Instructions Daily multivitamin [...] appointment detail needed. Your Goals/Additional instructions: Source: [facility] POWERCHART Document Id: [id number] Miscellaneous - Harry Su M.D. - 12/25/2013 11:11 AM CDT Ambulatory Discharge Medication List [address] [id number] Visit Information Name: DOUGLASVALDEZ ALISHABertrand SCHMIDT [facility] Number: [id number] Visit Date: 12/25/2013 11:11:41 Attending [...] Tablet(s), Oral, once a day (at bedtime) [facility] Prescription (Krill Oil) See Instructions Daily multivitamin [...] MD Signed On:25-DEC-2013 11:10:45 Additional Information: Source: [facility] POWERCHART Document Id: [id number] Miscellaneous - Marlene Valentine P.A.-C. - 12/25/2013 10:27 AM CDT Adult Plant Operations Worker Intake/History Adult Plant Operations Worker Intake/History Entered On: 12/25/2013 10:30 CDT Performed [...] Communication Mode : Verbal Languages : Sinhala MARLENE VALENTINE - 12/25/2013 10:27 CDT Subjective Pain Symptoms : No MARLENE VALENTINE - 12/25/2013 10:27 CDT Dependent Habits Tobacco Use/Currently Using : No Exposure to Tobacco Smoke : Other: never Smoking Status : Never smoker MARLENE VALENTINE - 12/25/2013 10:27 CDT Source: [place] Document Id: [id number] CDT!20 documented in this encounter Plan of Treatment Not on filedocumented as of this encounter Visit Diagnoses Not on filedocumented in this encounter
--- OUTSIDE RECORDS SUMMARY | 2022-06-21 12:41 | XMS_ITS | Encounter Summary ---
:1945 Author Organization [facility] Address [address] [place] [address] Care Team Providers Name Role Phone Unavailable Primary Care Provider Unavailable Encounter Details Date Type Department Care Team Description 07/19/2014 Hospital Encounter HX [facility] Pranay Simpson M.D. [address] [place] [address], [address] [place] [address] (Wo rk) Social History Tobacco [...] or relatives? How often do you attend judaism or jain More than 4 time s per year 04/26/2021 services? Do you belong to any clubs or organizations Yes 04/26/2021 such as judaism groups, unions, fraternal or athletic groups, or [...] or slept in a fdc (including now)? 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 - 07/19/2014 9:18 AM CST [id number] CHIEF COMPLAINT/REASON FOR VISIT Follow up left [...] SIMPSON MD On: 07/21/2014 10:54 AM Source: [facility] MHSDOLBEYNONRADSYS Document Id: [id number] CIENCY CLERK documented in this encounter Nursing Notes Conversion, Historical Provider Ser - 07/26/2014 9:41 AM CST prior authorization-lyrica Document Contains Addenda Addendum by GAEL GARCIA LPN on 19 August 2014 9:34 EFFICIENCY CLERK letter from Dr Simpson is sent to [employer]. Modified by and Electronically Signed by: GAEL GARCIA LPN On: 08/19/2014 09:34 AM Addendum by GAEL GARCIA LPN on 29 July 2014 11:44 EFFICIENCY CLERK prior authorization for Lyrica has been denied. Dr Simpson is notified Modified by and Electronically Signed by: GAEL GARCIA LPN On: 07/29/2014 11:44 AM prior authorization request sent to [employer] for the medication Lyrica 75mg, time spent 20 minutes Electronically Signed By: GAEL GARCIA LPN On: 07/26/2014 09:43 AM Source: [facility] POWERCHART Document Id: [id number] documented in this encounter Miscellaneous Notes Miscellaneous - Analilia Larry R.N. 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 Addendum by TARYN MURPHY on 01 September 2014 10:30:57 EFFICIENCY CLERK Message left for patient to return call. From: KATHERIN THOMSON ( [place] Certification And Selection Specialist) To: Physical Medicine and Rehabilitation Staff; Sent: 09/01/2014 08:50:18 EFFICIENCY CLERK Subject: *Phone Message/dr simpson Caller is: (x ) Patient ( ) Mother ( ) Father ( ) Spouse ( ) Daughter ( ) Son ( ) Pharmacy ( ) Other: Physician: Patient MRN #: Reason for Call: S has question on medication B A R please call [phone] Message: Advice/Action: Source used: ( ) Verbalizes [...] back cell phone number ( ) Source: [facility] NextStep.ioCHART Document Id: [id number] Telephone Encounter - Crystal Blanco L.P.N. - 08/30/2014 4:20 PM CST *Phone Message Document Contains Addenda Addendum by TARYN MURPHY on 31 August 2014 13:17:00 EFFICIENCY CLERK Done. Addendum by HARRY SIMPSON MD on 31 August 2014 11:45:53 EFFICIENCY CLERK From: HARRY SIMPSON MD To: TARYN MURPHY; Sent: 08/31/2014 11:45:53 EFFICIENCY CLERK Subject: FW: *Phone Message Please call. Addendum by HARRY SIMPSON MD on 31 August 2014 11:45:38 EFFICIENCY CLERK Submitted: Order:pregabalin (Lyrica 150 mg oral capsule) 1 cap(s) PO 2xDay Qty: 60 cap(s) Refills: 2 Substitutions Allowed Don't Print - called to pharmacy (Rx) Signed by HARRY SIMPSON MD 08/31/2014 11:45:18 From: CRYSTAL BLANCO LPN ( Physical Medicine and Rehabilitation Staff) To: HARRY SIMPSON MD; Sent: 08/30/2014 16:20:19 EFFICIENCY CLERK Subject: *Phone Message Caller is: ( x ) Patient ( ) Mother ( ) Father ( ) Spouse ( ) Daughter ( ) Son ( ) Pharmacy ( ) Other: Physician: Patient MRN #: Reason for Call: Will you send the Lyrica 150 mg BID to [facility]? Message: Advice/Action: Source used: ( ) Verbalizes [...] back cell phone number ( ) Source: [facility] POWERCHART Document Id: [id number] Electronically signed by Conversion, [facility] School Program Director [id number] at 02/12/2017 9:10 PM CDT Telephone Encounter - Conversion, Historical Provider Ser - 08/30/2014 11:58 AM CST *Phone Message Document Contains Addenda Addendum by CRYSTAL BLANCO LPN on 30 August 2014 16:20:36 EFFICIENCY CLERK Returned call to patient. Addendum by ALICIA MYERS on 30 August 2014 15:15:03 EFFICIENCY CLERK From: ALICIA MYERS ( Physical Medicine and Rehabilitation Staff) To: Physical Medicine and Rehabilitation Staff; Sent: 08/30/2014 15:15:03 EFFICIENCY CLERK Subject: FW: *Phone Message Alisha called returning a call to Crystal. No answer, please call Alisha again Addendum by CRYSTAL BLANCO LPN on 30 August 2014 12:50:17 EFFICIENCY CLERK Left message for patient to return call. From: WINNIE WILKINSON ([facility] Medicine Nurse) To: Physical Medicine and Rehabilitation Staff; Sent: 08/30/2014 11:58:32 EFFICIENCY CLERK Subject: *Phone Message Caller is: (x ) Patient ( ) Mother ( ) Father ( ) Spouse ( ) Daughter ( ) Son ( ) Pharmacy ( ) Other: Physician: Patient MRN #: Reason for Call: Patient tried calling Radha back. Its regarding perscription issues. Please try jan at [phone] Message: Advice/Action: Source used: ( ) Verbalizes [...] back cell phone number ( ) Source: [facility] POWERCHART Document Id: [id number] Telephone Encounter - Conversion, Historical Provider Ser - 08/23/2014 2:46 PM CST *Phone Message Document Contains Addenda Addendum by HARRY SIMPSON MD on 26 August 2014 14:30:06 EFFICIENCY CLERK From: HARRY SIMPSON MD To: BENJAMIN --WADE; Sent: 08/26/2014 14:30:06 EFFICIENCY CLERK Subject: FW: *Phone Message Addendum by TARYN MURPHY on 23 August 2014 16:27:54 EFFICIENCY CLERK From: TARYN MURPHY ( Physical Medicine and Rehabilitation Staff) To: HARRY SIMPSON MD; Sent: 08/23/2014 16:27:54 EFFICIENCY CLERK Subject: FW: *Phone Message Spoke with patient, she is still unable to get an authorization for the medication and she decided at the cost of the medication she didn't want to try it. She will continue to take the gabapentin. From: WINNIE WILKINSON ( [place] Certification And Selection Specialist) To: Physical Medicine and Rehabilitation Staff; Sent: 08/23/2014 14:46:21 EFFICIENCY CLERK Subject: *Phone Message Caller is: ( x [...] back cell phone number ( ) Source: [facility] NextMedium Document Id: [id number] Telephone Encounter - Conversion, Historical Provider Ser - 08/11/2014 1:19 PM CST *Phone Message Document Contains Addenda Addendum by TARYN MURPHY on 18 August 2014 10:56:12 EFFICIENCY CLERK Done. Addendum by HARRY SIMPSON MD on 17 August 2014 16:37:25 EFFICIENCY CLERK From: HARRY SIMPSON MD To: Physical Medicine and Rehabilitation Staff; Sent: 08/17/2014 16:37:25 EFFICIENCY CLERK Subject: RE: *Phone Message She can decrease the gabapentin by 300 mg per day. I did write her a prescription for a 90 day supply. Thanks. Addendum by TARYN MURPHY on 17 August 2014 16:34:32 EFFICIENCY CLERK From: TARYN MURPHY ( Physical Medicine and Rehabilitation Staff) To: HARRY SIMPSON MD; Sent: 08/17/2014 16:34:32 EFFICIENCY CLERK Subject: RE: *Phone Message Spoke with patient, she does have more pain during the day vs at night, with wearing shoes and walking. She also was wondering how to wean off the gabapentin now? She also stated her insurance will cover it for a 90 day supply. Addendum by HARRY SIMPSON MD on 17 August 2014 10:23:20 EFFICIENCY CLERK From: HARRY SIMPSON MD To: Physical Medicine and Rehabilitation Staff; Sent: 08/17/2014 10:23:20 EFFICIENCY CLERK Subject: RE: *Phone Message Please call. Thanks. Addendum by HARRY SIMPSON MD on 17 August 2014 10:23:13 EFFICIENCY CLERK Submitted: Order:pregabalin (Lyrica 150 mg oral capsule) 1 cap(s) PO 2xDay Qty: 180 cap(s) Refills: 0 Substitutions Allowed Don't Print - called to pharmacy (Rx) Signed by HARRY SIMPSON MD Submitted: Complete:pregabalin (Lyrica 75 mg oral capsule) Signed by HARRY SIMPSON MD 08/17/2014 10:22:43 Addendum by CRYSTAL BLANCO LPN on 11 August 2014 14:59:46 EFFICIENCY CLERK From: CRYSTAL BLANCO LPN ( Physical Medicine and Rehabilitation Staff) To: HARRY SIMPSON MD; Sent: 08/11/2014 14:59:46 EFFICIENCY CLERK Subject: FW: *Phone Message Spoke with patient. She knows that you are out until Saturday and that is ok with her to wait until then. From: WINNIE WILKINSON ([facility] Certification And Selection Specialist) To: Physical Medicine and Rehabilitation Staff; Sent: 08/11/2014 13:19:47 EFFICIENCY CLERK Subject: *Phone Message Caller is: ( x [...] this way. A: R: Please call patient [phone] Message: Advice/Action: Source used: ( ) Verbalizes [...] back cell phone number ( ) Source: [facility] NextMedium Document Id: [id number] Miscellaneous - Harry Simpson M.D. - 08/06/2014 12:00 AM CST [id number] August 06, 2014 [employer] [address] [address] [place] [address] RE: Alisha Bosch : 1944 To Whom [...] SIMPSON MD On: 08/09/2014 01:54 PM Source: [facility] MHSDOLBEYNONRADSYS Document Id: [id number] CIENCY CLERK Miscellaneous - Conversion, Historical Provider Ser - 07/29/2014 11:48 AM EFFICIENCY CLERK Karinea henri Document Contains Addenda Addendum by INDIGO ROSARIO on 29 July 2014 15:27:12 EFFICIENCY CLERK From: INDIGO ROSARIO To: Physical Medicine and Rehabilitation Staff; Sent: 07/29/2014 15:27:12 EFFICIENCY CLERK Subject: FW: Arley álvarez From: GAEL GARCIA LPN To: HARRY SIMPSON MD; INDIGO ROSARIO; Sent: 07/29/2014 11:48:09 EFFICIENCY CLERK Subject: Karinea [address] is denied by [employer] stating that this medication request is not medically necessary. I am sending you the information to review. Thanks Gael Source: [facility] POWERCHART Document Id: [id number] Miscellaneous - Harry Simpson M.D. - 07/19/2014 10:19 AM CST Ambulatory Patient Summary [address] [id number] Visit Information Name: ALISHA BOSCH [facility] Number: [id number] Current Date: 07/19/2014 10:19:02 Physicians [...] Tablet(s), Oral, once a day (at bedtime) [facility] Prescription (Krill Oil) See Instructions Daily multivitamin [...] appointment detail needed. Your Goals/Additional instructions: Source: [facility] POWERCHART Document Id: [id number] CIENCY CLERK Miscellaneous - Harry Simpson M.D. - 07/19/2014 10:18 AM CST Ambulatory Discharge Medication List [address] [id number] Visit Information Name: LUCIA ALISHA SCHMIDT [facility] Number: [id number] Visit Date: 07/19/2014 10:18:55 Attending [...] Tablet(s), Oral, once a day (at bedtime) [facility] Prescription (Krill Oil) See Instructions Daily multivitamin [...] MD Signed On:19-JUL-2014 10:18:24 Additional Information: Source: [facility] NextMedium Document Id: [id number] CIENCY CLERK Miscellaneous - Crystal Blanco L.P.N. - 07/19/2014 9:27 AM CST Adult Fuel Oil Clerk Intake/History Adult Fuel Oil Clerk Intake/History Entered On: 07/19/2014 9:29 EFFICIENCY CLERK Performed On: 07/19/2014 9:27 EFFICIENCY CLERK by CRYSTAL BLANCO LPN Intake Systolic Blood Pressure : 118 mmHg Diastolic Blood Pressure : 64 mmHg NIBP Mean : 82 mmHg BP Location : Left upper extremity Blood Pressure Cuff Size : Large Actual Weight : 100.8 kg(Converted to: 222 lb 4 oz) Dosing Weight Clinic : 100.8 kg CRYSTAL BLANCO LPN - 07/19/2014 9:27 EFFICIENCY CLERK General Info Information Given By : Patient Languages : Belarusian Is Patient Female and 13-50 no hysterectomy : No CRYSTAL BLANCO LPN - 07/19/2014 9:27 EFFICIENCY CLERK Subjective Pain Symptoms : No CRYSTAL BLANCO LPN - 07/19/2014 9:27 EFFICIENCY CLERK Dependent Habits Tobacco Use/Currently Using : No Exposure to Tobacco Smoke : Other: never Smoking Status : Never smoker CRYSTAL BLANCO LPN - 07/19/2014 9:27 EFFICIENCY CLERK ID Screen Travel Within Last 21 Days : No CRYSTAL BLANCO LPN - 07/19/2014 9:27 EFFICIENCY CLERK [facility] Document Id: [id number] EFFICIENCY CLERK!21 CIENCY CLERK documented in this encounter Plan of Treatment Not on filedocumented as of this encounter Visit Diagnoses Not on filedocumented in this encounter
--- OUTSIDE RECORDS SUMMARY | 2022-06-21 12:41 | XMS_ITS | Encounter Summary ---
:1945 Author Organization [facility] Address [address] [place] [address] Care Team Providers Name Role Phone Unavailable Primary Care Provider Unavailable Encounter Details Date Type Department Care Team Description 11/11/2014 Hospital Encounter HX [facility] Pranay Engle M.D. 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 - 11/11/2014 1:47 PM CST [id number] CHIEF COMPLAINT/REASON FOR VISIT Left lower extremity [...] ENGLE MD On: 11/15/2014 05:25 PM Source: [facility] MHSDOLBEYNONRADSYS Document Id: [id number] MMISSIONING WELL SITE MANAGER documented in this encounter Nursing Notes Rahel Lion L.P.N. - 11/12/2014 9:03 AM CST Prior authorization request Lyrica Prior Authorization Request for Lyrica completed by phone, physician relations representative on phone stated prior authorization was not needed for that dose, states he will be sending a fax with this statement on it. Time spent on form 20 minutes. Electronically Signed By: RAHEL LION LPN On: 11/12/2014 09:05 AM Source: [facility] POWERAcadiaSoft Document Id: [id number] MMISSIONING WELL SITE MANAGER documented in this encounter Miscellaneous Notes Miscellaneous - Radha Ovalles R.N. 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 ( ) Mail Rx to Patient Source: [facility] POWERCHART Document Id: [id number] Electronically signed by [facility]ussy [facility] Teacher [id number] at 02/11/2017 12:46 AM CDT Miscellaneous - [...] ) Pharmacy ( ) Other: Provider: Pharmacy: [facility] fax: Name of Medications Needing Refill: gabapentin 300mg cap Last Refill Date: 05/26/15 #610 Additional Information: Last / Future Appointment:11/11/14 Disposition: ( ) Send to Pharmacy ( ) Call to Pharmacy ( ) 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 From: TORI MCGOWAN ( [employer] Corporate Development Officer) To: Physical Medicine and Rehabilitation Staff; Sent: [...] 23 of December. She is leaving for [place] on the 21 of December. She will need to see Dr. Engle a few days before the because she has some medications that she needs straightened out before she goes. B A R Please call patient back at [phone] to advise. Advice/Action: Source used: ( ) [...] back cell phone number ( ) Source: [facility] POWERCHART Document Id: [id number] Telephone Encounter - Radha Ovalles R.N. - 11/17/2014 9:53 AM CST lyrica Document Contains Addenda Addendum by RAHEL LION LPN on 17 November 2014 10:54:29 DECOMMISSIONING WELL SITE MANAGER Prior Authorization was approved for this medication, states the reqested drug Lyrica 50 MG /30 is available to the member at the contracted copayment. Addendum by TARYN MURPHY on 17 November 2014 10:42:33 DECOMMISSIONING WELL SITE MANAGER From: TARYN MURPHY ( Physical Medicine and Rehabilitation Staff) To: Garry Medication Refill; FB/ Medication Prior Auth; Sent: 11/17/2014 10:42:33 DECOMMISSIONING WELL SITE MANAGER Subject: RE: maria e Spoke with Kei in [place], they stated a prior authorization form has been sent on this medication. Addendum by RADHA OVALLES on 17 November 2014 10:35:08 DECOMMISSIONING WELL SITE MANAGER From: RADHA OVALLES ( Ness Medication Refill) To: Physical Medicine and Rehabilitation Staff; Sent: 11/17/2014 10:35:08 DECOMMISSIONING WELL SITE MANAGER Subject: RE: lyrica In chart it says it does not need prior authorization. I am not sure where the 92 dollars came from please check with Dr. Engle. Addendum by TARYN MURPHY on 17 November 2014 10:25:40 DECOMMISSIONING WELL SITE MANAGER From: TARYN MURPHY ( Physical Medicine and Rehabilitation Staff) To: Ness Medication Refill; Sent: 11/17/2014 10:25:40 DECOMMISSIONING WELL SITE MANAGER Subject: RE: lyrica There was a prior authorization done on this medication, I believe that must be what she is talking about. Another prior authorization may need to be done on this. From: RADHA OVALLES ( Ness Medication Refill) To: HARRY ENGLE MD; Cc: Physical Medicine and Rehabilitation Staff; Sent: 11/17/2014 09:53:20 DECOMMISSIONING WELL SITE MANAGER Subject: lyrica Caller is: ( ) Patient ( ) Mother ( ) Father ( ) Spouse ( ) Daughter ( ) Son ( [facility] )Pharmacy ( ) Other: Physician: calvin Patient [...] back cell phone number ( ) Source: [facility] POWERCHART Document Id: [id number] Electronically signed by Conversion, [facility] Teacher [id number] at 02/11/2017 12:46 AM CDT Miscellaneous - Harry Engle M.D. - 11/11/2014 2:32 PM CST Ambulatory Patient Summary [address] [id number] Visit Information Name: ALISHA BOSCH [facility] Number: [id number] Current Date: 11/11/2014 14:32:47 Physicians [...] appointment detail needed. Your Goals/Additional instructions: Source: [facility] POWERCHART Document Id: [id number] MMISSIONING WELL SITE MANAGER Miscellaneous - Harry Engle M.D. - 11/11/2014 2:32 PM CST Ambulatory Discharge Medication List [address] [id number] Visit Information Name: DIPAKFcoALISHA BRAYAN [facility] Number: [id number] Visit Date: 11/11/2014 14:32:46 Attending [...] Tablet(s), Oral, once a day (at bedtime) [facility] Prescription (Krill Oil) See Instructions Daily multivitamin [...] MD Signed On:11-NOV-2014 14:30:32 Additional Information: Source: [facility] Deehubs Document Id: [id number] MMISSIONING WELL SITE MANAGER Miscellaneous - Taryn Murphy - 11/11/2014 2:10 PM CST Adult Internet Specialist Intake/History Adult Internet Specialist Intake/History Entered On: 11/11/2014 14:12 DECOMMISSIONING WELL SITE MANAGER Performed On: 11/11/2014 14:10 DECOMMISSIONING WELL SITE MANAGER by TARYN MURPHY Intake Systolic Blood Pressure : 128 mmHg Diastolic Blood Pressure : 66 mmHg NIBP Mean : 87 mmHg BP Location : Left upper extremity Blood Pressure Cuff Size : Regular Actual Weight : 102.1 kg(Converted to: 225 lb 1 oz) Weight Source : Standing scale Dosing Weight Clinic : 102.1 kg TARYN MURPHY - 11/11/2014 14:10 DECOMMISSIONING WELL SITE MANAGER General Info Information Given By : Patient Preferred Communication Mode : Verbal Languages : Tajik Is Patient Female and 13-50 no hysterectomy : TARYN Smith - 11/11/2014 14:10 DECOMMISSIONING WELL SITE MANAGER Subjective Pain Symptoms : TARYN Smith - 11/11/2014 14:10 DECOMMISSIONING WELL SITE MANAGER Dependent Habits Tobacco Use/Currently Using : No Exposure to Tobacco Smoke : Other: never Smoking Status : Never smoker TARYN MURPHY - 11/11/2014 14:10 DECOMMISSIONING WELL SITE MANAGER ID Screen Drug Resistant Organism : No Travel Within Last 21 Days : No Contact with someone with Ebola : TARYN Smith - 11/11/2014 14:10 DECOMMISSIONING WELL SITE MANAGER Source: [employer] Document Id: [id number] DECOMMISSIONING WELL SITE MANAGER!25 MMISSIONING WELL SITE MANAGER documented in this encounter Plan of Treatment Not on filedocumented as of this encounter Visit Diagnoses Not on filedocumented in this encounter
--- OUTSIDE RECORDS SUMMARY | 2022-06-21 12:41 | XMS_ITS | Encounter Summary ---
:1945 Author Organization [facility] Address [address] [place] [address] Care Team Providers Name Role Phone Unavailable Primary Care Provider Unavailable Encounter Details Date Type Department Care Team Description 10/01/2014 Hospital Encounter HX [facility] Pranay Martinez M.D. [address] [place] [address], [address] [place] [address] (Wo rk) Social History Tobacco [...] How often do you attend lutheran or mu-ism More than 4 time s per year [...] place to sleep or slept in a care home (including now)? Sex Assigned at Date [...] TARYN MURPHY on 20 October 2014 12:20:55 INSPECTOR MACHINE CUT GLASS Patient notified. Addendum by HARRY ENGLE MD on 20 October 2014 12:11:04 INSPECTOR MACHINE CUT GLASS From: HARRY ENGLE MD To: Physical Medicine and Rehabilitation Staff; Sent: 10/20/2014 12:11:04 INSPECTOR MACHINE CUT GLASS Subject: RE: *Phone Message Yes, she can start it tonight. Thanks. Addendum by TARYN MURPHY on 20 October 2014 09:58:33 INSPECTOR MACHINE CUT GLASS From: TARYN MURPHY ( Physical Medicine and Rehabilitation Staff) To: HARRY ENGLE MD; Sent: 10/20/2014 09:58:33 INSPECTOR MACHINE CUT GLASS Subject: FW: *Phone Message Spoke with patient, she was down to 5 gabapentin yesterday and today should be 4, she would like to start the Lyrica tonight vs tomorrow because she started having the severe itching and prickling again. Is this ok? From: WINNIE WILKINSON ( Pankaj Ginning Operator) To: Physical Medicine and Rehabilitation Staff; Sent: 10/20/2014 08:31:48 INSPECTOR MACHINE CUT GLASS Subject: *Phone Message Caller is: ( x [...] B: A: R: Please call her at [phone] Message: Advice/Action: Source used: ( ) Verbalizes [...] back cell phone number ( ) Source: [employer] Document Id: [id number] documented in this encounter Plan of Treatment Not on filedocumented as of this encounter Procedures Procedure Name Priority Date/Time Associated Diagnosis Comme nts DX SHOULDER RIGHT Routine 10/01/2014 9:11 AM Resu lts for this 2+ VIEWS INSPECTOR MACHINE CUT GLASS procedure are i n the results section. documented in this encounter Results DX Shoulder Right 2+ Views (10/01/2014 9:11 AM INSPECTOR MACHINE CUT GLASS) Anatomical Region Laterality Modality Upper Extremity, Shoulder Right Radiographic I maging Specimen (Source) Anatomical Collection Method Collection Time Re ceived Time Location / / Volume Laterality 10/01/2014 9:11 AM INSPECTOR MACHINE CUT GLASS Addenda Addendum by ProviderArslan M.D. o n 10/01/2014 9:11 AM INSPECTOR MACHINE CUT GLASS RAD^^^OW XR Shoulder Right 2 or more views 10/01/2014 09:11:53 Impressions 10/01/2014 9:39 AM INSPECTOR MACHINE CUT GLASS Negative right shoulder. Narrative 10/01/2014 9:39 AM INSPECTOR MACHINE CUT GLASS EXAM: XR Shoulder Right 2 or more [...]
--- OUTSIDE RECORDS SUMMARY | 2022-06-21 12:41 | XMS_ITS | Encounter Summary ---
:1945 Author Organization [facility] Address [address] [place] [address] Care Team Providers Name Role Phone Unavailable Primary Care Provider Unavailable Encounter Details Date Type Department Care Team Description 10/17/2015 Hospital Encounter HX [facility] Pranay Su M.D. 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 - 10/17/2015 9:48 AM CST [id number] CHIEF COMPLAINT/REASON FOR VISIT Follow up left [...] SU MD On: 10/19/2015 06:30 PM Source: [facility] MHSDOLBEYNONRADSYS Document Id: [id number] UNITY EDUCATION SPECIALIST documented in this encounter Miscellaneous Notes Telephone Encounter - Conversion, Historical Provider Ser - 10/20/2015 8:41 AM CST *Phone Message/Dr. Su Document Contains Addenda Addendum by HARRY SU MD on 20 October 2015 11:09:38 COMMUNITY EDUCATION SPECIALIST From: HARRY SU MD To: Physical Medicine and Rehabilitation Staff; Sent: 10/20/2015 11:09:38 COMMUNITY EDUCATION SPECIALIST Subject: RE: *Phone Message/Dr. Su I spoke with her. Thanks. Addendum by HEENA BALL LPN on 20 October 2015 09:41:01 COMMUNITY EDUCATION SPECIALIST From: HEENA BALL LPN ( Physical Medicine and Rehabilitation Staff) To: HARRY SU MD; Sent: 10/20/2015 09:41:01 COMMUNITY EDUCATION SPECIALIST Subject: FW: *Phone Message/Dr. Su From: TORI MCGOWAN ([facility] Welder Shielded Metal Arc) To: Physical Medicine and Rehabilitation Staff; Sent: 10/20/2015 08:41:37 COMMUNITY EDUCATION SPECIALIST Subject: *Phone Message/Dr. Su Caller is: ( x ) Patient ( ) Mother ( ) Father ( ) Spouse ( ) Daughter ( ) Son ( ) Pharmacy ( ) Other: Physician: Dr. Su Patient MRN #: Reason for Call: Message: Patient is waiting for xray results. Please call her back at [phone] with results. Advice/Action: Source used: ( ) [...] back cell phone number ( ) Source: [facility] Society [employer]communications Engineers ([employer]) Document Id: [id number] Miscellaneous - Harry Su M.D. - 10/17/2015 12:46 PM CST Ambulatory Patient Summary [facility] [address] [place] [id number] Visit Information Name: ALISHA BOSCH [facility] Number: [id number] Current Date: 10/17/2015 12:46:26 Physicians [...] if you dont have one. Go to [email or web address] and click on Create Your Account. Then, follow the directions to complete the online form. Youll be asked for your [facility] number which you can find at the top of this document. Your Goals/Additional instructions: Source: [facility] POWERCHART Document Id: [id number] UNITY EDUCATION SPECIALIST Miscellaneous - Harry Su M.D. - 10/17/2015 12:46 PM CST Ambulatory Discharge Medication List [address] [id number] Visit Information Name: ALISHA BOSCH [facility] Number: [id number] Visit Date: 10/17/2015 12:46:24 Attending [...] MD Signed On:17-OCT-2015 12:45:55 Additional Information: Source: [facility] Why Not Give BackCHART Document Id: [id number] UNITY EDUCATION SPECIALIST Miscellaneous - Heena Ball LKatalinaP.N. - 10/17/2015 10:05 AM CST Adult Funeral Arranger Intake/History Adult Funeral Arranger Intake/History Entered On: 10/17/2015 10:07 COMMUNITY EDUCATION SPECIALIST Performed On: 10/17/2015 10:05 COMMUNITY EDUCATION SPECIALIST by HEENA BALL LPN Intake Systolic Blood Pressure : 122 mmHg Diastolic Blood Pressure : 78 mmHg NIBP Mean : 93 mmHg BP Location : Right upper extremity Blood Pressure Cuff Size : Large Actual Weight : 99.4 kg(Converted to: 219 lb 2 oz) Dosing Weight Clinic : 99.4 kg HEENA BALL LPN - 10/17/2015 10:05 COMMUNITY EDUCATION SPECIALIST General Info Information Given By : Patient Languages : Luxembourgish Is Patient Female and 13-50 no hysterectomy : No HEENA BALL LPN - 10/17/2015 10:05 COMMUNITY EDUCATION SPECIALIST Subjective Pain Symptoms : No HEENA BALL LPN - 10/17/2015 10:05 COMMUNITY EDUCATION SPECIALIST Dependent Habits Exposure to Tobacco Smoke : Other: never Smoking Status : Never smoker Tobacco 2A : No Tobacco Use/Currently Using : No Tobacco Use/Last 30 Days : No Tobacco Use/Last 12 months : No HEENA BALL LPN - 10/17/2015 10:05 COMMUNITY EDUCATION SPECIALIST Source: [facility] Why Not Give BackCHART Document Id: [id number] COMMUNITY EDUCATION SPECIALIST!22 UNITY EDUCATION SPECIALIST documented in this encounter Plan of Treatment Not on filedocumented as of this encounter Visit Diagnoses Not on filedocumented in this encounter
--- OUTSIDE RECORDS SUMMARY | 2022-06-21 12:41 | XMS_ITS | Encounter Summary ---
:1945 Author Organization [facility] Address [address] [place] [address] Care Team Providers Name Role Phone Unavailable Primary Care Provider Unavailable Encounter Details Date Type Department Care Team Description 08/27/2013 Hospital Encounter HX [facility] FB Pranay Martinez M.D. 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 documented in this encounter Results DX Ankle Left 3+ Views (08/27/2013 11:47 AM GRAVURE PRESS OPERATOR) Anatomical Region Laterality Modality Lower Extremity, Ankle Left Radiographic Imag ing Specimen (Source) Anatomical Collection Method Collection Time Re ceived Time Location / / Volume Laterality 08/27/2013 11:47 AM GRAVURE PRESS OPERATOR Addenda Addendum by ProviderArslan M.D. o tonio 08/27/2013 11:47 AM GRAVURE PRESS OPERATOR RAD^^^OW XR Ankle Left 3 or more views 08/27/2013 11:47:27 Narrative 08/27/2013 12:12 PM GRAVURE PRESS OPERATOR Technique: Multiple views of the left an [...]
--- OUTSIDE RECORDS SUMMARY | 2022-06-21 12:41 | XMS_ITS | Encounter Summary ---
:1945 Author Organization [facility] Address [address] [place] [address] Care Team Providers Name Role Phone Unavailable Primary Care Provider Unavailable Encounter Details Date Type Department Care Team Description 07/10/2013 Hospital Encounter HX [facility] Pranay Su M.D. 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 Your Goals/Additional instructions: Source: [facility] POWERCHART Document Id: [id number] Miscellaneous - Harry Su M.D. - 07/10/2013 4:49 PM CDT [place] [address] Visit Information Name: HARSHA BOSCH [facility] Number: [id number] Visit Date: 07/10/2013 16:49:26 Attending Provider: HARRY SU MD Primary Care Provider: PCP, HENRAN BOSCH HARSHA SCHMIDT has been given the [...] clarification. Additional Information: Source: [facility] POWERCHART Document Id: [id number] Miscellaneous - Marlene Valentine P.A.-C. - 07/10/2013 3:05 PM CDT Adult Hydraulic Engineer Intake/History Adult Hydraulic Engineer Intake/History Entered On: 07/10/2013 15:06 CDT Performed [...] Preferred Communication Mode : Verbal Languages : Tristanian MARLENE VALENTINE - 07/10/2013 15:05 CDT Subjective Pain Symptoms : No MARLENE VALENTINE - 07/10/2013 15:05 CDT Dependent Habits Tobacco Use/Currently Using : No Exposure to Tobacco Smoke : Other: never Smoking Status : Never smoker MARLENE VALENTINE - 07/10/2013 15:05 CDT Source: [facility] POWERCHART Document Id: [id number] CDT!20 documented in this encounter Plan of Treatment Not on filedocumented as of this encounter Visit Diagnoses Not on filedocumented in this encounter
--- OUTSIDE RECORDS SUMMARY | 2022-06-21 12:41 | XMS_ITS | Encounter Summary ---
:1945 Author Organization [facility] Address [address] [place] [address] Care Team Providers Name Role Phone Unavailable Primary Care Provider Unavailable Encounter Details Date Type Department Care Team Description 10/01/2014 Hospital Encounter HX [facility] Pranay Su M.D. 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 - 10/01/2014 8:27 AM CST [id number] CHIEF COMPLAINT/REASON FOR VISIT Followup left lower [...] SU MD On: 10/04/2014 10:25 AM Source: [facility] Document Id: [id number] WARE TEST AND VALIDATION ENGINEER documented in this encounter Miscellaneous Notes Miscellaneous - Analilia Burrows, RKatalinaN. - 05/25/2015 9:21 AM CDT *Medication Refill Msg Document Contains Addenda Addendum by HARRY SU MD on 26 May 2015 08:46:39 CDT Submitted: Order:gabapentin (gabapentin 300 mg oral capsule) 3 cap(s) PO 3xDay Qty: 610 cap(s) Refills: 0 Substitutions Allowed Route To Pharmacy - [facility] Mail Delivery-RSRx Signed by HARRY SU [...] Call to Pharmacy ( ) Patient will clam picker Script ( ) Mail Rx to Patient Source: [facility] [employer] Document Id: [id number] Electronically signed by Conversion, [facility] Livestock Speculator [id number] at 02/10/2017 1:09 PM CDT Miscellaneous - Analilia Burrows, R.N. - 01/04/2015 3:01 PM CDT *Medication Refill Msg Document Contains Addenda Addendum by HARRY SU MD on 04 January 2015 15:42:29 CDT Submitted: Order:gabapentin (gabapentin 300 mg oral capsule) 3 cap(s) PO 3xDay Qty: 610 cap(s) Refills: 0 Substitutions Allowed Route To Pharmacy - [facility] Mail Delivery Signed by HARRY SU [...] Call to Pharmacy ( ) Patient will clam picker Script ( ) [facility] Document Id: [id number] Electronically signed by Conversion, [facility] Livestock Speculator [id number] at 02/10/2017 1:09 PM CDT Harry Rubio M.D. - 10/01/2014 9:11 AM CST Ambulatory Patient Summary [address] [id number] Visit Information Name: ALISHA BOSCH [facility] Number: [id number] Current Date: 10/01/2014 09:11:17 Physicians [...] case of emergency. Electronically Signed By: HARRY US MD Signed On:01-OCT-2014 09:10:25 Your Allergies & Intolerances Substance Reaction Symptoms Category Comments erythromycin Emesis Drug Your Problem List Problem Status Onset Comments No Problems found Your Upcoming Appointments Date Time Location Provider No Appointments found Attention: Contact your local Clinic if further appointment detail needed. Your Goals/Additional instructions: Source: [facility] P[employer] Document Id: [id number] WARE TEST AND VALIDATION ENGINEER Miscellaneous - Harry Su M.D. - 10/01/2014 9:11 AM CST Ambulatory Discharge Medication List [address] [id number] Visit Information Name: DOUGLASVALDEZAVNIBertrand BOBOE [facility] Number: [id number] Visit Date: 10/01/2014 09:11:15 Attending [...] Tablet(s), Oral, once a day (at bedtime) [facility] Prescription (Krill Oil) See Instructions Daily multivitamin [...] MD Signed On:01-OCT-2014 09:10:25 Additional Information: Source: [facility] [employer] Document Id: [id number] WARE TEST AND VALIDATION ENGINEER Miscellaneous - Taryn Murphy - 10/01/2014 8:39 AM CST Adult Bone Tender Intake/History Adult Bone Tender Intake/History Entered On: 10/01/2014 8:40 SOFTWARE TEST AND VALIDATION ENGINEER Performed On: 10/01/2014 8:39 SOFTWARE TEST AND VALIDATION ENGINEER by TARYN MURPHY Intake Systolic Blood Pressure : 118 mmHg Diastolic Blood Pressure : 64 mmHg NIBP Mean : 82 mmHg BP Location : Left upper extremity Blood Pressure Cuff Size : Regular Actual Weight : 100.4 kg(Converted to: 221 lb 6 oz) Weight Source : Standing scale Dosing Weight Clinic : 100.4 kg TARYN MURPHY - 10/01/2014 8:39 SOFTWARE TEST AND VALIDATION ENGINEER General Info Information Given By : Patient Preferred Communication Mode : Verbal Languages : Ukrainian Is Patient Female and 13-50 no hysterectomy : TARYN Smith - 10/01/2014 8:39 SOFTWARE TEST AND VALIDATION ENGINEER Subjective Pain Symptoms : TARYN Smith - 10/01/2014 8:39 SOFTWARE TEST AND VALIDATION ENGINEER Dependent Habits Tobacco Use/Currently Using : No Exposure to Tobacco Smoke : Other: never Smoking Status : Never smoker TARYN MURPHY - 10/01/2014 8:39 SOFTWARE TEST AND VALIDATION ENGINEER ID Screen Drug Resistant Organism : No Travel Within Last 21 Days : TARYN Smith 10/01/2014 8:39 SOFTWARE TEST AND VALIDATION ENGINEER Source: [employer] Document Id: [id number] SOFTWARE TEST AND VALIDATION ENGINEER!24 WARE TEST AND VALIDATION ENGINEER documented in this encounter Plan of Treatment Not on filedocumented as of this encounter Visit Diagnoses Not on filedocumented in this encounter
--- OUTSIDE RECORDS SUMMARY | 2022-06-21 12:41 | XMS_ITS | Encounter Summary ---
:1945 Author Organization [facility] Address [address] [place] [address] Care Team Providers Name Role Phone Unavailable Primary Care Provider Unavailable Encounter Details Date Type Department Care Team Description 08/27/2013 Hospital Encounter HX [facility] Pranay Su M.D. [address] [place] [address], [address] [place] [address] (Wo rk) Social History Tobacco [...] or relatives? How often do you attend episcopalian or mandaeism More than 4 time s per year 04/26/2021 services? 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 - 08/27/2013 10:21 AM CST [id number] CHIEF COMPLAINT / REASON FOR VISIT Followup [...] to meet again with orthopedic surgery in [place] for consideration of right total hip arthroplasty. [...] to meet with an orthopedic surgeon in [place] to discuss the possibility of right total [...] SU MD On: 09/02/2013 10:13 AM Source: [facility]SDOLBE[facility]NONRADSYS Document Id: [id number] LE BENDER documented in this encounter Miscellaneous Notes Miscellaneous - Harry Su M.D. - 08/27/2013 11:04 AM CST [place] [address] Visit Information Name: ALISHA BOSCH [facility] Number: [id number] Current Date: 08/27/2013 11:04:56 [...] day This is a CHANGE Routed to [address] [address] gabapentin (gabapentin 600 mg oral tablet) 1 Tablet(s), Oral, three times a day Routed to [address] [address] glucosamine-chondroitin (glucosamine-chondroitin 500 mg-400 mg oral tablet) hydrOXYzine (Vistaril 25 mg oral capsule) 1 cap, Oral, four times a day as needed for anxiety 25-50mg PO q4-6hr levothyroxine (Levothroid 75 mcg (0.075 mg) oral tablet) 1 Tablet(s), Oral, once a day lovastatin (lovastatin 40 mg oral tablet, extended release) 1 Tablet(s), Oral, once a day (at bedtime) [facility] Prescription (Krill Oil) See Instructions Daily multivitamin [...] needed. Your Goals/Additional instructions: Source: [facility] POWERCHART Document Id: [id number] LE BENDER Miscellaneous - Harry Su M.D. - 08/27/2013 11:04 AM CST [place] [address] Visit Information Name: ALISHA BOSCH [facility] Number: [id number] Visit Date: 08/27/2013 11:04:53 [...] day This is a CHANGE Routed to [address] [address] gabapentin (gabapentin 600 mg oral tablet) 1 Tablet(s), Oral, three times a day Routed to [address] [address] glucosamine-chondroitin (glucosamine-chondroitin 500 mg-400 mg oral tablet) hydrOXYzine (Vistaril 25 mg oral capsule) 1 cap, Oral, four times a day as needed for anxiety 25-50mg PO q4-6hr levothyroxine (Levothroid 75 mcg (0.075 mg) oral tablet) 1 Tablet(s), Oral, once a day lovastatin (lovastatin 40 mg oral tablet, extended release) 1 Tablet(s), Oral, once a day (at bedtime) [facility] Prescription (Krill Oil) See Instructions Daily multivitamin [...] in case of emergency. Additional Information: Source: [facility] [employer] Document Id: [id number] LE BENDER Miscellaneous - Marlene Valentine P.A.-C. - 08/27/2013 10:32 AM CST Adult Precast Molder Intake/History Adult Precast Molder Intake/History Entered On: 08/27/2013 10:32 HANDLE BENDER Performed On: 08/27/2013 10:32 HANDLE BENDER by MARLENE VALENTINE Intake Systolic Blood Pressure : 142 mmHg (HI) Diastolic Blood Pressure : 64 mmHg NIBP Mean : 90 mmHg BP Location : Right upper extremity Blood Pressure Cuff Size : Regular Actual Weight : 96.2 kg(Converted to: 212 lb 1 oz) Weight Source : Standing scale Dosing Weight Clinic : 96.2 kg MARLENE VALENTINE - 08/27/2013 10:32 HANDLE BENDER General Info Information Given By : Patient Preferred Communication Mode : Verbal Languages : Malawian MARLENE VALENTINE - 08/27/2013 10:32 HANDLE BENDER Subjective Pain Symptoms : No MARLENE VALENTINE - 08/27/2013 10:32 HANDLE BENDER Dependent Habits Tobacco Use/Currently Using : No Exposure to Tobacco Smoke : Other: never Smoking Status : Never smoker MARLENE VALENTINE - 08/27/2013 10:32 HANDLE BENDER Source: [facility] [employer] Document Id: [id number] HANDLE BENDER!20 LE BENDER documented in this encounter Plan of Treatment Not on filedocumented as of this encounter Visit Diagnoses Not on filedocumented in this encounter
--- OUTSIDE RECORDS SUMMARY | 2022-06-21 12:41 | XMS_ITS | Encounter Summary ---
:1945 Author Organization [facility] Address [address] [place] [address] Care Team Providers Name Role Phone Unavailable Primary Care Provider Unavailable Encounter Details Date Type Department Care Team Description 06/22/2013 Hospital Encounter HX [facility] PM[facility] Pranay Su M.D. 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 - 06/22/2013 11:43 AM CDT [id number] CHIEF COMPLAINT/REASON FOR VISIT Followup left lower [...] MRI performed of her lumbar spine in [place] on June 05. I have the report [...] SU MD On: 06/24/2013 10:17 AM [facility] Document Id: [id number] documented in this encounter Miscellaneous Notes Miscellaneous - Harry Su M.D. - 06/22/2013 1:08 PM CDT [place] [address] Visit Information Name: ALISHA BOSCH [facility] Number: [id number] Current Date: 06/22/2013 13:08:30 Physicians [...] No Appointments found Your Goals/Additional instructions: Source: [facility] POWERCHART Document Id: [id number] Miscellaneous - Harry Su M.D. - 06/22/2013 1:08 PM CDT [place] [address] Visit Information Name: ALISHA BOSCH [facility] Number: [id number] Visit Date: 06/22/2013 13:08:29 Attending [...] your provider for clarification. Additional Information: Source: [facility] POWERCHART Document Id: [id number] Miscellaneous - Marlene Valentine P.A.-C. - 06/22/2013 11:48 AM CDT Adult Lock Master Intake/History Adult Lock Master Intake/History Entered On: 06/22/2013 11:50 CDT Performed [...] Preferred Communication Mode : Verbal Languages : Mexican MARLENE VALENTINE - 06/22/2013 11:48 CDT Subjective Pain Symptoms : No MARLENE VALENTINE - 06/22/2013 11:48 CDT Dependent Habits Tobacco Use/Currently Using : No Exposure to Tobacco Smoke : Other: never Smoking Status : Never smoker MARLENE VALENTINE - 06/22/2013 11:48 CDT [facility] Document Id: [id number] CDT!20 documented in this encounter Plan of Treatment Not on filedocumented as of this encounter Visit Diagnoses Not on filedocumented in this encounter
--- OUTSIDE RECORDS SUMMARY | 2022-06-21 12:41 | XMS_ITS | Encounter Summary ---
:1945 Author Organization [facility] Address [address] [place] [address] Care Team Providers Name Role Phone Unavailable Primary Care Provider Unavailable Encounter Details Date Type Department Care Team Description 10/17/2015 Hospital Encounter HX [facility] Pranay Martinez M.D. 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 documented in this encounter Results DX Shoulder Left 2+ Views (10/17/2015 11:29 AM SALES REPRESENTATIVE [facility] [facility]) Anatomical Region Laterality Modality Upper Extremity, Shoulder Left Radiographic I maging Specimen (Source) Anatomical Collection Method Collection Time Re ceived Time Location / / Volume Laterality 10/17/2015 11:29 AM SALES REPRESENTATIVE [facility] Addenda Addendum by Arslan Reed M.D. o n 10/17/2015 11:29 AM SALES REPRESENTATIVE [facility] [facility] RAD^^^OW XR Shoulder Left 2 or more views 10/17/2015 11:29:33 Impressions 10/17/2015 12:17 PM SALES REPRESENTATIVE [employer] [facility] Acromioclavicular degenerative joint disease. Narrative 10/17/2015 12:17 PM SALES REPRESENTATIVE [employer] EXAM: XR Shoulder Left 2 or more [...]
[2022-06-21] MEDS: SODIUM CHLORIDE 0.9 % (FLUSH) 10 ML SYRINGE IVF (13:45)
[2022-06-21] MEDS: PERFLUTREN LIPID MICROSPHERES 2 ML VIAL IV (13:49)
[2022-06-21] MEDS: ATROPINE 1 MG/10 ML SYRINGE IVP (14:30)
[2022-06-21 14:40] VITALS: BP 110/65; PULSE 90
[2022-06-21] MEDS: DOBUTamine 250 MG in 5 % DEXTROSE 250 ML 230 ML 231 MG IVPB (15:04)
--- NOTE | 2022-06-21 15:59 | PM.ST ---
Stress Test Note Date Time Seen by Provider: 14:29 Date Seen: 06/21/22 Date of test: 06/21/22 Providers Referring provider: Siri Quiroga Primary care provider: Siri Quiroga Stress test physician: Cherie Barker Stress Test Note Stress test ordered: Dobutamine Echo Indication for test: Palpitations Stress test medicine: Dobutamine (Atropine was also used to achieve goal heart rate. Definity was necessary for requiring imaging for echo.) Results discussion: Resting EKG: Sinus rhythm, 69 beats per minute Resting blood pressure: 126/67 Stress test: Dobutamine infusion was started at 10 micrograms/kilos per protocol. At 1 minute 40 seconds it was increased to 20, at 4 minutes 9 seconds it was increased to 30. 6 minutes and 15 seconds in 0.25 mg of atropine was given with achievement of her target heart rate. Patient had a calculated target heart rate of 122 beats per minute and she had a maximum heart rate of 133 beats per minute, 109% of the target. Showed maximum blood pressure 125/76. She did have a slight drop in her blood pressure at the maximal rate of the dobutamine and was able to be turned off at this we were at the end of her target heart rate echo images. She recovered nicely. She really had no concerning symptoms. Occasional PVC was seen. There was some nondiagnostic downsloping ST segment in the inferior leads 2, 3, AVF and maybe some very slight similar changes of the 3 through V6. Patient again was asymptomatic. Will await echo images to couple this. If the echo is not showing any diagnostic changes, I would consider these false-positive changes on her EKG and they certainly do not meet diagnostic criteria for ischemia. Impression: Subjectively negative, objectively equivocal EKG test. Follow up suggested: Patient will be discharged to home, we will await the echo images to couple this for a full formal diagnostic.
== END 2022-06-21 12:37 | disposition home or self-care (01) ==
LOC: STRESS 12:38
PROVIDERS: PCP Internal Medicine; Visit Provider Internal Medicine
DX: R00.2 Palpitations (principal)
CPT/HCPCS: 93016; 93325; 93351; J0461; J1250; J7050; Q9957

== ENCOUNTER 2022-08-21 17:10 | Outpatient (CLI) | payer MEDICARE, BC, SELFPAY ==
--- OUTSIDE RECORDS SUMMARY | 2022-08-21 08:30 | XMS_ITS | Encounter Summary ---
:1945 Author Organization [facility] Address [address] [place] [address] Care Team Providers Name Role Phone Unavailable Primary Care Provider Unavailable Reason for Visit Reason Onset Date Comments Fusion? 06/02/2019 Encounter Details Date Type Department Care Team Description 06/02/2019 Clinical Communication Department of Sports Isaac Su, Fusion? Medicine in M.D. [place], [place] [address], [address] [place] [address] [address] [place] [address] [phone] Social History Tobacco Use Types Packs/Day Years [...] drinks on one occasion? No t asked Social Isolation Answer Date Recorded In a typical week, how many times do you Three times a week 04/26/2021 talk on the phone with family, friends, or neighbors? How often do you get together with friends Three times a wee k 06/02/2019 or relatives? How often do you attend moravian or judaism More than 4 time s per year 04/26/2021 services? Do you belong to any clubs or organizations Yes 04/26/2021 such as moravian groups, unions, fraternal or athletic groups, or school groups? 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 Su, Patient called stating she just saw you for lower back pain wondering about scheduling the fusion for L lower back. Are you wanting patient to meet with our spine department in [place] otherwise she said she will disregard plan. Side note: I know you just saw her, giving you time to dictate but I wanted to send a message per patient request. Thank you, Candy documented in this encounter Plan of Treatment Not on filedocumented as of this encounter Visit Diagnoses Not on filedocumented in this encounter
--- OUTSIDE RECORDS SUMMARY | 2022-08-21 08:30 | XMS_ITS | Encounter Summary ---
:1945 Author Organization [facility] Address [address] [place] [address] Care Team Providers Name Role Phone Unavailable Primary Care Provider Unavailable Reason for Referral Outpatient (Routine) - Closed Specialty Diagnoses / Procedures Referred By Contact Refer red To Contact Sports Medicine León Su M. D. [facility] [address] [facility], [address] [place] [address] Referral ID Status Reason Start Date Expiration Date Visits Requ ested Visits Authorized [id number] Closed 06/02/2019 06/01/2020 1 1 hysical Therapy (Routine) - Closed Specialty Diagnoses / Procedures Referred By Contact Bree walker To Contact Diagnoses Pain Low Back Unspecified León Su M.D. [address] [facility], [address] [place] [address] Referral ID Status Reason Start Date Expiration Visits Visits Date Requested Authorized [id number] Closed Patient 06/02/2019 06/01/2020 8 8 Preference Reason for Visit Appointment Request (Routine) - Closed Specialty Diagnoses / Procedures Referred By Contact Refer red To Contact Sports Medicine Referral ID Status Reason Start Date Expiration Date Visits Requ ested Visits Authorized [id number] Closed 04/27/2019 04/26/2020 1 1 Encounter Details Date Type Department Care Team Description 06/02/2019 Comprehensive Visit Department of Su, León Pain Low Back (Primary Dx); Sports Medicine in [place] Spondylosis Lumbar Without Myelopathy; [place], [address]; [address] Pain Hip Right; [address] [place], [place] Bursitis [place]chan[place] [phone] Social History Tobacco Use Types Packs/Day [...] or relatives? How often do you attend jew or confucianist More than 4 time s per year 04/26/2021 services? Do you belong to any clubs or organizations Yes 04/26/2021 such as jew groups, unions, fraternal or athletic groups, or [...] slept in a senior living (including now)? Education Answer Date Recorded What is the highest level of school Bachelor's degree (e.g., BA, AB, 06/02/2019 you have completed or the highest BS) degree you have received? 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 Job ID: [id number] documented in this encounter Plan of Treatment Scheduled Referrals Name Type Priority Associated Diagnoses Order [facility] Sports Medicine Outpatient Referral Routine Expec taylor: office visit 09/01/2019 (clinic) (Approximate), Expires: 06/02/2022 documented as of this encounter Visit Diagnoses Diagnosis Pain Low Back Unspecified - Primary Spondylosis Lumbar Without Myelopathy Pain Back Thoracic Pain Hip Right Bursitis Trochanteric Bilateral documented in this encounter
--- OUTSIDE RECORDS SUMMARY | 2022-08-21 08:30 | XMS_ITS | Encounter Summary ---
:1945 Author Organization [facility] Address [address] [place] [address] Care Team Providers Name Role Phone Unavailable Primary Care Provider Unavailable Reason for Visit Outpatient (Routine) - Closed Specialty Diagnoses / Procedures Referred By Contact Refer red To Contact Sports Medicine León Su M. D. [facility] [address], [address] [place], [place] [address] Referral ID Status Reason Start Date Expiration Date Visits Requ ested Visits Authorized [id number] Closed 06/02/2019 06/01/2020 1 1 Encounter Details Date Type Department Care Team Description 09/01/2019 Office Visit Department of Sports León Su Sp ondylosis Lumbar Without Myelopathy (Primary Dx); Medicine in M.D. Pain Low Back; [place], [facility] [address], Bursitis T rochanteric Bilateral [place] [address] [place] [phone] Social History Tobacco Use Types Packs/Day Years [...] How often do you attend restorationist or jewish More than 4 time s [...] or slept in a assisted (including now)? Education Answer Date Recorded What is the highest level of school Bachelor's degree (e.g., BA, AB, 06/02/2019 you have completed or the highest BS) degree you have received? 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 We will have this performed in [place] which will be closer to her home [...] of care time greater than 15 minutes. AGE GRINDER documented in this encounter Plan of Treatment Not on filedocumented as of this encounter Visit Diagnoses Diagnosis Spondylosis Lumbar Without Myelopathy - Primary Pain Low Back Unspecified Bursitis Trochanteric Bilateral documented in this encounter
--- OUTSIDE RECORDS SUMMARY | 2022-08-21 08:30 | XMS_ITS | Encounter Summary ---
:1945 Author Organization [facility] Address [address] [place] [address] Care Team Providers Name Role Phone Unavailable Primary Care Provider Unavailable Encounter Details Date Type Department Care Team Description 10/12/2019 Documentation Department of Sports Georges, Pranay Quan M.D. 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 - 10/12/2019 12:37 PM CST I spoke with Mrs. Bosch on the phone today following the right L4-L5 transforaminal corticosteroid injection she had performed on October 06 at [facility]. She reports that this has been very [...] of. She reports she was pretreated by [facility] this time with methylprednisolone, but these symptoms [...] her primary care physician, Dr. Quiroga in [place], with the symptoms she is experiencing. I [...] with this plan. CT CT Job ID: [id number] DIEM NURSE documented in this encounter Plan of Treatment Not on filedocumented as of this encounter Visit Diagnoses Not on filedocumented in this encounter
--- OUTSIDE RECORDS SUMMARY | 2022-08-21 08:30 | XMS_ITS | Encounter Summary ---
:1945 Author Organization [facility] Address [address] [place] [address] Care Team Providers Name Role Phone Unavailable Primary Care Provider Unavailable Encounter Details Date Type Department Care Team Description 09/30/2019 Documentation Department of Sports Georges, Pranay Quan M.D. Medicine in [place], [address] [place] [address] [address] [place] [address] [place], [place] [phone] (Wo rk) [phone] [phone] Social History Tobacco Use Types Packs/Day Years [...] How often do you attend congregation or worship More than 4 time s [...] or slept in a residential (including now)? Education Answer Date Recorded What is the highest level of school Bachelor's degree (e.g., BA, AB, 06/02/2019 you have completed or the highest BS) degree you have received? 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 - 09/30/2019 9:01 AM CST I spoke with Ms. Bosch on the phone with respect to the lumbar spine MRI that she had performed in [facility]. Significant findings include there is moderate central [...] with this plan. CT CT Job ID: [id number] SERVICE ATTENDANT documented in this encounter Plan of Treatment Not on filedocumented as of this encounter Visit Diagnoses Not on filedocumented in this encounter
--- OUTSIDE RECORDS SUMMARY | 2022-08-21 08:30 | XMS_ITS | Encounter Summary ---
:1945 Author Organization [facility] Address [address] [place] [address] Care Team Providers Name Role Phone Unavailable Primary Care Provider Unavailable Encounter Details Date Type Department Care Team Description 06/02/2019 Hospital Encounter Department of León Su Pai n Back Lumbar; Radiology in M.D. Pain Back Thoracic; [place], [facility] [address], Pain Shoul derek Left [place] [address] [place] [phone] Social History Tobacco Use Types Packs/Day Years [...] How often do you attend presybeterian or hoahaoism More than 4 time s [...] or slept in a fci (including now)? Education Answer Date Recorded What is the highest level of school Bachelor's degree (e.g., BA, AB, 06/02/2019 you have completed or the highest BS) degree you have received? 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
--- OUTSIDE RECORDS SUMMARY | 2022-08-21 08:30 | XMS_ITS | Encounter Summary ---
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 Telephone Encounter - Basil Cotton - 04/26/2021 1:23 PM CDT Nilo Villegas, I received a call from patient [phone] Su today and she [...]
--- OUTSIDE RECORDS SUMMARY | 2022-08-21 08:30 | XMS_ITS | Encounter Summary ---
:1945 Author Organization [facility] Address [address] [place] [address] Care Team Providers Name Role Phone Unavailable Primary Care Provider Unavailable Reason for Referral Physical Therapy (Routine) - Closed Specialty Diagnoses / Procedures Referred By Contact Refer red To Contact Diagnoses Pain Low Back Unspecified Pain Neck Pain Shoulder Left León Su M.D. [address], [address] [place], [place] [address] Referral ID Status Reason Start Date Expiration Visits Visits Date Requested Authorized [id number] Closed Patient 04/26/2021 04/26/2022 12 12 Preference Reason for Visit Appointment Request (Routine) - Closed Specialty Diagnoses / Procedures Referred By Contact Refer red To Contact Sports Medicine Diagnoses Pain Low Back Unspecified Referral ID Status Reason Start Date Expiration Date Visits Requ ested Visits Authorized [id number] Closed 03/17/2021 03/17/2022 1 1 Encounter Details Date Type Department Care Team Description 04/26/2021 Office Visit Department of Sports León Su Pa in Low Back (Primary Dx); Medicine in M.D. Spondylosis Lumbar Without Myelopathy; [place], [facility] [address], Pain Neck; [place] [address] Pain Shoulder Left; [address] [place], [place] Primary Osteoarthritis Wrist Left; [place] [address] Primary Osteoarthritis Wrist Right [phone] Social History [...] or relatives? How often do you attend mormon or samaritan More than 4 time s per year 04/26/2021 services? 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 She has not been experiencing any paresthesias [...] León Su M.D. CT CT Job ID: [id number] documented in this encounter Plan of Treatment [...]
--- OUTSIDE RECORDS SUMMARY | 2022-08-21 08:30 | XMS_ITS | Encounter Summary ---
:1945 Author Organization [facility] Address [address] [place] [address] Care Team Providers Name Role Phone Unavailable Primary Care Provider Unavailable Reason for Visit Reason Comments Phone Contact Encounter Details Date Type Department Care Team Description 09/25/2019 Clinical Communication Department of Sports Isaac Su, Phone Contact Medicine in [address] [place] [phone] Social History Tobacco Use Types Packs/Day Years [...] or relatives? How often do you attend sabianism or jain More than 4 time s per year 04/26/2021 services? 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 - 09/30/2019 3:05 PM SR RISK MANAGEMENT CONSULTANT Per Dr. Su an order for a right L4 transforaminal epidural and thoracic spine MRI at [facility] in [facility]. Confirmation # [id number] - [id number] RISK MANAGEMENT CONSULTANT Telephone Encounter - Carleen Stephens - 09/25/2019 10:56 AM CST Who is calling: Patient Best call back number: [phone] Okay to leave detailed voicemail message on number listed. Physician: Dr. León Su Side: Lumbar Body Part/Region: Spine Reason for call: Other: The patient called wondering if Dr. Su had hgotten the chance to review last week's MRI. She would like to proceed with the injection discussed if Dr. Su is in agreement. Action: Message routed to [facility] Athletic Trainers at [facility] RISK MANAGEMENT CONSULTANT documented in this encounter Plan of Treatment Not on filedocumented as of this encounter Visit Diagnoses Not on filedocumented in this encounter
--- OUTSIDE RECORDS SUMMARY | 2022-08-21 08:30 | XMS_ITS | Clinical Summary ---
:1945 Author Organization [facility] Address [address] [place] [address] Care Team Providers Name Role Phone Unavailable Primary Care Provider Unavailable Source Comments Patient records contain information from all sites at [facility]. For routine questions regarding patient records, call [phone] during business hours, M-F 8:00 AM - 5:00 PM Central Time. Record requests for emergency care only can be directed to [phone] at any time.[facility] Allergies Active Allergy Reactions Severity Noted Date [...] Mother paco anna Diabetes Paternal Grandfather angelo devora anna Relation Name Status Comments Mother paco anna Paternal Grandfather angelo devora anna Social History Tobacco Use Types Packs/Day [...] or relatives? How often do you attend mosque or baptism More than 4 time s per year 04/26/2021 services? Do you belong to any clubs or organizations Yes 04/26/2021 such as mosque groups, unions, fraternal or athletic groups, or [...] slept in a nursing home (including now)? Education Answer Date Recorded What is the highest level of school Bachelor's degree (e.g., BA, AB, 06/02/2019 you have completed or the highest BS) degree you have received? 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 Vital Signs Vital Sign [...] 09/16/2021 PHQ-2) Fall Risk Screen (Annual) 09/16/2021 DTaP,Tdap,and Td Vaccines (3 - Td 09/14/2031 09/14/2021, , or Tdap) 04/20/2005 Hepatitis B Vaccines Completed 12/08/1993, 07/24/1993, 06/22/1993 Pneumococcal vaccine (65+ years) Completed 10/21/2014, 10/2010 Zoster Vaccines Completed 10/02/2018, 05/30/2018, 05/28/2007 COVID-19 Vaccine Completed 06/04/2022, 12/21/2021, 07/13/2021, Additional history exists Influenza Vaccine Completed 06/04/2022, 06/01/2021, 05/30/2020, Additional history exists Medical Devices Implanted Type Area Geriatric Assistant Device Shelf Model / Identifier Expiration Serial / Date Lot Hip Implant Hip Implant Bilateral : Hip Insurance Payer Benefit Plan Subscriber ID Effective Phone Address Typ e / Group Dates MEDICARE MEDICARE A [id number] 2010-Pre [address] [place] [address] BLUE CROSS [employer] [place] [id number] 2016-Pres [phone] PO AMANDEEP X Cost Share BLUE SHIELD BLUE COST ent [phone] [place] [address]
--- OUTSIDE RECORDS SUMMARY | 2022-08-21 08:30 | XMS_ITS | Clinical Summary ---
:1945 Author Organization [facility] [place] [address] Care Team Providers Name Role Phone Siri Montaño MD Primary Care Provider Allergies Active Allergy Reactions Severity Noted Date [...] Active SMOOTH TEXTURE) powd mouth once daily. Woxyxjbi-Xemdjoi-Csup-Lashawn Take by mouth. 0 03/22/2014 Active tein (CENTRUM SILVER ULTRA WOMEN'S) tab esomeprazole (NEXIUM) 40 Take 1 capsule 90 capsule 3 4 Active mg capsule by mouth once daily before a meal. ranitidine (ZANTAC) 150 Take 1 tablet 180 tablet 3 03/22/2014 Active mg tablet by mouth 2 times daily. Active Problems Not on file Encounters Date Type Specialty Care Team Description 06/21/2022 Orders Only <No scans attac hed> 06/21/2022 Travel from Last 3 Months Social History Tobacco Use Types Packs/Day Years [...] 03/22/2014 3:40 PM CDT Plan of Treatment Health Maintenance Due Date Last Done Comments Tdap 1956 Depression screening for age 12+ 1957 BMI (ht and wt on same day) for 1963 age 18+ Hepatitis C screening for age 1107/17/1963 18-79 Tetanus booster 1965 Zoster (shingles) series for age 1107/17/1995 50+ (1 of 2) DEXA/DXA scan for age 65+ 2010 Pneumococcal series for age 65+ (1 2010 - PCV) COVID-19 vaccine series (5 - 02/15/2022 12/21/2021, 021, Booster for Moderna series) 11/18/2020, Addition al history exists Influenza for age 65+ 05/17/2022 Procedures Procedure Name Priority Date/Time Associated Diagnosis Comme nts ECHO STRESS PHARM W Routine 06/21/2022 3:08 PM Palpitations Re sults for this CONTRAST CDT procedure are i n the results section. from Last 3 Months Results ECHO STRESS PHARM W CONTRAST (06/21/2022 3:08 PM CDT) P athologist Signature AORTIC VALVE 8 mmHg MEAN PG PEAK TR 2.5 m/s VELOCITY LVEDD 4.0 cm EJECTION 55 - 60% FRACTION Anatomical Region Laterality Modality HEART Ultrasound Specimen (Source) Anatomical Collection Method Collection Time Re ceived Time Location / / Volume Laterality 06/21/2022 1:15 PM CDT Narrative 06/21/2022 3:52 PM CDT STRESS ECHOCARDIOGRAM HARSHA BOSCH ? Accessi on#: ?? [id number] : ?1945 76 years Study Date: ?? 06/21/2022 1:15:58 PM Gender: F ?BP: ? 126/67 mmHg Height: 163.00 cm ?BSA: ?1.93 m? ?? Weight: 87.00 kg ? Tech: ? MTS ? Referring MD: SIRI MONTAÑO Site: ? [facility] Reading Location: MOBILE OP Procedure: Dobutamine, Limited Spectral Doppler, Color Doppler and Contrast. Dobutamine Stress Echo r/o CAD protocol. Indication for study: Palpitations [R00. 2 (ICD-10-CM)] Cardiac Rhythm: Regular.Study quality: Final Impressions: 1. Negative Dobutamine stress echo for ischemia. 2. Post stress, normal left ventricular size, normal global systolic function with an estimated EF of >75%. 3. Maximum stress test with 93.0% of ag e predicted maximum heart rate achieved. 4. Good exercise duration and workload. 5. During stress exam the patient devel oped throat tightness. 6. Symptoms resolved in 5 minutes. 7. Echo contrast was administrered to e nhance visualization of all left ventricular segments. 8. See separate report for EKG interpre tation. 9. No significant valve disease. Stress Data: ? HR ?Systolic Diastolic Time Duration Minutes Seconds Baseline 6 0 bpm ?126 ?67 mmHg ?9 :29 ? Peak ? 133 bpm ?? 125 ?76 mmHg Max Pred HR ?143 % of Max ? 93% Double Product [id number] Echo Findings:This is a negative Dobutam ine Stress Echo r/o CAD protocol stress echo test for ischemia. Post stress, normal left ventricular size, normal global systolic function with an estimated EF of >75%. LV regional wall motion abnormali ties are not present post exercise. EKG:See separate report for EKG interpre tation. Exam Protocol:The patient presents with no significant symptoms at baseline. The patient underwent a Dobutamine Stress Echo r/o CAD protocol. Dobutamine was infused in increasing doses up to a maximum o f 30 mcg/kg/min. 0.25 Atropine was given during the dobutamine infusion. Test terminated due to Target HR achieved. The patient achieved a heart rate of 133 bpm which is 93.0% of maximum predicted heart rate. Maximum systolic blood pressure w as 125 [place] [address]. Maximum stress test with 93.0% of age predicted maximum heart rate achieved. The blood pressure response was no rmal. Exercise duration and workload wer e good. The patient developed throat tightness during the stress exam. Symptoms resolved with rest. Symptoms resolved in 5 minutes. Low (less than 1% annual mortality rate) non invasive risk stratification. Chamber Sizes and Function Normal left ventricular size, normal nirmal bal systolic function with an estimated EF of 55 - 60%. LV regional wall motion abnormalities are not present. Right ventricular cavity size is normal, global sys tolic RV function is normal. RV wall thi ckness is normal. The sinus of Valsalva is normal sized. The ascending aorta is normal sized. Valves, RV Pressures and Diastolic Funct ion The aortic valve is sclerotic, no stenos is and trivial regurgitation. The mitral valve is normal in structure, trace mitral regurgitation. The tricuspid valve is normal in structure. Tricuspid regurgita tion is trace. The tricuspid regurgitant velocity is 2.5 m/s, the estimated right ventricular systolic pressure is 24 mmHg plus right atrial pressure. MEASUREMENTS AND CALCULATIONS 2-D Measurements and LV Function: LVID (d) 4.0 cm LV FS% (2D) ?? 43 % LVID (s) 2.3 cm LVOT diameter 1.9 cm IVS (d) ??1.0 cm HR ?60 bpm LVPW (d) 1.2 cm Ao Sinus 3.0 cm Asc Ao ?? 3.0 cm LA ? 4.0 cm Aortic Valve: Vmax 1.8 m/s Max PG ??13 mmHg VTI ??0.40 m ??Mean PG 8 mmHg Tricuspid Valve and estimated PA pressur es: TR Vmax 2.5 m/s TR maxG 24 mmHg Contrast documentation: 8 ml diluted Def inity, lot #[id number], was administered peripherally to enhance visualization of all left ventricular segments. . This study was interpreted by an [facility] redited facility. CC: [facility]. ??Final ?? Procedure Note Kevin Youssef MD - 06/21/2022For matting of this note might be different from the original. STRESS ECHOCARDIOGRAM HARSHA BOSCH : 1945 76 years Study Date: 06/21 1:15:58 PM Gender: F BP: 126/67 mmHg Height: 163.00 cm BSA: 1.93 m? ?? Weight: 87.00 kg Tech: [facility] Referring MD: SIRI MONTAÑO Site: [facility] Reading Location: MOBILE OP Procedure: Dobutamine, Limited Spectral Doppler, Color Doppler and Contrast. Dobutamine Stress Echo r/o CAD protocol. Indication for study: Palpitations [R00. 2 (ICD-10-CM)] Cardiac Rhythm: Regular.Study quality: Final Impressions: 1. Negative Dobutamine stress echo for ischemia. 2. Post stress, normal left ventricular size, normal global systolic function with an estimated EF of >75%. 3. Maximum stress test with 93.0% of ag e predicted maximum heart rate achieved. 4. Good exercise duration and workload. 5. During stress exam the patient devel oped throat tightness. 6. Symptoms resolved in 5 minutes. 7. Echo contrast was administrered to e nhance visualization of all left ventricular segments. 8. See separate report for EKG interpre tation. 9. No significant valve disease. Stress Data: HR Systolic Diastolic Time Duration Minutes Seconds Baseline 6 0 bpm 126 67 mmHg 9 :29 Peak 133 bpm 125 76 mmHg Max Pred HR 143 % of Max 93% Double Product [id number] Echo Findings:This is a negative Dobutam ine Stress Echo r/o CAD protocol stress echo test for ischemia. Post stress, normal left ventricular size, normal global systolic function with an estimated EF of >75%. LV regional wall motion abnormalities are not presen t post exercise. EKG:See separate report for EKG interpre tation. Exam Protocol:The patient presents with no significant symptoms at baseline. The patient underwent a Dobutamine Stress Echo r/o CAD protocol. Dobutamine was infused in increasing doses up to a maximum of 30 mcg/kg/min. 0.25 Atropine was given duri ng the dobutamine infusion. Test terminated due to Target HR achieved. The patient achieved a heart rate of 133 bpm which is 93.0% of maximum predicted heart rate. Maximum systolic blood pressure was 125 [place] [address]. Maximum stress test with 93.0% of age predicted maximum heart rate achieved. The blood pressure response was normal. Exercise duration and workload were good. The patient developed throat tight ness during the stress exam. Symptoms resolved with rest. Symptoms resolved in 5 minutes. Low (less than 1% annual mortality rate) non invasive risk stratification. Chamber Sizes and Function Normal left ventricular size, normal nirmal bal systolic function with an estimated EF of 55 - 60%. LV regional wall motion abnormalities are not present. Right ventricular cavity size is normal, global systolic RV function is normal. RV wall thickness is normal. The sinus of Valsalva is normal sized. The ascending aorta is normal sized. Valves, RV Pressures and Diastolic Funct ion The aortic valve is sclerotic, no stenos is and trivial regurgitation. The mitral valve is normal in structure, trace mitral regurgitation. The tricuspid valve is normal in structure. Tricuspid regurgitation is trace. The tricuspid regurgitant velocity is 2. 5 m/s, the estimated right ventricular systolic pressure is 24 mmHg plus right atrial pressure. MEASUREMENTS AND CALCULATIONS 2-D Measurements and LV Function: LVID (d) 4.0 cm LV FS% (2D) 43 % LVID (s) 2.3 cm LVOT diameter 1.9 cm IVS (d) 1.0 cm HR 60 bpm LVPW (d) 1.2 cm Ao Sinus 3.0 cm Asc Ao 3.0 cm LA 4.0 cm Aortic Valve: Vmax 1.8 m/s Max PG 13 mmHg VTI 0.40 m Mean PG 8 mmHg Tricuspid Valve and estimated PA pressur es: TR Vmax 2.5 m/s TR maxG 24 mmHg Contrast documentation: 8 ml diluted Def inity, lot #[id number], was administered peripherally to enhance visualization of all left ventricular segments. . This study was interpreted by an [facility] redited facility. CC: [facility]. Final Siri Montaño MD ECHO ORD from Last 3 Months Insurance Payer Benefit Plan / Subscriber ID Effective Dates Phone Addre ss Type Group BLUE CROSS [place] BLUE CROSS [id number] 2016-Present [address] [address] [place], [place] MR PB ONLY [id number] Care Teams Manager Business Intelligence Relationship Specialty Start Date End Date Siri Montaño MD PCP - General Internal Medicine 06/21/221999 [place] [address] (work)
--- OUTSIDE RECORDS SUMMARY | 2022-08-21 08:30 | XMS_ITS | Encounter Summary ---
:1945 Author Organization [facility] Address [address] [place] [address] Care Team Providers Name Role Phone Unavailable Primary Care Provider Unavailable Reason for Visit Reason Comments Appointment Encounter Details Date Type Department Care Team Description 03/16/2021 Clinical Communication Department of Sports Isaac Su, Appointment Medicine in .[address] [place] [phone] Social History Tobacco Use Types Packs/Day Years [...] or relatives? How often do you attend samaritan or christian More than 4 time s per year 04/26/2021 services? Do you belong to any clubs or organizations Yes 04/26/2021 such as samaritan groups, unions, fraternal or athletic groups, or [...] slept in a skilled nursing (including now)? Education Answer Date Recorded What is the highest level of school Bachelor's degree (e.g., BA, AB, 06/02/2019 you have completed or the highest BS) degree you have received? 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 Su. Telephone Encounter - Paola Billingsley - 03/16/2021 12:21 PM CDT Who is calling: Patient Release of information on file: N/A Best call back number: [phone] NOT okay to leave a detailed message. [...] Covid. Please advise. Action: Message routed to [facility] Athletic Trainers at [facility] documented in this encounter Plan of Treatment Not on filedocumented as of this encounter Visit Diagnoses Not on filedocumented in this encounter
--- OUTSIDE RECORDS SUMMARY | 2022-08-21 08:30 | XMS_ITS | Encounter Summary ---
:1945 Author Organization [facility] Address [address] [place] [address] Care Team Providers Name Role Phone Unavailable Primary Care Provider Unavailable Reason for Visit Reason Onset Date Comments Injection reaction 10/12/2019 Encounter Details Date Type Department Care Team Description 10/12/2019 Clinical Department of León Su Injection re action Communication Sports Medicine in [place], [address] [place] [address], [address] [place] [phone] Social History Tobacco Use Types Packs/Day Years [...] How often do you attend nondenominational or jewish More than 4 time s [...] at Date Recorded Female 07/23/2018 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 - 10/12/2019 12:[address] Su spoke with the patient and she will be following up with her PCP. Appointment with Dr. Su today was cancelled. CAL DOSIMETRIST Telephone Encounter - Alana Esquivel - 10/12/2019 10:00 AM CST Frannie, Patient is aware and will keep her phone close by. Thank you Alana CAL DOSIMETRIST Telephone Encounter - Frannie Bedoya L.A.T., A.T.C. - 10/12/2019 9:[address] Su said he will call her. He'll make a decision after the call if he'd like to see her in clinic so still hang onto the appointment. Thank you. CAL DOSIMETRIST Telephone Encounter - Carleen Stephens - 10/12/2019 8:45 AM CST Who is calling: Patient Best call back number: [phone] Okay to leave detailed voicemail message on [...] keep the appointment? Action: Message routed to [facility] Athletic Trainers at [facility] CAL DOSIMETRIST documented in this encounter Plan of Treatment Not on filedocumented as of this encounter Visit Diagnoses Not on filedocumented in this encounter
--- OUTSIDE RECORDS SUMMARY | 2022-08-21 08:30 | XMS_ITS | Encounter Summary ---
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
--- OUTSIDE RECORDS SUMMARY | 2022-08-21 08:31 | XMS_ITS | Encounter Summary ---
:1945 Author Organization [facility] Address [address] [place] [address] Care Team Providers Name Role Phone Unavailable Primary Care Provider Unavailable Encounter Details Date Type Department Care Team Description 11/22/2016 Hospital Encounter HX [facility] Pranay Engle M.D. 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 - 11/22/2016 10:56 AM CST [id number] CHIEF COMPLAINT/REASON FOR VISIT Low back pain, [...] ENGLE MD On: 11/26/2016 10:51 AM Source: [facility] MHSDOLBEYNONRADSYS Document Id: [id number] documented in this encounter Miscellaneous Notes Telephone Encounter - Conversion, Historical Provider Ser - 11/27/2016 12:16 PM CDT *Phone Message/Dr. Engle Document Contains Addenda Addendum by CRYSTAL BALL LPN on December 03, 2016 14:57:48 CDT Order faxed Addendum by MJ LAST on December 03, 2016 14:51:02 CDT Frannie from [facility] calling, would like MRI order faxed, states patient has contacted themto get this scheduled. Please advise. Fax number is [phone] Addendum by MARCO ANTONIO KHAN on November 27, 2016 13:33:15 CDT I called the patient and let her know that we did fax the results over today after waiting to see if a prior auth was needed from [employer]. From: TORI MCGOWAN ( [facility]) To: Physical Medicine and Rehabilitation Staff; Sent: [...] to order an MRI for her in [place]. She just called them and they have not received an order yet. Please call her back at [phone] to advise. Advice/Action: Source used: ( ) [...] back cell phone number ( ) Source: [facility] Volusion Document Id: [id number] Miscellaneous - Harry Engle M.D. - 11/22/2016 12:58 PM CST Ambulatory Patient Summary [address] [id number] Visit Information Name: ALISHA BOSCH [facility] Number: [id number] Current Date: 11/22/2016 12:58:07 [...] day as needed for Pain NewRouted to [place] [address] [place], [place] [phone] ergocalciferol (Vitamin D 400 iu oral tablet) [...] if you dont have one. Go to [email or web address] and click on Create Your Account. Then, follow the directions to complete the online form. Youll be asked for your [facility] number which you can find at the top of this document. Your Goals/Additional instructions: Source: [facility] POWERCHART Document Id: [id number] DING APPRAISER Miscellaneous - Harry Engle M.D. - 11/22/2016 12:58 PM CST Ambulatory Discharge Medication List [address] [id number] Visit Information Name: DOUGLASALISHA KELLOGG [facility] Number: [id number] Current Date: 11/22/2016 12:58:06 [...] day as needed for Pain NewRouted to [address] [id number] ergocalciferol (Vitamin D 400 iu oral tablet) [...] MD Signed On:22-NOV-2016 12:57:43 Additional Information: Source: [facility] POWERCHART Document Id: [id number] DING APPRAISER Miscellaneous - Clifford Turner L.P.N. - 11/22/2016 12:08 PM CST *General Message Document Contains Addenda Addendum by CLIFFORD TURNER LPN on November 27, 2016 09:36:49 CDT Order faxed Addendum by NICKY GREER on November 23, 2016 16:29:51 BUILDING APPRAISER From: NICKY GREER ([facility] Route Driver/Radiology Outside [facility]) To: LCIFFORD TURNER LPN; Sent: 11/23/2016 16:29:51 BUILDING APPRAISER Subject: RE: *General Message No auth needed, ok to schedule From: CLIFFORD TURNER LPN To: [facility] Route Driver/Radiology Outside [facility]; Sent: 11/22/2016 12:08:45 BUILDING APPRAISER Subject: *General Message Patient Referred to Provider or Facility: _[facility] Ordering Provider: _Pranay Engle Appointment Date (if [...] date and type of injury: _ [facility]: [facility] Document Id: [id number] Electronically signed by Sussy [facility] Steam Tunnel Feeder [id number] at 02/26/2017 6:21 AM CDT Miscellaneous - Clifford Turner L.P.N. - 11/22/2016 11:06 AM CST Adult Clip Bolter And Wrapper Intake/History Adult Clip Bolter And Wrapper Intake/History Entered On: 11/22/2016 11:07 BUILDING APPRAISER Performed On: 11/22/2016 11:06 BUILDING APPRAISER by CLIFFORD TURNER LPN Intake Systolic Blood Pressure : 130 mmHg Diastolic Blood Pressure : 58 mmHg NIBP Mean : 82 mmHg BP Location : Left upper extremity Blood Pressure Cuff Size : Regular Actual Weight : 97.85 kg(Converted to: 215 lb 12 oz) Dosing Weight Clinic : 97.85 kg CLIFFORD TURNER LPN - 11/22/2016 11:06 BUILDING APPRAISER General Info Information Given By : Patient Languages : Rwandan Is Patient Female and 13-50 no hysterectomy : No CLIFFORD TURNER LPN - 11/22/2016 11:06 BUILDING APPRAISER Subjective Pain Symptoms : CLIFFORD Oates LPN - 11/22/2016 11:06 BUILDING APPRAISER Dependent Habits Exposure to Tobacco Smoke : Other: never Smoking Status : Never smoker Tobacco 2A : No Tobacco Use/Currently Using : No Tobacco Use/Last 30 Days : No Tobacco Use/Last 12 months : CLIFFORD Oates LPN - 11/22/2016 11:06 BUILDING APPRAISER Source: [facility] GroupCHART Document Id: [id number] BUILDING APPRAISER!22 DING APPRAISER documented in this encounter Plan of Treatment Not on filedocumented as of this encounter Procedures Procedure Name Priority Date/Time Associated Diagnosis Comme nts DX WRIST LEFT 2 Routine 11/22/2016 12:07 PM Resul ts for this VIEWS BUILDING APPRAISER procedure are i n the results section. documented in this encounter Results DX Wrist Left 2 Views (11/22/2016 12:07 PM BUILDING APPRAISER) Anatomical Region Laterality Modality Upper Extremity, Wrist Left Radiographic Imag ing Specimen (Source) Anatomical Collection Method Collection Time Re ceived Time Location / / Volume Laterality 11/22/2016 12:07 PM BUILDING APPRAISER Addenda Addendum by Provider, Parker Mcdaniels 11/22/2016 12:07 PM BUILDING APPRAISER RAD^^^OW XR Wrist Left 2 views 11/22/2016 12:07:53 Impressions 11/22/2016 12:45 PM BUILDING APPRAISER Moderately prominent degenerative changes of the left first MCP, CMC, STT joint spaces. 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 No erosions. No appreciable acute osseou s injury of the left wrist. Narrative 11/22/2016 12:45 PM BUILDING APPRAISER EXAM: ??XR Wrist Left 2 views. DEMOGRAPHICS: [...]
--- OUTSIDE RECORDS SUMMARY | 2022-08-21 08:31 | XMS_ITS | Encounter Summary ---
:1945 Author Organization [facility] Address [address] [place] [address] Care Team Providers Name Role Phone Unavailable Primary Care Provider Unavailable Reason for Visit Appointment Request (Routine) - Closed Specialty Diagnoses / Procedures Referred By Contact Refer red To Contact Sports Medicine Referral ID Status Reason Start Date Expiration Date Visits Requ ested Visits Authorized [id number] Closed 07/14/2018 07/14/2019 1 Encounter Details Date Type Department Care Team Description 07/23/2018 Comprehensive Visit Department of León Su Pain Hip Right (Primary Dx); Sports Medicine in [place] Pain Low Back; [place], [facility] 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 How often do you attend scientology or spiritism More than 4 time s per year 04/26/2021 services? 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
--- OUTSIDE RECORDS SUMMARY | 2022-08-21 08:31 | XMS_ITS | Encounter Summary ---
:1945 Author Organization [facility] Address [address] [place] [address] Care Team Providers Name Role Phone Unavailable Primary Care Provider Unavailable Reason for Visit Reason Onset Date Comments Triage for Sarah Pt 07/14/2018 Encounter Details Date Type Department Care Team Description 07/14/2018 Clinical Department of León Su for Communication Sports Medicine [place] Pt [address], [address] [place] [phone] Social History Tobacco Use Types Packs/Day Years [...] or relatives? How often do you attend zoroastrianism or roman catholic More than 4 time s per year 04/26/2021 services? 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 Su's [facility] patients seeking return care. She was last seen in [place] would like to be seen in [place] to address her right hip and lower back. Please let us knowif he would be willing to see. Thank you, Harika documented in this encounter Plan of Treatment Not on filedocumented as of this encounter Results DX Lumbar Spine 2-3 Views (07/23/2018 9:31 AM ANALYTICAL DATA MINER) Anatomical Region Laterality Modality Lumbar Spine, Musculoskeletal RST LOS, Neuroradiology N/A Digital Radiography ARZ LOS, Muskuloskeletal FLA LOS Specimen (Source) Anatomical Collection Method Collection Time Re ceived Time Location / / Volume Laterality 07/23/2018 9:36 AM ANALYTICAL DATA MINER Impressions 07/23/2018 9:39 AM ANALYTICAL DATA MINER IMPRESSION: ??Mild multilevel disc degeneration throughout the [...] greater than left. Narrative 07/23/2018 9:39 AM ANALYTICAL DATA MINER EXAM: ??DX LUMBAR SPINE 2-3 VIEWS, DX [...] Pelvis Right 2-3 Views (07/23/2018 9:31 AM ANALYTICAL DATA MINER) Anatomical Region Laterality Modality Lower Extremity, Pelvis, Hip, Musculoskeletal RST LOS, Right Digital Radiography Musculoskeletal ARZ LOS, Muskuloskeletal FLA LOS Specimen (Source) Anatomical Collection Method Collection Time Re ceived Time Location / / Volume Laterality 07/23/2018 9:36 AM ANALYTICAL DATA MINER Impressions 07/23/2018 9:39 AM ANALYTICAL DATA MINER IMPRESSION: ??Mild multilevel disc degeneration throughout the [...] greater than left. Narrative 07/23/2018 9:39 AM ANALYTICAL DATA MINER EXAM: ??DX LUMBAR SPINE 2-3 VIEWS, DX [...]
--- OUTSIDE RECORDS SUMMARY | 2022-08-21 08:31 | XMS_ITS | Encounter Summary ---
:1945 Author Organization [facility] Address [address] [place] [address] Care Team Providers Name Role Phone Unavailable Primary Care Provider Unavailable Reason for Visit Reason Comments Communication Encounter Details Date Type Department Care Team Description 10/10/2017 Clinical Communication Department of [facility] Vinod Blanco, Communication Medicine, [facility], in [address] [phone] Social History Tobacco Use Types [...] How often do you attend zoroastrian or sikh More than 4 time s per year [...] at Date Recorded Female 07/23/2018 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
--- OUTSIDE RECORDS SUMMARY | 2022-08-21 08:31 | XMS_ITS | Encounter Summary ---
:1945 Author Organization [facility] Address [address] [place] [address] Care Team Providers Name Role Phone Unavailable Primary Care Provider Unavailable Encounter Details Date Type Department Care Team Description 03/27/2017 Hospital Encounter HX [facility] Pranay Su M.D. [address] [place] [address], [address] [place] [address] (Wo rk) Social History Tobacco [...] or relatives? How often do you attend temple or sabianism More than 4 time s per year 04/26/2021 services? Do you belong to any clubs or organizations Yes 04/26/2021 such as temple groups, unions, fraternal or athletic groups, or [...] at Date Recorded Female 07/23/2018 9:43 AM MIDWIFE documented as of this encounter Last Filed [...] Su M.D. - 03/27/2017 11:36 AM CDT [id number] CHIEF COMPLAINT/REASON FOR VISIT Follow up left [...] SU MD On: 03/28/2017 09:22 AM Source: [facility] MHSDOLBEYNONRADSYS Document Id: [id number] documented in this encounter Miscellaneous Notes Miscellaneous - Harry Su M.D. - 03/27/2017 12:26 PM CDT Ambulatory Patient Summary [address] [id number] Visit Information Name: ALISHA BOSCH [facility] Number: [id number] Current Date: 03/27/2017 12:26:56 Physicians [...] if you dont have one. Go to [email or web address] and click on Create Your Account. Then, follow the directions to complete the online form. Youll be asked for your [facility] number which you can find at the top of this document. Your Goals/Additional instructions: Source: [facility] POWERCHART Document Id: [id number] Miscellaneous - Harry Su M.D. - 03/27/2017 12:26 PM CDT Ambulatory Discharge Medication List [address] [id number] Visit Information Name: ALISHA BOSCH [facility] Number: [id number] Current Date: 03/27/2017 12:26:55 Attending Provider: HARRY SU MD Primary Care Provider: PCP, ALISHA TYLER has been given the following list of [...] MD Signed On:27-MAR-2017 12:26:20 Additional Information: Source: [facility] POWERCHART Document Id: [id number] Miscellaneous - Eryn Turner L.PKatalinaNKatalina - 03/27/2017 11:45 AM CDT Adult Mill Work Intake/History Adult Mill Work Intake/History Entered On: 03/27/2017 11:46 CDT Performed [...] Information Given By : Patient Languages : Romansh Is Patient Female and 13-50 no hysterectomy [...] Oates LPN - 03/27/2017 11:45 CDT Source: [facility] POWERCHART Document Id: [id number] CDT!22 documented in this encounter Plan of Treatment Not on filedocumented as of this encounter Visit Diagnoses Not on filedocumented in this encounter
--- OUTSIDE RECORDS SUMMARY | 2022-08-21 08:31 | XMS_ITS | Encounter Summary ---
:1945 Author Organization [facility] Address [address] [place] [address] Care Team Providers Name Role Phone Unavailable Primary Care Provider Unavailable Encounter Details Date Type Department Care Team Description 04/27/2019 Clinical Communication Department of Sports Isaac Su, Medicine in M.D. [place], [place] [address], [address] [email or web address] [address] [place] [address] [phone] Social History Tobacco Use Types Packs/Day Years [...] or relatives? How often do you attend evangelical or mormon More than 4 time s per year 04/26/2021 services? 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 She did have a recent fall and thinks she may havedone her shoulder more harm. I would like to confirm that Dr. Su will see her for a follow up of these concerns. Can you advise if he will and if he wants more time beyond the standard hour to address these? Action: Message routed to Athletic Trainers at [facility] documented in this encounter Plan [...]
--- OUTSIDE RECORDS SUMMARY | 2022-08-21 08:31 | XMS_ITS | Encounter Summary ---
:1945 Author Organization [facility] Address [address] [place] [address] Care Team Providers Name Role Phone Unavailable Primary Care Provider Unavailable Encounter Details Date Type Department Care Team Description 10/17/2015 Hospital Encounter HX [facility] Pranay Martinez M.D. [address] [place] [address], [address] [place] [address] (Wo rk) Social History Tobacco [...] or relatives? How often do you attend yazidi or faith More than 4 time s per year 04/26/2021 services? 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 documented in this encounter Results DX Foot Left 3+ Views (10/17/2015 11:29 AM PRESIDENT PRACTICING UROLOGIST) Anatomical Region Laterality Modality Lower Extremity, Foot Left Radiographic Imagi ng Specimen (Source) Anatomical Collection Method Collection Time Re ceived Time Location / / Volume Laterality 10/17/2015 11:29 AM PRESIDENT PRACTICING UROLOGIST Addenda Addendum by Provider, Parker Mcdaniels 10/17/2015 11:29 AM PRESIDENT PRACTICING UROLOGIST RAD^^^OW XR Foot Left 3 or more views 10/17/2015 11:29:32 Impressions 10/17/2015 12:13 PM PRESIDENT PRACTICING UROLOGIST Mild degenerative joint disease. Narrative 10/17/2015 12:13 PM PRESIDENT PRACTICING UROLOGIST EXAM: XR Foot Left 3 or more [...]
--- OUTSIDE RECORDS SUMMARY | 2022-08-21 08:31 | XMS_ITS | Encounter Summary ---
:1945 Author Organization [facility] Address [address] [place] [address] Care Team Providers Name Role Phone Unavailable Primary Care Provider Unavailable Reason for Referral Outpatient (Routine) - Closed Specialty Diagnoses / Referred By Contact Referred To Contact Procedures Physical León Wilson [facility] M.Bud [address] [facility], [address] [place] [address] Referral ID Status Reason Start Date Expiration Date Visits Requ ested Visits Authorized [id number] Closed 10/09/2017 04/07/2018 1 1 CARRIER INSPECTOR Reason for Visit Reason Comments Follow-up after injection- has helped Outpatient (Routine) - Closed Specialty Diagnoses / Referred By Contact Referred To Contact Procedures León Zepeda [facility] M.Bud [address] [facility], [address] [place] [address] Referral ID Status Reason Start Date Expiration Date Visits Requ ested Visits Authorized [id number] Closed 08/28/2017 02/24/2018 1 1 Encounter Details Date Type Department Care Team Description 10/09/2017 Office Visit Department of Physical León Su, Radiculopathy Lumbar Fourth (Primary Dx); Medicine and M.D. Pain Shoulder Right Rehabilitation in [address] [place], [place] [address] [place] [phone] Social History Tobacco Use Types Packs/Day [...] or relatives? How often do you attend baptism or rastafari More than 4 time s per year 04/26/2021 services? 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 - 10/09/2017 12:00 AM CST SUBJECTIVE CHIEF COMPLAINT/REASON FOR VISIT Follow up left L4 radiculopathy and new issue of right shoulder pain. HISTORY OF PRESENT ILLNESS Ms. Bosch returns today. She did have a left L4 transforaminal epidural corticosteroid injection performed at [facility] and she has found that to be [...] time greater than 15 minutes. Job ID: [id number] CARRIER INSPECTOR documented in this encounter Plan of Treatment Scheduled Referrals Name Type Priority Associated Order Schedule Diagnoses Physical Medicine and Outpatient Referral Routine Expected: Rehabilitation office 2017 visit (clinic) (Approximate) , Expires: 10/09/2020 documented as of this encounter Visit Diagnoses Diagnosis Radiculopathy Lumbar Fourth - Primary Pain Shoulder Right documented in this encounter
--- OUTSIDE RECORDS SUMMARY | 2022-08-21 08:31 | XMS_ITS | Encounter Summary ---
:1945 Author Organization [facility] Address [address] [place] [address] Care Team Providers Name Role Phone Unavailable Primary Care Provider Unavailable Reason for Referral Outpatient (Routine) - Closed Specialty Diagnoses / Referred By Contact Referred To Contact Procedures Physical Medicine and León Su, [facility] Rehabilitation M.D. [address] [facility], [address] [place] [address] Referral ID Status Reason Start Date Expiration Date Visits Requ ested Visits Authorized [id number] Closed 08/28/2017 02/24/2018 1 1 HANDLER Reason for Visit Reason Comments Other left leg pain Appointment Request (Routine) - Closed Specialty Diagnoses / Procedures Referred By Contact Refer red To Contact Pain Medicine Referral ID Status Reason Start Date Expiration Date Visits Requ ested Visits Authorized [id number] Closed 07/26/2017 01/22/2018 1 1 Encounter Details Date Type Department Care Team Description 08/28/2017 Office Visit Department of Physical León Su, Pain Low Back (Primary Dx); Medicine and M.D. 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 Job ID: [id number] CC: - - - - Siri Quiroga M.D., FACP [address] [address] F: [phone] HANDLER documented in this encounter Plan of Treatment [...]
--- OUTSIDE RECORDS SUMMARY | 2022-08-21 08:31 | XMS_ITS | Encounter Summary ---
:1945 Author Organization [facility] Address [address] [place] [address] Care Team Providers Name Role Phone Unavailable Primary Care Provider Unavailable Encounter Details Date Type Department Care Team Description 03/12/2017 Hospital Encounter HX [facility] Pranay Su M.D. 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 - 03/12/2017 9:22 AM CDT [id number] CHIEF COMPLAINT/REASON FOR VISIT Follow up low back pain and history of left shoulder pain. HISTORY OF PRESENT ILLNESS Ms. Bosch returns today. Unfortunately on February 17 she was at her water aerobics class and she was walking at the [facility] she had a fall in the shower [...] 75 degrees bilaterally. Positive Neer's, positive Harden, Coal causes pain in the 1st and 2nd [...] SU MD On: 03/13/2017 10:06 AM Source: [facility] MHSDOLBEYNONRADSYS Document Id: [id number] documented in this encounter Miscellaneous Notes Miscellaneous - Clifford Turner L.P.N. - 03/12/2017 11:07 AM CDT *General Message Document Contains Addenda Addendum by CRYSTAL BALL LPN on March 13, 2017 16:30:07 CDT Order faxed Addendum by NICKY GREER on March 13, 2017 15:54:41 CDT From: NICKY GREER ([facility] Python Django Developer/Radiology Outside [facility]) To: Physical Medicine and Rehabilitation Staff; Sent: 03/13/2017 15:54:41 CDT Subject: RE: *General Message No auth needed From: CLIFFORD TURNER LPN ( Physical Medicine and Rehabilitation Staff) To: [facility] Python Django Developer/Radiology Outside [facility]; Sent: 03/12/2017 11:07:00 CDT Subject: *General Message Patient Referred to Provider or Facility: _[facility] Ordering Provider: _Pranay Su Appointment Date (if [...] and type of injury: _ 02/20/2017 Source[facility] Document Id: [id number] Miscellaneous - Harry Su M.D. - 03/12/2017 10:56 AM CDT Ambulatory Patient Summary [facility] [address] [place] [id number] Visit Information Name: AVNI BOSCHBertrand SCHMIDT [facility] Number: [id number] Current Date: 03/12/2017 10:56:26 [...] if you dont have one. Go to [email or web address] and click on Create Your Account. Then, follow the directions to complete the online form. Youll be asked for your [facility] number which you can find at the top of this document. Your Goals/Additional instructions: Source: [facility] POWERCHART Document Id: [id number] Miscellaneous - Harry Su M.D. - 03/12/2017 10:56 AM CDT Ambulatory Discharge Medication List [address] [id number] Visit Information Name: ALISHA BOSCH [facility] Number: [id number] Current Date: 03/12/2017 10:56:25 [...] MD Signed On:12-MAR-2017 10:43:58 Additional Information: Source: [facility] POWERCHART Document Id: [id number] Miscellaneous - Clifford Turner LKatalinaPKatalinaN. - 03/12/2017 10:12 AM CDT Adult Supervisor Sunglasses Intake/History Adult Supervisor Sunglasses Intake/History Entered On: 03/12/2017 10:14 CDT Performed On: 03/12/2017 10:12 CDT by CLIFFORD TURNER GRAIN ELEVATOR OPERATOR Intake Systolic Blood Pressure : 124 mmHg Diastolic Blood Pressure : 68 mmHg NIBP Mean : 87 mmHg BP Location : Left upper extremity Blood Pressure Cuff Size : Regular Actual Weight : 98.40 kg(Converted to: 216 lb 15 oz) Dosing Weight Clinic : 98.4 kg CLIFFORD TURNER GRAIN ELEVATOR OPERATOR - 03/12/2017 10:12 CDT General Info Information Given By : Patient Languages : Argentine Is Patient Female and 13-50 no hysterectomy : No CLIFFORD TURNER [facility] - 03/12/2017 10:12 CDT Subjective Pain Symptoms : CLIFFORD Oates GRAIN ELEVATOR OPERATOR - 03/12/2017 10:12 CDT Dependent Habits Exposure to Tobacco Smoke : Other: never Smoking Status : Never smoker Tobacco 2A : No Tobacco Use/Currently Using : No Tobacco Use/Last 30 Days : No Tobacco Use/Last 12 months : CLIFFORD Oates [facility] - 03/12/2017 10:12 CDT Source: [facility] Document Id: [id number] CDT!22 documented in this encounter Plan of [...] imaging. Procedure Note Saulo Prakash M.D. / ProviderHarriet M.D. - 03/22/2017 EXAM: XR Shoulder Left 2 or more views. DEMOGRAPHICS: 71 years Female. INDICATION: shoulder pain after a fall. COMPARISON: October 17, 2015. FINDINGS: Moderately prominent degenerat jose changes of the left acromioclavicular joint space. Mild/mode rately prominent degenerative changes of the left acromioclavicular mnóica int space. Negative for fracture or dislocation. Minimal change since prior evaluation. I f pain persists consider follow-up imaging. IMPRESSION: No acute findings. Shanthi Jason R.T.(R), R.T.(R)(M) IMG DIAGNOSTIC IM AGING PROCEDURES documented in this encounter Visit Diagnoses Not on filedocumented in this encounter
--- OUTSIDE RECORDS SUMMARY | 2022-08-21 08:31 | XMS_ITS | Encounter Summary ---
:1945 Author Organization [facility] Address [address] [place] [address] Care Team Providers Name Role Phone Unavailable Primary Care Provider Unavailable Encounter Details Date Type Department Care Team Description 07/26/2017 Clinical Communication Department of León Su, Internal Medicine in [place], [place] 600 [facility], [address] [place] [address] [address] [place] [address] [phone] Social History Tobacco Use Types Packs/Day Years [...] often do you attend latter day or religion More than 4 time s [...] at Date Recorded Female 07/23/2018 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
--- OUTSIDE RECORDS SUMMARY | 2022-08-21 08:31 | XMS_ITS | Encounter Summary ---
:[address] [facility] Address [address] [place] [address] Care Team Providers Name Role Phone Unavailable Primary Care Provider Unavailable Reason for Visit Reason Comments Communication Encounter Details Date Type Department Care Team Description 08/30/2017 Clinical Communication Department of [facility] Vinod Blanco, Communication Medicine, [facility], in [address] [phone] Social History Tobacco Use Types [...] How often do you attend mormon or mormonism More than 4 time s per year [...] at Date Recorded Female 07/23/2018 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 - 09/05/2017 12:51 PM METER AND SERVICE LINE INSPECTOR Order faxed. R AND SERVICE LINE INSPECTOR documented in this encounter Plan of Treatment Not on filedocumented as of this encounter Visit Diagnoses Not on filedocumented in this encounter
--- OUTSIDE RECORDS SUMMARY | 2022-08-21 08:31 | XMS_ITS | Encounter Summary ---
:1945 Author Organization [facility] Address [address] [place] [address] Care Team Providers Name Role Phone Unavailable Primary Care Provider Unavailable Reason for Visit Reason Comments Communication Encounter Details Date Type Department Care Team Description 10/31/2017 Clinical Communication Department of [facility] Isaac Su, Communication Medicine, 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 - 10/31/2017 1:32 PM CST Spoke with patient. T ATTENDANT Telephone Encounter - Genesis Nelson - 10/31/2017 1:04 PM CST Pt calling to speak with nurse regarding an appt for shoulder surgery, please call back T ATTENDANT documented in this encounter Plan of Treatment Not on filedocumented as of this encounter Visit Diagnoses Not on filedocumented in this encounter
--- OUTSIDE RECORDS SUMMARY | 2022-08-21 08:31 | XMS_ITS | Encounter Summary ---
:1945 Author Organization [facility] Address [address] [place] [address] Care Team Providers Name Role Phone Unavailable Primary Care Provider Unavailable Reason for Visit Reason Onset Date Comments Allergic Reaction to Injection 08/26/2018 Encounter Details Date Type Department Care Team Description 08/26/2018 Clinical Department of León Su Communication Sports Medicine in [place] to Injection [address], [address] [place] [phone] Social History Tobacco Use Types Packs/Day Years [...] How often do you attend rastafarian or jewish More than 4 time s [...] at Date Recorded Female 07/23/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 We do not have the ability to add this to patient chart. Please route all messages to RST SPM SCHEDULING Thank you, Cristy PARTS PROFESSIONAL documented in this encounter Plan of Treatment Not on filedocumented as of this encounter Visit Diagnoses Not on filedocumented in this encounter
--- OUTSIDE RECORDS SUMMARY | 2022-08-21 08:31 | XMS_ITS | Encounter Summary ---
:1945 Author Organization [facility] Address [address] [place] [address] Care Team Providers Name Role Phone Unavailable Primary Care Provider Unavailable Reason for Visit Reason Comments Follow-up right shoulder Outpatient (Routine) - Closed Specialty Diagnoses / Referred By Contact Referred To Contact Procedures Physical Medicine and León Su, [facility] Rehabilitation M.D. [address] [facility], [address] [place] [address] Referral ID Status Reason Start Date Expiration Date Visits Requ ested Visits Authorized [id number] Closed 10/23/2017 04/21/2018 1 1 Encounter Details Date Type Department Care Team Description 11/27/2017 Office Visit Department of Physical León Su, Pain Back (Primary Dx); Medicine and M.D. 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 I did give her my contact information in [place] if she would have any questions, and I would be happy to see her there if she were to have any worsening pain or new issues. Ms. Bosch voiced agreement and understanding with this plan. Total time 25 minutes, counseling and coordination care time greater than 20 minutes. Job ID: [id number] documented in this encounter Plan of Treatment Not on filedocumented as of this encounter Visit Diagnoses Diagnosis Pain Back - Primary Spondylosis Lumbar Without Myelopathy Pain Shoulder Right documented in this encounter
--- OUTSIDE RECORDS SUMMARY | 2022-08-21 08:31 | XMS_ITS | Encounter Summary ---
:1945 Author Organization [facility] Address [address] [place] [address] Care Team Providers Name Role Phone Unavailable Primary Care Provider Unavailable Reason for Visit Reason Comments Communication Encounter Details Date Type Department Care Team Description 09/20/2017 Clinical Communication Department of León Su, Communication Internal Medicine in [place], [place] 600 [facility], [address] [place] [address] [address] [place] [address] [phone] Social History Tobacco Use Types Packs/Day Years [...] or relatives? How often do you attend yazdanism or episcopalian More than 4 time s per year 04/26/2021 services? 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 - 09/20/2017 10:39 AM STEEPLECHASE JOCKEY Spoke with patient. PLECHASE JOCKEY Telephone Encounter - Namrata Wolff - 09/20/2017 10:14 AM CST Patient would like to know where Dr. Su referred her in [place]. States she has an appointment with them next week, and was told something would be mailed to her with instructions, and she has notreceived it. She does not know the name of the facility so she can't call them. Please advise and call [phone] PLECHASE JOCKEY documented in this encounter Plan of Treatment Not on filedocumented as of this encounter Visit Diagnoses Not on filedocumented in this encounter
--- OUTSIDE RECORDS SUMMARY | 2022-08-21 08:31 | XMS_ITS | Encounter Summary ---
:1945 Author Organization [facility] Address [address] [place] [address] Care Team Providers Name Role Phone Unavailable Primary Care Provider Unavailable Encounter Details Date Type Department Care Team Description 04/08/2017 Hospital Encounter HX [facility]TR Pranay Su M.D. [address] [place] [address], [address] [place] [address] (Wo rk) Social History Tobacco [...] or relatives? How often do you attend restorationism or gnosticist More than 4 time s per year 04/26/2021 services? 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 - 04/08/2017 11:26 AM CDT Ambulatory Patient Summary [address] [id number] Visit Information Name: DOUGLASKOJOAVNI EagleBertrand SCHMIDT [facility] Number: [id number] Current Date: 04/08/2017 11:26:19 [...] if you dont have one. Go to [email or web address] and click on Create Your Account. Then, follow the directions to complete the online form. Youll be asked for your [facility] number which you can find at the top of this document. Your Goals/Additional instructions: Source: [facility] POWERCHART Document Id: [id number] Miscellaneous - Harry Su M.D. - 04/08/2017 11:26 AM CDT Ambulatory Discharge Medication List [address] [id number] Visit Information Name: ALISHA BOSCH [facility] Number: [id number] Current Date: 04/08/2017 11:26:18 [...] MD Signed On:08-APR-2017 11:26:05 Additional Information: Source: [facility] POWERCHART Document Id: [id number] Miscellaneous - Clifford Turner, L.P.N. 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 Adult Chairlift Operator Intake/History Entered On: 04/08/2017 11:02 CDT Performed [...] Information Given By : Patient Languages : Swedish Is Patient Female and 13-50 no hysterectomy : CLIFFORD Oates LPN - 04/08/2017 11:01 CDT Subjective Pain Symptoms : CLIFFORD Oates LPN - 04/08/2017 11:01 CDT Dependent Habits Exposure to Tobacco Smoke : Other: never Smoking Status : Never smoker Tobacco 2A : No Tobacco Use/Currently Using : No Tobacco Use/Last 30 Days : No Tobacco Use/Last 12 months : CLIFFORD Oates LPN - 04/08/2017 11:01 CDT [facility] Document Id: [id number] CDT!22 documented in this encounter Plan of Treatment Not on filedocumented as of this encounter Visit Diagnoses Not on filedocumented in this encounter
--- OUTSIDE RECORDS SUMMARY | 2022-08-21 08:31 | XMS_ITS | Encounter Summary ---
:1945 Author Organization [facility] Address [address] [place] [address] Care Team Providers Name Role Phone Unavailable Primary Care Provider Unavailable Encounter Details Date Type Department Care Team Description 07/23/2018 Hospital Encounter Department of León Su Pai n Hip Right; Radiology in M.D. Pain Low Back [address] [place] [address] [phone] Social History Tobacco Use Types Packs/Day Years [...] or relatives? How often do you attend confucianist or cheondoism More than 4 time s per year 04/26/2021 services? Do you belong to any clubs or organizations Yes 04/26/2021 such as confucianist groups, unions, fraternal or athletic groups, or [...] at Date Recorded Female 07/23/2018 9:43 AM JORDAN MAN documented as of this encounter Medications at [...] this RIGHT 2-3 VIEWS (most inpatients AM JORDAN MAN procedur e are in and all the results outpatients) section. DX LUMBAR SPINE RAD - Routine 07/23/2018 9:31 Pain Low Back Results for this 2-3 VIEWS (most inpatients AM JORDAN MAN procedure a re in and all the results outpatients) section. documented in this encounter Results DX Lumbar Spine 2-3 Views (07/23/2018 9:31 AM JORDAN MAN) Anatomical Region Laterality Modality Lumbar Spine, Musculoskeletal RST LOS, Neuroradiology N/A Digital Radiography ARZ LOS, Muskuloskeletal FLA LOS Specimen (Source) Anatomical Collection Method Collection Time Re ceived Time Location / / Volume Laterality 07/23/2018 9:36 AM JORDAN MAN Impressions 07/23/2018 9:39 AM JORDAN MAN IMPRESSION: ??Mild multilevel disc degeneration throughout the [...] greater than left. Narrative 07/23/2018 9:39 AM JORDAN MAN EXAM: ??DX LUMBAR SPINE 2-3 VIEWS, DX [...] Pelvis Right 2-3 Views (07/23/2018 9:31 AM JORDAN MAN) Anatomical Region Laterality Modality Lower Extremity, Pelvis, Hip, Musculoskeletal RST LOS, Right Digital Radiography Musculoskeletal ARZ LOS, Muskuloskeletal FLA LOS Specimen (Source) Anatomical Collection Method Collection Time Re ceived Time Location / / Volume Laterality 07/23/2018 9:36 AM JORDAN MAN Impressions 07/23/2018 9:39 AM JORDAN MAN IMPRESSION: ??Mild multilevel disc degeneration throughout the [...] greater than left. Narrative 07/23/2018 9:39 AM JORDAN MAN EXAM: ??DX LUMBAR SPINE 2-3 VIEWS, DX [...]
--- OUTSIDE RECORDS SUMMARY | 2022-08-21 08:31 | XMS_ITS | Encounter Summary ---
:[address] [facility] Address [address] [place] [address] Care Team Providers Name Role Phone Unavailable [...] or relatives? How often do you attend adventism or sabianist More than 4 time s per year 04/26/2021 services? 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
--- OUTSIDE RECORDS SUMMARY | 2022-08-21 08:31 | XMS_ITS | Encounter Summary ---
:1945 Author Organization [facility] Address [address] [place] [address] Care Team Providers Name Role Phone Unavailable Primary Care Provider Unavailable Encounter Details Date Type Department Care Team Description 08/20/2017 Abstract Department of Family Medicine, Provider, Historical 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
--- OUTSIDE RECORDS SUMMARY | 2022-08-21 08:31 | XMS_ITS | Encounter Summary ---
:1945 Author Organization [facility] Address [address] [place] [address] Care Team Providers Name Role Phone Unavailable Primary Care Provider Unavailable Encounter Details Date Type Department Care Team Description 12/10/2016 Hospital Encounter HX [facility] Pranay Su M.D. [address] [place] [address], [address] [place] [address] (Wo rk) Social History Tobacco [...] or relatives? How often do you attend sabianist or orthodox More than 4 time s per year 04/26/2021 services? 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 - 12/10/2016 12:39 PM CDT [id number] CHIEF COMPLAINT/REASON FOR VISIT Low back pain [...] [facility] MHSDOLBEYNONRADSYS Document Id: [id number] documented in this encounter Miscellaneous Notes Miscellaneous - Harry Su M.D. - 12/10/2016 1:42 PM CDT Ambulatory Patient Summary [address] [id number] Visit Information Name: ALISHA BOSCH [facility] Number: [id number] Current Date: 12/10/2016 13:42:37 Physicians [...] (metFORMIN) 750 mg, Oral, once a day Mis Prescription (Krill Oil) See Instructions Daily multivitamin [...] if you dont have one. Go to [email or web address] and click on Create Your Account. Then, follow the directions to complete the online form. Youll be asked for your [facility] number which you can find at the top of this document. Your Goals/Additional instructions: Source: [facility] POWERCHART Document Id: [id number] Miscellaneous - Harry Su M.D. - 12/10/2016 1:42 PM CDT Ambulatory Discharge Medication List [address] [id number] Visit Information Name: ALISHA BOSCH [facility] Number: [id number] Current Date: 12/10/2016 13:42:36 Attending [...] [facility] Digital H2O Document Id: [id number] Miscellaneous - Heena Ball L.P.N. 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
--- OUTSIDE RECORDS SUMMARY | 2022-08-21 08:31 | XMS_ITS | Encounter Summary ---
:[address] [facility] Address [address] [place] [address] Care Team Providers Name Role Phone Unavailable Primary Care Provider Unavailable Reason for Visit Reason Onset Date Comments Fall 07/24/2017 Encounter Details Date Type Department Care Team Description 07/24/2017 Clinical Communication Department of Physical [facility] Medicine and M.DKatalina Rehabilitation in [address] [place], [place] [address] [place] [phone] Social History Tobacco Use Types Packs/Day Years [...] or relatives? How often do you attend quaker or samaritan More than 4 time s per year 04/26/2021 services? 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 - 08/07/2017 11:08 AM ASSEMBLER TYPE BAR AND SEGMENT Patient fell 2 weeks ago and is having a lot of hip pain. She has an appt for 08/28/17 but in the meantime she will see if her Primary care Dr. Ramírez can order xray. MBLER TYPE BAR AND SEGMENT Telephone Encounter - Namrata Wolff - 08/07/2017 10:02 AM CST Patient called again. She still has not gotten a call back. Please call her. MBLER TYPE BAR AND SEGMENT Telephone Encounter - Sayda Lovell - 07/24/2017 9:56 AM CST Called to schedule an appt, just recently fell so pain is worse, would like to discuss with nurse. MBLER TYPE BAR AND SEGMENT documented in this encounter Plan of Treatment Not on filedocumented as of this encounter Visit Diagnoses Not on filedocumented in this encounter
--- OUTSIDE RECORDS SUMMARY | 2022-08-21 08:31 | XMS_ITS | Encounter Summary ---
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 Reason for Visit Reason Comments Results MRI 10/18/17 Outpatient (Routine) - Closed Specialty Diagnoses / Referred By Contact Referred To Contact Procedures León Zepeda [facility] M.DKatalina [address] [facility], [address] [place] [address] Referral ID Status Reason Start Date Expiration Date Visits Requ ested Visits Authorized [id number] Closed 10/09/2017 04/07/2018 1 1 Encounter Details Date Type Department Care Team Description 10/23/2017 Office Visit Department of Physical León Su, Pain Shoulder Right (Primary Dx); Medicine and M.DKatalina Rotator Cuff Disorder Right Rehabilitation in [address] [place] [address] [address] [place] [phone] Social History Tobacco Use Types Packs/Day Years [...] or relatives? How often do you attend oriental orthodox or episcopalian More than 4 time s per year 04/26/2021 services? 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 Job ID: [id number] ELLER MECHANIC documented in this encounter Miscellaneous Notes Letter - León Su M.D. - 10/23/2017 12:00 AM CST October 29, 2017 Dr. ROSENTHAL [facility] RE: HARSHA BOSCH #: [id number] : [address] Rosenthal: Thank you very much for seeing Ms. Bosch. She is a very pleasant, 72-year-old female who had a fallin July and subsequently developed right shoulder pain. I recently saw her and obtained an MRI of her right shoulder in [place]. Based on her symptoms, examination findings, and imaging findings, I am referring her to you for management options at this time. Thank you very much for seeing Ms. Bosch. Sincerely, León Su M.D. Job ID: [id number] ELLER MECHANIC documented in this encounter Plan of Treatment Scheduled Referrals Name Type Priority Associated Order Schedule Diagnoses Physical Medicine and Outpatient Referral Routine Expected: Rehabilitation office 2017 visit (clinic) (Approximate) , Expires: 10/23/2020 documented as of this encounter Visit Diagnoses Diagnosis Pain Shoulder Right - Primary Rotator Cuff Disorder Right documented in this encounter
--- OUTSIDE RECORDS SUMMARY | 2022-08-21 08:32 | XMS_ITS | Encounter Summary ---
:1945 Author Organization [facility] Address [address] [place] [address] Care Team Providers Name Role Phone Unavailable Primary Care Provider Unavailable Encounter Details Date Type Department Care Team Description 04/29/2013 Hospital Encounter HX [facility] Pranay Su M.D. 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 - 04/29/2013 8:17 AM CDT [id number] CHIEF COMPLAINT / REASON FOR VISIT Left lower extremity pain and weakness following left total hip arthroplasty. Referring physician Dr. Michelle Hartmann D.O. HISTORY OF PRESENT ILLNESS Ms. Bosch is a pleasant 67-year-old female who underwent a left total hip arthroplasty via a posterior approach on March 25, 2013 in [place]. She did well with respect to the [...] ligation. SOCIAL HISTORY Ms. Bosch lives in [place]. 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 She does [...] with this plan. Harry Su M.D./robin cc: [facility] Michelle Hartmann D.O. [address] [place] [id number] Electronically Signed By: HARRY SU MD On: 05/05/2013 12:01 PM Modified by and Electronically Signed by: HARRY SU MD On: 05/05/2013 12:01 PM Source: [facility] MHSDOLBEYNONRADSYS Document Id: [id number] documented in this encounter Miscellaneous Notes Miscellaneous - Harry Su M.D. - 04/29/2013 9:31 AM CDT [place]ulatory [place] [address] Visit Information Name: ALISHA BOSCH [facility] Number: [id number] Current Date: 04/29/2013 09:31:11 [...] No Appointments found Your Goals/Additional instructions: Source: [facility] POWERCHART Document Id: [id number] Miscellaneous - Harry Su M.D. - 04/29/2013 9:31 AM CDT [place] [address] Visit Information Name: ALISHA BOSCH [facility] Number: [id number] Visit Date: 04/29/2013 09:31:10 [...] your provider for clarification. Additional Information: Source: [facility] POWERCHART Document Id: [id number] Miscellaneous - Conversion, Historical Provider Ser - 04/29/2013 8:42 AM CDT Adult [place] Rafting Guide Intake/History Adult [place] Rafting Guide Intake/History Entered On: 04/29/2013 8:44 CDT Performed [...] Information Given By : Patient Languages : Malagasy STUART CAIN LPN - 04/29/2013 8:42 CDT Subjective Pain Symptoms : No STUART CAIN LPN - 04/29/2013 8:42 CDT Dependent Habits Tobacco Use/Currently Using : No Smoking Status : Never smoker STUART CAIN LPN - 04/29/2013 8:42 CDT Source: [facility] [employer] Document Id: [id number] CDT!19 documented in this encounter Plan of Treatment Not on filedocumented as of this encounter Visit Diagnoses Not on filedocumented in this encounter
--- OUTSIDE RECORDS SUMMARY | 2022-08-21 08:32 | XMS_ITS | Encounter Summary ---
:1945 Author Organization [facility] Address [address] [place] [address] Care Team Providers Name Role Phone Unavailable Primary Care Provider Unavailable Encounter Details Date Type Department Care Team Description 08/27/2013 Hospital Encounter HX [facility] Pranay Martinez M.D. 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 documented in this encounter Results DX Ankle Left 3+ Views (08/27/2013 11:47 AM JAVASCRIPT FRONT END DEVELOPER) Anatomical Region Laterality Modality Lower Extremity, Ankle Left Radiographic Imag ing Specimen (Source) Anatomical Collection Method Collection Time Re ceived Time Location / / Volume Laterality 08/27/2013 11:47 AM JAVASCRIPT FRONT END DEVELOPER Addenda Addendum by ProviderArslan M.D. o n 08/27/2013 11:47 AM JAVASCRIPT FRONT END DEVELOPER RAD^^^OW XR Ankle Left 3 or more views 08/27/2013 11:47:27 Narrative 08/27/2013 12:12 PM JAVASCRIPT FRONT END DEVELOPER Technique: Multiple views of the left an [...]
--- OUTSIDE RECORDS SUMMARY | 2022-08-21 08:32 | XMS_ITS | Encounter Summary ---
:1945 Author Organization [facility] Address [address] [place] [address] Care Team Providers Name Role Phone Unavailable Primary Care Provider Unavailable Encounter Details Date Type Department Care Team Description 10/17/2015 Hospital Encounter HX [facility] Pranay Su M.D. 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 - 10/17/2015 9:48 AM CST [id number] CHIEF COMPLAINT/REASON FOR VISIT Follow up left [...] SU MD On: 10/19/2015 06:30 PM Source: [facility] MHSDOLBEYNONRADSYS Document Id: [id number] RIFUGAL DRIER OPERATOR documented in this encounter Miscellaneous Notes Telephone Encounter - Conversion, Historical Provider Ser - 10/20/2015 8:41 AM CST *Phone Message/Dr. Su Document Contains Addenda Addendum by HARRY SU MD on 20 October 2015 11:09:38 CENTRIFUGAL DRIER OPERATOR From: HARRY SU MD To: Physical Medicine and Rehabilitation Staff; Sent: 10/20/2015 11:09:38 CENTRIFUGAL DRIER OPERATOR Subject: RE: *Phone Message/Dr. Su I spoke with her. Thanks. Addendum by CRYSTAL BALL LPN on 20 October 2015 09:41:01 CENTRIFUGAL DRIER OPERATOR From: CRYSTAL BALL LPN ( Physical Medicine and Rehabilitation Staff) To: HARRY SU MD; Sent: 10/20/2015 09:41:01 CENTRIFUGAL DRIER OPERATOR Subject: FW: *Phone Message/Dr. Su From: TORI MCGOWAN ([facility] Scale Agent) To: Physical Medicine and Rehabilitation Staff; Sent: 10/20/2015 08:41:37 CENTRIFUGAL DRIER OPERATOR Subject: *Phone Message/Dr. Su Caller is: ( x ) Patient ( ) Mother ( ) Father ( ) Spouse ( ) Daughter ( ) Son ( ) Pharmacy ( ) Other: Physician: Dr. Su Patient MRN #: Reason for Call: Message: Patient is waiting for xray results. Please call her back at [phone] with results. Advice/Action: Source used: ( ) [...] back cell phone number ( ) Source: [facility] [employer] Document Id: [id number] Miscellaneous - Harry Su M.D. - 10/17/2015 12:46 PM CST Ambulatory Patient Summary [facility] [address] [place] [id number] Visit Information Name: ALISHA BOSCH [facility] Number: [id number] Current Date: 10/17/2015 12:46:26 Physicians Attending Provider: HARRY US MD Primary Care Provider: PCPHERNANALISHA KELLOGG has been given the following list [...] if you dont have one. Go to [email or web address] and click on Create Your Account. Then, follow the directions to complete the online form. Youll be asked for your [facility] number which you can find at the top of this document. Your Goals/Additional instructions: Source: [facility] POWERCHART Document Id: [id number] RIFUGAL DRIER OPERATOR Miscellaneous - Harry Su M.D. - 10/17/2015 12:46 PM CST Ambulatory Discharge Medication List [address] [id number] Visit Information Name: DIPAKFcoAVNIA BRAYAN [facility] Number: [id number] Visit Date: 10/17/2015 12:46:24 Attending [...] MD Signed On:17-OCT-2015 12:45:55 Additional Information: Source: [facility] POWERCHART Document Id: [id number] RIFUGAL DRIER OPERATOR Miscellaneous - Crystal Ball LKatalinaP.N. - 10/17/2015 10:05 AM CST Adult Import Customs Clearing Agent Intake/History Adult Import Customs Clearing Agent Intake/History Entered On: 10/17/2015 10:07 CENTRIFUGAL DRIER OPERATOR Performed On: 10/17/2015 10:05 CENTRIFUGAL DRIER OPERATOR by CRYSTAL BALL LPN Intake Systolic Blood Pressure : 122 mmHg Diastolic Blood Pressure : 78 mmHg NIBP Mean : 93 mmHg BP Location : Right upper extremity Blood Pressure Cuff Size : Large Actual Weight : 99.4 kg(Converted to: 219 lb 2 oz) Dosing Weight Clinic : 99.4 kg CRYSTAL BALL LPN - 10/17/2015 10:05 CENTRIFUGAL DRIER OPERATOR General Info Information Given By : Patient Languages : Hungarian Is Patient Female and 13-50 no hysterectomy : No CRYSTAL BALL LPN - 10/17/2015 10:05 CENTRIFUGAL DRIER OPERATOR Subjective Pain Symptoms : No CRYSTAL BALL LPN - 10/17/2015 10:05 CENTRIFUGAL DRIER OPERATOR Dependent Habits Exposure to Tobacco Smoke : Other: never Smoking Status : Never smoker Tobacco 2A : No Tobacco Use/Currently Using : No Tobacco Use/Last 30 Days : No Tobacco Use/Last 12 months : No CRYSTAL BALL LPN - 10/17/2015 10:05 CENTRIFUGAL DRIER OPERATOR Source: [facility] [employer] Document Id: [id number] CENTRIFUGAL DRIER OPERATOR!22 RIFUGAL DRIER OPERATOR documented in this encounter Plan of Treatment Not on filedocumented as of this encounter Visit Diagnoses Not on filedocumented in this encounter
--- OUTSIDE RECORDS SUMMARY | 2022-08-21 08:32 | XMS_ITS | Encounter Summary ---
:1945 Author Organization [facility] Address [address] [place] [address] Care Team Providers Name Role Phone Unavailable Primary Care Provider Unavailable Encounter Details Date Type Department Care Team Description 10/01/2014 Hospital Encounter [facility] Pranay Su M.D. 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 - 10/01/2014 8:27 AM CST [id number] CHIEF COMPLAINT/REASON FOR VISIT Followup left lower [...] SU MD On: 10/04/2014 10:25 AM Source: [facility] MHSDOLBEYNONRADSYS Document Id: [id number] FIRST ASSISTANT documented in this encounter Miscellaneous Notes Miscellaneous - Analilia Burrows, RKatalinaN. - 05/25/2015 9:21 AM CDT *Medication Refill Msg Document Contains Addenda Addendum by HARRY SU MD on 26 May 2015 08:46:39 CDT Submitted: Order:gabapentin (gabapentin 300 mg oral capsule) 3 cap(s) PO 3xDay Qty: 610 cap(s) Refills: 0 Substitutions Allowed Route To Pharmacy - [facility] Mail [facility]-RSRx Signed by HARRY SU [...] Call to Pharmacy ( ) Patient will filler picker Script ( ) Mail Rx to Patient [facility] Document Id: [id number] Electronically signed by Conversion, [facility] Inclinometer Tester [id number] at 02/10/2017 1:09 PM CDT Eliciacellaimee - Analilia Burrows, R.N. - 01/04/2015 3:01 PM CDT *Medication Refill Msg Document Contains Addenda Addendum by HARRY SU MD on 04 January 2015 15:42:29 CDT Submitted: Order:gabapentin (gabapentin 300 mg oral capsule) 3 cap(s) PO 3xDay Qty: 610 cap(s) Refills: 0 Substitutions [facility] Signed by HARRY SU MD 01/04/2015 15:42:19 From: ANALILIA BURROWS To: HARRY US MD; Sent: 01/04/2015 15:01:53 CDT Subject: *Medication [...] Call to Pharmacy ( ) Patient will filler picker Script ( ) Mail Rx to Patient Source: [employer] Document Id: [id number] Electronically signed by Conversion, [facility] Inclinometer Tester [id number] at 02/10/2017 1:09 PM CDT Harry Rubio M.D. - 10/01/2014 9:11 AM CST Ambulatory Patient Summary [address] [id number] Visit Information Name: ALISHA BOSCH [facility] Number: [id number] Current Date: 10/01/2014 09:11:17 Physicians [...] appointment detail needed. Your Goals/Additional instructions: Source: [facility] POWERCHART Document Id: [id number] FIRST ASSISTANT Miscellaneous - Harry Su M.D. - 10/01/2014 9:11 AM CST Ambulatory Discharge Medication List [address] [id number] Visit Information Name: ALISHA BOSCH BRAYAN [facility] Number: [id number] Visit Date: 10/01/2014 09:11:15 Attending [...] Tablet(s), Oral, once a day (at bedtime) [facility] Prescription (Krill Oil) See Instructions Daily multivitamin [...] MD Signed On:01-OCT-2014 09:10:25 Additional Information: Source: [facility] OY [employer] Document Id: [id number] FIRST ASSISTANT Miscellaneous - Taryn Murphy - 10/01/2014 8:39 AM CST Adult Sander And Buffer Intake/History Adult Sander And Buffer Intake/History Entered On: 10/01/2014 8:40 RN FIRST ASSISTANT Performed On: 10/01/2014 8:39 RN FIRST ASSISTANT by TARYN MURPHY Intake Systolic Blood Pressure : 118 mmHg Diastolic Blood Pressure : 64 mmHg NIBP Mean : 82 mmHg BP Location : Left upper extremity Blood Pressure Cuff Size : Regular Actual Weight : 100.4 kg(Converted to: 221 lb 6 oz) Weight Source : Standing scale Dosing Weight Clinic : 100.4 kg TARYN MURPHY - 10/01/2014 8:39 RN FIRST ASSISTANT General Info Information Given By : Patient Preferred Communication Mode : Verbal Languages : Nepali Is Patient Female and 13-50 no hysterectomy : TARYN Smith - 10/01/2014 8:39 RN FIRST ASSISTANT Subjective Pain Symptoms : TARYN Smith - 10/01/2014 8:39 RN FIRST ASSISTANT Dependent Habits Tobacco Use/Currently Using : No Exposure to Tobacco Smoke : Other: never Smoking Status : Never smoker TARYN MURPHY - 10/01/2014 8:39 RN FIRST ASSISTANT ID Screen Drug Resistant Organism : No Travel Within Last 21 Days : TARYN Smith 10/01/2014 8:39 RN FIRST ASSISTANT Source: [employer] Document Id: [id number] RN FIRST ASSISTANT!24 FIRST ASSISTANT documented in this encounter Plan of Treatment Not on filedocumented as of this encounter Visit Diagnoses Not on filedocumented in this encounter
--- OUTSIDE RECORDS SUMMARY | 2022-08-21 08:32 | XMS_ITS | Encounter Summary ---
:1945 Author Organization [facility] Address [address] [place] [address] Care Team Providers Name Role Phone Unavailable Primary Care Provider Unavailable Encounter Details Date Type Department Care Team Description 10/17/2015 Hospital Encounter HX [facility] Pranay Martinez M.D. 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 documented in this encounter Results DX Shoulder Left 2+ Views (10/17/2015 11:29 AM PLASTIC PRINTER) Anatomical Region Laterality Modality Upper Extremity, Shoulder Left Radiographic I maging Specimen (Source) Anatomical Collection Method Collection Time Re ceived Time Location / / Volume Laterality 10/17/2015 11:29 AM PLASTIC PRINTER Addenda Addendum by Arslan Reed M.D. o n 10/17/2015 11:29 AM PLASTIC PRINTER RAD^^^OW XR Shoulder Left 2 or more views 10/17/2015 11:29:33 Impressions 10/17/2015 12:17 PM PLASTIC PRINTER Acromioclavicular degenerative joint disease. Narrative 10/17/2015 12:17 PM PLASTIC PRINTER EXAM: XR Shoulder Left 2 or more [...] Acromioclavicular degenerati ve joint disease. Jenna Martinez(R), R.TKatalina(R)(M) IMG DIAGNOSTIC IMAG ING PROCEDURES documented in this encounter Visit Diagnoses Not on filedocumented in this encounter
--- OUTSIDE RECORDS SUMMARY | 2022-08-21 08:32 | XMS_ITS | Encounter Summary ---
:1945 Author Organization [facility] Address [address] [place] [address] Care Team Providers Name Role Phone Unavailable Primary Care Provider Unavailable Encounter Details Date Type Department Care Team Description 11/11/2014 Hospital Encounter [facility]X [facility] Pranay Engle M.D. 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 - 11/11/2014 1:47 PM CST [id number] CHIEF COMPLAINT/REASON FOR VISIT Left lower extremity [...] ENGLE MD On: 11/15/2014 05:25 PM Source: [facility] MHSDOLBEYNONRADSYS Document Id: [id number] RVISOR GENERAL documented in this encounter Nursing Notes Rahel Lion L.P.N. - 11/12/2014 9:03 AM CST Prior authorization request Lyrica Prior Authorization Request for Lyrica completed by phone, hardware supplies sales representative on phone stated prior authorization was not needed for that dose, states he will be sending a fax with this statement on it. Time spent on form 20 minutes. Electronically Signed By: RAHEL LION LPN On: 11/12/2014 09:05 AM Source: [facility] [employer] Document Id: [id number] RVISOR GENERAL documented in this encounter Miscellaneous Notes Miscellaneous - Radha Ovalles R.N. - 10/10/2015 2:59 PM CST gabapentin Document Contains Addenda Addendum by HARRY ENGLE MD on 10 October 2015 15:23:42 SUPERVISOR GENERAL Submitted: Order:gabapentin (gabapentin 300 mg oral capsule) [...] To: HARRY ENGLE MD; Sent: 10/10/2015 14:59:53 SUPERVISOR GENERAL Subject: gabapentin Caller is: ( ) Patient [...] Call to Pharmacy ( ) Patient will roll picker Script ( ) Mail Rx to Patient Source: [facility] POWERCHART Document Id: [id number] Electronically signed by Sussy [facility] Prototype Machine Operator [id number] at 02/11/2017 12:46 AM CDT Miscellaneous - Kerry Naylor RKatalinaN. - 07/11/2015 11:38 AM CDT *Medication [...] ) Pharmacy ( ) Other: Provider: Pharmacy: [facility] fax: Name of Medications Needing Refill: gabapentin 300mg cap Last Refill Date: 05/26/15 #610 Additional Information: Last / Future Appointment:11/11/14 Disposition: ( ) Send to Pharmacy ( ) Call to Pharmacy ( ) Patient will roll picker Script ( ) Mail Rx to Patient Source: [facility] POWERCHART Document Id: [id number] Electronically signed by Conversion, [facility] Prototype Machine Operator [id number] at 02/11/2017 12:46 AM CDT Telephone Encounter [...] A: R: Patient can be reached at [phone] Advice/Action: Source used: ( ) Verbalizes understanding [...] back cell phone number ( ) Source: [facility] [employer] DesignCHART Document Id: [id number] Miscellaneous - Radha Ovalles R.N. - 02/18/2015 4:08 PM CDT gabapentin Document Contains Addenda Addendum by HARRY ENGLE MD on 22 February 2015 09:37:17 CDT Submitted: Order:gabapentin (gabapentin 300 mg oral capsule) 3 cap(s) PO 3xDay Qty: 610 cap(s) Refills: 0 Substitutions Allowed Route To Pharmacy - [facility] Mail Delivery Signed by HARRY ENGLE MD 02/22/2015 09:37:04 From: RADHA OVALLES (FB [place] Medication Refill) To: HARRY ENGLE MD; Sent: [...] Call to Pharmacy ( ) Patient will roll picker Script ( ) Mail Rxto Patient Source: [facility] [employer] Document Id: [id number] Electronically signed by Conversion, [facility] Prototype Machine Operator [id number] at 02/11/2017 12:46 AM CDT Telephone Encounter [...] a 3 month supply. From: TORI MCGOWAN ([facility] Residential Manager) To: Physical Medicine and Rehabilitation Staff; [...] A R Please call patient back at [phone] to advise. Advice/Action: Source used: ( ) [...] back cell phone number ( ) Source: [facility] POWERCHART Document Id: [id number] Telephone Encounter - Radha Ovalles R.N. - 11/17/2014 9:53 AM CST lyrica Document Contains Addenda Addendum by RAHEL LION LPN on 17 November 2014 10:54:29 SUPERVISOR GENERAL Prior Authorization was approved for this medication, states the reqested drug Lyrica 50 MG [id number]/30 is available to the member at the contracted copayment. Addendum by TARYN MURPHY on 17 November 2014 10:42:33 SUPERVISOR GENERAL From: TARYN MURPHY ( Physical Medicine and Rehabilitation Staff) To: Garry Medication Refill; FB/ Medication Prior Auth; Sent: 11/17/2014 10:42:33 SUPERVISOR GENERAL Subject: RE: maria e Spoke with Kei in [place], they stated a prior authorization form has been sent on this medication. Addendum by RADHA OVALLES on 17 November 2014 10:35:08 SUPERVISOR GENERAL From: RADHA OVALLES ( [place] Medication Refill) To: Physical Medicine and Rehabilitation Staff; Sent: 11/17/2014 10:35:08 SUPERVISOR GENERAL Subject: RE: lyrica In chart it says it does not need prior authorization. I am not sure where the 92 dollars came from please check with Dr. Engle. Addendum by TARYN MURPHY on 17 November 2014 10:25:40 SUPERVISOR GENERAL From: TARYN MURPHY ( Physical Medicine and Rehabilitation Staff) To: [place] Medication Refill; Sent: 11/17/2014 10:25:40 SUPERVISOR GENERAL Subject: RE: lyrica There was a prior authorization done on this medication, I believe that must be what she is talking about. Another prior authorization may need to be done on this. From: RADHA OVALLES ( [place] Medication Refill) To: HARRY ENGLE MD; Cc: Physical Medicine and Rehabilitation Staff; Sent: 11/17/2014 09:53:20 SUPERVISOR GENERAL Subject: lyrica Caller is: ( ) Patient ( ) Mother ( ) Father ( ) Spouse ( ) Daughter ( ) Son ( [facility] )Pharmacy ( ) Other: Physician: calvin Patient MRN #: Reason for Call: Message: S Lyrica B Message from pharmacy pt claims dr called ins and got gracia down to $92 \. pt is requesting [...] back cell phone number ( ) Source: [facility] POWERCHART Document Id: [id number] Electronically signed by Conversion, [facility] Prototype Machine Operator [id number] at 02/11/2017 12:46 AM CDT Miscellaneous - Harry Engle M.D. - 11/11/2014 2:32 PM CST Ambulatory Patient Summary [address] [id number] Visit Information Name: ALISHA BOSCH [facility] Number: [id number] Current Date: 11/11/2014 14:32:47 Physicians [...] appointment detail needed. Your Goals/Additional instructions: Source: [facility] POWERCHART Document Id: [id number] RVISOR GENERAL Miscellaneous - Haryr Engle M.D. - 11/11/2014 2:32 PM CST Ambulatory Discharge Medication List [address] [id number] Visit Information Name: DIPAKFcoALISHA [facility] Number: [id number] Visit Date: 11/11/2014 14:32:46 Attending Provider: HARRY ENGLE MD Primary Care Provider: PCP, ELSEWHERE LUCIAALISHA has been given the following list of [...] once a day (at bedtime) [facility] Prescription (Krill Oil) See Instructions Daily multivitamin [...] MD Signed On:11-NOV-2014 14:30:32 Additional Information: Source: [facility] [employer]Card Document Id: [id number] RVISOR GENERAL Miscellaneous - Taryn Murphy - 11/11/2014 2:10 PM CST Adult Stock Associate Intake/History Adult Stock Associate Intake/History Entered On: 11/11/2014 14:12 SUPERVISOR GENERAL Performed On: 11/11/2014 14:10 SUPERVISOR GENERAL by TARYN MURPHY Intake Systolic Blood Pressure : 128 mmHg Diastolic Blood Pressure : 66 mmHg NIBP Mean : 87 mmHg BP Location : Left upper extremity Blood Pressure Cuff Size : Regular Actual Weight : 102.1 kg(Converted to: 225 lb 1 oz) Weight Source : Standing scale Dosing Weight Clinic : 102.1 kg TARYN MURPHY - 11/11/2014 14:10 SUPERVISOR GENERAL General Info Information Given By : Patient Preferred Communication Mode : Verbal Languages : Yi Is Patient Female and 13-50 no hysterectomy : TARYN Smith - 11/11/2014 14:10 SUPERVISOR GENERAL Subjective Pain Symptoms : TARYN Smith - 11/11/2014 14:10 SUPERVISOR GENERAL Dependent Habits Tobacco Use/Currently Using : No Exposure to Tobacco Smoke : Other: never Smoking Status : Never smoker TARYN MURPHY - 11/11/2014 14:10 SUPERVISOR GENERAL ID Screen Drug Resistant Organism : No Travel Within Last 21 Days : No Contact with someone with Ebola : TARYN Smith - 11/11/2014 14:10 SUPERVISOR GENERAL [facility] Document Id: [id number] SUPERVISOR GENERAL!25 RVISOR GENERAL documented in this encounter Plan of Treatment Not on filedocumented as of this encounter Visit Diagnoses Not on filedocumented in this encounter
--- OUTSIDE RECORDS SUMMARY | 2022-08-21 08:32 | XMS_ITS | Encounter Summary ---
:1945 Author Organization [facility] Address [address] [place] [address] Care Team Providers Name Role Phone Unavailable Primary Care Provider Unavailable Encounter Details Date Type Department Care Team Description 06/22/2013 Hospital Encounter HX [facility] Pranay Su M.D. 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 - 06/22/2013 11:43 AM CDT [id number] CHIEF COMPLAINT/REASON FOR VISIT Followup left lower [...] MRI performed of her lumbar spine in [place] on June 05. I have the report [...] SU MD On: 06/24/2013 10:17 AM [facility] Document Id: [id number] documented in this encounter Miscellaneous Notes Miscellaneous - Harry Su M.D. - 06/22/2013 1:08 PM CDT [place] [address] Visit Information Name: ALISHA BOSCH [facility] Number: [id number] Current Date: 06/22/2013 13:08:30 [...] No Appointments found Your Goals/Additional instructions: Source: [facility] POWERCHART Document Id: [id number] Miscellaneous - Harry Su M.D. - 06/22/2013 1:08 PM CDT [place] [address] Visit Information Name: DOUGLASVALDEZ ALISHA SCHMIDT [facility] Number: [id number] Visit Date: 06/22/2013 13:08:29 [...] your provider for clarification. Additional Information: Source: [facility] POWERCHART Document Id: [id number] Miscellaneous - Marlene Valentine P.A.-C. - 06/22/2013 11:48 AM CDT Adult Inverform Machine Operator Intake/History Adult Inverform Machine Operator Intake/History Entered On: 06/22/2013 11:50 CDT Performed [...] Verbal Languages : Bahraini MARLENE VALENTINE - 06/22/2013 11:48 CDT Subjective Pain Symptoms : No MARLENE VALENTINE - 06/22/2013 11:48 CDT Dependent Habits Tobacco Use/Currently Using : No Exposure to Tobacco Smoke : Other: never Smoking Status : Never smoker MARLENE VALENTINE - 06/22/2013 11:48 CDT [facility] Document Id: [id number] CDT!20 documented in this encounter Plan of Treatment Not on filedocumented as of this encounter Visit Diagnoses Not on filedocumented in this encounter
--- OUTSIDE RECORDS SUMMARY | 2022-08-21 08:32 | XMS_ITS | Encounter Summary ---
:1945 Author Organization [facility] Address [address] [place] [address] Care Team Providers Name Role Phone Unavailable Primary Care Provider Unavailable Encounter Details Date Type Department Care Team Description 10/01/[address] [facility] FB Pranay Martinez M.D. [address] [place] [address], [address] [place] [address] (Wo rk) Social History Tobacco [...] or relatives? How often do you attend anabaptist or mu-ism More than 4 time s per year 04/26/2021 services? 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 Addendum by HARRY ENGLE MD on 20 October 2014 12:11:04 TELEVISION NEWS PRODUCER From: HARRY ENGLE MD To: Physical Medicine and Rehabilitation Staff; Sent: 10/20/2014 12:11:04 TELEVISION NEWS PRODUCER Subject: RE: *Phone Message Yes, she can start it tonight. Thanks. Addendum by TARYN MURPHY on 20 October 2014 09:58:33 TELEVISION NEWS PRODUCER From: TARYN MURPHY ( Physical Medicine and Rehabilitation Staff) To: HARRY ENGLE MD; Sent: 10/20/2014 09:58:33 TELEVISION NEWS PRODUCER Subject: FW: *Phone Message Spoke with patient, she was down to 5 gabapentin yesterday and today should be 4, she would like to start the Lyrica tonight vs tomorrow because she started having the severe itching and prickling again. Is this ok? From: WINNIE WILKINSON ( Pankaj Scrap Sorter) To: Physical Medicine and Rehabilitation Staff; Sent: 10/20/2014 08:31:48 TELEVISION NEWS PRODUCER Subject: *Phone Message Caller is: ( x [...] B: A: R: Please call her at [phone] Message: Advice/Action: Source used: ( ) Verbalizes [...] back cell phone number ( ) Source: [employer] Document Id: [id number] documented in this encounter Plan of Treatment Not on filedocumented as of this encounter Procedures Procedure Name Priority Date/Time Associated Diagnosis Comme nts DX SHOULDER RIGHT Routine 10/01/2014 9:11 AM Resu lts for this 2+ VIEWS TELEVISION NEWS PRODUCER procedure are i n the results section. documented in this encounter Results DX Shoulder Right 2+ Views (10/01/2014 9:11 AM TELEVISION NEWS PRODUCER) Anatomical Region Laterality Modality Upper Extremity, Shoulder Right Radiographic I maging Specimen (Source) Anatomical Collection Method Collection Time Re ceived Time Location / / Volume Laterality 10/01/2014 9:11 AM TELEVISION NEWS PRODUCER Addenda Addendum by ProviderArslan M.D. o n 10/01/2014 9:11 AM TELEVISION NEWS PRODUCER RAD^^^OW XR Shoulder Right 2 or more views 10/01/2014 09:11:53 Impressions 10/01/2014 9:39 AM TELEVISION NEWS PRODUCER Negative right shoulder. Narrative 10/01/2014 9:39 AM TELEVISION NEWS PRODUCER EXAM: XR Shoulder Right 2 or more [...]
--- OUTSIDE RECORDS SUMMARY | 2022-08-21 08:32 | XMS_ITS | Encounter Summary ---
:1945 Author Organization [facility] Address [address] [place] [address] Care Team Providers Name Role Phone Unavailable Primary Care Provider Unavailable Encounter Details Date Type Department Care Team Description 05/25/2013 Hospital Encounter [facility]X [facility] Pranay Su M.D. 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 - 05/25/2013 3:00 PM CDT [id number] CHIEF COMPLAINT / REASON FOR VISIT Followup [...] time 20 minutes. Harry Su M.D./luke cc: [address] [address] Electronically Signed By: HARRY SU MD On: 05/27/2013 10:23 AM Modified by and Electronically Signed by: HARRY SU MD On: 05/27/2013 10:23 AM Source: [facility] MHSDOLBEYNONRADSYS Document Id: [id number] documented in this encounter Miscellaneous Notes Miscellaneous - Marlene Valentine P.A.-C. - 05/25/2013 3:07 PM CDT Adult Desk Operator Intake/History Adult Desk Operator Intake/History Entered On: 05/25/2013 15:07 CDT Performed [...] Preferred Communication Mode : Verbal Languages : Albanian MARLENE VALENTINE - 05/25/2013 15:07 CDT Subjective Pain Symptoms : No MARLENE VALENTINE - 05/25/2013 15:07 CDT Dependent Habits Tobacco Use/Currently Using : No Exposure to Tobacco Smoke : Other: never Smoking Status : Never smoker MARLENE VALENTINE - 05/25/2013 15:07 CDT Source: [facility] POWERCHART Document Id: [id number] CDT!20 documented in this encounter Plan of Treatment Not on filedocumented as of this encounter Visit Diagnoses Not on filedocumented in this encounter
--- OUTSIDE RECORDS SUMMARY | 2022-08-21 08:32 | XMS_ITS | Encounter Summary ---
:1945 Author Organization [facility] Address [address] [place] [address] Care Team Providers Name Role Phone Unavailable Primary Care Provider Unavailable Encounter Details Date Type Department Care Team Description 08/27/2013 Hospital Encounter HX [facility] Pranay Su M.D. 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 - 08/27/2013 10:21 AM CST [id number] CHIEF COMPLAINT / REASON FOR VISIT Followup [...] to meet again with orthopedic surgery in [place] for consideration of right total hip arthroplasty. [...] to meet with an orthopedic surgeon in [place] to discuss the possibility of right total [...] SU MD On: 09/02/2013 10:13 AM Source: [facility] MHSDOLBEYNONRADSYS Document Id: [id number] PRESSURE FIRER documented in this encounter Miscellaneous Notes Miscellaneous - Harry Su M.D. - 08/27/2013 11:04 AM CST [place] [address] Visit Information Name: ALISAH BOSCH [facility] Number: [id number] Current Date: 08/27/2013 11:04:56 [...] day This is a CHANGE Routed to [address] [address] gabapentin (gabapentin 600 mg oral tablet) 1 Tablet(s), Oral, three times a day Routed to [address] [address] glucosamine-chondroitin (glucosamine-chondroitin 500 mg-400 mg oral tablet) hydrOXYzine (Vistaril 25 mg oral capsule) 1 cap, Oral, four times a day as needed for anxiety 25-50mg PO q4-6hr levothyroxine (Levothroid 75 mcg (0.075 mg) oral tablet) 1 Tablet(s), Oral, once a day lovastatin (lovastatin 40 mg oral tablet, extended release) 1 Tablet(s), Oral, once a day (at bedtime) [facility] Prescription (Krill Oil) See Instructions Daily multivitamin [...] [facility] POWERCHART Document Id: [id number] PRESSURE FIRER Miscellaneous - Harry Su M.D. - 08/27/2013 11:04 AM CST [place] [address] Visit Information Name: ALISHA BOSCH [facility] Number: [id number] Visit Date: 08/27/2013 11:04:53 [...] day This is a CHANGE Routed to [address] [address] gabapentin (gabapentin 600 mg oral tablet) 1 Tablet(s), Oral, three times a day Routed to [address] [address] glucosamine-chondroitin (glucosamine-chondroitin 500 mg-400 mg oral tablet) hydrOXYzine (Vistaril 25 mg oral capsule) 1 cap, Oral, four times a day as needed for anxiety 25-50mg PO q4-6hr levothyroxine (Levothroid 75 mcg (0.075 mg) oral tablet) 1 Tablet(s), Oral, once a day lovastatin (lovastatin 40 mg oral tablet, extended release) 1 Tablet(s), Oral, once a day (at bedtime) [facility] Prescription (Krill Oil) See Instructions Daily multivitamin [...] in case of emergency. Additional Information: Source: [facility] [employer] Document Id: [id number] PRESSURE FIRER Miscellaneous - Marlene Valentine P.A.-C. - 08/27/2013 10:32 AM CST Adult Brake Adjuster Intake/History Adult Brake Adjuster Intake/History Entered On: 08/27/2013 10:32 LOW PRESSURE FIRER Performed On: 08/27/2013 10:32 LOW PRESSURE FIRER by MARLENE VALENTINE Intake Systolic Blood Pressure : 142 mmHg (HI) Diastolic Blood Pressure : 64 mmHg NIBP Mean : 90 mmHg BP Location : Right upper extremity Blood Pressure Cuff Size : Regular Actual Weight : 96.2 kg(Converted to: 212 lb 1 oz) Weight Source : Standing scale Dosing Weight Clinic : 96.2 kg MARLENE VALENTINE - 08/27/2013 10:32 LOW PRESSURE FIRER General Info Information Given By : Patient Preferred Communication Mode : Verbal Languages : Urdu MARLENE VALENTINE - 08/27/2013 10:32 LOW PRESSURE FIRER Subjective Pain Symptoms : No MARLENE VALENTINE - 08/27/2013 10:32 LOW PRESSURE FIRER Dependent Habits Tobacco Use/Currently Using : No Exposure to Tobacco Smoke : Other: never Smoking Status : Never smoker MARLENE VALENTINE - 08/27/2013 10:32 LOW PRESSURE FIRER Source: [facility] [employer] Document Id: [id number] LOW PRESSURE FIRER!20 PRESSURE FIRER documented in this encounter Plan of Treatment Not on filedocumented as of this encounter Visit Diagnoses Not on filedocumented in this encounter
--- OUTSIDE RECORDS SUMMARY | 2022-08-21 08:32 | XMS_ITS | Encounter Summary ---
:1945 Author Organization [facility] Address [address] [place] [address] Care Team Providers Name Role Phone Unavailable Primary Care Provider Unavailable Encounter Details Date Type Department Care Team Description 12/25/2013 Hospital Encounter HX [facility] PMTR Pranay Su M.D. 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 - 12/25/2013 10:17 AM CDT [id number] CHIEF COMPLAINT/REASON FOR VISIT Followup of left [...] SU MD On: 12/29/2013 04:28 PM Source: [facility] MHSDOLBEYNONRADSYS Document Id: [id number] documented in this encounter Miscellaneous Notes Miscellaneous - Radha Ovalles R.N. - 06/02/2014 9:14 AM CDT Gabapentin Document Contains Addenda Addendum by HARRY SU MD on 02 June 2014 13:17:01 CDT Submitted: Order:gabapentin (gabapentin 300 mg oral capsule) 3 cap(s) PO 3xDay Qty: 270 cap(s) Refills: 5 Substitutions Allowed Route To Pharmacy - [facility] Rx Signed by HARRY SU MD 06/02/2014 13:16:48 From: RADHA OVALLES ([facility] Medication Refill) To: HARRY SU MD; Sent: [...] Call to Pharmacy ( ) Patient will shredder picker Script ( ) Mail Rxto Patient Source: [facility] POWERCHART Document Id: [id number] Electronically signed by Sussy [facility] Associate Store Manager [id number] at 02/12/2017 7:57 AM CDT Miscellaneous - Harry Su M.D. - 12/25/2013 11:11 AM CDT Ambulatory Patient Summary [facility] [address] [place] [id number] Visit Information Name: ALISHA BOSCH [facility] Number: [id number] Current Date: 12/25/2013 11:11:44 [...] Tablet(s), Oral, once a day (at bedtime) [facility] Prescription (Krill Oil) See Instructions Daily multivitamin [...] appointment detail needed. Your Goals/Additional instructions: Source: [facility] POWERCHART Document Id: [id number] Miscellaneous - Harry Su M.D. - 12/25/2013 11:11 AM CDT Ambulatory Discharge Medication List [address] [id number] Visit Information Name: DOUGLASALISHA KELLOGG [facility] Number: [id number] Visit Date: 12/25/2013 11:11:41 [...] Tablet(s), Oral, once a day (at bedtime) [facility] Prescription (Krill Oil) See Instructions Daily multivitamin [...] MD Signed On:25-DEC-2013 11:10:45 Additional Information: Source: [facility] POWERCHART Document Id: [id number] Miscellaneous - Marlene Valentine P.A.-C. - 12/25/2013 10:27 AM CDT Adult Compliance Program Manager Intake/History Adult Compliance Program Manager Intake/History Entered On: 12/25/2013 10:30 CDT Performed On: 12/25/2013 10:27 CDT by MARLENE VALENTIEN Intake Systolic Blood Pressure : 110 mmHg [...] Preferred Communication Mode : Verbal Languages : Colombian MARLENE VALENTINE - 12/25/2013 10:27 CDT Subjective Pain Symptoms : No MARLENE VALENTINE - 12/25/2013 10:27 CDT Dependent Habits Tobacco Use/Currently Using : No Exposure to Tobacco Smoke : Other: never Smoking Status : Never smoker MARLENE VALENTINE - 12/25/2013 10:27 CDT [facility] Document Id: [id number] CDT!20 documented in this encounter Plan of Treatment Not on filedocumented as of this encounter Visit Diagnoses Not on filedocumented in this encounter
--- OUTSIDE RECORDS SUMMARY | 2022-08-21 08:32 | XMS_ITS | Encounter Summary ---
:1945 Author Organization [facility] Address [address] [place] [address] Care Team Providers Name Role Phone Unavailable Primary Care Provider Unavailable Encounter Details Date Type Department Care Team Description 07/19/2014 Hospital Encounter HX [facility] PMTR Pranay Simpson M.D. 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 - 07/19/2014 9:18 AM CST [id number] CHIEF COMPLAINT/REASON FOR VISIT Follow up left [...] SIMPSON MD On: 07/21/2014 10:54 AM Source: [facility] MHSDOLBEYNONRADSYS Document Id: [id number] S ROUTE DRIVER documented in this encounter Nursing Notes Conversion, Historical Provider Ser - 07/26/2014 9:41 AM CST prior authorization-lyrica Document Contains Addenda Addendum by GAEL GARCIA LPN on 19 August 2014 9:34 SALES ROUTE DRIVER letter from Dr Simpson is sent to [employer] Claims. Modified by and Electronically Signed by: GAEL GARCIA LPN On: 08/19/2014 09:34 AM Addendum by GAEL GARCIA LPN on 29 July 2014 11:44 SALES ROUTE DRIVER prior authorization for Lyrica has been denied. Dr Simpson is notified Modified by and Electronically Signed by: GAEL GARCIA LPN On: 07/29/2014 11:44 AM prior authorization request sent to [employer] for the medication Lyrica 75mg, time spent 20 minutes Electronically Signed By: GAEL GARCIA LPN On: 07/26/2014 09:43 AM Source: [facility] POWERCHART Document Id: [id number] documented in this encounter Miscellaneous Notes Miscellaneous - Analilia Larry R.N. 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 Addendum by TARYN MURPHY on 01 September 2014 10:30:57 SALES ROUTE DRIVER Message left for patient to return call. From: KATHERIN THOMSON ( [employer]) To: Physical Medicine and Rehabilitation Staff; Sent: 09/01/2014 08:50:18 SALES ROUTE DRIVER Subject: *Phone Message/dr simpson Caller is: (x ) Patient ( ) Mother ( ) Father ( ) Spouse ( ) Daughter ( ) Son ( ) Pharmacy ( ) Other: Physician: Patient MRN #: Reason for Call: S has question on medication B A R please call [phone] Message: Advice/Action: Source used: ( ) Verbalizes [...] back cell phone number ( ) Source: [facility] [employer] Holdings Document Id: [id number] Telephone Encounter - Crystal Blanco L.P.N. - 08/30/2014 4:20 PM CST *Phone Message Document Contains Addenda Addendum by TARYN MURPHY on 31 August 2014 13:17:00 SALES ROUTE DRIVER Done. Addendum by HARRY SIMPSON MD on 31 August 2014 11:45:53 SALES ROUTE DRIVER From: HARRY SIMPSON MD To: TARYN MURPHY; Sent: 08/31/2014 11:45:53 SALES ROUTE DRIVER Subject: FW: *Phone Message Please call. Addendum by HARRY SIMPSON MD on 31 August 2014 11:45:38 SALES ROUTE DRIVER Submitted: Order:pregabalin (Lyrica 150 mg oral capsule) 1 cap(s) PO 2xDay Qty: 60 cap(s) Refills: 2 Substitutions Allowed Don't Print - called to pharmacy (Rx) Signed by HARRY SIMPSON MD 08/31/2014 11:45:18 From: CRYSTAL BLANCO LPN ( Physical Medicine and Rehabilitation Staff) To: HARRY SIMPSON MD; Sent: 08/30/2014 16:20:19 SALES ROUTE DRIVER Subject: *Phone Message Caller is: ( x ) Patient ( ) Mother ( ) Father ( ) Spouse ( ) Daughter ( ) Son ( ) Pharmacy ( ) Other: Physician: Patient MRN #: Reason for Call: Will you send the Lyrica 150 mg BID to [facility]? Message: Advice/Action: Source used: ( ) Verbalizes [...] back cell phone number ( ) Source: [facility] POWERCHART Document Id: [id number] Electronically signed by Conversion, [facility] [address] Passenger Firer [id number] at 02/12/2017 9:10 PM CDT Telephone Encounter - Conversion, Historical Provider Ser - 08/30/2014 11:58 AM CST *Phone Message Document Contains Addenda Addendum by CRYSTAL BLANCO LPN on 30 August 2014 16:20:36 SALES ROUTE DRIVER Returned call to patient. Addendum by ALICIA MYERS on 30 August 2014 15:15:03 SALES ROUTE DRIVER From: ALICIA MYERS ( Physical Medicine and Rehabilitation Staff) To: Physical Medicine and Rehabilitation Staff; Sent: 08/30/2014 15:15:03 SALES ROUTE DRIVER Subject: FW: *Phone Message Alisha called returning a call to Crystal. No answer, please call Alisha again Addendum by CRYSTAL BLANCO LPN on 30 August 2014 12:50:17 SALES ROUTE DRIVER Left message for patient to return call. From: WINNIE WILKINSON ([facility] Medicine Nurse) To: Physical Medicine and Rehabilitation Staff; Sent: 08/30/2014 11:58:32 SALES ROUTE DRIVER Subject: *Phone Message Caller is: (x ) Patient ( ) Mother ( ) Father ( ) Spouse ( ) Daughter ( ) Son ( ) Pharmacy ( ) Other: Physician: Patient MRN #: Reason for Call: Patient tried calling Radha back. Its regarding perscription issues. Please try jan at [phone] Message: Advice/Action: Source used: ( ) Verbalizes [...] back cell phone number ( ) Source: [facility] POWERCHART Document Id: [id number] Telephone Encounter - Conversion, Historical Provider Ser - 08/23/2014 2:46 PM CST *Phone Message Document Contains Addenda Addendum by HARRY SIMPSON MD on 26 August 2014 14:30:06 SALES ROUTE DRIVER From: HARRY SIMPSON MD To: BENJAMIN --WADE; Sent: 08/26/2014 14:30:06 SALES ROUTE DRIVER Subject: FW: *Phone Message Addendum by TARYN MURPHY on 23 August 2014 16:27:54 SALES ROUTE DRIVER From: TARYN MURPHY ( Physical Medicine and Rehabilitation Staff) To: HARRY SIMPSON MD; Sent: 08/23/2014 16:27:54 SALES ROUTE DRIVER Subject: FW: *Phone Message Spoke with patient, she is still unable to get an authorization for the medication and she decided at the cost of the medication she didn't want to try it. She will continue to take the gabapentin. From: WINNIE WILKINSON ( [employer]) To: Physical Medicine and Rehabilitation Staff; Sent: 08/23/2014 14:46:21 SALES ROUTE DRIVER Subject: *Phone Message Caller is: ( x [...] back cell phone number ( ) Source: [facility] [employer] Document Id: [id number] Telephone Encounter - Conversion, Historical Provider Ser - 08/11/2014 1:19 PM CST *Phone Message Document Contains Addenda Addendum by TARYN MURPHY on 18 August 2014 10:56:12 SALES ROUTE DRIVER Done. Addendum by HARRY SIMPSON MD on 17 August 2014 16:37:25 SALES ROUTE DRIVER From: HARRY SIMPSON MD To: Physical Medicine and Rehabilitation Staff; Sent: 08/17/2014 16:37:25 SALES ROUTE DRIVER Subject: RE: *Phone Message She can decrease the gabapentin by 300 mg per day. I did write her a prescription for a 90 day supply. Thanks. Addendum by TARYN MURPHY on 17 August 2014 16:34:32 SALES ROUTE DRIVER From: TARYN MURPHY ( Physical Medicine and Rehabilitation Staff) To: HARRY SIMPSON MD; Sent: 08/17/2014 16:34:32 SALES ROUTE DRIVER Subject: RE: *Phone Message Spoke with patient, she does have more pain during the day vs at night, with wearing shoes and walking. She also was wondering how to wean off the gabapentin now? She also stated her insurance will cover it for a 90 day supply. Addendum by HARRY SIMPSON MD on 17 August 2014 10:23:20 SALES ROUTE DRIVER From: HARRY SIMPSON MD To: Physical Medicine and Rehabilitation Staff; Sent: 08/17/2014 10:23:20 SALES ROUTE DRIVER Subject: RE: *Phone Message Please call. Thanks. Addendum by HARRY SIMPSON MD on 17 August 2014 10:23:13 SALES ROUTE DRIVER Submitted: Order:pregabalin (Lyrica 150 mg oral capsule) 1 cap(s) PO 2xDay Qty: 180 cap(s) Refills: 0 Substitutions Allowed Don't Print - called to pharmacy (Rx) Signed by HARRY SIMPSON MD Submitted: Complete:pregabalin (Lyrica 75 mg oral capsule) Signed by HARRY SIMPSON MD 08/17/2014 10:22:43 Addendum by CRYSTAL BLANCO LPN on 11 August 2014 14:59:46 SALES ROUTE DRIVER From: CRYSTAL BLANCO LPN ( Physical Medicine and Rehabilitation Staff) To: HARRY SIMPSON MD; Sent: 08/11/2014 14:59:46 SALES ROUTE DRIVER Subject: FW: *Phone Message Spoke with patient. She knows that you are out until Saturday and that is ok with her to wait until then. From: WINNIE WILKINSON ([facility] [employer]der [employer]) To: Physical Medicine and Rehabilitation Staff; Sent: 08/11/2014 13:19:47 SALES ROUTE DRIVER Subject: *Phone Message Caller is: ( x [...] this way. A: R: Please call patient [phone] Message: Advice/Action: Source used: ( ) Verbalizes [...] back cell phone number ( ) Source: [facility] [employer] Document Id: [id number] Miscellaneous - Harry Simpson M.D. - 08/06/2014 12:00 AM CST [id number] August 06, 2014 [employer] CLAIM[employer] [address] [address] [place] [address] RE: Alisha Bosch : 1944 To Whom [...] & Rehab ap Electronically Signed By: HARRY SIMPSNO MD On: 08/09/2014 01:54 PM Modified by and Electronically Signed by: HARRY SIMPSON MD On: 08/09/2014 01:54 PM Source: [facility] MHSDOLBEYNONRADSYS Document Id: [id number] S ROUTE DRIVER Miscellaneous - Conversion, Historical Provider Ser - 07/29/2014 11:48 AM SALES ROUTE DRIVER Karinea henri Document Contains Addenda Addendum by INDIGO ROSARIO on 29 July 2014 15:27:12 SALES ROUTE DRIVER From: INDIGO ROSARIO To: Physical Medicine and Rehabilitation Staff; Sent: 07/29/2014 15:27:12 SALES ROUTE DRIVER Subject: FW: Arley álvarez From: GAEL GARCIA LPN To: HARRY SIMPSON MD; INDIGO ROSARIO; Sent: 07/29/2014 11:48:09 SALES ROUTE DRIVER Subject: Arley Valerio Dr is denied by [employer] stating that this medication request is not medically necessary. I am sending you the information to review. Thanks Gael Source: [facility] POWERCHART Document Id: [id number] Miscellaneous - Harry Simpson M.D. - 07/19/2014 10:19 AM CST Ambulatory Patient Summary [address] [id number] Visit Information Name: ALISHA BOSCH [facility] Number: [id number] Current Date: 07/19/2014 10:19:02 Physicians [...] Tablet(s), Oral, once a day (at bedtime) [facility] Prescription (Krill Oil) See Instructions Daily multivitamin [...] appointment detail needed. Your Goals/Additional instructions: Source: [facility] POWERCHART Document Id: [id number] S ROUTE DRIVER Miscellaneous - Harry Simpson M.D. - 07/19/2014 10:18 AM CST Ambulatory Discharge Medication List [address] [id number] Visit Information Name: LUCIAAVNIBertrand SCHMIDT [facility] Number: [id number] Visit Date: 07/19/2014 10:18:55 Attending Provider: HARRY SIMPSON MD Primary Care Provider: PCP, ELSEWHERE ALISHA [...] [facility] (Krill Oil) See Instructions Daily multivitamin [...] MD Signed On:19-JUL-2014 10:18:24 Additional Information: Source: [facility] [employer]CHART Document Id: [id number] S ROUTE DRIVER Miscellaneous - Crystal Blanco L.P.N. - 07/19/2014 9:27 AM CST Adult Immigration Specialist Intake/History Adult Immigration Specialist Intake/History Entered On: 07/19/2014 9:29 SALES ROUTE DRIVER Performed On: 07/19/2014 9:27 SALES ROUTE DRIVER by CRYSTAL BLANCO LPN Intake Systolic Blood Pressure : 118 mmHg Diastolic Blood Pressure : 64 mmHg NIBP Mean : 82 mmHg BP Location : Left upper extremity Blood Pressure Cuff Size : Large Actual Weight : 100.8 kg(Converted to: 222 lb 4 oz) Dosing Weight Clinic : 100.8 kg CRYSTAL BLANCO LPN - 07/19/2014 9:27 SALES ROUTE DRIVER General Info Information Given By : Patient Languages : Amharic Is Patient Female and 13-50 no hysterectomy : No CRYSTAL BLANCO LPN - 07/19/2014 9:27 SALES ROUTE DRIVER Subjective Pain Symptoms : No CRYSTAL BLANCO LPN - 07/19/2014 9:27 SALES ROUTE DRIVER Dependent Habits Tobacco Use/Currently Using : No Exposure to Tobacco Smoke : Other: never Smoking Status : Never smoker CRYSTAL BLANCO LPN - 07/19/2014 9:27 SALES ROUTE DRIVER ID Screen Travel Within Last 21 Days : No CRYSTAL BLANCO LPN - 07/19/2014 9:27 SALES ROUTE DRIVER [facility] Document Id: [id number] SALES ROUTE DRIVER!21 S ROUTE DRIVER documented in this encounter Plan of Treatment Not on filedocumented as of this encounter Visit Diagnoses Not on filedocumented in this encounter
--- OUTSIDE RECORDS SUMMARY | 2022-08-21 08:32 | XMS_ITS | Encounter Summary ---
:1945 Author Organization [facility] Address [address] [place] [id number] Care Team Providers Name Role Phone Unavailable Primary Care Provider Unavailable Encounter Details Date Type Department Care Team Description 07/10/2013 Hospital Encounter HX [facility] Pranay Su M.D. [address] [place] [address], [address] [place] [address] (Wo rk) Social History Tobacco [...] or relatives? How often do you attend orthodox or gnosticist More than 4 time s per year 04/26/2021 services? Do you belong to any clubs or organizations Yes 04/26/2021 such as orthodox groups, unions, fraternal or athletic groups, [...] Date Recorded Female 07/23/2018 9:43 AM [employer] documented as of this encounter Last Filed [...] 07/10/2013 4:49 PM CDT [place] [address] Visit Information Name: HARSHA BOSCH [facility] Number: [id number] Current Date: 07/10/2013 16:49:27 Physicians Attending Provider: HARRY SU MD Primary Care Provider: PCP, HARSHA TYLER BRAYAN has been given the following [...] appointment detail needed. Your Goals/Additional instructions: Source: [facility] POWERCHART Document Id: [id number] Miscellaneous - Harry Su M.D. - 07/10/2013 4:49 PM CDT [place] [address] Visit Information Name: HARSHA BOSCH [facility] Number: [id number] Visit Date: 07/10/2013 16:49:26 [...] your provider for clarification. Additional Information: Source: [facility] POWERCHART Document Id: [id number] Miscellaneous - Marlene Valentine P.A.-C. - 07/10/2013 3:05 PM CDT Adult Research Engineer Intake/History Adult Research Engineer Intake/History Entered On: 07/10/2013 15:06 CDT [...] Preferred Communication Mode : Verbal Languages : Nauruan MARLENE VALENTINE - 07/10/2013 15:05 CDT Subjective Pain Symptoms : No MARLENE VALENTINE - 07/10/2013 15:05 CDT Dependent Habits Tobacco Use/Currently Using : No Exposure to Tobacco Smoke : Other: never Smoking Status : Never smoker MARLENE VALENTINE - 07/10/2013 15:05 CDT Source: [facility] POWERCHART Document Id: [id number] CDT!20 documented in this encounter Plan of Treatment Not on filedocumented as of this encounter Visit Diagnoses Not on filedocumented in this encounter
[2022-08-21 11:12] LABS: TSH With Reflex to FT4* 0.574 uIU/mL (0.270-4.200)
== END 2022-08-21 17:11 | disposition home or self-care (01) ==
PROVIDERS: PCP Internal Medicine; Visit Provider Internal Medicine
DX: E03.9 Hypothyroidism, unspecified (principal)
CPT/HCPCS: 84443

== ENCOUNTER 2022-11-12 08:10 | Outpatient (CLI) | payer MEDICARE, BC, SELFPAY | END 2022-11-12 08:11 | disposition home or self-care (01) | LOC: OP CLINIC 08:12 | PROVIDERS: PCP Internal Medicine; Visit Provider Surgery | DX: K21.9 Gastro-esophageal reflux disease without esophagitis (principal); K44.9 Diaphragmatic hernia without obstruction or gangrene; K31.7 Polyp of stomach and duodenum | CPT/HCPCS: 43239; 88305; 88342; J2250; J3010 ==

== ENCOUNTER 2023-06-11 09:30 | Outpatient (RCR) | payer MEDICARE, BC, SELFPAY | END 2023-06-12 08:28 | disposition home or self-care (01) | PROVIDERS: PCP Internal Medicine; Visit Provider Physical Medicine & Rehabilitation Sports Medicine | DX: M25.552 Pain in left hip (principal); M54.50 Low back pain, unspecified; M70.62 Trochanteric bursitis, left hip; Z51.89 Encounter for other specified aftercare | CPT/HCPCS: 97110; 97140; 97162 ==

== ENCOUNTER 2023-10-26 16:24 | Inpatient (IN) | payer MEDICARE, BC, SELFPAY ==
[2023-10-26 16:39] VITALS: O2SAT 95
[2023-10-26 16:40] VITALS: O2SAT 96
[2023-10-26 16:41] VITALS: BP 142/75; PULSE 102; RESP 18; TEMP 36.4; O2SAT 96; BMI 31.6
--- NOTE | 2023-10-26 16:54 | CRLHL7_ITS ---
For Patients: As a result of the Cures Act, medical imaging exams and procedure reports are released immediately into your electronic medical record. You may view this report before your referring provider. If you have questions, please contact your health care provider. INDICATION: Upper respiratory infection symptoms. COMPARISON: Chest x-ray dated 27 July 2014. FINDINGS: PA and lateral chest x-rays show a normal cardiac silhouette. The lungs show no focal pulmonary opacities. Sharp pleural margins. No pneumothorax. IMPRESSION: No focal pulmonary opacities. No pneumothorax. Dictated by Nikolay Saucedo MD @ 10/26/2023 5:56:26 PM Dictated by: Nikolay Saucedo MD @ 10/26/2023 17:56:35 (Electronically Signed)
--- NOTE | 2023-10-26 16:57 | ED_ITS ---
HPI - Nausea/Vomiting/Diarrhea General Date Seen: 10/26/23 Chief complaint: Diarrhea Stated complaint: vomiting, body aches, fever Time Seen by Provider: 10/26/23 16:44 Source: patient Mode of arrival: ambulatory Limitations: no limitations History of Present Illness HPI Narrative: Patient is a 78-year-old female with history of diabetes, chronic pain syndrome, hyperlipidemia, hypertension presenting to the emergency department for nausea, vomiting, diarrhea. She states she woke up today was feeling nauseated. She tried to take her ammonia meds but vomited them up. She has been unable to eat or drink anything since then due to the nausea. She states every time she does try to eat or drink something she will vomiting that have some diarrhea. Patient not had any recent antibiotics. Does state for the past week and her have both been having URI symptoms including headache and stuffy nose along with a cough. She has not been feeling short of breath at all until a lit tle bit today. Has not had any fevers or chills. Denies chest pain, vision changes. She does feel fatigued but was able to ambulate into the department. Is coming with some mild epigastric pain that is worse before she vomits and improves after she vomits. Related Data Home Medications Medication Instructions Recorded Confirmed aspirin 81 mg tablet,delayed 81 mg PO DAILY 05/08/22 10/26/23 release cetirizine 10 mg tablet 10 mg PO QDAY 05/08/22 10/26/23 lactobacillus combination no.9 4 4,000 mmu cells PO QDAY 05/08/22 10/26/23 billion cell capsule (Adult 50 Plus Probiotic) multivitamin 1 tab PO QDAY 05/08/22 10/26/23 cholecalciferol (vitamin D3) 25 1,000 unit PO QDAY 08/23/22 10/26/23 mcg (1,000 unit) chewable tablet mecobalamin (vitamin B12) 1,000 1,000 mcg PO QDAY 08/23/22 10/26/23 mcg chewable tablet psyllium 2 packet PO QDAY PRN 02/19/23 10/26/23 dulaglutide 1.5 mg/0.5 mL mg subcut .once per week 06/10/23 09/19/23 subcutaneous pen injector ([facility] metformin 500 mg tablet 250 mg PO BIDWMEAL 06/10/23 10/26/23 Previous Rx's Medication Instructions Recorded atorvastatin 40 mg tablet 40 mg PO QHS #90 tabs 02/19/23 levothyroxine 88 mcg tablet 88 mcg PO Q48H #45 tabs 02/19/23 lisinopril 10 mg tablet 10 mg PO QDAY #90 tabs 02/19/23 triamterene 37.5 1 cap PO QDAY #90 caps 02/19/23 mg-hydrochlorothiazide 25 mg capsule atenolol 25 mg tablet 25 mg PO QDAY #30 tabs 03/26/23 levothyroxine 100 mcg tablet 100 mcg PO Q48H #45 tabs 05/10/23 blood sugar diagnostic (Contour #100 ea 05/14/23 Next Test Strips) gabapentin 300 mg capsule 900 mg (3 x 300 mg) PO TID #63 caps 07/08/23 gabapentin 300 mg capsule 900 mg (3 x 300 mg) PO TID #810 07/08/23 caps finasteride 5 mg tablet 2.5 mg (1/2 x 5 mg) PO QDAY #45 09/19/23 tabs Allergies Allergy/AdvReac Type Severity Reaction Status Date / Time oxycodone Allergy Intermediate Itching Verified 09/19/23 13:47 iohexol Allergy Mild Urticaria Verified 09/19/23 13:47 erythromycin base AdvReac Mild Nausea Verified 09/19/23 13:47 Review of Systems Status of ROS: Reports: 10 or more systems reviewed and unremarkable except as noted in History and below [facility] Medical History (Updated 10/26/23 @ 19:53 by Dino Crawford DO) Nonscarring hair loss, unspecified ?L65.9 - Nonscarring hair loss, unspecified (ICD-10) History of Clostridium difficile colitis (2016) ?Z86.19 - Personal history of other infectious and parasitic diseases (ICD- 10) Surgical History (Updated 05/08/22 @ 15:15 by Siri Quiroga MD) History of carpal tunnel surgery ?Z98.890 - Other specified postprocedural states (ICD-10) History of tubal ligation (02/01/12) ?Z98.51 - Tubal ligation status (ICD-10) 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) ?Z96.649 - Presence of unspecified artificial hip joint (ICD-10) History of repair of rotator cuff (2018) ?Z98.890 - Other specified postprocedural states (ICD-10) History of blepharoplasty (2009) ?Z98.890 - Other specified postprocedural states (ICD-10) History of bilateral cataract extraction (2018) ?Z98.41 - Cataract extraction status, right eye (ICD-10) ?Z98.42 - Cataract extraction status, left eye (ICD-10) History of bilateral breast reduction surgery (02/01/12) ?Z98.890 - Other specified postprocedural states (ICD-10) Family History (Updated 06/11/23 @ 08:57 by Kathie Strickland) Aunt Diabetes Grandfather Diabetes Social History Smoking Status: Never smoker How often do you have a drink containing alcohol: never AUDIT-C Alcohol total score: 0 Non-prescribed substance use: denies use Little interest or pleasure in doing things: several days Feeling down, depressed, or hopeless: several days Exam Narrative: Exam Narrative: Const: Well-nourished, Well-developed, in mild distress Eyes: PERRL, no conjunctival injection, and symmetrical lids HENT: Atraumatic external nose and ears. Moist mucous membranes. Neck: Symmetric, trachea midline, No thyromegaly. CVS: RRR, No murmurs or gallops. Peripheral pulses 2+ and equal in all extr emities RESP: Unlabored respiratory effort. Clear to auscultation bilaterally. GI: Mild epigastric tenderness, Nondistended, No rebound or guarding. MSK:Extremities w/o deformity, Normal Active ROM Skin: Warm, Dry. No rashes or lesions. Neuro: Normal Muscle tone, No focal neurological deficits. Psych: Awake, Alert, & Oriented x3. Appropriate mood and affect. Const: Vital Signs, click to edit/add: Vital Signs - 24 hr 10/26/23 16:41 10/26/23 18:20 Temperature 97.6 F Pulse Rate 82 Pulse Rate [Pulse Oximeter] 102 H Respiratory Rate 18 18 Blood Pressure [Ri ght Upper Arm] 142/75 H Pulse Oximetry 96 96 Oxygen Delivery Me thod Room Air Course Vital Signs Vital signs: Initial Vital Signs Temperature 97.6 F 10/26/23 16:41 Temperature Source Temporal Artery Scan 10/26/23 16:41 Pulse Rate 102 H 10/26/23 16:41 Respiratory Rate 18 10/26/23 16:41 Blood Pressure 142/75 H 10/26/23 16:41 Blood Pressure Mean 97 10/26/23 16:41 Pulse Oximetry 96 10/26/23 16:41 Oxygen Delivery Method Room Air 10/26/23 16:41 Vital Signs Temperature 97.6 F 10/26/23 16:41 Pulse Rate 102 H 10/26/23 16:41 Respiratory Rate 18 10/26/23 16:41 Blood Pressure 142/75 H 10/26/23 16:41 Pulse Oximetry 96 10/26/23 16:41 Oxygen Delivery Method Room Air 10/26/23 16:41 Temperature 97.6 F 10/26/23 16:41 Pulse Rate 82 10/26/23 18:20 Respiratory Rate 18 10/26/23 18:20 Blood Pressure 142/75 H 10/26/23 16:41 Pulse Oximetry 96 10/26/23 18:20 Oxygen Delivery Method Room Air 10/26/23 16:41 Medications Administered Medications: Discontinued Medications Generic Name Dose Route Start Last Admin Trade Name Freq PRN Reason Stop Dose Admin Lactated Ringer's 1,000 mls @ 1,000 mls/hr 10/26/23 16:53 10/26/23 19:37 Lactated Ringers 1000 Ml IV 10/26/23 17:52 Infused .Q1H ONE Infusion Ondansetron HCl 4 mg 10/26/23 16:53 10/26/23 17:39 Ondansetron Odt 4 Mg Tab PO 10/26/23 16:54 4 mg ONCE ONE Administration MDM - Nausea/Vomiting/Diarrhea MDM Narrative Medical decision making narrative: Patient is a 78-year-old female presenting to the emergency department for nausea, vomiting, diarrhea. She sounds as if she is having viral syndrome with her concurrent URI symptoms. With the epigastric pain there is some concern for pancreatitis. She is not having any melena hematochezia it seems a gastric ulcer is unlikely. A small-bowel obstruction seems unlikely to be causing her symptoms at this time. Will and of doing a CT scan of the abdomen and pelvis. Also ordered CBC, CMP, lipase, troponin, EKG, urinalysis, COVID/flu/RSV. She is tachycardic at this time the lowest her vitals do not meet SIRS criteria. Despite that I will order a lactate and blood cultures. Patient's lab work returned with a lipase of 958. This meets criteria for pancreatitis. She has slightly elevated AST and ALT are lactate 2.0. The lactate 2 point is likely secondary to dehydration. Her white count is within normal limits. She does not meet SIRS criteria at this time. We were able to get the 1st blood culture but she was a hard stick and since does not meet SIRS criteria the 2nd blood culture was canceled. CT scan showed no acute abnormalities. Chest x-ray was also ordered for her flu-like symptoms and showed no acute abnormalities. Troponin within normal limits. COVID/flu/RSV were all negative. She likely has some kind of viral syndrome but her main issues the pancreatitis at this time. She otherwise is feeling much better after Zofran and I spoke to her about admission versus discharge. She was started how she is having difficulty drinking enough fluids at home normally and there is concerned she would not stay well hydrated for the pancreatitis. Due to that she will be admitted to the hospitalist service Lab Data Labs: Lab Results 10/26/23 10/26/23 Range/Units 16:43 17:30 WBC 8.39 (4.50-11.00) K/uL RBC 4.67 (4.00-5.20) m/uL Hgb 14.5 (12.0-16.0) gm/dL Hct 43.0 (33.0-51.0) % MCV 92 (80-100) fL MCH 31 (26-34) pg MCHC 34 (32-36) gm/dL RDW Coeff of Jody 13.2 (11.5-15.5) % Plt Count 184 (140-440) K/uL Neut % (Auto) 87.5 H (42.0-72.0) % Lymph % (Auto) 9.1 L (20-44) % Lenoir % (Auto) 2.7 (0.0-11.0) % Eos % (Auto) 0.2 (0.0-7.0) % Baso % (Auto) 0.1 (0.0-3.0) % Neut # (Auto) 7.30 H (1.7-7.0) K/uL Lymph # (Auto) 0.80 L (0.90-2.90) K/uL [place] # (Auto) 0.20 (0.00-0.90) K/UL Eos # (Auto) 0.02 (0.00-0.50) K/uL Baso # (Auto) 0.01 (0.00-0.30) K/uL Abs Immat Gran (auto) 0.03 (0.00-0.30) K/uL Imm/Tot Granulo (auto) 0.4 % Sodium 136 (135-149) mmol/L Potassium 4.6 (3.6-5.1) mmol/L Chloride 102 (96-114) mmol/L Carbon Dioxide 21 (20-32) mmol/L Anion Gap 13 (7-15) mEq/L BUN 28 (7-30) mg/dL Creatinine 1.1 (0.5-1.5) mg/dL Estimated Creat Clear 36.40 Estimated GFR 51 ml/min Glucose 197 H (60-115) mg/dL Lactate 2.0 H (0.5-1.9) mmol/L Calcium 9.4 (8.4-10.6) mg/dL Total Bilirubin 0.8 (0.1-1.5) mg/dL AST 54 H (12-35) U/L ALT 44 H (4-35) U/L Alkaline Phosphatase 64 (40-150) U/L Total Protein 8.5 H (6.0-8.3) g/dL Albumin 4.9 (3.3-5.0) g/dL Lipase 958 H (23-300) U/L SARS-CoV-2 (PCR) Negative SARS-CoV-2 (Negative) Influenza Type A (PCR) Negative PCR FLU A (Negative) Influenza Type B (PCR) Negative PCR FLU B (Negative) RSV (PCR) Negative PCR RSV (Negative) POC Troponin I 0.00 L (0.01-0.04) ng/ml Imaging Data Chest x-ray: Radiologist's impression: No focal pulmonary opacities. No pneumothorax. Dictated by Nikolay Saucedo MD @ 10/26/2023 5:56:[address] scan abdomen and pelvis: Radiologist's impression: 1. No acute findings in the abdomen or pelvis. Please note that all CT scans at this facility use dose modulation, iterative reconstruction, and/or weight-based dosing when appropriate to reduce radiation dose to as low as reasonably achievable. Dictated by Mary Jo Saucedo MD @ 10/26/2023 7:28:15 PM Discharge Plan Discharge Clinical Impression: Acute pancreatitis Qualifiers: Pancreatitis type: unspecified pancreatitis type Acute pancreatitis complication: unspecified Qualified Code(s): K85.90 - Acute pancreatitis without necrosis or infection, unspecified Patient Disposition: Home, Self-Care Condition: Improved Prescriptions: No Action cholecalciferol (vitamin D3) 25 mcg (1,000 unit) tablet,chewable 1,000 unit PO QDAY mecobalamin (vitamin B12) 1,000 mcg tablet,chewable 1,000 mcg PO QDAY Trulicity 1.5 mg/0.5 mL pen injector subcut .once per week metformin 500 mg tablet 250 mg PO BIDWMEAL cetirizine 10 mg tablet 10 mg PO QDAY aspirin 81 mg tablet,delayed release (DR/EC) 81 mg PO DAILY multivitamin Tablet 1 tab PO QDAY Adult 50 Plus Probiotic 4 billion cell capsule 4,000 mmu cells PO QDAY Rx Instructions: administer with a meal psyllium Packet 2 packet PO QDAY PRN Rx Instructions: mix into at least 8 oz of water or juice before administering atorvastatin 40 mg tablet 40 mg PO QHS Qty: 90 3RF levothyroxine 88 mcg tablet 88 mcg PO Q48H Qty: 45 3RF Rx Instructions: alternate every other day with 100 mcg lisinopril 10 mg tablet 10 mg PO QDAY Qty: 90 3RF triamterene-hydrochlorothiazid 37.5-25 mg capsule 1 cap PO QDAY Qty: 90 3RF atenolol 25 mg tablet 25 mg PO QDAY Qty: 30 0RF levothyroxine 100 mcg tablet 100 mcg PO Q48H Qty: 45 1RF Rx Instructions: Alternate every other day with 88 mcg tablets (DME) Contour Next Test Strips Strip See Rx Instructions .Route Qty: 100 3RF Rx Instructions: to test blood sugars twice daily gabapentin 300 mg capsule 900 mg PO TID Qty: 63 0RF gabapentin 300 mg capsule 900 mg PO TID Qty: 810 1RF finasteride 5 mg tablet 2.5 mg PO QDAY Qty: 45 2RF Follow Up/Referrals: Siri Quiroga MD [Primary Care Provider] - Stand Alone Forms: [facility] Info Instructions
--- OUTSIDE RECORDS SUMMARY | 2023-10-26 16:59 | XMS_ITS ---
Author Name Unknown Organization [facility] Address [address] [place] [address] Care Team Providers Care Die Reamer Name Role Phone Unavailable Unavailable Unavailable Surgery Details Not on file Complications Check Surgery Details section. Procedure Estimated Blood Loss Check Surgery Details section. Procedure Findings Check Surgery Details section. Procedure Specimens Taken Check Surgery Details section.
--- OUTSIDE RECORDS SUMMARY | 2023-10-26 16:59 | XMS_ITS | Encounter Summary ---
Author Name Unknown Organization [facility] Address [address] [place] [address] Care Team Providers Care Rivet Heater Name Role Phone Unavailable Primary Care Provider Tanna lozoya Encounter Details Date Type Department Care Team (Latest Contact Info) Description 04/29/2023 2:56 PM CDT - 04/29/2023 11:59 PM CDT Hospital Encounter Department of Laboratory Medicine in [place], [place] [address] [phone] Kezia Romero P.A.-C., P.A. 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 Three times a week 04/26/2021 Frequency of Social Gatherin gs with Friends and Family Not on file 04/26/2021 How often do you attend chur ch or hinduism services? More than 4 times per year 04/26/2021 Do you belong to any clubs o r organizations such as spiritism groups, unions, fraternal or athletic groups, or school groups? Yes 04/26/2021 How often do you attend meet ings of the clubs or organizations you belong to? More than 4 times per year 04/26/2021 Are you , , di vorced, , never , or living with a partner? 04/26/2021 AUDIT-C Answer Date Recorded Q1: How often do you have a drink containing alc ohol? Never 04/26/2021 Average Number of Drinks Not on file 021 Frequency of Binge Drinking Not on file 04/16 Overall Financial Resource Strain (CARDIA) Answe r Date Recorded How hard is it for you to pa y for the very basics like food, housing, medical care, and heating? Not hard at all 04/26/2021 [facility] - Occupational Stress Questionnaire Answer Date Recorded Do you feel stress - tense, restless, nervous, or anxious, or unable to sleep at night because your mind is troubled all the time - these days? Only a little 04/26/2021 Exercise Vital Sign Answer Date Recorde d On average, how many days pe r week do you engage in moderate to strenuous exercise (like a brisk walk)? 0 days 04/26/2021 On average, how many minutes do you engage in exercise at this level? 0 min 04/26/2021 Hunger Vital Sign Answer Date Recorded Within the past 12 months, y ou worried that your food would run out before you got the money to buy more. Never true 04/26/20 21 Within the past 12 months, t he food you bought just didn't last and you didn't have money to get more. Never true 04/26/2021 PRAPARE - Transportation Answer Date Re corded In the past 12 months, has l ack of transportation kept you from medical appointments or from getting medications? No 04/16 In the past 12 months, has l ack of transportation kept you from meetings, work, or from getting things needed for daily living? No 04/26/2021 Housing Stability Vital Sign Answer Seun e Recorded In the last 12 months, was t here a time when you were not able to pay the mortgage or rent on time? No 04/26/2021 In the last 12 months, how many places have you lived? 1 04/26/2021 In the last 12 months, was t here a time when you did not have a steady place to sleep or slept in a alf (including now)? No 04/26/2021 Nutrition Answer Date Recorded Nutrition: EVOO Fat Source No 04/26 On average, how many serving s of fruits and vegetables do you eat per day (serving size is equal to 1 cup or approximately the size of a tennis ball)? 0-1 04/26/2021 Dental Answer Date Recorded Dental: Regular Dentist Yes 09/16/19 Employment Answer Date Recorded Employment status Retired 04/26/2021 Education Answer Date Recorded What is the highest level of school you have completed or the highest degree you have received? 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 0 03/12/2017 atenolol (for_TENORMIN) 25 mg tablet Take 25 mg by mouth. 0 03/22/2014 atorvastatin (LIPITOR) 40 mg tablet Take 20 mg by mouth daily. 0 B.ANI/L.ACI/L.JULIO/L.PLAN /L.DONAVAN (PROBIOTIC FORMULA ORAL) Take 1 capsule by mouth daily. 0 03/27/2017 cetirizine (for_ZyrTEC) 10 mg tablet Take 10 mg by mouth. 0 03/22/2014 ESOMEPRAZOLE MAGNESIUM (NEXIUM ORAL) Take by mouth daily. 0 07/19/2014 gabapentin (for_NEURONTIN) 300 mg capsule Take 300 mg by mouth. 0 03/22/2014 levothyroxine (SYNTHROID, LEVOTHROID) 100 mcg tablet 1 tablet (100 mcg total) every other day. 0 03/28/2023 levothyroxine (SYNTHROID, LEVOTHROID) 88 mcg tablet Take 1 tablet (88 mcg total) by mouth every other day. 0 03/28/2023 lisinopril (for_PRINIVIL,ZESTRIL) 10 mg tablet Take 1 tablet by mouth daily. 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 90 tablet 3 03/28/2023 03/27/2024 MULTIVITAMIN WITH MINERALS ORAL Take 1 capsule by mouth daily. 0 04/29/2013 psyllium (for_KONSYL) oral powder Take by mouth. 0 03/22/2014 triamterene-hydroCHLOROt hiazide (for_DYAZIDE) 37.5-25 mg per capsule Take 1 capsule by mouth. 0 03/22/2014 dulaglutide (TRULICITY) 0.75 mg/0.5 mL injectionIndications:typ e 2 diabetes mellitus Inject 0.5 mL (0.75 mg total) under the skin every 7 (seven) days Indications: type 2 diabetes mellitus. 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 7 each 3 03/28/2023 06/05/2023 documented as of this encounter Miscellaneous Notes * Result Encounter Note - Kezia Romero P.A.-C. - 06/05/2023 12:24 PM CDT Reviewed BMP and current A1c of 7.1% during today's face to face visit. Kezia Romero P.A.-C. documented in this encounter Plan of Treatment Upcoming Encounters Date Type Department Care Team (Late st Contact Info) Description 11/05/2023 9:50 AM MACHINE JOINER CEMENTER Appointment Department of Laboratory Medicine in [place], [place] [address] [phone] Kezia Romero P.A.-C., P.A. [address] [place] [phone] 11/14/2023 9:30 AM MACHINE JOINER CEMENTER Office Visit Department of Endocrinology in [place], [place] [address] [place] [phone] Kezia Romero P.A.-C., P.A. 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) documented in this encounter Results * (ABNORMAL) Basic Metabolic Panel (04/29/2023 3:03 PM CDT) Potassium, P 4.5 3.6 - 5.2 mmol/L 04/29/2023 3:32 PM CDT OWAT Sodium, P 137 135 - 145 mmol/L 04/29/2023 3:32 PM CDT OWAT Chloride, P 99 98 - 107 mmol/L 04/29/2023 3:32 PM CDT OWAT Bicarbonate, P 24 22 - 29 mmol/L 04/29/2023 3:32 PM CDT OWAT Anion Gap, P 14 7 - 15 04/29/2023 3:32 PM CDT OWAT BUN (Blood Urea Nitrogen), P 20 6 - 21 mg/dL 04/29/2023 3:32 PM CDT OWAT Creatinine 1.30(H) 0.59 - 1.04 mg/dL 04/29/2023 3:32 PM CDT OWAT Estimated GFR (eGFR) 42(L) >=60 mL/min/BSA 04/29/2023 3:32 PM CDT OWAT Comment: Estimated GFR calculated using the 2020 CKD_EPI creatinine equation. Calcium, Total, P 9.9 8.8 - 10.2 mg/dL 04/29/2023 3:32 PM CDT OWAT Glucose, P 128 70 - 140 mg/dL 04/29/2023 3:32 PM CDT OWAT Blood (Blood, Venous) 04/29/2023 3:03 PM CDT 04/29/2023 3:05 PM CDT Kezia Romero P.A.-C., P.A. 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
--- OUTSIDE RECORDS SUMMARY | 2023-10-26 16:59 | XMS_ITS | Referral Summary ---
Author Name Unknown Organization [facility] Address [address] [place] [id number] Care Team Providers Care Continuous Miner Operator Helper Name Role Phone Unavailable Primary Care Provider Unavailabl e Source Comments Patient records contain information from all sites at [facility]. For routine questions regarding patient records, call [phone] during business hours, M-F 8:00 AM - 5:00 PM Central Time. Record requests for emergency care only can be directed to [phone] at any time.[facility] Allergies Active Allergy Reactions Criticality Noted Date Comments Erythromycin GI intolerance 04/29/2013 Morphine Rash 07/23/2018 Medications Medication Sig Dispensed Refills Start Date End Date Status aspirin 81 mg chewable tablet Chew 81 mg daily. 0 03/12/2017 Active cetirizine (for_ZyrTEC) 10 mg tablet Take 10 mg by mouth. 0 03/22/2014 Active atenolol (for_TENORMIN) 25 mg tablet Take 25 mg by mouth. 0 03/22/2014 Active B.ANI/L.ACI/L.JULIO/L. PLAN/L.DONAVAN (PROBIOTIC FORMULA ORAL) Take 1 capsule by mouth daily. 0 03/27/2017 Active lisinopril (for_PRINIVIL,ZESTRI L) 10 mg tablet Take 1 tablet by mouth daily. 0 03/12/2017 Active MULTIVITAMIN WITH MINERALS ORAL Take 1 capsule by mouth daily. 0 04/29/2013 Active psyllium (for_KONSYL) oral powder Take by mouth. 0 03/22/2014 Active gabapentin (for_NEURONTIN) 300 mg capsule Take 300 mg by mouth. 0 03/22/2014 Active ESOMEPRAZOLE MAGNESIUM (NEXIUM ORAL) Take by mouth daily. 0 07/19/2014 Active triamterene-hydroCHL OROthiazide (for_DYAZIDE) 37.5-25 mg per capsule Take 1 capsule by mouth. 0 03/22/2014 Active levothyroxine (SYNTHROID, LEVOTHROID) 88 mcg tablet Take 1 tablet (88 mcg total) by mouth every other day. 0 03/28/2023 Active levothyroxine (SYNTHROID, LEVOTHROID) 100 mcg tablet 1 tablet (100 mcg total) every other day. 0 03/28/2023 Active atorvastatin (LIPITOR) 40 mg tablet Take 20 mg by mouth daily. 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 90 tablet 3 03/28/2023 03/27/2024 Active dulaglutide (Trulicity) 1.5 mg/0.5 mL pen injector injectionIndications :type 2 diabetes mellitus Inject 0.5 mL (1.5 mg total) under the skin every 7 (seven) days Indications: type 2 diabetes mellitus. 6 mL 3 06/05/2023 06/04/2024 Active Active Problems Problem Noted Date Diagnosed Date Diabetes Mellitus Type 2 Wit h Unspecified Diabetic Retinopathy Without Macular Edema 04/10/2023 Diabetes Mellitus Type 2 Without Complication Obesity Body Mass Index 30-39.9 Adult 04/10/2023 Immunizations Name Administration Dates Next Due HepB Adult 12/08/1993,07/24/1993,06/22/1993 Social History Tobacco Use Types Packs/Day Years [...] file 04/26/2021 How often do you attend [facility] or jehovah's witness services? More than 4 times per year 04/26/2021 Do you belong to any clubs o r organizations such as congregation groups, unions, fraternal or [...] and heating? Not hard at all 04/26/2021 [facility] - Occupational Stress [...] slept in a long term (including now)? No 04/26/2021 Nutrition Answer Date [...] Sex Assigned at Female 07/23/2018 9:43 AM ADVERTISING MATERIAL DISTRIBUTOR Gender Identity Female 07/23/2018 9:43 AM ADVERTISING MATERIAL DISTRIBUTOR Sexual Orientation Straight 07/23/2018 9: 43 AM ADVERTISING MATERIAL DISTRIBUTOR Last Filed Vital Signs Vital Sign Reading Time Taken Comments Blood Pressure 120/60 06/05/2023 11:08 AM CDT Pulse 72 06/05/2023 11:08 AM CDT Temperature - - Respiratory Rate - - Oxygen Saturation - - Inhaled Oxygen Concentration - - Weight 87.4 kg (192 lb 10.9 oz) 023 11:08 AM CDT Height 162.6 cm (5' 4.02) 06/02/2019 9:14 AM CD T Body Mass Index 33.06 06/02/2019 9:14 AM CDT Plan of Treatment Upcoming Encounters Date Type Department Care Team (Late st Contact Info) Description 11/05/2023 9:50 AM ADVERTISING MATERIAL DISTRIBUTOR Appointment Department of Laboratory Medicine in [place], [place] [address] [place] [phone] Kezia Romero P.A.-C., P.A. [address], [place] [phone] 11/14/2023 9:30 AM ADVERTISING MATERIAL DISTRIBUTOR Office Visit Department of Endocrinology in [place], [place] [address] [place] [address] Kezia Romero P.A.-C., P.A. [address] [place] [address] Medical Devices Implanted Type Area Shrimp Packer Device Identifier Shelf Expiration Date Model / Serial / Lot Hip Implant Hip Implant Bilateral : Hip
--- OUTSIDE RECORDS SUMMARY | 2023-10-26 16:59 | XMS_ITS | Encounter Summary ---
Author Name Unknown Organization [facility] Address [address] [place] [address] Care Team Providers Care Tire Servicer Name Role Phone Unavailable Primary Care Provider Unavailabl e Reason for Referral * Outpatient (Routine) - Authorized Specialty Diagnoses / Procedures Referred By Elva navas Referred To Contact Endocrinology Diagnoses Diabetes Mellitus Type 2 Without Complication (HCC) Kezia Romero P.A.-C., P.A. 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 [address] [phone] [facility] Region Referral ID Status Reason Start Date Expiration Date Visits Re quested Visits Authorized [id number] Closed 03/28/2023 03/27/2026 1 1 Encounter Details Date Type Department Care Team (Late st Contact Info) Description 06/05/2023 11:30 AM CDT Office Visit Department of Endocrinology in [place], [place] [address] [place] [address] Kezia Romero P.A.-C., P.A. 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 More than 4 times per year 04/26/2021 Do you belong to any clubs o r organizations such as nondenominational groups, unions, fraternal or [...] and heating? Not hard at all 04/26/2021 [facility] of Occupat ional Health - Occupational Stress [...] slept in a skilled nursing (including now)? No 04/26/2021 Nutrition Answer Date [...] Sex Assigned at Female 07/23/2018 9:43 AM DATA KEYER Gender Identity Female 07/23/2018 9:43 AM DATA KEYER Sexual Orientation Straight 07/23/2018 9: 43 AM DATA KEYER documented as of this encounter Last Filed Vital Signs Vital Sign Reading Time Taken Comments Blood Pressure 120/60 06/05/2023 11:08 AM CDT Pulse 72 06/05/2023 11:08 AM CDT Temperature - - Respiratory Rate - - Oxygen Saturation - - Inhaled Oxygen Concentration - - Weight 87.4 kg (192 lb 10.9 oz) 023 11:08 AM CDT Height - - Body Mass Index 33.06 06/02/2019 9:14 AM CDT documented in this encounter Patient Instructions * Patient Instructions* Kezia Romero P.A.-C. - 06/05/2023 11:30 AM CDT Continue Metformin 250 mg twice daily. Increase Trulicity to 1.5 mg once weekly. Have primary care provider check kidney function 1 month after starting the 1.5 mg dose of Trulicity. A1c due again: 09/04/2023. Current A1c: 7.1%. Endo return visit: September,. Continue to work towards 64 oz water daily. GLP-1 agonists - include: Victoza, Trulicity, Ozempic, and oral Rybelsus. - help with appetite regulation; reduced speed of gastric emptying; helps slightly with pancreatic insulin production. - also help with weight loss and cardiac protection. - possible side effects: nausea/vomiting (usually associated with overeating). - need to stop eating as soon as you feel full- do not overeat. - risk: pancreatitis: rare, but possible--> inflammation of pancreas- causes severe epigastric abdominal pain that radiates through to the back like arrow, usually with fever/chills/nausea/vomiting. If note symptoms, would need to be seen emergently. - Victoza- dosed daily; - Trulicity- dosed weekly; - Ozempic- dosed weekly; - Rybelsus- oral tablet daily. documented in this encounter Progress Notes * Kezia Romero P.A.-C. - 06/05/2023 11:30 AM CDT SUBJECTIVE CHIEF COMPLAINT Chief Complaint Patient presents with Diabetes Referring Provider: Dr. Micehlle Quiroga Daisetta. HISTORY OF PRESENT ILLNESS Patient presents today for a evaluation and treatment of diabetes mellitus type 2. - Date of dx: 2016 - Family history of diabetes: paternal aunt and grandfather- DM2. Labs from [facility]: 02/18/2023 - A1c: 7.3%- 02/18/2023. Other labs: - potassium: 4.1; - creat: 1.2; - eGFR: 47; - glucose: 166; - ALT: 33; - T; - Cholesterol: 140; - LDL: 45; - HDL: 52. Diabetes related medication: - metformin 250 mg twice daily- notes significantly reduced diarrhea, and no episodes of fecal incontinence. - Trulicity: 0.75 mg once weekly. Denies abdominal pain, nausea, vomiting. - Patient had previously been on: Metformin XR- stopped r/t lack of efficacy. Glipizide- stopped r/t hypoglycemia. - History of pancreatitis: none. Current T- 02/18/2023 - History of pancreatic cancer: none. - History of medullary thyroid cancer: self: none; family: none. - History of MEN (multiple endocrine neoplasia-2): none. - History of recurrent UTIs: past hx. - History of recurrent vaginal infections: hx yeast infection. Blood glucose monitoring: - Frequency: not checking. - Blood glucose values: none available. Hypoglycemia: - Hypoglycemia: no. - Frequency of hypoglycemia: none currently. - Patient does have symptoms of hypoglycemia- low of 60. - Symptoms of hypoglycemia include: confusion, 'impending doom'. - Hypoglycemic treatment: OJ/M&Ms - Glucagon available: none - History of hypoglycemia that needed treatment assistance: never. Complication/Comorbidity management: - Complications: Retinopathy. - hx stanford's: currently alternates between 100 mcg and 88 mcg every other day. - Aspirin therapy: 81 mg ASA. - Statin therapy: atorvastatin 40 mg daily. - CHEOM/Arb therapy: Lisinopril. - Last diabetic eye exam: early 03/2023- Dr. Castillo Daisetta, known stable retinopathy. No macular edema. S/p cataract repair. - Last Diabetic foot exam/ Monofilament: every 6 months with PCP. - Daily Self Foot Exam: yes. Patient has not noted any signs of erythema or ulceration. she has hadany numbness in her feet that she is aware of- relates to hx of hip replacement, also notes numbness in right forefoot. Numbness has been going on for 9 years ago- s/p hip replacement. - Patient describes her mood as 'stable'. Social history: - Patient does not use tobacco products. Reports 2nd hand smoke exposure from to 1979. - Alcohol intake: none. - Last Certified Food Service Clerk Visit: none recently. - Last Comber Fixer Visit: none recently. Current Diet: 2 meals daily--> late breakfast and early supper. - Beverage intake: limited water; coffee q a.m.; milk/water with meal. Notes drinking 3-4 glasses of water daily. Current Exercise: ADLs. Water aerobics- 7 a.m. 3 days weekly. Work: retired. Marital status: . MEDICATIONS Current Outpatient Medications Medication Sig aspirin 81 mg chewable tablet Chew 81 mg daily. atenolol (for_TENORMIN) 25 mg tablet Take 25 mg by mouth. atorvastatin (LIPITOR) 40 mg tablet Take 20 mg by mouth daily. B.ANI/L.ACI/L.JULIO/L.PLAN/L.DONAVAN (PROBIOTIC FORMULA ORAL) Take 1 capsule by mouth daily. cetirizine (for_ZyrTEC) 10 mg tablet Take 10 mg by mouth. ESOMEPRAZOLE MAGNESIUM (NEXIUM ORAL) Take by mouth daily. gabapentin (for_NEURONTIN) 300 mg capsule Take 300 mg by mouth. levothyroxine (SYNTHROID, LEVOTHROID) 100 mcg tablet 1 tablet (100 mcg total) every other day. levothyroxine (SYNTHROID, LEVOTHROID) 88 mcg tablet Take 1 tablet (88 mcg total) by mouth every other day. lisinopril (for_PRINIVIL,ZESTRIL) 10 mg tablet Take 1 tablet by mouth daily. metFORMIN (GLUCOPHAGE) 500 mg tablet Take 0.5 tablets (250 mg total) by mouth 2 (two) times a day with meals. MULTIVITAMIN WITH MINERALS ORAL Take 1 capsule by mouth daily. psyllium (for_KONSYL) oral powder Take by mouth. triamterene-hydroCHLOROthiazide (for_DYAZIDE) 37.5-25 mg per capsule Take 1 capsule by mouth. dulaglutide (Trulicity) 1.5 mg/0.5 mL pen injector injection Inject 0.5 mL (1.5 mg total) under theskin every 7 (seven) days Indications: type 2 diabetes mellitus. REVIEW OF SYSTEMS Constitutional: Positive for night sweats. Cardiovascular: Positive for chest pain, pressure or tightness. Gastrointestinal: Positive for abdominal (belly) pain or cramping and diarrhea. Musculoskeletal: Positive for pain or stiffness in the joints, back pain and muscle pain/stiffness. Neurological: Positive for numbness or shooting pain in hands, arms, legs, or feet, loss of balanceor tendency to fall easily, headaches and weakness in arms or legs. The following systems were negative: Skin, Eyes, ENT, Respiratory, Genitourinary, Hematologic, Psychiatric HISTORY REVIEW: The following portions of the patient's history were reviewed: allergies, current medications, family history, social history, medical history, surgical history and problem list OBJECTIVE PHYSICAL EXAM BP 120/60 (BP Location: Right arm, Patient Position: Sitting, Cuff Size: Regular) Pulse 72 Wt 87.4 kg LMP (LMP Unknown) BMI 33.06 kg/m?? GENERAL: Well developed, well nourished. No apparent distress. Appearance, behavior, and speech areappropriate. SKIN: Warm to touch, good turgor. No rash on exposed skin. MUSCULOSKELETAL: Gait normal. NEUROLOGICAL: Mental Status: Alert and oriented times 3, relaxed, and cooperative. Normal affect. DIAGNOSTICS Wt Readings from Last 3 Encounters: 06/05/23 87.4 kg 06/02/19 93.3 kg 07/23/18 91.3 kg Most Recent Diabetic Monitoring Labs: Last A1c: Lab Results Component Value Date HGBA1C 7.1 (H) 06/05/2023 Last urine microalbumin: Last lipid panel: Last Creatinine: Lab Results Component Value Date CREATININE 1.30 (H) 04/29/2023 Lab Results Component Value Date EGFR 42 (L) 04/29/2023 ASSESSMENT / PLAN #1 Diabetes Mellitus Type 2 Without Complication (HCC) - dulaglutide (Trulicity) 1.5 mg/0.5 mL pen injector injection; Inject 0.5 mL (1.5 mg total) under the skin every 7 (seven) days Indications: type 2 diabetes mellitus., Starting 06/05/2023, Until Melissa 06/04/2024, Normal - Hemoglobin A1c; Future; Expected date: 09/04/2023 - Endocrinology office visit (clinic); Future; Expected date: 10/09/2023 #2 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 - patient reports good tolerance of 250 mg of metformin twice daily. Denies diarrhea. Denies fecal incontinence. -patient is currently taking Trulicity 0.75 mg once weekly. Denies side effects. Reports no abdominal pain, nausea, vomiting. - discussed possibility of increasing dose to 1.5 mg Trulicity once weekly. Patient is agreeable. Reviewed possible risks and side effects of higher dose Trulicity. - Reviewed possible risks and side effects of GLP-1 agonist therapy. -patient has no absolute contraindications to GLP-1 agonist therapy. -patient is made aware of signs and symptoms of pancreatitis, and is aware she notes signs or symptoms of pancreatitis she needs to be seen emergently. She is aware the occurrence of pancreatitis associated with GLP-1 agonist use is rare. -advised patient to increase blood glucose monitoring. -recommend patient continue to work on increasing intake of caffeine-free fluids. She is now drinking 3-4 glasses of water daily, up from only 16 oz daily. - She does note overall feeling well currently. -advised patient to have PCP check renal function approximately 4 weeks after starting 1.5 mg weekly Trulicity. Patient is agreeable. She follows with her PCP in 1 week. -next A1c is due 09/04/2023. This is ordered. -current A1c is well-controlled at 7.1%. - patient will follow with endocrinology in September,. PLAN: Continue Metformin 250 mg twice daily. Increase Trulicity to 1.5 mg once weekly. Have primary care provider check kidney function 1 month after starting the 1.5 mg dose of Trulicity. A1c due again: 09/04/2023. Current A1c: 7.1%. Endo return visit: September,. Continue to work towards 64 oz water daily. GLP-1 agonists: - include: Victoza, Trulicity, Ozempic, and oral Rybelsus. - help with appetite regulation; reduced speed of gastric emptying; helps slightly with pancreatic insulin production. - also help with weight loss and cardiac protection. - possible side effects: nausea/vomiting (usually associated with overeating). - need to stop eating as soon as you feel full- do not overeat. - risk: pancreatitis: rare, but possible--> inflammation of pancreas- causes severe epigastric abdominal pain that radiates through to the back like arrow, usually with fever/chills/nausea/vomiting. If note symptoms, would need to be seen emergently. - Victoza- dosed daily; - Trulicity- dosed weekly; - Ozempic- dosed weekly; - Rybelsus- oral tablet daily. - Self-monitoring of blood glucose: Recommend fingersticks at least once daily. -Goal hemoglobin A1C: Less than 7.5% without hypoglycemia. -Goal capillary plasma glucose: Fasting and preprandial: 90-140 mg/dL; 2 hour peak postprandial blood glucose goal: Less than 140 mg/dL. -Frequency of hemoglobin A1C measurement: Every 3 months. Next due 09/04/2023. - Certified Food Service Clerk visit: declined. - Next Diabetic Follow-up Visit: 4 months. Tobacco cessation: Does not use tobacco products. Recommend daily physical activity with a goal of 30 minutes of moderate intensity activity most days per week. Consume a consistent well balanced diet and no intake of sweetened beverages. Inspect feet daily and have annual diabetic eye exam. Check lipid panel, creatinine, and urine microalbumin toñito ually, more frequently if levels not at goal. Patient states she understands and agrees with current care plan. No learning barriers noted. No further questions today. Total time: 37 minutes with time also spent in chart review and lab review. Kezia Romero P.A.-C. Patient Instructions Continue Metformin 250 mg twice daily. Increase Trulicity to 1.5 mg once weekly. Have primary care provider check kidney function 1 month after starting the 1.5 mg dose of Trulicity. A1c due again: 09/04/2023. Current A1c: 7.1%. Endo return visit: September,. Continue to work towards 64 oz water daily. GLP-1 agonists - include: Victoza, Trulicity, Ozempic, and oral Rybelsus. - help with appetite regulation; reduced speed of gastric emptying; helps slightly with pancreatic insulin production. - also help with weight loss and cardiac protection. - possible side effects: nausea/vomiting (usually associated with overeating). - need to stop eating as soon as you feel full- do not overeat. - risk: pancreatitis: rare, but possible--> inflammation of pancreas- causes severe epigastric abdominal pain that radiates through to the back like arrow, usually with fever/chills/nausea/vomiting. If note symptoms, would need to be seen emergently. - Victoza- dosed daily; - Trulicity- dosed weekly; - Ozempic- dosed weekly; - Rybelsus- oral tablet daily. documented in this encounter Plan of Treatment Upcoming Encounters Date Type Department Care Team (Late st Contact Info) Description 11/05/2023 9:50 AM DATA KEYER Appointment Department of Laboratory Medicine in [place], [place] [address] [phone] Kezia Romero P.A.-C., P.A. [address] [phone] 11/14/2023 9:30 AM DATA KEYER Office Visit Department of Endocrinology in [place], [place] [address] [phone] Kezia Romero P.A.-C., P.A. [address] [phone] Scheduled Orders Name Type Priority Associated Diagnoses Orde r Schedule Hemoglobin A1c Lab Routine Diabetes Mellitus Type 2 Without Complication (HCC) Expected: 09/04/2023, Expires: 09/04/2024 Scheduled Referrals Name Type Priority Associated Diagnoses Orde r Schedule Endocrinology office visit (clinic) Outpatient Referral Routine Diabetes Mellitus Type 2 Without Complication (HCC) Expected: 10/09/2023 (Approximate), Expires: 09/04/2024 documented as of this encounter Visit Diagnoses Diagnosis Diabetes Mellitus Type 2 Without Complication (HCC)- Primary Diabetes 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
--- OUTSIDE RECORDS SUMMARY | 2023-10-26 16:59 | XMS_ITS | Clinical Summary ---
Author Name Unknown Organization [facility] Address [place], [place] [address] Care Team Providers Care Photo Engraver Name Role Phone Siri Quiroga MD Primary Care Provider [phone] Allergies Active Allergy Reactions Criticality Noted Date Comments Erythromycin Vomiting 03/22/2014 Medications Medication Sig Dispensed Refills Start Date End Date Status lovastatin (MEVACOR) 40 mg tablet Take 1 tablet by mouth at bedtime. 0 03/22/2014 Active esomeprazole (NEXIUM) 40 mg capsule Take 1 capsule by mouth once daily before a meal. 0 03/22/2014 Active triamterene-hydrochl orothiazide, 37.5-25 mg, (DYAZIDE) 37.5-25 mg capsule Take 1 capsule by mouth every morning. 0 03/22/2014 Active atenolol (TENORMIN) 25 mg tablet Take 1 tablet by mouth once daily. 0 03/22/2014 Active levothyroxine (SYNTHROID) 75 mcg tablet Take 1 tablet by mouth once daily. 0 03/22/2014 Active cholecalciferol (VITAMIN D3) 1,000 unit capsule Take 1 capsule by mouth once daily. 0 03/22/2014 Active pyridoxine (VITAMIN B6) 100 mg tablet Take by mouth once daily. 0 03/22/2014 Active gabapentin (NEURONTIN) 600 mg tablet Take 1 tablet by mouth 3 times daily. 0 03/22/2014 Active gabapentin (NEURONTIN) 300 mg capsule Take 1 capsule by mouth 3 times daily. 0 03/22/2014 Active cetirizine (ZYRTEC) 10 mg tablet Take 1 tablet by mouth once daily. 0 03/22/2014 Active psyllium (METAMUCIL SMOOTH TEXTURE) powd Take 1 tsp by mouth once daily. 0 03/22/2014 Active Yvqefdbh-Fmnelpb-Wyc n-Lutein (CENTRUM SILVER ULTRA WOMEN'S) tab Take by mouth. 0 03/22/2014 Active esomeprazole (NEXIUM) 40 mg capsule Take 1 capsule by mouth once daily before a meal. 90 capsule 3 03/22/2014 Active ranitidine (ZANTAC) 150 mg tablet Take 1 tablet by mouth 2 times daily. 180 tablet 3 03/22/2014 Active Social History Tobacco Use Types Packs/Day Years Used Date Smoking Tobacco: Never Smokeless Tobacco: Former Tobacco Cessation:Counseling Given: Yes Alcohol Use Standard Drinks/Week Comments Not Asked 0 (1 standard drink = 0.6 oz pur e alcohol) Sex and Gender Information Value Date Recorded Sex Assigned at Not on file Gender Identity Not on file Sexual Orientation Not on file Obstetrics History Last Filed Vital Signs Vital Sign Reading Time Taken Comments Blood Pressure 123/71 03/22/2014 3:40 PM CDT Pulse 58 03/22/2014 3:40 PM CDT Temperature 36.8 ??C (98.3 ??F) 03/22/2014 3:40 PM CD T Respiratory Rate - - Oxygen Saturation 95% [...] age 18+ 1963 Hepatitis C screening for ag e 18-79 1963 Tetanus booster 1965 Zoster (shingles) series for age 50+ (1 of 2) 1995 DEXA/DXA scan for age 65+ 2010 Pneumococcal series for age 65+ (1 of 1 - PCV) 2010 COVID-19 vaccine series (2022-24 season) 2023 12/21/2021, 07/13/2021, 11/18/2020, Additional history exists Influenza for age 65+ 05/17/2023 Care Teams Photo Engraver Relationship Specialty Start Date End Date Siri uQiroga MD [address] [place] [address] PCP - General Internal Medicine 06/21/22
--- OUTSIDE RECORDS SUMMARY | 2023-10-26 16:59 | XMS_ITS | Clinical Summary ---
Author Name Unknown Organization [facility] Address [address] [place] [address] Care Team Providers Care Embedded Firmware Developer Name Role Phone Unavailable Primary Care Provider Unavailabl e Source Comments Patient records contain information from all sites at [facility]. For routine questions regarding patient records, call [phone] during business hours, M-F 8:00 AM - 5:00 PM Central Time. Record requests for emergency care only can be directed to [phone] at any time.[facility] Allergies Active Allergy Reactions Criticality Noted Date [...] Administration Dates Next Due HepB Adult 12/08/1993,07/24/1993,06/22/1993 Family History Medical History Relation Name Comments Hyperlipidemia Mother paco anna Hypertension Mother paco anna Lung cancer Mother paco anna Transient ischemic attack Mother paco anna Diabetes Paternal Grandfather angelo anna Relation Name Status Comments Father Mother paco anna Paternal Grandfather angelo anna [...] often do you attend chur ch or jewish services? More than 4 times per year 04/26/2021 Do you belong to any clubs o r organizations such as sabianism groups, unions, fraternal or [...] and heating? Not hard at all 04/26/2021 [facility] of Occupat ional [facility] - Occupational Stress Questionnaire Answer Date Recorded [...] or slept in a mcfp (including now)? No 04/26/2021 Nutrition Answer Date [...] Sex Assigned at Female 07/23/2018 9:43 AM SEM MANAGER Gender Identity Female 07/23/2018 9:43 AM SEM MANAGER Sexual Orientation Straight 07/23/2018 9: 43 AM SEM MANAGER Last Filed Vital Signs Vital Sign Reading [...] st Contact Info) Description 11/05/2023 9:50 AM SEM MANAGER Appointment Department of Laboratory Medicine in [place], [place] [address] [place] [phone] Kezia Romero P.A.-C., P.A. [address], [place] [phone] 11/14/2023 9:30 AM SEM MANAGER Office Visit Department of Endocrinology in [place], [place] [address] [place] [phone] Kezia Romero P.A.-C., P.A. [address] [place] [phone] Health Maintenance Due Date Last Done Comments Diabetic Office Visit with F oot Exam 1945 Dilated Eye Exam 1945 Hepatitis C Screening 1945 Thyroid Stimulating Hormone (TSH) test for thyroid function 1945 Urine Albumin 1945 Depression Screening (Annual PHQ-2) 09/16/2023 Fall Risk Screen (Annual) 09/16/2023 Hemoglobin A1C 12/04/2023 06/05/2023 Creatinine Level (Kidney Fun ction Test) 04/29/2024 04/29/2023 Potassium Level 04/29/2024 04/29/2023 Sodium Level 04/29/2024 04/29/2023 Office Visit for Blood Press ure Check / Re-check 06/05/2024 06/05/2023 DTaP,Tdap,and Td Vaccines (3 - Td or Tdap) 09/14/2031 09/14/2021, 08/17/2011, 04/20/2005 Hepatitis B Vaccines Completed 12/08/1993, 07/24/1993, 06/22/1993 Pneumococcal vaccine (65+ years) Completed 10/21/19 15, 08/17/2011 Zoster Vaccines Completed 10/02/2018, 05/17, 05/28/2007 Influenza Vaccine Completed 06/11/2023, , 06/01/2021, Additional history exists COVID-19 Vaccine Completed 06/19/2023, 10/2022, 06/04/2022, Additional history exists Medical Devices Implanted Type Area Pony Trimmer Device Identifier Shelf Expiration Date Model / Serial / Lot Hip Implant Hip Implant Bilateral : Hip
--- OUTSIDE RECORDS SUMMARY | 2023-10-26 16:59 | XMS_ITS | Encounter Summary ---
Author Name Unknown Organization [facility] Address [address] [place] [address] Care Team Providers Care Sample Hand Name Role Phone Unavailable Primary Care Provider Tanna lozoya Encounter Details Date Type Department Care Team (Latest Contact Info) Description 06/05/2023 9:53 AM CDT - 06/05/2023 11:59 PM CDT Hospital Encounter Department of Laboratory Medicine in [place], [place] [address] [phone] Kezia Romero P.A.-C., P.A. [address] [phone] Diabetes Mellitus Type 2 Without [...] often do you attend chur ch or zoroastrianism services? More than 4 times per year 04/26/2021 Do you belong to any clubs o r organizations such as yarsanism groups, unions, fraternal or [...] and heating? Not hard at all 04/26/2021 [facility] [place] of Occupat ional Health - Occupational Stress [...] slept in a care home (including now)? No 04/26/2021 Nutrition Answer Date [...] Sex Assigned at Female 07/23/2018 9:43 AM BANDOLEER PACKER Gender Identity Female 07/23/2018 9:43 AM BANDOLEER PACKER Sexual Orientation Straight 07/23/2018 9: 43 AM BANDOLEER PACKER documented as of this encounter Medications at [...] Take 10 mg by mouth. 0 03/22/2014 dulaglutide (Trulicity) 1.5 mg/0.5 mL pen injector injectionIndications:typ e 2 diabetes mellitus Inject 0.5 mL (1.5 mg total) under the skin every 7 (seven) days Indications: type 2 diabetes mellitus. 6 mL 3 06/05/2023 06/04/2024 ESOMEPRAZOLE MAGNESIUM (NEXIUM ORAL) Take by mouth [...] Take 1 capsule by mouth. 0 03/22/2014 documented as of this encounter Plan of Treatment Upcoming Encounters Date Type Department Care Team (Late st Contact Info) Description 11/05/2023 9:50 AM BANDOLEER PACKER Appointment Department of Laboratory Medicine in [place], [place] [address] [phone] Kezia Romero P.A.-C., P.A. [address] [phone] 11/14/2023 9:30 AM BANDOLEER PACKER Office Visit Department of Endocrinology in [place], [place] [address] [phone] Kezia Romero P.A.-C., P.A. 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 ??Diagnosis should be confirmed by repeat testing. ??In diabetic patients, HbA1c goals should be discussed with healthcare provider. Blood (Blood, Venous) 06/05/2023 10:14 AM CDT 06/05/2023 10:34 AM CDT Kezia Romero P.A.-C., P.A. LAB BL OOD ADD-ON [facility] [address] [place] [address], 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
--- OUTSIDE RECORDS SUMMARY | 2023-10-26 17:00 | XMS_ITS | Encounter Summary ---
Author Name Unknown Organization [facility] Address [address] [place] [id number] Care Team Providers Care Toggle Press Folder And Feeder Name Role Phone Unavailable Primary Care Provider Unavailabl e Reason for Visit * Reason Onset Date Comments Pre-scheduling Questionnaire 12/31/2022 Encounter Details Date Type Department Care Team (Latest Contact Info) Description 12/31/2022 Clinical Communication Department of Sports Medicine in [place], [place] [address] [place] [address] León Su M.D. [address] [facility] [address] [place] [address] Pre-scheduling Questionnaire Social History Tobacco Use Types Packs/Day Years [...] often do you attend chur ch or rastafarian services? More than 4 times per year 04/26/2021 Do you belong to any clubs o r organizations such as gnosticism groups, unions, fraternal or [...] and heating? Not hard at all 04/26/2021 [facility] of Occupat ional Health - Occupational Stress [...] or slept in a half-way (including now)? No 04/26/2021 Nutrition Answer Date [...] Sex Assigned at Female 07/23/2018 9:43 AM INFORMATION RECEPTIONIST Gender Identity Female 07/23/2018 9:43 AM INFORMATION RECEPTIONIST Sexual Orientation Straight 07/23/2018 9: 43 AM INFORMATION RECEPTIONIST documented as of this encounter Plan of Treatment Upcoming Encounters Date Type Department Care Team (Late st Contact Info) Description 11/05/2023 9:50 AM INFORMATION RECEPTIONIST Appointment Department of Laboratory Medicine in [place], [place] [address] [phone] Kezia Romero P.A.-C., P.A. [address] [phone] 11/14/2023 9:30 AM INFORMATION RECEPTIONIST Office Visit Department of Endocrinology in [place], [place] [address] [phone] Kezia Romero P.A.-C., P.A. [address] [phone] documented as of this encounter Visit Diagnoses Not on filedocumented in this encounter
--- OUTSIDE RECORDS SUMMARY | 2023-10-26 17:00 | XMS_ITS | Encounter Summary ---
Author Name Unknown Organization [facility] Address [address] [place] [address] Care Team Providers Care Atomic Physics Professor Name Role Phone Unavailable Primary Care Provider Unavailevgeny e Encounter Details Date Type Department Care Team (Late st Contact Info) Description 01/25/2023 Clinical Communication Department of Endocrinology in [place], [place] [address] [phone] Kezia Romero, PDarrel., P.A. [address] [phone] Social History Tobacco Use Types Packs/Day Years [...] often do you attend chur ch or baptist services? More than 4 times per year [...] and heating? Not hard at all 04/26/2021 [facility] of Occupat ional Health - Occupational [...] slept in a senior care (including now)? No 04/26/2021 Nutrition Answer Date [...] Sex Assigned at Female 07/23/2018 9:43 AM FIBER PRODUCT CUTTING MACHINE OPERATOR Gender Identity Female 07/23/2018 9:43 AM FIBER PRODUCT CUTTING MACHINE OPERATOR Sexual Orientation Straight 07/23/2018 9: 43 AM FIBER PRODUCT CUTTING MACHINE OPERATOR documented as of this encounter Plan of Treatment Upcoming Encounters Date Type Department Care Team (Late st Contact Info) Description 11/05/2023 9:50 AM FIBER PRODUCT CUTTING MACHINE OPERATOR Appointment Department of Laboratory Medicine in [place], [place] [address] [phone] Kezia Romero P.A.-Delbert., P.A. [address] [phone] 11/14/2023 9:30 AM FIBER PRODUCT CUTTING MACHINE OPERATOR Office Visit Department of Endocrinology in [place], [place] [address] [phone] Kezia Romero P.A.NiaC., P.A. [address] [phone] documented as of this encounter Visit Diagnoses Not on filedocumented in this encounter
--- OUTSIDE RECORDS SUMMARY | 2023-10-26 17:00 | XMS_ITS | Encounter Summary ---
Author Name Unknown Organization [facility] Address [address] [place] [address] Care Team Providers Care Steel Layout Worker Name Role Phone Unavailable Primary Care Provider Unavailevgeny lozoya Encounter Details Date Type Department Care Team (Late st Contact Info) Description 01/16/2023 [facility] [address], [place] [phone] Siri Quiroga M.D. [address] [place] [address] Social History Tobacco Use Types Packs/Day Years [...] often do you attend chur ch or christianity services? More than 4 times per year 04/26/2021 Do you belong to any clubs o r organizations such as mormon groups, unions, fraternal or [...] and heating? Not hard at all 04/26/2021 [facility] of Occupat ional Health - Occupational [...] Sex Assigned at Female 07/23/2018 9:43 AM TECHNICAL INTERNSHIP Gender Identity Female 07/23/2018 9:43 AM TECHNICAL INTERNSHIP Sexual Orientation Straight 07/23/2018 9: 43 AM TECHNICAL INTERNSHIP documented as of this encounter Plan of Treatment Upcoming Encounters Date Type Department Care Team (Late st Contact Info) Description 11/05/2023 9:50 AM TECHNICAL INTERNSHIP Appointment Department of Laboratory Medicine in [place], [place] [address] [phone] Kezia Romero P.A.-C., P.A. [address] [phone] 11/14/2023 9:30 AM TECHNICAL INTERNSHIP Office Visit Department of Endocrinology in [place], [place] [address] [phone] Kezia Romero P.A.-C., P.A. [address] [phone] documented as of this encounter Visit Diagnoses Not on filedocumented in this encounter
--- OUTSIDE RECORDS SUMMARY | 2023-10-26 17:00 | XMS_ITS | Encounter Summary ---
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 [address] [place] [address] [facility] Region Referral ID Status Reason Start Date Expiration Date Visits Re quested Visits Authorized [id number] Closed 01/09/2023 01/09/2024 1 1 Encounter Details Date Type Department Care Team (Late st Contact Info) Description 01/08/2023 [facility] [address] [place] [address] Siri Quiroga M.D. 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 More than 4 times per year 04/26/2021 Do you belong to any clubs o r organizations such as buddhism groups, unions, fraternal or [...] and heating? Not hard at all 04/26/2021 [facility] of Occupat ional Health - Occupational Stress [...] or slept in a mcc (including now)? No 04/26/2021 Nutrition Answer Date [...] Sex Assigned at Female 07/23/2018 9:43 AM PLUG MAKING OPERATOR Gender Identity Female 07/23/2018 9:43 AM PLUG MAKING OPERATOR Sexual Orientation Straight 07/23/2018 9: 43 AM PLUG MAKING OPERATOR documented as of this encounter Plan of Treatment Upcoming Encounters Date Type Department Care Team (Late st Contact Info) Description 11/05/2023 9:50 AM PLUG MAKING OPERATOR Appointment Department of Laboratory Medicine in [place], [place] [address], [place] [address] Kezia Romero P.A.-C., P.A. [address], [place] [phone] 11/14/2023 9:30 AM PLUG MAKING OPERATOR Office Visit Department of Endocrinology in [place], [place] [address] [place] [address] Kezia Romero P.A.-C., P.A. 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
--- OUTSIDE RECORDS SUMMARY | 2023-10-26 17:00 | XMS_ITS | Encounter Summary ---
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 [address] [place] [address] [facility] Referral ID Status Reason Start Date Expiration Date Visits Re quested Visits Authorized [id number] Closed 01/09/2023 01/09/2024 1 1 Encounter Details Date Type Department Care Team (Latest Contact Info) Description 03/28/2023 1:30 PM CDT Comprehensive Visit Department of Endocrinology in [place], [place] [address] [phone] Kezia Romero P.A.-C., P.A. 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 Not hard at all 04/26/2021 [facility] [place] of Occupat ional Health [...] slept in a group home (including now)? No 04/26/2021 Nutrition Answer [...] Sex Assigned at Female 07/23/2018 9:43 AM DIRECTOR NEWS Gender Identity Female 07/23/2018 9:43 AM DIRECTOR NEWS Sexual Orientation Straight 07/23/2018 9: 43 AM DIRECTOR NEWS documented as of this encounter Patient Instructions * Patient Instructions* Kezia Romero P.A.-C. - 03/28/2023 1:30 PM CDT Reduce Metformin to 1/2- 500 mg tablet twice daily--> 250 mg twice daily. Start Trulicity 0.75 mg once weekly. Take on the same day each week. Samra 2 ordered through [employer]- [phone]. Call by Saturday if you haven't heardfrom them. Ultimate goal for caffeine free fluids: 64 oz daily. Initial goal: 8 oz water 4 times daily. Continue physical therapy, and add in additional physical activity: aquatic therapy. A1c due 05/21/2023. Basic metabolic panel due in 1 month- mid-April. Follow-up with Kezia in early May--> 11:30 a.m. visit OK. GLP-1 agonists: - include: Victoza, Trulicity, Ozempic, [...] Progress Notes * Kezia Romero P.A.-C. - 03/28/2023 1:30 PM CDT SUBJECTIVE CHIEF COMPLAINT Chief Complaint Patient presents with Diabetes Referring Provider: Dr. Michelle Quiroga, [place]. HISTORY OF PRESENT ILLNESS Patient presents today for a evaluation and treatment of diabetes mellitus type 2. - Date of dx: 2016 - Family history of diabetes: paternal aunt and grandfather- DM2. Labs from [facility]: 02/18/2023 - A1c: 7.3%- 02/18/2023. Other labs: - potassium: 4.1; - creat: 1.2; - eGFR: 47; - glucose: 166; - ALT: 33; - T; - Cholesterol: 140; - LDL: 45; - HDL: 52. Diabetes related medication: - Medication: metformin 500 mg twice daily- notes frequent diarrhea with occasional incontinence. - Patient had previously been on: Metformin [...] Statin therapy: atorvastatin 40 mg daily. - CHEMO/Arb therapy: Lisinopril. - Last diabetic eye exam: early 03/2023- Dr. Acharya- [place], known stable retinopathy. No macular edema. S/p [...] - Alcohol intake: none. - Last Certified Fry Cook Visit: none recently. - Last Cfa Visit: none recently. Current Diet: 2 meals daily--> late breakfast and early supper. - Beverage intake: limited water; coffee q a.m.; milk/water with meal. Current Exercise: ADLs. Work: retired. Marital status: . MEDICATIONS Current Outpatient Medications Medication Sig aspirin 81 mg chewable tablet Chew 81 mg daily. atenolol (for_TENORMIN) 25 mg tablet Take 25 mg by mouth. B.ANI/L.ACI/L.JULIO/L.PLAN/L.DONAVAN (PROBIOTIC FORMULA ORAL) Take 1 capsule [...] per capsule Take 1 capsule by mouth. atorvastatin (LIPITOR) 40 mg tablet Take 20 mg by mouth daily. dulaglutide (TRULICITY) 0.75 mg/0.5 mL injection Inject 0.5 mL (0.75 mg total) under the skin every7 (seven) days Indications: type 2 diabetes mellitus. flash glucose sensor (PlethoraStyle Samra 2 Sensor) kit 1 each (1 kit total) every 14 (fourteen) days. REVIEW OF SYSTEMS Constitutional: Positive for night [...] Skin, Eyes, ENT, Respiratory, Genitourinary, Hematologic, Psychiatric History Review The patient's allergies, current medications, problem list, and social history were reviewed and updated as appropriate. OBJECTIVE PHYSICAL EXAM LMP (LMP Unknown) GENERAL: Well developed, well nourished. No apparent distress. Appearance, behavior, and speech areappropriate. SKIN: Warm to touch, good turgor. No rash on exposed skin. MUSCULOSKELETAL: Gait normal. NEUROLOGICAL: Mental Status: Alert and oriented times 3, relaxed, and cooperative. Normal affect. 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) - flash glucose scanning reader (FreeStyle Samra 2 [place]) misc; 1 each (1 Device total) once for 1dose., Starting Sat03/28/2023, NormalCall with cost prior to shipping/filling - flash glucose sensor (FreeStyle Samra 2 Sensor) kit; 1 each (1 kit total) every 14 (fourteen) days., Starting Sat03/28/2023, Until Sat03/27/2024, NormalCall with cost prior to dispensing #3 Obesity Body Mass Index 30-39.9 Adult Other orders - Endocrinology Referral - metFORMIN (GLUCOPHAGE) 500 mg tablet; Take 0.5 tablets (250 mg total) by mouth 2 (two) times a day with meals., Starting Sat03/28/2023, Until Sat03/27/2024, Normal - dulaglutide (TRULICITY) 0.75 mg/0.5 mL injection; Inject 0.5 mL (0.75 mg total) under the skin every 7 (seven) days Indications: type 2 diabetes mellitus., Starting Melissa 03/28/2023, Until Sat03/27/2024, NormalCall with cost prior to filling/mailing. - Basic Metabolic Panel; Future; Expected date: 04/28/2023 - Hemoglobin A1c; Future; Expected date: 05/21/2023 - Endocrinology office visit (clinic); Future; Expected date: 05/22/2023 Recommended changes: - patient notes she has had diabetes since approximately 2017. -she does report poor tolerance of metformin with occasional incontinence. -will reduce metformin further to half of a 500 mg tablet twice daily. She will take 250 mg twice daily. -patient inquires about GLP-1 agonist use. - Reviewed possible risks and side effects of GLP-1 agonist therapy. -patient has no absolute contraindications to GLP-1 agonist therapy. -patient is made aware of signs and symptoms of pancreatitis, and is aware she notes signs or symptoms of pancreatitis she needs to be seen emergently. She is aware the occurrence of pancreatitis associated with GLP-1 agonist use is rare. -will start Trulicity 0.75 mg once weekly. Patient is advised to take this on the same day each week. -patient requests prescription for FreeStyle Samra 2. Prescription sent to [employer] [facility] [employer]. Contact information provided. - recommend increased caffeine-free fluid intake. Patient notes caffeine-free fluid intake is currently quite poor at only approximately 16 oz daily. Recommend initial goal of 32 oz daily common gradually increasing overall caffeine-free fluid intake to 64 oz daily. - will update basic metabolic panel proximally 1 month after starting Trulicity. Pending lab outcome, as well as efficacy and tolerance, will then consider increasing Trulicity to 1.5 mg once weekly. -A1c due 05/21/2023. - endocrinology will see patient back in approximately 8 weeks. PLAN: Reduce Metformin to 1/2- 500 mg tablet twice daily--> 250 mg twice daily. Start Trulicity 0.75 mg once weekly. Take on the same day each week. Samra 2 ordered through [employer]- [phone]. Call by Saturday if you haven't heardfrom them. Ultimate goal for caffeine free fluids: 64 oz daily. Initial goal: 8 oz water 4 times daily. Continue physical therapy, and add in additional physical activity: aquatic therapy. A1c due 05/21/2023. Basic metabolic panel due in 1 month- mid-April. Follow-up with Kezia in early May--> 11:30 a.m. visit OK. GLP-1 agonists: - include: Victoza, Trulicity, Ozempic, [...] tablet daily. - Self-monitoring of blood glucose: FreeStyle Samra 2 sent to her pharmacy. Until she is able to receive the FreeStyle Samra 2, advised increased fingersticks. -Goal hemoglobin A1C: Less than 7.5% without hypoglycemia. -Goal capillary plasma glucose: Fasting and preprandial: 90-140 mg/dL; 2 hour peak postprandial blood glucose goal: Less than 140 mg/dL. -Frequency of hemoglobin A1C measurement: Every 3 months. Next due 05/21/2023. - Certified Fry Cook visit: declined. - Next Diabetic Follow-up Visit: 8 weeks. Tobacco cessation: Does not use tobacco products. [...] noted. No further questions today. Total time: 64 minutes with time also spent in chart review and lab review. Kezia Romero P.A.-C. Patient Instructions Reduce Metformin to 1/2- 500 mg tablet twice daily--> 250 mg twice daily. Start Trulicity 0.75 mg once weekly. Take on the same day each week. Samra 2 ordered through [employer]- [phone]. Call by Saturday if you haven't heardfrom them. Ultimate goal for caffeine free fluids: 64 oz daily. Initial goal: 8 oz water 4 times daily. Continue physical therapy, and add in additional physical activity: aquatic therapy. A1c due 05/21/2023. Basic metabolic panel due in 1 month- mid-April. Follow-up with Kezia in early May--> 11:30 a.m. visit OK. GLP-1 agonists: - include: Victoza, Trulicity, Ozempic, [...] st Contact Info) Description 11/05/2023 9:50 AM DIRECTOR NEWS Appointment Department of Laboratory Medicine in [place], [place] [address] [place] [address] Kezia Romero P.A.-C., P.A. [address] [place] [address] 11/14/2023 9:30 AM DIRECTOR NEWS Office Visit Department of Endocrinology in [place], [place] [address] [place] [address] Kezia Romero P.A.-C., P.A. 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 LAB BL OOD ADD-ON [facility] [address] [place] [address], [place] [facility] [place] [address] [place] [address] * (ABNORMAL) Basic Metabolic Panel (04/29/2023 3:03 [...] Romero P.A.-C., P.A. 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
--- OUTSIDE RECORDS SUMMARY | 2023-10-26 17:00 | XMS_ITS | Encounter Summary ---
Author Name Unknown Organization [facility] Address [address] [place] [address] Care Team Providers Care Fleet Sales Associate Name Role Phone Unavailable Primary Care Provider Unavailabl e Reason for Referral * Physical Therapy (Routine) - Authorized Specialty Diagnoses / Procedures Referred By Contac t Referred To Contact Diagnoses Pain Hip Left Pain Low Back Unspecified Trochanteric Bursitis Left Hip León Su M.D. [address] [email or web address] [address] [place] [phone] Referral ID Status Reason Start Date Expiration Date Visits Requested Visits Authorized [id number] Authorized Patient Preference 01/07/2023 01/07/2024 99 99 * Outpatient (Routine) - Closed Specialty Diagnoses / Procedures Referred By Contac t Referred To Contact Diagnoses Pain Hip Left Procedures DX Hip And Pelvis Left 2-3 Views León Su M.D. [address] [email or web address] [address] [place] [phone] [facility] Referral ID Status Reason Start Date Expiration Date Visits Re quested Visits Authorized [id number] Closed 01/07/2023 01/07/2024 1 1 Reason for Visit * Appointment Request (Routine) - Closed Specialty Diagnoses / Procedures Referred By Contac t Referred To Contact Sports Medicine Diagnoses Pain Low Back Unspecified Pain Hip Left Referral ID Status Reason Start Date Expiration Date Visits Re quested Visits Authorized [id number] Closed 12/31/2022 12/31/2023 1 1 Encounter Details Date Type Department Care Team (Late st Contact Info) Description 01/07/2023 8:00 AM CDT Office Visit Department of Sports Medicine in [place], [place] [address] [place] [address] León Su M.D. 600 [facility] [address] [place] [address] Pain Hip Left (Primary Dx); Pain Low Back Unspecified; Trochanteric Bursitis Left Hip; Spondylosis Lumbar Without Myelopathy Social History Tobacco Use Types Packs/Day Years [...] often do you attend chur ch or cheondoism services? More than 4 times per year 04/26/2021 Do you belong to any clubs o r organizations such as holiness groups, unions, fraternal or athletic groups, or [...] and heating? Not hard at all 04/26/2021 [facility] [place] of Occupat ional Health - Occupational Stress [...] or slept in a halfway (including now)? No 04/26/2021 Nutrition Answer Date [...] Sex Assigned at Female 07/23/2018 9:43 AM STRATIGRAPHY TEACHER Gender Identity Female 07/23/2018 9:43 AM STRATIGRAPHY TEACHER Sexual Orientation Straight 07/23/2018 9: 43 AM STRATIGRAPHY TEACHER documented as of this encounter Patient Instructions * Patient Instructions* Richelle Velez L.A.T., A.T.C. - 01/07/2023 8:00 AM CDT - Obtain Left Hip x-rays today - Initiate physical therapy - Begin icing 10-15 minutes, 2 times a day - Use the walking stick (in the right hand if using only one), especially when walking for long distances documented in this encounter Progress Notes * León Su M.D. - 01/07/2023 8:00 AM CDT SUBJECTIVE CHIEF COMPLAINT / REASON FOR VISIT Follow up: Low back pain and new issue of left lateral hip pain and groin pain HISTORY OF PRESENT ILLNESS Ms. Bosch returns in follow up. She reports that her low back pain has been on and off since I sawher 2 years ago. She notes about a month ago she had a flare up in pain located left glute that wraps around her lateral hip and going into the groin. She also reports pain across her low back, left greater than right. She denies any inciting event. Her pain has improved some in the last month and she notes she's no longer having pain every time she puts weight on the left leg. She reports pain is worse with crossing her left over her right, going from a sit to stand, prolonged standing, and walking. She reports intermittent numbness and tingling in the left posterior calf and plantar side ofthe foot and into her toes. She reports pain that wakes her at night, especially if she's lying on the left side. She is taking Tylenol PM at night which has been helpful for her. She has been using a walking stick as needed over the past month. MEDS Current Outpatient Medications: aspirin 81 mg chewable tablet, Chew 81 mg daily., Disp: , Rfl: atenolol (for_TENORMIN) 25 mg tablet, Take 25 mg by mouth., Disp: , Rfl: B.ANI/L.ACI/L.JULIO/L.PLAN/L.DONAVAN (PROBIOTIC FORMULA ORAL), Take 1 capsule by mouth daily., Disp: , Rfl: cetirizine (for_ZyrTEC) 10 mg tablet, Take 10 mg by mouth., Disp: , Rfl: ESOMEPRAZOLE MAGNESIUM (NEXIUM ORAL), Take by mouth daily., Disp: , Rfl: gabapentin (for_NEURONTIN) 300 mg capsule, Take 300 mg by mouth., Disp: , Rfl: levothyroxine (for_SYNTHROID, LEVOTHROID) 100 mcg tablet, , Disp: , Rfl: levothyroxine (for_SYNTHROID, LEVOTHROID) 75 mcg tablet, Take 1 tablet by mouth daily., Disp: , Rfl: lisinopril (for_PRINIVIL,ZESTRIL) 10 mg tablet, Take 1 tablet by mouth daily., Disp: , Rfl: lovastatin (for_ALTOPREV) 40 mg 24 hr tablet, Take 0.5 tablets by mouth at bedtime. , Disp: , Rfl: METFORMIN HCL (METFORMIN ORAL), Take 750 mg by mouth daily., Disp: , Rfl: MULTIVITAMIN WITH MINERALS ORAL, Take 1 capsule by mouth daily., Disp: , Rfl: psyllium (for_KONSYL) oral powder, Take by mouth., Disp: , Rfl: triamterene-hydroCHLOROthiazide (for_DYAZIDE) 37.5-25 mg per capsule, Take 1 capsule by mouth., Disp: , Rfl: ALLERGIES Allergies Allergen Reactions Erythromycin GI intolerance Morphine Rash OBJECTIVE PHYSICAL EXAM GENERAL: Very pleasant 77 y.o. year old female in no acute distress. STRENGTH: All major muscle groups of the bilateral lower extremities have normal and symmetric muscle strength, bulk, and tone, except for trace weakness with testing of the left hip abductors. NEURO: Reflexes: Patellar tendon: 0/0, Achilles -2/-2 Plantar response is negative bilaterally. Negative Chu bilaterally.Straight leg raise is negative for radiating pain and paraesthesias bilaterally. GAIT: Mildly antalgic favoring the left lower extremity. Spine: -1 globally decreased lumbar spine range of motion. There is palpation tenderness to palpation over the bilateral lower lumbar paraspinals. There is more marked tenderness with palpation over the left greater trochanteric bursa region and over the left gluteal musculature. IMAGING X-Rays of the lumbar spine, dated 01/07/23, revealed Mild to moderate multilevel disc degeneration, greatest L4-5 where there is mild anterolisthesis. Severe mid and lower lumbar facet arthritis. Osteopenia. No fractures. Mild to moderate degenerative arthritis of the SI joints, right greater than left. Bilateral THAs. Heterotopic ossifications about both hips are similar to prior. No radiographic evidence for prosthesis loosening. There is a subtle rounded subcortical lucency within the distal right greater trochanter, which was not present on the radiographs from July 2018. This finding is nonspecific. A gluteal insertional enthesopathy could cause be considered. I personally reviewed these images and agree with the radiology report and shared the findings with the patient. IMPRESSION #1 Chronic low back pain #2 Lumbar spondylosis #3 Lumbar spinal stenosis #4 History of bilateral total hip arthroplasty #5 Left gluteal and primarily lateral hip pain Mrs. Bosch's neurologic examination is unchanged from when I have seen her previously. I feel thather current symptoms are multifactorial. I do feel that a significant amount of her current symptoms are related to left greater trochanteric pain syndrome as she has marked tenderness to palpation in the left greater trochanteric bursa region as well as mild weakness with testing of her left hip abductors. She also has had improvement in her symptoms with using a cane in her right hand. She doesalso have fairly significant lumbar spondylosis, but her neurologic examination is unchanged compared to when I have seen her previously, and the majority of her increase in pain has been related to her left gluteal and lateral hip region. She was having some occasional groin pain as well, but thatdoes seem to have improved also with using the cane in her right hand. PLAN: We are going to proceed today with dedicated x-rays of the left hip with Mrs. Bosch's discomfort. I am going to have Mrs. Bosch involved in physical therapy. We are going to work on a comprehensive program including a very basic and gradual progressive strengthening program for the hip groups, especially the left hip abductors, and a very basic core strength and stability program. I am going to have Mrs. Bosch begin icing the lateral hip on a regular basis. I am going to have Mrs. Bosch continue to use her cane or walking stick in her right hand for the next month when she is ambulating. I will plan to be in contact with Mrs. Bosch with the results of her left hip x-rays. I anticipatefredy will do well with what is described above, especially as she has made some progress on her own over the past couple of weeks. However, if she were to not have improvement with what is described above, we did discuss the possibility of proceeding with an ultrasound-guided left greater trochanteric bursa corticosteroid injection. Mrs. Bosch voiced agreement and understanding with this plan. PATIENT EDUCATION: Education was discussed at today's appointment. A learning needs assessment was performed. Primary learner: Alisha Andreamarycruzdevora Barriers to learning: None Preferred language: Azeri Learning preferences include: Seeing and doing. Discussed: Diagnosis and treatment plan. Demonstrated: Understanding of material discussed. Patient education materials given: After visit summary. Learner response: Learner demonstrated understanding. documented in this encounter Plan of Treatment Upcoming Encounters Date Type Department Care Team (Late st Contact Info) Description 11/05/2023 9:50 AM STRATIGRAPHY TEACHER Appointment Department of Laboratory Medicine in [place], [place] [address] [phone] Kezia Romero P.A.-C., P.A. [address] [phone] 11/14/2023 9:30 AM STRATIGRAPHY TEACHER Office Visit Department of Endocrinology in [place], [place] [address] [address] Kezia Romero P.A.-C., P.A. [address] [phone] documented as of this encounter Results * DX Hip And Pelvis Left 2-3 Views (01/07/2023 9:13 AM CDT) Anatomical Region Laterality Modality Lower Extremity, Pelvis, Hip , Musculoskeletal RST LOS, Musculoskeletal ARZ LOS, Muskuloskeletal FLA LOS Left Digit al Radiography 01/07/2023 9:57 AM CDT Impressions 01/07/2023 10:00 AM CDT Mild to moderate multilevel disc degeneration, greatest L4-5 where there is mild anterolisthesis. Severe mid and lower lumbar facet arthritis. Osteopenia. No fractures. Mild to moderate degenerative arthritis of the SI joints, right greater than left. Bilateral THAs. Heterotopic ossifications about both hips are similar to prior. No radiographic evidence for prosthesis loosening. There is a subtle rounded subcortical lucency within the distal right greater trochanter, which was not present on the radiographs from July 2018. This finding is nonspecific. A gluteal insertional enthesopathy could cause be considered. Narrative 01/07/2023 10:00 AM CDT EXAM: ??DX LUMBAR SPINE 2-3 VIEWS, DX HIP AND PELVIS LEFT 2-3 VIEWS Procedure Note Porfirio Miller M.D. - 01/07/2023 EXAM: DX LUMBAR SPINE 2-3 VIEWS, DX HIP AND PELVIS LEFT 2-3 VIEWS IMPRESSION: Mild to moderate multilevel disc degeneration, greatest L4-5 where thereis mild anterolisthesis. Severe mid and lower lumbar facet arthritis. Osteopenia.No fractures. Mild to moderate degenerative arthritis of the SI joints, right greater than left.Bilateral THAs. Heterotopic ossifications about both hips are similar to prior. Noradiographic evidence for prosthesis loosening. There is a subtle rounded subcortical lucency withinthe distal right greater trochanter, which was not present on the radiographs from July 2018.This finding is nonspecific. A gluteal insertional enthesopathy could cause beconsidered. León [facility] ING PROCEDURES documented in this encounter Visit Diagnoses Diagnosis Pain Hip Left- Primary Pain Low Back Unspecified Trochanteric Bursitis Left Hip Spondylosis Lumbar Without Myelopathy Pain Hip Left documented in this encounter
--- OUTSIDE RECORDS SUMMARY | 2023-10-26 17:00 | XMS_ITS | Encounter Summary ---
Author Name Unknown Organization [facility] Address [address] [place] [address] Care Team Providers Care Refractory Worker Name Role Phone Unavailable Primary Care Provider Unavailabl e Reason for Referral * Outpatient (Routine) - Closed Specialty Diagnoses / Procedures Referred By Contac t Referred To Contact Diagnoses Pain Low Back Unspecified Procedures DX Lumbar Spine 2-3 Views León Su M.D. [address] [phone] [facility] Referral ID Status Reason Start Date Expiration Date Visits Re quested Visits Authorized [id number] Closed 01/01/2023 01/01/2024 1 1 Reason for Visit * Outpatient (Routine) - Closed Specialty Diagnoses / Procedures Referred By Contac t Referred To Contact Diagnoses Pain Low Back Unspecified Procedures DX Lumbar Spine 2-3 Views León Su M.D. [address] [phone] [facility] Referral ID Status Reason Start Date Expiration Date Visits Re quested Visits Authorized [id number] Closed 01/01/2023 01/01/2024 1 1 Encounter Details Date Type Department Care Team (Latest Contact Info) Description 01/07/2023 7:30 AM CDT - 01/07/2023 9:03 AM CDT Hospital Encounter Department of Radiology in [place], [place] [address] [place] [address] León Su M.D. [address] [facility] [phone] Pain Low Back Unspecified Discharge Disposition: Home or Self Care Social [...] often do you attend chur ch or druze services? More than 4 times per year 04/26/2021 Do you belong to any clubs o r organizations such as confucianist groups, unions, fraternal or [...] and heating? Not hard at all 04/26/2021 [facility] of Occupat ional Health - Occupational [...] or slept in a assisted (including now)? No 04/26/2021 Nutrition Answer Date Recorded Nutrition: EVOO Fat Source No 04/26 On average, how many serving s of fruits and vegetables do you eat per day (serving size is equal to 1 cup or approximately the size of a tennis ball)? 0-1 04/26/2021 Dental Answer Date Recorded Dental: Regular Dentist Yes 09/16/19 23 Employment Answer Date Recorded Employment status Retired 04/26/2021 Education Answer Date Recorded What is the highest level of school you have completed or the highest degree you have received? Bachelor's degree (e.g., BA, AB, BS) 06/02/2019 Sex and Gender Information Value Date Recorded Sex Assigned at Female 07/23/2018 9:43 AM RADIO ASSEMBLER Gender Identity Female 07/23/2018 9:43 AM RADIO ASSEMBLER Sexual Orientation Straight 07/23/2018 9: 43 AM RADIO ASSEMBLER documented as of this encounter Medications at Time of Discharge Medication Sig Dispensed Refills Start Date End Date aspirin 81 mg chewable tablet Chew 81 mg daily. 0 03/12/2017 atenolol (for_TENORMIN) 25 mg tablet Take 25 mg by mouth. 0 03/22/2014 B.ANI/L.ACI/L.JULIO/L.PLAN /L.DONAVAN (PROBIOTIC FORMULA ORAL) Take 1 capsule by mouth daily. 0 03/27/2017 cetirizine (for_ZyrTEC) 10 mg tablet Take 10 mg by mouth. 0 03/22/2014 ESOMEPRAZOLE MAGNESIUM (NEXIUM ORAL) Take by mouth daily. 0 07/19/2014 gabapentin (for_NEURONTIN) 300 mg capsule Take 300 mg by mouth. 0 03/22/2014 lisinopril (for_PRINIVIL,ZESTRIL) 10 mg tablet Take 1 tablet by mouth daily. 0 03/12/2017 MULTIVITAMIN WITH MINERALS ORAL Take 1 capsule by mouth daily. 0 04/29/2013 psyllium (for_KONSYL) oral powder Take by mouth. 0 03/22/2014 triamterene-hydroCHLOROt hiazide (for_DYAZIDE) 37.5-25 mg per capsule Take 1 capsule by mouth. 0 03/22/2014 levothyroxine (for_SYNTHROID, LEVOTHROID) 100 mcg tablet 0 08/14/2017 03/28/2023 levothyroxine (for_SYNTHROID, LEVOTHROID) 75 mcg tablet Take 1 tablet by mouth daily. 0 04/29/2013 03/28/2023 lovastatin (for_ALTOPREV) 40 mg 24 hr tablet Take 0.5 tablets by mouth at bedtime. 0 04/29/2013 03/28/2023 METFORMIN HCL (METFORMIN ORAL) Take 750 mg by mouth daily. 0 10/17/2015 03/28/2023 documented as of this encounter Plan of Treatment Upcoming Encounters Date Type Department Care Team (Late st Contact Info) Description 11/05/2023 9:50 AM RADIO ASSEMBLER Appointment Department of Laboratory Medicine in [place], [place] [address] [place] [address] Kezia Romero P.A.-C., P.A. [address] [place] [phone] 11/14/2023 9:30 AM RADIO ASSEMBLER Office Visit Department of Endocrinology in [place], [place] [address] [place] [address] Kezia Romero P.A.-C., P.A. [address] [place] [phone] documented as of this encounter Procedures Procedure Name Priority Date/Time Associated Diagnosis Comments DX LUMBAR SPINE 2-3 VIEWS RAD - Routine (most inpatients and all outpatients) 01/07/2023 7:40 AM CDT Pain Low Back Unspecified documented in this encounter Results * DX Lumbar Spine 2-3 Views (01/07/2023 7:40 AM CDT) Anatomical Region Laterality Modality Lumbar Spine, Musculoskeleta l RST LOS, Neuroradiology ARZ LOS, Muskuloskeletal FLA LOS N/A Digital Radiography 01/07/2023 9:57 AM CDT Impressions 01/07/2023 [...]
--- OUTSIDE RECORDS SUMMARY | 2023-10-26 17:00 | XMS_ITS | Encounter Summary ---
Author Name Unknown Organization [facility] Address [address] [place] [address] Care Team Providers Care Proof Coin Collector Name Role Phone Unavailable Primary Care Provider Unavailabl e Reason for Referral * Outpatient (Routine) - Closed Specialty Diagnoses / Procedures Referred By Contac t Referred To Contact Diagnoses Pain Low Back Unspecified Procedures DX Lumbar Spine 2-3 Views León Su M.D. [address] [facility] [employer] [address] [place] [address] [facility] Referral ID Status Reason Start Date Expiration Date Visits Re quested Visits Authorized [id number] Closed 01/01/2023 01/01/2024 1 1 Encounter Details Date Type Department Care Team (Late st Contact Info) Description 01/01/2023 Clinical Communication Department of Sports Medicine in [place], [place] [address] [place] [address] León Su M.D. [address] [facility] [address] [place] [address] Social History Tobacco Use Types Packs/Day [...] often do you attend chur ch or adventist services? More than 4 times per year 04/26/2021 Do you belong to any clubs o r organizations such as caodaism groups, unions, fraternal or [...] Sex Assigned at Female 07/23/2018 9:43 AM RISK AND INSURANCE MANAGER Gender Identity Female 07/23/2018 9:43 AM RISK AND INSURANCE MANAGER Sexual Orientation Straight 07/23/2018 9: 43 AM RISK AND INSURANCE MANAGER documented as of this encounter Plan of Treatment Upcoming Encounters Date Type Department Care Team (Late st Contact Info) Description 11/05/2023 9:50 AM RISK AND INSURANCE MANAGER Appointment Department of Laboratory Medicine in [place], [place] [address] [address] Kezia Romero P.A.-C., P.A. [address] [address] 11/14/2023 9:30 AM RISK AND INSURANCE MANAGER Office Visit Department of Endocrinology in [place], [place] [address] [phone] Kezia Romero P.A.-C., P.A. [address] [phone] documented as of this encounter Results * DX Lumbar Spine [...] encounter Visit Diagnoses Diagnosis Pain Low Back Unspecified- Primary Pain Hip Left Pain Low Back Unspecified documented in this encounter
--- OUTSIDE RECORDS SUMMARY | 2023-10-26 17:00 | XMS_ITS | Encounter Summary ---
Author Name Unknown Organization [facility] Address [address] [place] [address] Care Team Providers Care Crime Lab Technician Name Role Phone Unavailable Primary Care Provider Unavailabl e Reason for Visit * Reason Onset Date Comments Med Question 04/01/2023 Encounter Details Date Type Department Care Team (Late st Contact Info) Description 04/01/2023 Clinical Communication Department of Endocrinology in [place], [place] [address] [phone] Kezia Romero, Anastacia., P.A. [address] [phone] Med Question Social History Tobacco Use Types Packs/Day Years [...] often do you attend chur ch or mandaeism services? More than 4 times per year [...] at all 04/26/2021 [facility]ational Stress Questionnaire Answer Date [...] or slept in a snf (including now)? No 04/26/2021 Nutrition Answer Date [...] Sex Assigned at Female 07/23/2018 9:43 AM SLUDGE CONTROL ATTENDANT Gender Identity Female 07/23/2018 9:43 AM SLUDGE CONTROL ATTENDANT Sexual Orientation Straight 07/23/2018 9: 43 AM SLUDGE CONTROL ATTENDANT documented as of this encounter Plan of Treatment Upcoming Encounters Date Type Department Care Team (Late st Contact Info) Description 11/05/2023 9:50 AM SLUDGE CONTROL ATTENDANT Appointment Department of Laboratory Medicine in [place], [place] [address] [phone] Kezia Romero P.A.-C., P.A. [address] [phone] 11/14/2023 9:30 AM SLUDGE CONTROL ATTENDANT Office Visit Department of Endocrinology in [place], [place] [address] [phone] Kezia Romero P.A.-C., P.A. [address] [phone] documented as of this encounter Visit Diagnoses Not on filedocumented in this encounter
--- OUTSIDE RECORDS SUMMARY | 2023-10-26 17:00 | XMS_ITS | Encounter Summary ---
Author Name Unknown Organization [facility] Address [address] [place] [address] Care Team Providers Care Sales Representative Education Courses Name Role Phone Unavailable Primary Care Provider Unavailabl e Reason for Referral * Outpatient (Routine) - Closed Specialty Diagnoses / Procedures Referred By Contac t Referred To Contact Diagnoses Pain Hip Left Procedures DX Hip And Pelvis Left 2-3 Views León Su M.D. [address] [phone] [facility] Referral ID Status Reason Start Date Expiration Date Visits Re quested Visits Authorized [id number] Closed 01/07/2023 01/07/2024 1 1 Reason for Visit * Outpatient (Routine) - Closed Specialty Diagnoses / Procedures Referred By Contac t Referred To Contact Diagnoses Pain Hip Left Procedures DX Hip And Pelvis Left 2-3 Views León Su M.D. [address] [phone] [facility] Referral ID Status Reason Start Date Expiration Date Visits Re quested Visits Authorized [id number] Closed 01/07/2023 01/07/2024 1 1 Encounter Details Date Type Department Care Team (Latest Contact Info) Description 01/07/2023 9:04 AM CDT - 01/07/2023 11:59 PM CDT Hospital Encounter Department of Radiology in [place], [place] [address] [place] [address] León Su M.D. [address] [facility] [address] [place] [address] Pain Hip Left Discharge Disposition: Home or Self Care Social [...] often do you attend chur ch or evangelical services? More than 4 times per year [...] and heating? Not hard at all 04/26/2021 [facility] of Occupat ional Health - [...] or slept in a fdc (including now)? No 04/26/2021 Nutrition Answer Date [...] Sex Assigned at Female 07/23/2018 9:43 AM ELASTIC ATTACHER [employer] Gender Identity Female 07/23/2018 9:43 AM ELASTIC ATTACHER [employer] Sexual Orientation Straight 07/23/2018 9: 43 AM ELASTIC ATTACHER [employer] documented as of this encounter Medications at [...] st Contact Info) Description 11/05/2023 9:50 AM ELASTIC ATTACHER ZIGZAG Appointment Department of Laboratory Medicine in [place], [place] [address] [place] [address] Kezia Romero P.A.-C., P.A. [address] [place] [phone] 11/14/2023 9:30 AM ELASTIC ATTACHER ZIGZAG Office Visit Department of Endocrinology in [place], [place] [address] [place] [address] Kezia Romero P.A.-C., P.A. [address] [place] [phone] documented as of this encounter Procedures Procedure Name Priority Date/Time Associated Diagnosis Comments DX HIP AND PELVIS LEFT 2-3 VIEWS RAD - Routine (most inpatients and all outpatients) 01/07/2023 9:13 AM CDT Pain Hip Left documented in this encounter Results * DX Hip And [...] this encounter Visit Diagnoses Diagnosis Pain Hip Left documented in this encounter
[2023-10-26 17:30] LABS: PCR FLU A Negative PCR FLU A (Negative); PCR FLU B Negative PCR FLU B (Negative); PCR RSV Negative PCR RSV (Negative); SARS PCR* Negative SARS-CoV-2 (Negative)
[2023-10-26] MEDS: LACTATED RINGERS 1000 ML 1,000 ML IV (17:35)
[2023-10-26] MEDS: ONDANSETRON ODT 4 MG TAB PO (17:39)
[2023-10-26 17:42] LABS: Basophils Absolute Auto 0.01 K/uL (0.00-0.30); Basophils Percent Auto 0.1 % (0.0-3.0); Eosinophils Absolute Auto 0.02 K/uL (0.00-0.50); Eosinophils Percent Auto 0.2 % (0.0-7.0); Hemoglobin* 14.5 gm/dL (12.0-16.0); Immature Granulocytes Abs Auto 0.03 K/uL (0.00-0.30); Immature Granulocytes Pct Auto 0.4 %; Lymphocytes Percent Auto 9.1 % (20-44); Mean Corpuscular HGB Conc 34 gm/dL (32-36); Mean Corpuscular Hemoglobin 31 pg (26-34); Mean Corpuscular Volume 92 fL (80-100); Monocytes Percent Auto 2.7 % (0.0-11.0); Neutrophils Percent Auto 87.5 % (42.0-72.0); Platelet Count* 184 K/uL (140-440); RDW Coefficient of Variation % 13.2 % (11.5-15.5); Red Blood Count 4.67 m/uL (4.00-5.20); White Blood Count* 8.39 K/uL (4.50-11.00)
[2023-10-26 17:44] LABS: Slide Review Reflex No
[2023-10-26 17:56] LABS: Albumin* 4.9 g/dL (3.3-5.0); Chloride* 102 mmol/L (96-114)
[2023-10-26 17:57] LABS: Potassium* 4.6 mmol/L (3.6-5.1); Sodium* 136 mmol/L (135-149)
[2023-10-26 17:59] LABS: Alkaline Phosphatase* 64 U/L (40-150); Anion Gap 13 mEq/L (7-15); Aspartate Amino Transferase* 54 U/L (12-35); Bilirubin Total* 0.8 mg/dL (0.1-1.5); Blood Urea Nitrogen* 28 mg/dL (7-30); Carbon Dioxide* 21 mmol/L (20-32); Creatinine* 1.1 mg/dL (0.5-1.5); Estimated Glomerular Filt Rate 51 ml/min; Glucose* 197 mg/dL (60-115); Lipase* 958 U/L (23-300); Total Protein* 8.5 g/dL (6.0-8.3)
[2023-10-26 18:00] LABS: Alanine Aminotransferase* 44 U/L (4-35); Calcium* 9.4 mg/dL (8.4-10.6)
--- NOTE | 2023-10-26 18:06 | CRLHL7_ITS ---
For Patients: As a result of the Century Cures Act, medical imaging exams and procedure reports are released immediately into your electronic medical record. You may view this report before your referring provider. If you have questions, please contact your health care provider. INDICATION: Epigastric pain TECHNIQUE: CT abdomen and pelvis acquired with IV contrast. 92 mL Isovue 370 COMPARISON: None FINDINGS: Lower chest: Unremarkable. Liver: Fatty appearance of the liver. A few tiny too small to characterize low-attenuation lesions in the liver Spleen: Unremarkable. Pancreas: Unremarkable. Gallbladder and bile ducts: Unremarkable. Kidneys: Right renal cyst. Adrenal glands: Unremarkable. GI tract: Small hiatal hernia. Diverticulosis Vascular structures: Negative. No sign of aneurysm. Lymph nodes: Unremarkable. Miscellaneous: Unremarkable. No free air or significant free fluid. Pelvic Organs: Unremarkable. Bones: Bilateral hip arthroplasties IMPRESSION: 1. No acute findings in the abdomen or pelvis. Please note that all CT scans at this facility use dose modulation, iterative reconstruction, and/or weight-based dosing when appropriate to reduce radiation dose to as low as reasonably achievable. Dictated by Mary Jo Saucedo MD @ 10/26/2023 7:28:15 PM (Electronically Signed)
[2023-10-26 18:20] VITALS: PULSE 82; RESP 18; O2SAT 96
--- NOTE | 2023-10-26 19:02 | ED.NURSE ---
Report given to ATA Stern.
--- NOTE | 2023-10-26 19:58 | P.IMHP_ITS ---
Hospitalist- H&P: HPI History of Present Illness Date Seen: 10/26/23 Chief complaint: vomiting, body aches, fever Narrative: Alisha Bosch is a 78 year old female who presented to the ED today for a 2 day history of nausea/vomiting/diarrhea. No hematochezia or hematemesis. No recent concerning foods or exposures. has not had similar symptoms. Given persistent symptoms, and concern about being able to take po medications (worried about Gabapentin withdrawal), Alisha present to ED this evening. ER Course and Findings: - elevated lipase >3x normal - elevated AST/ALT (although lower than previous results), normal bilirubin - reassuring CT ab/pelvis - reassuring EKG - negative COVID/RSV/Flu swabs Patient admitted for pancreatitis and inability to tolerate po intake. Histories updated below. PCP is Dr. Junaid stevenson. 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 - Lesion of lateral popliteal nerve, unspecified lower limb (ICD-10) Obstructive sleep apnea syndrome (02/01/12) ?G47.33 - Obstructive sleep apnea (adult) (pediatric) (ICD-10) Irritable bowel syndrome (02/01/12) ?K58.9 - Irritable bowel syndrome without diarrhea (ICD-10) Hyperlipidemia (02/01/12) ?E78.5 - Hyperlipidemia, unspecified (ICD-10) Gastroesophageal reflux (02/01/12) ?K21.9 - Gastro-esophageal reflux disease without esophagitis (ICD-10) Body mass index (BMI) of 30.0 to 39.9 (02/01/12) Hypothyroidism ?E03.9 - Hypothyroidism, unspecified (ICD-10) Essential hypertension ?I10 - Essential (primary) hypertension (ICD-10) Type 2 diabetes mellitus ?E11.9 - Type 2 diabetes mellitus without complications (ICD-10) Diabetic retinopathy ?E11.319 - Type 2 diabetes mellitus with unspecified diabetic retinopathy without macular edema (ICD-10) Nonscarring hair loss, unspecified ?L65.9 - Nonscarring hair loss, unspecified (ICD-10) History of Clostridium difficile colitis (2016) ?Z86.19 - Personal history of other infectious and parasitic diseases (ICD- 10) Surgical History (Updated 05/08/22 @ 15:15 by Siri Quiroga MD) History of carpal tunnel surgery ?Z98.890 - Other specified postprocedural states (ICD-10) History of tubal ligation (02/01/12) ?Z98.51 - Tubal ligation status (ICD-10) 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) ?Z96.649 - Presence of unspecified artificial hip joint (ICD-10) History of repair of rotator cuff (2017) ?Z98.890 - Other specified postprocedural states (ICD-10) History of blepharoplasty (2008) ?Z98.890 - Other specified postprocedural states (ICD-10) History of bilateral cataract extraction (2018) ?Z98.41 - Cataract extraction status, right eye (ICD-10) ?Z98.42 - Cataract extraction status, left eye (ICD-10) History of bilateral breast reduction surgery (02/01/12) ?Z98.890 - Other specified postprocedural states (ICD-10) Family History (Updated 06/11/23 @ 08:57 by Kathie Strickland) Aunt Diabetes Grandfather Diabetes Social History (Updated 10/26/23 @ 21:45 by Sandra Nails MD) 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 + adult daughters and 9 grandchildren. Nonsmoker, 1-2 ETOH/year. Would like Full Resuscitation in the event of a witnessed arrest only. Smoking Status: Never smoker How often do you have a drink containing alcohol: never AUDIT-C Alcohol total score: 0 Non-prescribed substance use: denies use Little interest or pleasure in doing things: several days Feeling down, depressed, or hopeless: several days Meds Home Medications and Allergies Home Medications Medication Instructions Recorded Confirmed Type aspirin 81 mg tablet,delayed 81 mg PO DAILY 05/08/22 10/26/23 History release cetirizine 10 mg tablet 10 mg PO QDAY 05/08/22 10/26/23 History lactobacillus combination no.9 4 4,000 mmu cells PO QDAY 05/08/22 10/26/23 History billion cell capsule (Adult 50 Plus Probiotic) multivitamin 1 tab PO QDAY 05/08/22 10/26/23 History cholecalciferol (vitamin D3) 25 1,000 unit PO QDAY 08/23/22 10/26/23 History mcg (1,000 unit) chewable tablet mecobalamin (vitamin B12) 1,000 1,000 mcg PO QDAY 08/23/22 10/26/23 History mcg chewable tablet psyllium 2 packet PO QDAY PRN 02/19/23 10/26/23 History dulaglutide 1.5 mg/0.5 mL mg subcut .once per week 06/10/23 09/19/23 History subcutaneous pen injector (Trulicity) metformin 500 mg tablet 250 mg PO BIDWMEAL 06/10/23 10/26/23 History Allergies Allergy/AdvReac Type Severity Reaction Status Date / Time oxycodone Allergy Intermediate Itching Verified 09/19/23 13:47 iohexol Allergy Mild Urticaria Verified 09/19/23 13:47 erythromycin base AdvReac Mild Nausea Verified 09/19/23 13:47 Exam Narrative: Exam Narrative: GEN: Alert and oriented, nontoxic. Answering questions appropriately HEENT: Normal external ears, EOMIs bilaterally, no scleral icterus CV: RRR, No concerning murmurs, rubs, or gallops R: LCTA bilaterally without concerning wheezing, rales, or rhonchi Ab: mild distention but no rebound or guarding, tolerates palpation Ext: wwp, no concerning edema Skin: Skin is dry without concerning lesions or rashes, no jaundice Neuro: No focal deficits Psych: Appropriate Const: Vital Signs, click to edit/add: Vital Signs - 24 hr 10/26/23 16:41 10/26/23 18:20 Temperature 97.6 F Pulse Rate 82 Pulse Rate [Pulse Oximeter] 102 H Respiratory Rate 18 18 Blood Pressure [Ri ght Upper Arm] 142/75 H Pulse Oximetry 96 96 Oxygen Delivery Me thod Room Air Hospitalist - H&P: Result Labs Labs: Short CBC 10/26/23 Range/Units 17:30 WBC 8.39 (4.50-11.00) K/uL Hgb 14.5 (12.0-16.0) gm/dL Hct 43.0 (33.0-51.0) % Plt Count 184 (140-440) K/uL BMP 10/26/23 17:30 Sodium 136 Potassium 4.6 Chloride 102 Carbon Dioxide 21 BUN 28 Creatinine 1.1 Glucose 197 H Calcium 9.4 Liver Function 10/26/23 Range/Units 17:30 Total Bilirubin 0.8 (0.1-1.5) mg/dL AST 54 H (12-35) U/L ALT 44 H (4-35) U/L Alkaline Phosphatase 64 (40-150) U/L Albumin 4.9 (3.3-5.0) g/dL Assessment and Plan Assessment and plan (1) Acute pancreatitis: Problem comment: - most likely source of epigastric pain, without evidence of pancreatitis on imaging - ddx includes PUD, biliary colic, atypical CAD presentation - NPO, PPI, IVFs, repeat morning labs, abdominal ultrasound - hold Trulicity Status: Acute (2) Type 2 diabetes mellitus: Problem comment: - Dxed 10/31, oral medications changed from ER to IR 04/01, which improved diabetic control, unable to tolerate increase in metformin dose (due to loose stools) 09/06, so glipizide was added 09/06, which was poorly tolerated (loose stools, hypoglycemia), and she stopped the glipizide on her own at some point around 11/08, [facility], physician public health assistant Kezia Romero, who started dulaglutide/Trulicity 04/07 (and reduced metformin) - last A1C 7.1 (05/2023) Status: Acute Plan - per above - continue home medications for comorbidities (holding ASA and Trulicity) - Lovenox for ppx
[2023-10-26] MEDS: PANTOPRAZOLE SODIUM 40 MG INJ IVP (20:16)
[2023-10-26 20:45] VITALS: BP 153/72; PULSE 92; RESP 18; O2SAT 96; BMI 32.1
[2023-10-26] MEDS: 0.9 % SODIUM CHLORIDE 1000 ml 1,000 ML 125 ML IV (22:19)
[2023-10-26] MEDS: ACETAMINOPHEN 325 MG TABLET 650 MG PO (22:19)
[2023-10-26 22:36] LABS: Appearance Urine Clear (Clear); Bilirubin Urine Negative (Negative); Blood Urine Negative (Negative); Color Urine Yellow (Yellow); Glucose Urine Negative (Negative); Ketones Urine Negative (Negative); Leukocyte Esterase Urine Negative (Negative); Nitrite Urine Negative (Negative); Protein Urine Negative (Negative); Urobilinogen Urine 0.2 (0.2-1.0); pH Urine 5.5 (5.0-8.5)
[2023-10-26 22:45] LABS: RBC Urine 0-2 (0-2); Squamous Epithelial Cell Urine Few (None-Few)
[2023-10-26 23:30] VITALS: BP 131/65; PULSE 81; RESP 16; TEMP 37; O2SAT 94
[2023-10-27 03:00] VITALS: BP 142/58; PULSE 83; RESP 16; TEMP 36.5; O2SAT 95
[2023-10-27] MEDS: 0.9 % SODIUM CHLORIDE 1000 ml 1,000 ML 125 ML IV ×3 (06:08→23:16)
[2023-10-27] MEDS: ACETAMINOPHEN 325 MG TABLET 650 MG PO (06:08)
[2023-10-27 06:17] LABS: Lactate* 0.9 mmol/L (0.5-1.9)
[2023-10-27 06:55] LABS: Albumin* 3.8 g/dL (3.3-5.0); Chloride* 107 mmol/L (96-114)
[2023-10-27 06:56] LABS: Potassium* 3.5 mmol/L (3.6-5.1); Sodium* 136 mmol/L (135-149)
[2023-10-27 06:58] LABS: Anion Gap 7 mEq/L (7-15); Aspartate Amino Transferase* 53 U/L (12-35); Bilirubin Total* 0.6 mg/dL (0.1-1.5); Blood Urea Nitrogen* 23 mg/dL (7-30); Carbon Dioxide* 22 mmol/L (20-32); Eosinophils Percent Auto 1.8 % (0.0-7.0); Est. Creatinine Clearance* 40.04; Estimated Glomerular Filt Rate 58 ml/min; Hemoglobin* 12.1 gm/dL (12.0-16.0); Immature Granulocytes Pct Auto 0.3 %; Lymphocytes Percent Auto 15.4 % (20-44); Mean Corpuscular HGB Conc 34 gm/dL (32-36); Mean Corpuscular Hemoglobin 31 pg (26-34); Mean Corpuscular Volume 93 fL (80-100); Monocytes Percent Auto 6.9 % (0.0-11.0); Neutrophils Percent Auto 75.6 % (42.0-72.0); Platelet Count* 150 K/uL (140-440); RDW Coefficient of Variation % 13.6 % (11.5-15.5); Red Blood Count 3.87 m/uL (4.00-5.20); Total Protein* 6.7 g/dL (6.0-8.3)
[2023-10-27 06:59] LABS: Alanine Aminotransferase* 47 U/L (4-35); Alkaline Phosphatase* 50 U/L (40-150); Calcium* 8.4 mg/dL (8.4-10.6); Cholesterol* 116 mg/dL (90-199); Glucose* 124 mg/dL (60-115); HDL Cholesterol* 39 mg/dL (>=50); LDL Cholesterol Calculated 53 mg/dL (<100); Lipase* 112 U/L (23-300); Triglycerides* 120 mg/dL (40-149)
[2023-10-27 07:03] LABS: Slide Review Reflex No
[2023-10-27 07:10] LABS: Troponin I* < 0.01 ng/mL (0.01-0.04)
[2023-10-27 07:50] VITALS: BP 138/64; PULSE 81; RESP 16; TEMP 36.6; O2SAT 93
--- NOTE | 2023-10-27 08:00 | CRLHL7_ITS ---
For Patients: As a result of the Century Cures Act, medical imaging exams and procedure reports are released immediately into your electronic medical record. You may view this report before your referring provider. If you have questions, please contact your health care provider. INDICATION: Elevated LFTs, pancreatitis COMPARISON: CT 10/26/2023 TECHNIQUE: Rodríguez-scale and color ultrasound of the right upper quadrant to include the liver, gallbladder (or gallbladder fossa), biliary tree, pancreatic head, and right kidney. FINDINGS: Liver: Significantly increased hepatic echogenicity with poor through transmission. No mass. Patent portal vein with normal directional flow. Gallbladder: Normal. Distention: Normal. Wall: Normal thickness. Stones: None. Sludge: None. Pericholecystic inflammation/fluid: None. Sonographic Lambert`s sign: Negative. Bile ducts: Not dilated. The common bile duct measures 5 mm. Pancreas: Mildly echogenic pancreatic parenchyma. Pancreatic thickness is 1.6 cm, normal. The pancreatic duct is not dilated. Right Kidney: Renal length: 9.6 cm Parenchyma: Normal thickness and normal echogenicity. Cyst: 2.0 x 2.1 x 1.8 cm lesion in the upper pole appears to be a cyst, this is confirmed on yesterday`s CT. Mass: None Calculi: None Urinary tract: Not dilated. RUQ Ascites: None. Abdominal aorta: Not aneurysmal. IMPRESSION: 1. Hepatic steatosis. 2. Minimal pancreatic inflammation suspected on ultrasound. Dictated by Chantel Rubio MD @ 10/27/2023 9:55:33 AM (Electronically Signed)
[2023-10-27] MEDS: ONDANSETRON 2 MG/ML inj 4 MG IVP (08:15)
--- NOTE | 2023-10-27 10:01 | PM.IMPN1 ---
Progress Note: A&P Assessment and plan (1) Acute pancreatitis: Problem details: - most likely source of epigastric pain, without evidence of pancreatitis on imaging - ddx includes PUD, biliary colic, atypical CAD/ACS presentation (troponin negative, EKG NSR, rate 89), acute gastroenteritis (no further diarrhea or known exposures) - NPO, PPI, IVFs, pain and nausea management p.r.n. - hold Trulicity, metformin, atorvastatin, aspirin 10/27: CT shows minimal pancreatic inflammation, hepatic steatosis. Lipase has returned to normal. LFTs remain mildly elevated. Discussed advancing diet to clears in small amounts this morning. Understands if any increasing nausea or abdominal pain, return of vomiting to return to NPO. Status: Acute (2) Type 2 diabetes mellitus: Problem details: - Dxed 10/31, oral medications changed from ER to IR 04/01, which improved diabetic control, unable to tolerate increase in metformin dose (due to loose stools) 09/06, so glipizide was added 09/06, which was poorly tolerated (loose stools, hypoglycemia), and she stopped the glipizide on her own at some point around 11/08, she [facility], physician assistant counsel Kezia Romero, who started dulaglutide/Trulicity 04/07 (and reduced metformin) - last A1C 7.1 (05/2023) - hold Trulicity and metformin for now, resuming with increased oral intake - glucose checks ACHS, defer insulin sliding scale for now, monitoring Status: Chronic (3) Essential hypertension: Problem details: -Continue atenolol and lisinopril, creatinine 1.0 Status: Acute (4) Hypothyroidism: Problem details: -Continue levothyroxine Status: Acute (5) Hyperlipidemia: Problem details: -Hold statin for now Status: Acute (6) Chronic pain syndrome: Problem details: -Continue gabapentin, patient worried about missing doses Status: Acute (7) Gastroesophageal reflux: Problem details: -on PPI (changed to Pepcid 01/06 due to chronic loose stools), went back to Nexium 03/08 (EGD with biopsies normal here 11/08). -Pantoprazole IV during hospital course Status: Acute Plan Continue to slowly ADAT. Recheck labs in a.m.. Possible discharge tomorrow Subjective Date Seen: 10/27/23 Interval history: Patient reports feeling better since admission. Abdominal pain has significantly improved. Was still nauseous this morning which has resolved with an antiemetic. No further vomiting. Has had no further loose stools. Mild headache this morning. No dizziness. Denies chest pain or shortness of breath. Remains afebrile, vitally stable. Exam Narrative: Exam Narrative: PHYSICAL EXAM General: Pleasant, conversant, NAD HEENT: Normocephalic, atraumatic, sclera white, EOMI, oral mucosa moist Cardiovascular: RRR, S1S2. No pitting edema Pulmonary: CTA bilaterally without rhonchi, rales, expiratory wheezes. No dyspnea Abdominal: Soft, nondistended, mild right upper quadrant tenderness, no guarding Neurological: Alert, answering questions appropriately, cranial nerves intact, no focal findings Extremities: No gross joint deformity or swelling. AROMI. Neurovascularly intact Skin: Warm, dry. Const: Vital Signs, click to edit/add: Vital Signs - 24 hr 10/26/23 16:39 10/26/23 16:40 10/26/23 16:41 Temperature 97.6 F Pulse Rate Pulse Rate [Pulse Oximeter] 102 H Respiratory Rate 18 Blood Pressure [Ri ght Arm] Blood Pressure [Ri ght Upper Arm] 142/75 H Pulse Oximetry 95 96 96 [facility] 10/26/23 18:20 10/26/23 20:45 10/26/23 20:45 Temperature Pulse Rate 82 Pulse Rate [Pulse Oximeter] 92 Respiratory Rate 18 18 Blood Pressure [Ri ght Arm] 153/72 H Blood Pressure [Ri ght Upper Arm] Pulse Oximetry 96 96 96 [facility] [place] Room Air 10/26/23 20:45 10/26/23 20:45 10/26/23 23:30 Temperature 98.6 F Pulse Rate Pulse Rate [Pulse Oximeter] 92 81 Respiratory Rate 18 18 16 Blood Pressure [Ri ght Arm] 131/65 Blood Pressure [Ri ght Upper Arm] Pulse Oximetry 96 94 [facility]xygen [facility] [place] Room Air 10/27/23 03:00 10/27/23 07:50 10/27/23 07:50 Temperature 97.7 F Pulse Rate Pulse Rate [Pulse Oximeter] 83 81 Respiratory Rate 16 16 16 Blood Pressure [Ri ght Arm] 142/58 H Blood Pressure [Ri ght Upper Arm] Pulse Oximetry 95 93 Oxygen Delivery Me thod Room Air Room Air 10/27/23 07:50 Temperature 97.8 F Pulse Rate Pulse Rate [Pulse Oximeter] 81 Respiratory Rate 16 Blood Pressure [Ri ght Arm] 138/64 Blood Pressure [Ri ght Upper Arm] Pulse Oximetry 93 Oxygen Delivery Me thod Room Air Labs Labs: Laboratory Results - last 24 hr 10/26/23 10/26/23 10/26/23 16:43 17:30 22:30 WBC 8.39 RBC 4.67 Hgb 14.5 Hct 43.0 MCV 92 MCH 31 MCHC 34 RDW Coeff of Jody 13.2 Plt Count 184 Neut % (Auto) 87.5 H Lymph % (Auto) 9.1 L Swift % (Auto) 2.7 Eos % (Auto) 0.2 Baso % (Auto) 0.1 Neut # (Auto) 7.30 H Lymph # (Auto) 0.80 L Swift # (Auto) 0.20 Eos # (Auto) 0.02 Baso # (Auto) 0.01 Abs Immat Gran (auto) 0.03 Imm/Tot Granulo (auto) 0.4 Sodium 136 Potassium 4.6 Chloride 102 Carbon Dioxide 21 Anion Gap 13 BUN 28 Creatinine 1.1 Estimated Creat Clear 36.40 Estimated GFR 51 Glucose 197 H Lactate 2.0 H Calcium 9.4 Total Bilirubin 0.8 AST 54 H ALT 44 H Alkaline Phosphatase 64 Troponin I Total Protein 8.5 H Albumin 4.9 Triglycerides Cholesterol LDL Cholesterol, Calc HDL Cholesterol Lipase 958 H Urine Color Yellow Urine Appearance Clear Urine pH 5.5 Ur Specific Mascot 1.010 Urine Protein Negative Urine Glucose (UA) Negative Urine Ketones Negative Urine Blood Negative Urine Nitrite Negative Urine Bilirubin Negative Urine Urobilinogen 0.2 Ur Leukocyte Esterase Negative Urine RBC 0-2 Urine WBC 2-5 Ur Squamous Epith Cells Few Urine Bacteria None SARS-CoV-2 (PCR) Negative SARS-CoV-2 Influenza Type A (PCR) Negative PCR FLU A Influenza Type B (PCR) Negative PCR FLU B RSV (PCR) Negative PCR RSV POC Troponin I 0.00 L 10/27/23 05:58 WBC 3.90 L RBC 3.87 L Hgb 12.1 Hct 36.0 MCV 93 MCH 31 MCHC 34 RDW Coeff of Jody 13.6 Plt Count 150 Neut % (Auto) 75.6 H Lymph % (Auto) 15.4 L Swift % (Auto) 6.9 Eos % (Auto) 1.8 Baso % (Auto) 0.0 Neut # (Auto) 2.90 Lymph # (Auto) 0.60 L Swift # (Auto) 0.30 Eos # (Auto) 0.10 Baso # (Auto) 0.00 Abs Immat Gran (auto) 0.00 Imm/Tot Granulo (auto) 0.3 Sodium 136 Potassium 3.5 L Chloride 107 Carbon Dioxide 22 Anion Gap 7 BUN 23 Creatinine 1.0 Estimated Creat Clear 40.04 Estimated GFR 58 Glucose 124 H Lactate 0.9 Calcium 8.4 Total Bilirubin 0.6 AST 53 H ALT 47 H Alkaline Phosphatase 50 Troponin I < 0.01 L Total Protein 6.7 Albumin 3.8 Triglycerides 120 Cholesterol 116 LDL Cholesterol, Calc 53 HDL Cholesterol 39 L Lipase 112 Urine Color Urine Appearance Urine pH Ur Specific Mascot Urine Protein Urine Glucose (UA) Urine Ketones Urine Blood Urine Nitrite Urine Bilirubin Urine Urobilinogen Ur Leukocyte Esterase Urine RBC Urine WBC Ur Squamous Epith Cells Urine Bacteria SARS-CoV-2 (PCR) Influenza Type A (PCR) Influenza Type B (PCR) RSV (PCR) POC Troponin I
[2023-10-27 11:00] VITALS: BP 137/66; PULSE 87; RESP 16; TEMP 36.6; O2SAT 94
[2023-10-27] MEDS: atenoloL 25 MG TABLET PO (11:25)
[2023-10-27] MEDS: GABAPENTIN 300 MG CAPSULE 900 MG PO ×3 (11:25→20:58)
[2023-10-27] MEDS: LEVOTHYROXINE 100 MCG TABLET PO (11:26)
[2023-10-27] MEDS: CETIRIZINE HCL 10 MG TABLET PO (11:26)
[2023-10-27] MEDS: lisinopriL 10 MG TABLET PO (11:26)
[2023-10-27 15:00] VITALS: BP 142/68; PULSE 76; RESP 18; TEMP 37.1; O2SAT 96; O2SAT 98
[2023-10-27] MEDS: diphenhydrAMINE 25 MG CAPSULE PO (19:49)
[2023-10-27 20:00] VITALS: BP 129/57; PULSE 79; RESP 18; TEMP 37.2; O2SAT 97
[2023-10-27] MEDS: ENOXAPARIN 40 MG/0.4 ML INJ SUBCUT (20:58)
[2023-10-27] MEDS: BENZOCAINE/MENTHOL 1 EACH LOZENGE MUCOUS MEM (20:58)
[2023-10-27 23:00] VITALS: BP 121/55; PULSE 77; RESP 16; TEMP 37.3; O2SAT 94
[2023-10-28 03:50] VITALS: BP 111/67; PULSE 74; RESP 16; TEMP 36.9; O2SAT 94
--- NOTE | 2023-10-28 05:39 | PC.NURSE ---
END OF SHIFT NOTE: PT PLEASANT AND COOPERATIVE. A&Ox4. DENIES?CP, SOB, N/V. AMBULATES INDEPENDENTLY WITHIN ROOM. VSS ON RA; AFEBRILE. PT ITCHING WITH RASH ON BODY. UPDATED MD; PRN BENADRYL ADMINISTERED WITH SOME RELIEF. ALL OF PT?S LINENS WERE CHANGED TO HYPOALLERGENIC LINENS. PT WASHED UP IN BATHROOM. RASH AND ITCHING RESOLVED. CALL LIGHT WITHIN PT?S REACH.?
[2023-10-28] MEDS: LEVOTHYROXINE 88 MCG TABLET PO (06:19)
[2023-10-28] MEDS: 0.9 % SODIUM CHLORIDE 1000 ml 1,000 ML 125 ML IV (06:19)
[2023-10-28] MEDS: CETIRIZINE HCL 10 MG TABLET PO ×2 (06:24→08:32)
[2023-10-28 07:00] VITALS: BP 130/64; PULSE 73; RESP 20; TEMP 36.6; O2SAT 94
[2023-10-28 07:18] LABS: Hematocrit 34.7 % (33.0-51.0); Hemoglobin* 11.4 gm/dL (12.0-16.0); Mean Corpuscular HGB Conc 33 gm/dL (32-36); Mean Corpuscular Hemoglobin 31 pg (26-34); Mean Corpuscular Volume 95 fL (80-100); Platelet Count* 132 K/uL (140-440); Red Blood Count 3.67 m/uL (4.00-5.20)
[2023-10-28 07:20] LABS: Slide Review Reflex No
[2023-10-28] MEDS: diphenhydrAMINE 25 MG CAPSULE PO (07:48)
[2023-10-28 07:54] LABS: Albumin* 3.1 g/dL (3.3-5.0)
[2023-10-28 07:55] LABS: Chloride* 108 mmol/L (96-114); Potassium* 3.7 mmol/L (3.6-5.1); Sodium* 138 mmol/L (135-149)
[2023-10-28 07:57] LABS: Anion Gap 8 mEq/L (7-15); Aspartate Amino Transferase* 45 U/L (12-35); Bilirubin Total* 0.4 mg/dL (0.1-1.5); Carbon Dioxide* 22 mmol/L (20-32); Est. Creatinine Clearance* 40.04; Estimated Glomerular Filt Rate 58 ml/min
[2023-10-28 07:58] LABS: Alanine Aminotransferase* 39 U/L (4-35); Alkaline Phosphatase* 45 U/L (40-150); Blood Urea Nitrogen* 13 mg/dL (7-30); Calcium* 7.6 mg/dL (8.4-10.6); Glucose* 99 mg/dL (60-115); Total Protein* 5.7 g/dL (6.0-8.3)
[2023-10-28] MEDS: atenoloL 25 MG TABLET PO (08:31)
[2023-10-28] MEDS: GABAPENTIN 300 MG CAPSULE 900 MG PO (08:31)
[2023-10-28] MEDS: lisinopriL 10 MG TABLET PO (08:31)
--- NOTE | 2023-10-28 11:22 | PM.DS1 ---
DS: Providers Provider Date Seen: 10/28/23 Date of admission: 10/26/23 21:40 Primary care physician: Siri Quiroga MD Admitting Clinician: Sandra Nails MD Attending Physician on discharge: Faith Vitale MD Date of Discharge: 10/28/23 DS: Diagnosis Discharge Diagnosis (1) Acute pancreatitis: Status: Acute Problem details: Patient presented to hospital with epigastric pain. Work up consistent with mild pancreatitis with elevated lipase and no changes on CT. - She was treated with NPO, PPI, IVFs, pain and nausea management p.r.n. She had significant improvement overnight and was able to advance her diet without pain. - Suspect etiology may have been Trulicity. No evidence of gallstones (although LFTs mildly elevated), no significantly elevated triglycerides. Trulicity was discontinued at discharge and patient encouraged to discuss alternative with PCP/support director (2) Type 2 diabetes mellitus: Status: Chronic Problem details: - Dxed 10/31, oral medications changed from ER to IR 04/01, which improved diabetic control, unable to tolerate increase in metformin dose (due to loose stools) 09/06, so glipizide was added 09/06, which was poorly tolerated (loose stools, hypoglycemia), and she stopped the glipizide on her own at some point around 11/08, she self-referred to [facility] endocrinologySally, physician assistant spa director Kezia Romero, who started dulaglutide/Trulicity 04/07 (and reduced metformin) - last A1C 7.1 (05/2023) - Glucose well controlled here - Trulicity discontinued as potential etiology for pancreatitis. (3) Essential hypertension: Status: Acute Problem details: -Continue atenolol and lisinopril, creatinine 1.0 (4) Hypothyroidism: Status: Acute Problem details: -Continue levothyroxine (5) Gastroesophageal reflux: Status: Acute Problem details: -on PPI (changed to Pepcid 01/06 due to chronic loose stools), went back to Nexium 03/08 (EGD with biopsies normal here 11/08). -Pantoprazole IV during hospital course (6) Hyperlipidemia: Status: Acute Problem details: -Hold statin for now (7) Chronic pain syndrome: Status: Acute Problem details: -Continue gabapentin (8) Hemoglobin A1c between 7.0% and 9.0%: Status: Acute Problem details: 7.1% on 06/05/23 at [facility] Endocrinology (9) Nonscarring hair loss, unspecified: Status: Acute (10) Dermatitis: Status: Acute Problem details: Patient notes that this is chronic and she takes Zyrtec daily to control. Did not initially have zyrtec ordered and became diffusely pruritic with erythema. -Resumed Zyrtec -Prescribed famotidine to help with histamine -Follow up with PCP if not continuing to improve (11) Heart murmur: Status: Acute Problem details: Noted a soft systolic flow murmur on exam on day of discharge. Suspect may be secondary to significant IVF resuscitation. IF STILL PRESENT AT FOLLOW UP, CONSIDER ECHOCARDIOGRAM DS: Summary Time Spent with Patient Time attestation: Total time spent providing and/or coordinating discharge services: Exam Narrative: Exam Narrative: Patient was examined on the date of discharge General: Well appearing, no distress HEENT; NCAT Resp: Comfortable, unlabored, CTAB CV: RRR, 2/6 systolic flow murmur Abd: Soft and nontender Skin: Widespread erythema, pruritis Const: Vital Signs, click to edit/add: Vital Signs - 24 hr 10/27/23 15:00 10/27/23 15:00 10/27/23 20:00 Temperature 98.7 F 98.9 F Pulse Rate [Pulse Oximeter] 76 79 Respiratory Rate 18 18 Blood Pressure [Ri ght Arm] 142/68 H 129/57 L Pulse Oximetry 98 96 97 Oxygen Delivery Me thod Room Air Room Air Room Air 10/27/23 20:00 10/27/23 20:00 10/27/23 23:00 Temperature 99.1 F Pulse Rate [Pulse Oximeter] 79 77 Respiratory Rate 18 18 16 Blood Pressure [Ri ght Arm] 121/55 L Pulse Oximetry 97 94 Oxygen Delivery Me thod Room Air Room Air 10/28/23 03:50 10/28/23 07:00 10/28/23 07:00 Temperature 98.4 F 97.8 F Pulse Rate [Pulse Oximeter] 74 73 Respiratory Rate 16 20 20 Blood Pressure [Ri ght Arm] 111/67 130/64 Pulse Oximetry 94 94 94 Oxygen Delivery Me thod Room Air Room Air Room Air DS: Data Data Completed and Pending Labs on day of discharge: Labs from last 24 hours 10/28/23 06:48 WBC 3.20 L RBC 3.67 L Hgb 11.4 L Hct 34.7 MCV 95 MCH 31 MCHC 33 Plt Count 132 L Sodium 138 Potassium 3.7 Chloride 108 Carbon Dioxide 22 Anion Gap 8 BUN 13 Creatinine 1.0 Estimated Creat Clear 40.04 Estimated GFR 58 Glucose 99 Calcium 7.6 L Total Bilirubin 0.4 AST 45 H ALT 39 H Alkaline Phosphatase 45 Total Protein 5.7 L Albumin 3.1 L Preliminary micro results at discharge 10/26/23 17:30 Blood Culture - Preliminary Blood NO GROWTH AFTER 24 HOURS Discharge Plan Discharge Disposition: Home, Self-Care Date of Admission: 10/26/23 21:40 Attending Provider on Discharge: Faith Vitale Primary Care Provider: Siri Quiroga Condition: Improved Anticipated Discharge Date/Time: 10/28/23 11:18 Discharge Medications: New famotidine [Acid Database Marketing Manager (famotidine)] 20 mg Tablet 20 mg PO BID Qty: 60 0RF Continued cholecalciferol (vitamin D3) 25 mcg (1,000 unit) tablet,chewable 1,000 unit PO QDAY mecobalamin (vitamin B12) 1,000 mcg tablet,chewable 1,000 mcg PO QDAY metformin 500 mg tablet 250 mg PO BIDWMEAL cetirizine 10 mg tablet 10 mg PO QDAY aspirin 81 mg tablet,delayed release (DR/EC) 81 mg PO DAILY multivitamin Tablet 1 tab PO QDAY Adult 50 Plus Probiotic 4 billion cell capsule 4,000 mmu cells PO QDAY Rx Instructions: administer with a meal psyllium Packet 2 packet PO QDAY PRN Rx Instructions: mix into at least 8 oz of water or juice before administering atorvastatin 40 mg tablet 40 mg PO QHS Qty: 90 3RF levothyroxine 88 mcg tablet 88 mcg PO Q48H Qty: 45 3RF Rx Instructions: alternate every other day with 100 mcg lisinopril 10 mg tablet 10 mg PO QDAY Qty: 90 3RF triamterene-hydrochlorothiazid 37.5-25 mg capsule 1 cap PO QDAY Qty: 90 3RF atenolol 25 mg tablet 25 mg PO QDAY Qty: 30 0RF levothyroxine 100 mcg tablet 100 mcg PO Q48H Qty: 45 1RF Rx Instructions: Alternate every other day with 88 mcg tablets (DME) Contour Next Test Strips Strip See Rx Instructions .Route Qty: 100 3RF Rx Instructions: to test blood sugars twice daily gabapentin 300 mg capsule 900 mg PO TID Qty: 63 0RF gabapentin 300 mg capsule 900 mg PO TID Qty: 810 1RF finasteride 5 mg tablet 2.5 mg PO QDAY Qty: 45 2RF Discontinued Trulicity 1.5 mg/0.5 mL pen injector subcut .once per week Discharge Orders: Discharge Order (Routine); Ordered 10/28/23 Ordered By: Faith Vitale Patient Education: Pancreatitis (ED) Activity Level: Activity as Tolerated Discharge Diet: Diabetic Follow Up Appointments: Siri Quiroga MD [Primary Care Provider] - Forms: [employer] Info Instructions
--- NOTE | 2023-10-28 11:36 | NUTR.NU ---
RDN with diet education related to pancreatitis. Patient admitted with nausea, vomiting, diarrhea 2 days prior to admit - found to have pancreatitis. History of diabetes mellitus type 2. Current weight 5ft 4in; height 192lb 9.6oz; BMI is 33.1kg/m2. Diet has advanced to regualr today. RDN visited with patient whom reports feeling much better. She reports tolerating breakfast this morning. Plan for discharge home today. Patient agreed to receive diet education related to pancreatitis. Patient was provided diet education on a low fat diet. Discussed foods to include and foods to avoid. Education also provided following a low fat diet (about 60 grams/day) long-term. Verbal and written information as well as a sample menu provided from [facility]. Patient verbalized understanding. RDN's contact information was provided and patient was encouraged to contact RDN with questions.
[2023-10-28] MEDS: FAMOTIDINE 20 MG TABLET PO (12:15)
--- NOTE | 2023-10-28 13:28 | PC.NURSE ---
Discharge - Pt alert, oriented, cooperative to care. Pt denied pain in upper gastric area, tolerated advancement to regular diet well. Pt reported feeling itching and pins and needles feeling on skin. Widespread redness observed, MD notified. Pt reported taking antihistamine medication for skin sensitivity at home and has hives type reaction often at baseline. Pt given medication per MAR with redness observed to improve. Pt reported feeling skin discomfort improve, and reported feeling as tolerable. Discharge paperwork signed, education given. IV removed with catheter intact. Pt discharged to home with spouse at approximately 1250.
== END 2023-10-28 12:50 | disposition home or self-care (01) | DRG 440 ==
LOC: ED 19:53 → MEDSURG 20:43
PROVIDERS: Physician Assistant; Admitting Provider Family Medicine; Emergency Provider Student in an Organized Health Care Education/Training Program; PCP Internal Medicine; Visit Provider Family Medicine
DX: K85.30 Drug induced acute pancreatitis without necrosis or infection (principal); T38.3X5A Adverse effect of insulin and oral hypoglycemic [antidiabetic] drugs, initial encounter; E11.9 Type 2 diabetes mellitus without complications; Z79.85 Long-term (current) use of injectable non-insulin antidiabetic drugs; G89.4 Chronic pain syndrome; G47.33 Obstructive sleep apnea (adult) (pediatric); L30.9 Dermatitis, unspecified; R01.1 Cardiac murmur, unspecified; I10 Essential (primary) hypertension; K21.9 Gastro-esophageal reflux disease without esophagitis; L65.9 Nonscarring hair loss, unspecified; E03.9 Hypothyroidism, unspecified; E78.5 Hyperlipidemia, unspecified
CPT/HCPCS: 36415; 71046; 74177; 76705; 80053; 80061; 81001; 82962; 83605; 83690; 84484; 85025; 85027; 87040; 87631; 93005; 99283; 99285; A9270; C9113; J1650; J2405; J7030; J7120; Q9967

== ENCOUNTER 2024-03-06 09:00 | Outpatient (CLI) | payer MEDICARE, BC, SELFPAY ==
--- OUTSIDE RECORDS SUMMARY | 2024-03-10 13:54 | XMS_ITS | Clinical Summary ---
Author Organization [facility] Address [place], [place] [address] Care Team Providers Care Database Analyst Name Role Phone Siri Quiroga MD Primary Care Provider [phone]- [phone] Allergies Active Allergy Reactions Criticality Noted Date [...] by mouth once daily. 0 03/22/2014 Active Srluwhry-Sxercra-Xom n-Lutein (CENTRUM SILVER ULTRA WOMEN'S) tab Take [...] Description 01/06/2024 8:00 AM CDT Office Visit [facility] [address] [place] [address] Jose Alejandro Allen MD Musculoskeletal Problem (Left hip and low back pain) 01/06/2024 Travel 12/19/2023 Telephone [facility] [address] [place] [address] Jose Alejandro Allen MD ortho referral from [...] 06/19/2023, 01/15/2023, Additional history exists Care Teams Database Analyst Relationship Specialty Start Date End Date Siri Quiroga MD [address] [place] [address] PCP - General Internal Medicine 06/21/22
== END 2024-03-06 09:01 | disposition home or self-care (01) ==
LOC: NFLDREF 03-10 13:53
PROVIDERS: PCP Internal Medicine; Visit Provider Internal Medicine
DX: I10 Essential (primary) hypertension (principal); E03.9 Hypothyroidism, unspecified
CPT/HCPCS: 80048; 84439; 84443

== ENCOUNTER 2024-03-10 08:17 | Outpatient (CLI) | payer MEDICARE, BC, SELFPAY ==
--- OUTSIDE RECORDS SUMMARY | 2024-03-10 08:20 | XMS_ITS | Clinical Summary ---
Author Organization [facility] Address [place], [place] [address] Care Team Providers Care Cut To Length Operator Name Role Phone Siri Quiroga MD Primary Care Provider [phone] Allergies Active Allergy Reactions Criticality Noted Date Comments Dulaglutide Pancreatitis 11/14/2023 Pancreatitis Erythromycin Vomiting 03/22/2014 Morphine Rash 07/23/2018 Medications Medication Sig Dispensed [...] by mouth once daily. 0 03/22/2014 Active Trnrsybo-Tcgetrd-Nyz n-Lutein (CENTRUM SILVER ULTRA WOMEN'S) tab Take by mouth. 0 03/22/2014 Active esomeprazole (NEXIUM) 40 mg capsule Take 1 capsule by mouth once daily before a meal. 90 capsule 3 03/22/2014 Active ranitidine (ZANTAC) 150 mg tablet Take 1 tablet by mouth 2 times daily. 180 tablet 3 03/22/2014 Active levothyroxine (SYNTHROID) 100 mcg tablet 100 mcg. 03/28/2023 Active levothyroxine (SYNTHROID) 88 mcg tablet Take 88 mcg by mouth. 03/28/2023 Active Active Problems No known active problems Encounters Date Type Department Care Team Description 01/06/2024 8:00 AM CDT Office Visit [facility] [address] [place] [address] Jose Alejandro Allen MD Musculoskeletal Problem (Left hip and low back pain) 01/06/2024 Travel 12/19/2023 Telephone [facility] [address] [place] [address] Jose Alejandro Allen MD ortho referral from Last 3 Months Social History Tobacco Use Types Packs/Day Years Used Date Smoking Tobacco: Never Smokeless Tobacco: Former Tobacco Cessation:Counseling Given: Yes Alcohol Use Standard Drinks/Week Comments Not Currently 0 (1 standard drink = 0.6 oz pur e alcohol) Social Connections Answer Date Recorded Frequency of Communication with Friends and Fami ly Not on file 01/06/2024 Sex and Gender Information Value Date Recorded Sex Assigned at Not on file Gender Identity Not on file Sexual Orientation Not on file Obstetrics History Last Filed Vital Signs Vital Sign Reading Time Taken Comments Blood Pressure 115/75 01/06/2024 8:00 AM CDT Pulse 71 01/06/2024 8:00 AM CDT Temperature 36.4 ??C (97.5 ??F) 01/06/2024 8:00 AM CD T Respiratory Rate - - Oxygen Saturation 97% 01/06/2024 8:00 AM CDT Inhaled Oxygen Concentration - - Weight [...] 1995 DEXA/DXA scan for age 65+ 2010 Medicare Wellness for age 65+ 2010 Pneumococcal series for age 65+ (1 of 1 - PCV) 2010 Influenza for age 65+ 05/17/2024 COVID-19 vaccine series Completed 01/03/20, 06/19/2023, 01/15/2023, Additional history exists Care Teams Cut To Length Operator Relationship Specialty Start Date End Date Siri Quiroga MD [address] [place] [address] PCP - General Internal Medicine 06/21/22
[2024-03-10 08:56] LABS: Lab Add On Test New Spec Needed
== END 2024-03-10 08:18 | disposition home or self-care (01) ==
PROVIDERS: PCP Internal Medicine; Visit Provider Internal Medicine
DX: E78.5 Hyperlipidemia, unspecified (principal)
CPT/HCPCS: 80061

== ENCOUNTER 2024-04-22 10:00 | Outpatient (RCR) | payer MEDICARE, BC, SELFPAY ==
--- NOTE | 2024-04-06 10:36 | OT.OPOE ---
OT Outpatient Ortho Eval OT Outpatient Ortho Eval* Start: 04/06/24 09:09 Freq: Status: Active Protocol: Document 04/06/24 09:09 PRINCE (Rec: 04/06/24 10:33 REXAmanda [id number]) E-signed By Kassie Christianson, OTR/L, CLT OT OP Ortho Eval Details Complexity Complexity Medium Insurance Information Insurance Information Blue Cross/Blue Shield, Medicare B Outpatient History/Precautions Current Condition/Medical Diagnosis Referring Provider Dr. Siri Quiroga Medical Diagnoses Pain in R hand, M79.641 Pain in L hand, M79.642 Treatment Diagnosis Muscle Weakness, M62.81 Pain in R hand, M79.641 Pain in L hand, M79.642 Date of Onset Chronic Medical Conditions DM,HTN,Metal Implants, Arthritis Other Conditions PMH includes but is not limited to: Diabetic retinopathy (Acute) E11.319 - Type 2 diabetes mellitus with unspecified diabetic retinopathy without macular edema (ICD-10) Obstructive sleep apnea syndrome (Acute 02/01/12) on CPAP G47.33 - Obstructive sleep apnea (adult) (pediatric) (ICD -10) Irritable bowel syndrome ( Acute 02/01/12) K58.9 - Irritable bowel syndrome without diarrhea (ICD -10) Non-ulcer dyspepsia (Acute) EGD with biopsies normal here 11/08 K30 - Functional dyspepsia ( ICD-10) Dermatitis (Acute) Patient notes that this is chronic and she takes Zyrtec daily to control. Did not initially have zyrtec ordered and became diffusely pruritic with erythema. -Resumed Zyrtec -Prescribed famotidine to help with histamine -Follow up with PCP if not continuing to improve L30.9 - Dermatitis, unspecified (ICD-10) Essential hypertension (Acute) On medication I10 - Essential (primary) hypertension (ICD-10) Hypothyroidism (Acute) On levothyroxine E03.9 - Hypothyroidism, unspecified (ICD-10) Gastroesophageal reflux (Acute 02/01/12) on PPI (changed to Pepcid 01/06 due to chronic loose stools), went back to Nexium 03/08 (EGD with biopsies normal here ) K21.9 - Gastro-esophageal reflux disease without esophagitis (ICD-10) Hyperlipidemia (Acute 02/01/12 ) On statin E78.5 - Hyperlipidemia, unspecified (ICD-10) Chronic pain syndrome (Acute) On gabapentin G89.4 - Chronic pain syndrome (ICD-10) Type 2 diabetes mellitus ( Chronic) Dxed 10/31, oral medications changed from ER to IR 04/01, which improved diabetic control, unable to tolerate increase in metformin dose ( due to loose stools) 09/06, so glipizide was added 09/06, which was poorly tolerated ( loose stools, hypoglycemia), and she stopped the glipizide on her own at some point around 11/08, she [facility] to [facility] endocrinologySally, physician machine assistant Kezia Romero, who started dulaglutide/Trulicity 04/07 (and reduced metformin), hospital stopped dulaglutide/ Trulicity 11/09 for mild pancreatitis E11.9 - Type 2 diabetes mellitus without complications (ICD-10) Nonscarring hair loss, unspecified (Acute) L65.9 - Nonscarring hair loss, unspecified (ICD-10) Medical History (Updated 03/10 @ 09:45 by Siri Quiroga MD) 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 - Lesion of lateral popliteal nerve, unspecified lower limb (ICD-10) History of Clostridium difficile colitis (2015) Z86.19 - Personal history of other infectious and parasitic diseases (ICD-10) Surgical History (Updated @ 15:15 by Siri Quiroga MD) History of carpal tunnel surgery Z98.890 - Other specified postprocedural states (ICD-10) History of tubal ligation (02/09) Z98.51 - Tubal ligation status (ICD-10) 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) Z96.649 - Presence of unspecified artificial hip joint (ICD-10) History of repair of rotator cuff (2017) Z98.890 - Other specified postprocedural states (ICD-10) History of blepharoplasty ( 2008) Z98.890 - Other specified postprocedural states (ICD-10) History of bilateral cataract extraction (2018) Z98.41 - Cataract extraction status, right eye (ICD-10) Z98.42 - Cataract extraction status, left eye (ICD-10) History of bilateral breast reduction surgery (02/01/12) Medications: aspirin 81 mg PO DAILY atenolol 25 mg PO QDAY atorvastatin 40 mg PO QHS blood sugar diagnostic ( Contour Next Test Strips) to test blood sugars twice daily cetirizine 10 mg PO QDAY cholecalciferol (vitamin D3) 1 ,000 units PO QDAY esomeprazole magnesium (Nexium 24HR) 20 mg PO QDAY finasteride 2.5 mg (1/2 x 5 mg ) PO QDAY gabapentin 900 mg (3 x 300 mg) PO TID lactobacillus combination no.9 (Adult 50 Plus Probiotic) 4, 000 mmu cells PO QDAY levothyroxine 100 mcg PO Q48H levothyroxine 88 mcg PO Q48H lisinopril 10 mg PO QDAY mecobalamin (vitamin B12) 1, 000 mcg PO QDAY metformin 250 mg PO BIDWMEAL multivitamin 1 tab PO QDAY psyllium 2 packets PO QDAY PRN triamterene-hydrochlorothiazid 37.5-25 mg 1 cap PO QDAY Medical/Functional History Medical History Reviewed Yes Prior Level of Function/Mobility Patient lives with her 82-year -old . She does all the cooking and most of the cleaning. 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 Patient has a history of carpal tunnel release surgery (bilateral)-she states that this was 20+ years ago when she was still working, arthritis in multiple joints with joint deformities in multiple digits, patient is a diabetic (on metformin) but doesn't check her blood sugars . Diabetes is being monitored by an outside provider at [place] . R hand can make a composite fist, but the index and middle fingers don't make contact with the palm. L hand full composite fist. 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 Patient is expressing 7-8/10 pain in bilateral hands when she is using them for household tasks or leisure activities ( knitting). At rest pain is only 2/10 but patient very frustrated that she has to do nothing in order to not have any pain. Pain Assessment Pain Pain Yes Pain Comments bilateral hands Range of Motion and Strength Shoulder Range of Motion and Strength Shoulder Range of Motion and Strength R Shoulder -AROM is WNL (can make a full windmill, touch the top of her head, rotate to her back) Strength is 4-/5 L Shoulder -AROM is WNL (can make a full windmill, touch the top of her head, rotate to her back) Strength is 4-/5 Elbow/Forearm Range of Motion and Strength Elbow/Forearm Range of Motion and R elbow- AROM is WNL. strength Strength 4/5 L elbow- AROM is WNL. strength 4/5 Wrist Range of Motion and Strength Wrist Range of Motion and Strength R wrist- AROM is WNL, strength is 4-/5 L wrist- AROM is WNL, strength is 4-/5 Hand Pinch/Battery Assembler Dry Cell Strength Hand Pinch/Battery Assembler Dry Cell Strength Hand Pinch/Battery Assembler Dry Cell Strength Left Hand,Right Hand Left Hand Battery Assembler Dry Cell Strength Position 1 in Elbow 33 Flexion (lbs) Battery Assembler Dry Cell Strength Position 2 in Elbow 28 Extension (lbs) Lateral Pinch Strength (lbs) 9 Three Point Pinch (lbs) 4 Tip Pinch Strength (lbs) 6 Right Hand Battery Assembler Dry Cell Strength Position 1 in Elbow 38 Flexion (lbs) Battery Assembler Dry Cell Strength Position 2 in Elbow 32 Extension (lbs) Lateral Pinch Strength (lbs) 11 Three Point Pinch (lbs) 9 Tip Pinch Strength (lbs) 8 OT Problems Problems Problems Decreased Strength,Decreased Range of Motion,Pain,Sensory Sensitivity,Lifting,Gripping, Pinching Other Problems Writing,Opening Containers, Dressing,Computer,Fasteners, Sleeping Patient Potential Good Assessment Assessment Assessment 78-year-old female was seen by her PCP on 03/10/24 for an annual exam and expressed bilateral hand pain which prompted a referral to skilled OT. Patient has a history of carpal tunnel release surgery (bilateral)-she states that this was 20+ years ago when she was still working, arthritis in multiple joints with joint deformities in multiple digits, patient is a diabetic (on metformin) but doesn't check her blood sugars . Diabetes is being monitored by an outside provider at [place] . R hand can make a composite fist, but the index and middle fingers don't make contact with the palm. L hand full composite fist. 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 Patient is expressing 7-8/10 pain in bilateral hands when she is using them for household tasks or leisure activities ( knitting). At rest pain is only 2/10 but patient very frustrated that she has to do nothing in order to not have any pain. PLAN: treat pain symptoms with the use of modalities as indicated, manual therapy for progressing AROM, development of an individualized HEP, patient education on the progression of treatment and activity modifications while living with arthritis. Occupational Therapy Treatment Plan - OP Potential Rehabilitation Potential Good Barriers Barriers to goal attainment Diabetes-doesn't check her blood sugars, last A1C was 7.3 Diabetic retinopathy Arthritis is a degenerative disease No recent imagining of her joints, no EMG (diagnostic testing) Set Goals Goals Set with Patient Yes Goals Goals 1. Patient will verbalize 3 activity modifications to decrease abusive/overloading of the muscles, joints & tendons. 2. Pt will demonstrate pain- free shrimp peeling machine operator and pinch strength in order to improve functional grasp, hold, reach, and lifting ability needed to complete self-care, leisure tasks, and work activities. 3. Through activity participation in skilled therapy sessions, and consistency in performing a customized HEP, patient will improve capacity of tendons and muscles to manage load in order to have less pain with ADLs, work, leisure activities and IADLs. 4. Pt will display improved B shoulder ER, IR , low and mid trap, B hip ext and ABD strength >/= 4+ /5 to put dishes away in overhead cabinets and perform work duties. Target Date 12 weeks Treatment Plan Treatment Plan Evaluation,Edema Control, Iontophoresis,Joint Mobilization,Manual Therapy, Ultrasound,Therapeutic Exercise,Therapeutic Activities,Self Care/Home Management,Education Expected Frequency 1-2x Week Expected Duration 12 Certification Certification Statement I Certify That: Therapy Services Provided, Therapy Plan Established, Therapy Plan Reviewed Certification Information Clinic ID # [id number] Initial Certification Date 04/06/24 Recertification Due Date 07/05/24 Provider Signature Required Yes Provider Signature Shows Agreement With POC & Medical Necessity Physician NPI Number Write NPI# Here Physician Comment/Change Comment or Changes Physician Signature & Date Requested Please Sign/Date Here
== END 2024-07-08 15:18 | disposition home or self-care (01) ==
PROVIDERS: PCP Internal Medicine; Visit Provider Internal Medicine
DX: M79.641 Pain in right hand (principal); M79.642 Pain in left hand; M18.12 Unilateral primary osteoarthritis of first carpometacarpal joint, left hand; M62.81 Muscle weakness (generalized); M19.032 Primary osteoarthritis, left wrist; M19.031 Primary osteoarthritis, right wrist; Z51.89 Encounter for other specified aftercare
CPT/HCPCS: 97110; 97166; X5282

== ENCOUNTER 2024-07-02 15:34 | Outpatient (CLI) | payer MEDICARE, BC, SELFPAY ==
--- OUTSIDE RECORDS SUMMARY | 2024-07-02 15:37 | XMS_ITS | Clinical Summary ---
Author Organization [facility] Address [address] [place] [address] Care Team Providers Care Income Tax Expert Name Role Phone Unavailable Primary Care Provider Unavailabl e Source Comments Patient records contain information from all sites at [facility]. For routine questions regarding patient records, call [phone] during business hours, M-F 8:00 AM - 5:00 PM Central Time. Record requests for emergency care only can be directed to [phone] at any time.[facility] Allergies Active Allergy Reactions Criticality Noted Date Comments Erythromycin GI intolerance 04/29/2013 Morphine Rash 07/23/2018 Dulaglutide Other (see comments) 11/14/2023 Pancreatitis Medications aspirin 81 mg chewable tablet Chew 81 mg daily. 7 Active cetirizine (for_ZyrTEC) 10 mg tablet Take 10 mg by mouth. 4 Active atenolol (for_TENORMIN) 25 mg tablet Take 25 mg by mouth. 4 Active B.ANI/L.ACI/L.JULIO /L.PLAN/L.DONAVAN (PROBIOTIC FORMULA ORAL) Take 1 capsule by mouth daily. 7 Active lisinopril (for_PRINIVIL,ZES TRIL) 10 mg tablet Take 1 tablet by mouth daily. 7 Active MULTIVITAMIN WITH MINERALS ORAL Take 1 capsule by mouth daily. 3 Active psyllium (for_KONSYL) oral powder Take by mouth. 4 Active gabapentin (for_NEURONTIN) 300 mg capsule Take 300 mg by mouth. 4 Active ESOMEPRAZOLE MAGNESIUM (NEXIUM ORAL) Take by mouth daily. 4 Active triamterene-hydro CHLOROthiazide (for_DYAZIDE) 37.5-25 mg per capsule Take 1 capsule by mouth. 4 Active levothyroxine (SYNTHROID, LEVOTHROID) 88 mcg tablet Take 1 tablet (88 mcg total) by mouth every other day. 3 Active levothyroxine (SYNTHROID, LEVOTHROID) 100 mcg tablet 1 tablet (100 mcg total) every other day. 3 Active atorvastatin (LIPITOR) 40 mg tablet Take 20 mg by mouth daily. Active metFORMIN (GLUCOPHAGE) 500 mg tabletIndications :Diabetes Mellitus Type 2 Without Complication (HCC),Diabetes Mellitus Type 2 With Unspecified Diabetic Retinopathy Without Macular Edema (HCC) TAKE 1/2 TABLET TWICE DAILY WITH MEALS 90 tablet 3 4 Active flash glucose sensor (FreeStyle Samra 2 Sensor) kitIndications:Di abetes Mellitus Type 2 Without Complication (HCC) 1 each (1 kit total) every 14 (fourteen) days. 7 each 3 4 03/17/20 25 Active Active Problems Problem Noted Date Diagnosed [...] Date Smoking Tobacco: Never Smokeless Tobacco: Never Tobacco Cessation:Counseling Given: Not Answered Alcohol Use Standard Drinks/Week Comments No 0 [...] often do you attend chur ch or congregational services? More than 4 times per year 04/26/2021 Do you belong to any clubs o r organizations such as quaker groups, unions, fraternal or [...] and heating? Not hard at all 04/26/2021 [facility]at ional [facility] - [...] now)? No 04/26/2021 Nutrition Answer Date Recorded On average, how many serving s of fruits and vegetables do you eat per day (serving size is equal to 1 cup or approximately the size of a tennis ball)? 0-1 04/26/2021 Dental Answer Date Recorded Dental: Regular Dentist Unknown 05/02/20 Employment Answer Date Recorded Employment status Retired 04/26/2021 Education Answer Date Recorded What is the highest level of school you have completed or the highest degree you have received? Bachelor's degree (e.g., BA, AB, BS) 06/02/2019 Comments No Sex and Gender Information Value Date Recorded Sex Assigned at Female 07/23/2018 9:43 AM BOOKMAKER MAP Legal Sex Female 3:52 AM BOOKMAKER MAP Gender Identity Female 07/23/2018 9:43 AM BOOKMAKER MAP Sexual Orientation Straight 07/23/2018 9: 43 AM BOOKMAKER MAP Last Filed Vital Signs Vital Sign Reading Time Taken Comments Blood Pressure 128/58 03/17/2024 2:08 PM CDT Pulse 68 03/17/2024 2:08 PM CDT Temperature - - Respiratory Rate - - Oxygen Saturation - - Inhaled Oxygen Concentration - - Weight 86.2 kg (190 lb 0.6 oz) 03/17/2024 2:08 P M CDT Height 162.6 cm (5' 4.02) 06/02/2019 9:14 AM CD T Body Mass Index 32.6 06/02/2019 9:14 AM CDT Plan of Treatment Upcoming Encounters Date Type Department Care Team (Late st Contact Info) Description 07/21/2024 10:10 AM BOOKMAKER MAP Appointment Department of Laboratory Medicine in [place], [place] [address] [place] [address] Kezia Romero MPAS, P.A.Francia., P.A. [address] [place] [address] 07/21/2024 11:00 AM BOOKMAKER MAP Office Visit Department of Endocrinology in [place], [place] [address] [place] [address] Kezia Romero MPAS, P.A.Francia., P.A. [address] [place] [address] Health Maintenance Due Date Last Done Comments Diabetic Office Visit with F oot Exam 1945 Dilated Eye Exam 1945 Hepatitis C Screening 1945 Thyroid Stimulating Hormone (TSH) test for thyroid function 1945 Urine Albumin 1945 Depression Screening (Annual PHQ-2) 09/16/2023 Fall Risk Screen (Annual) 09/16/2023 Creatinine Level (Kidney Fun ction Test) 04/29/2024 04/29/2023 Potassium Level 04/29/2024 04/29/2023 Sodium Level 04/29/2024 04/29/2023 COVID-19 Vaccine (2023-10 5 season) 2024 01/03/2024, 06/19/2023, 01/15/2023, Additional history exists Influenza Vaccine (#1) 2024 , 06/04/2022, 06/04/2022, Additional history exists Hemoglobin A1C 09/16/2024 03/16/2024, /, 06/05/2023 Office Visit for Blood Press ure Check / Re-check 03/17/2025 03/17/2024 DTaP,Tdap,and Td Vaccines (3 - Td or Tdap) 09/14/2031 09/14/2021, 08/17/2011, 04/20/2005 Hepatitis B Vaccines Completed 12/08/1993, 07/24/1993, 06/22/1993 Pneumococcal vaccine (65+ years) Completed 10/21/19 15, 08/17/2011 Zoster Vaccines Completed 10/02/2018, 05/17, 05/28/2007 RSV vaccine - (32-3 6 weeks) or 60+ years Completed 06/11/2023 Medical Devices Implanted Type Area Skidway Worker Device Identifier Shelf Expiration Date Model / Serial / Lot Hip Implant Hip Implant Bilateral : Hip Procedures Procedure Name Priority Date/Time Associated Diagnosis Comments HEMOGLOBIN A1C, B Routine 03/16/2024 1:3 2 PM CDT Diabetes Mellitus Type 2 Without Complication (HCC) BASIC METABOLIC PANEL, S/P Routine 04/29/2023 3:03 PM CDT Diabetes Mellitus Type 2 Without Complication (HCC) Diabetes Mellitus Type 2 With Unspecified Diabetic Retinopathy Without Macular Edema (HCC) from Last 3 Months or Most Recently Relevant to Health Maintenance Results * (ABNORMAL) Hemoglobin A1c (03/16/2024 1:32 PM CDT) Hemoglobin A1c, B 7.0(H) 4.2 - 5.6 % 03/16/2024 1:55 PM CDT OW Comment: Hemoglobin A1c values greater than or equal to 6.5 percent are diagnostic for diabetes mellitus. ??Diagnosis should be confirmed by repeat testing. ??In diabetic patients, HbA1c goals should be discussed with healthcare provider. Blood (Blood, Venous) 03/16/2024 1:32 PM CDT 03/16/2024 1:35 PM CDT us Kezia PALMER, P.A.-C., P.A. LAB BLOO D ADD-ON Final Result [facility] [address] [place] [address], [facility] in [place] [address] [place] [address] * (ABNORMAL) Basic Metabolic Panel (04/29/2023 3:03 [...] PM CDT 04/29/2023 3:05 PM CDT Kezia PALMER, P.A.-C., P.A. LAB BLOO D ADD-ON Final Result [facility] [address] [place] [address], [facility] OWAT [facility] in [place] [address] [place] [address] from Last 3 Months or Most Recently Relevant to Health Maintenance Insurance [facility] BL[facility] [place] [address] MEDICARE
--- OUTSIDE RECORDS SUMMARY | 2024-07-02 15:37 | XMS_ITS | Clinical Summary ---
Author Organization [facility] Address [place], [place] [address] Care Team Providers Care Lockstitch Sleeve Maker Name Role Phone Siri Quiroga MD Primary Care Provider [phone] Allergies Active Allergy Reactions Criticality Noted Date [...] by mouth once daily. 0 03/22/2014 Active Byvqhsnp-Ztgsmtb-Jvr n-Lutein (CENTRUM SILVER ULTRA WOMEN'S) tab Take [...] Active Active Problems No known active problems Social History Tobacco Use Types Packs/Day Years [...] 65+ (1 of 1 - PCV) 2010 RSV vaccine for adults or (1 - 1-dose 75+ series) 2020 COVID-19 vaccine series (2023- season) 2024 01/03/2024, 06/19/2023, 01/15/2023, Additional history exists Influenza for age 65+ 05/17/2024 Care Teams Lockstitch Sleeve Maker Relationship Specialty Start Date End Date Siri Quiroga MD [address] [place] [address] PCP - General Internal Medicine 06/21/22
--- OUTSIDE RECORDS SUMMARY | 2024-07-02 15:38 | XMS_ITS ---
Author Organization [facility] Address [address] [place] [address] Care Team Providers Care Traveling Representative Name Role Phone Unavailable Unavailable Unavailable Surgery Details Not on file Complications Check Surgery Details section. Procedure Estimated Blood Loss Check Surgery Details section. Procedure Findings Check Surgery Details section. Procedure Specimens Taken Check Surgery Details section.
--- OUTSIDE RECORDS SUMMARY | 2024-07-02 15:38 | XMS_ITS | Referral Summary ---
Author Organization [facility] Address [address] [place] [address] Care Team Providers Care Thermal Molder Name Role Phone Unavailable Primary Care Provider Unavailabl e Source Comments Patient records contain information from all sites at [facility]. For routine questions regarding patient records, call [phone] during business hours, M-F 8:00 AM - 5:00 PM Central Time. Record requests for emergency care only can be directed to [phone] at any time.[facility] Allergies Active Allergy Reactions Criticality Noted Date [...] file 04/26/2021 How often do you attend [facility] or episcopalian services? More than 4 times per year 04/26/2021 Do you belong to any clubs o r organizations such as taoist groups, unions, fraternal or [...] and heating? Not hard at all 04/26/2021 [facility] of Occupat ional Health - Occupational Stress [...] or slept in a longterm (including now)? No 04/26/2021 Nutrition Answer Date Recorded On average, how many serving s of fruits and vegetables do you eat per day (serving size is equal to 1 cup or approximately the size of a tennis ball)? 0-1 04/26/2021 Dental Answer Date Recorded Dental: Regular Dentist Unknown 05/02/20 24 Employment Answer Date Recorded Employment status Retired 04/26/2021 Education Answer Date Recorded What is the highest level of school you have completed or the highest degree you have received? Bachelor's degree (e.g., BA, AB, BS) 06/02/2019 Comments No Sex and Gender Information Value Date Recorded Sex Assigned at Female 07/23/2018 9:43 AM SHEET ROCK SANDER Legal Sex Female 3:52 AM SHEET ROCK SANDER Gender Identity Female 07/23/2018 9:43 AM SHEET ROCK SANDER Sexual Orientation Straight 07/23/2018 9: 43 AM SHEET ROCK SANDER Last Filed Vital Signs Vital Sign Reading [...] st Contact Info) Description 07/21/2024 10:10 AM SHEET ROCK SANDER Appointment Department of Laboratory Medicine in [place], [place] [address] [place] [address] Kezia Romero, MPAS, P.A.-C., P.A. [address] [place] [address] 07/21/2024 11:00 AM SHEET ROCK SANDER Office Visit Department of Endocrinology in [place], [place] [address] [facility] [place] [phone] Kezia Romero MPAS, P.A.-C., P.A. [address] [place] [phone] Medical Devices Implanted Type Area Monologist Device Identifier Shelf Expiration Date Model / [...] CDT 03/16/2024 1:35 PM CDT us Kezia PALMER P.A.-C., P.A. LAB BLOO D ADD-ON Final Result [facility] [address] [place] [address], [facility] OW[facility] in [place] [address] [place] [address] * (ABNORMAL) Basic Metabolic Panel (04/29/2023 3:03 [...] 3:03 PM CDT 04/29/2023 3:05 PM CDT us Kezia PALMER, P.A.-C., P.A. LAB BLOO D ADD-ON Final Result [facility] [address] [place] [address], [place] [facility] in [place] [address] [place] [address] from Last 3 Months or Most Recently Relevant to Health Maintenance Insurance [facility] MEDICARE
== END 2024-07-02 15:35 | disposition home or self-care (01) ==
PROVIDERS: PCP Internal Medicine; Visit Provider Internal Medicine
DX: R10.9 Unspecified abdominal pain (principal); R11.0 Nausea
CPT/HCPCS: 80053; 82150; 83690

== ENCOUNTER 2024-07-07 08:42 | Outpatient (CLI) | payer MEDICARE, BC, SELFPAY ==
--- OUTSIDE RECORDS SUMMARY | 2024-07-07 08:46 | XMS_ITS | Referral Summary ---
Author Organization [facility] Address [address] [place] [address] Care Team Providers Care Glost Kiln Operator Name Role Phone Unavailable Primary Care Provider Unavailabl e Source Comments Patient records contain information from all sites at [facility]. For routine questions regarding patient records, call [phone] during business hours, M-F 8:00 AM - 5:00 PM Central Time. Record requests for emergency care only can be directed to [phone] at any time.[facility] Allergies Active Allergy Reactions Criticality Noted Date [...] file 04/26/2021 How often do you attend [facility] or hoahaoism services? More than 4 times per year 04/26/2021 Do you belong to any clubs o r organizations such as jew groups, unions, fraternal or [...] and heating? Not hard at all 04/26/2021 [facility] [employer] of Occupat ional Health - Occupational Stress [...] or slept in a intermediate (including now)? No 04/26/2021 Nutrition Answer Date [...] Sex Assigned at Female 07/23/2018 9:43 AM SUPERVISOR DIALS Legal Sex Female 3:52 AM SUPERVISOR DIALS Gender Identity Female 07/23/2018 9:43 AM SUPERVISOR DIALS Sexual Orientation Straight 07/23/2018 9: 43 AM SUPERVISOR DIALS Last Filed Vital Signs Vital Sign Reading [...] st Contact Info) Description 07/21/2024 10:10 AM SUPERVISOR DIALS Appointment Department of Laboratory Medicine in [place], [place] [address] [place] [address] Kezia Romero, MPAS, P.A.-C., P.A. [address] [place] [address] 07/21/2024 11:00 AM SUPERVISOR DIALS Office Visit Department of Endocrinology in [place], [place] [address] [facility] [place] [phone] Kezia Romero MPAS, P.A.-C., P.A. [address] [place] [phone] Medical Devices Implanted Type Area Rhinestone Setter Device Identifier Shelf Expiration Date Model / [...] P.A. LAB BLOO D ADD-ON Final Result [facility] [address] [place] [address], [facility] OW[facility] in [place] [address] [place] [address] * (ABNORMAL) Basic Metabolic Panel (04/29/2023 3:03 [...] P.A. LAB BLOO D ADD-ON Final Result [facility] [address] [place] [address], [place] [facility] in [place] [address] [place] [address] from Last 3 Months or Most Recently Relevant to Health Maintenance Insurance [facility] MEDICARE
--- OUTSIDE RECORDS SUMMARY | 2024-07-07 08:46 | XMS_ITS ---
Author Organization [facility] Address [address] [place] [address] Care Team Providers Care Mortgage Banker Name Role Phone Unavailable Unavailable Unavailable Surgery Details Not on file Complications Check Surgery Details section. Procedure Estimated Blood Loss Check Surgery Details section. Procedure Findings Check Surgery Details section. Procedure Specimens Taken Check Surgery Details section.
--- OUTSIDE RECORDS SUMMARY | 2024-07-07 08:46 | XMS_ITS | Clinical Summary ---
Author Organization [facility] Address [address] [place] [address] Care Team Providers Care Thiokol Operator Name Role Phone Unavailable Primary Care Provider Unavailabl e Source Comments Patient records contain information from all sites at [facility]. For routine questions regarding patient records, call [phone] during business hours, M-F 8:00 AM - 5:00 PM Central Time. Record requests for emergency care only can be directed to [phone] at any time.[facility] Allergies Active Allergy Reactions Criticality Noted [...] any clubs o r organizations such as yarsani groups, unions, fraternal or athletic groups, or [...] and heating? Not hard at all 04/26/2021 [facility] of Occupat ional Health - Occupational [...] place to sleep or slept in a correction (including now)? No 04/26/2021 Nutrition Answer Date [...] Sex Assigned at Female 07/23/2018 9:43 AM BAND LINING BANDER Legal Sex Female 3:52 AM BAND LINING BANDER Gender Identity Female 07/23/2018 9:43 AM BAND LINING BANDER Sexual Orientation Straight 07/23/2018 9: 43 AM BAND LINING BANDER Last Filed Vital Signs Vital Sign Reading [...] st Contact Info) Description 07/21/2024 10:10 AM BAND LINING BANDER Appointment Department of Laboratory Medicine in [place], [place] [address] [place] [address] Kezia Romero MPAS, P.A.Francia., P.A. [address] [place] [address] 07/21/2024 11:00 AM BAND LINING BANDER Office Visit Department of Endocrinology in [place], [place] [address] [place] [address] Kezia Romero MPAS, P.A.Francia., P.A. [address] [place] [address] Health Maintenance Due Date Last [...] Completed 06/11/2023 Medical Devices Implanted Type Area Hide Selector Device Identifier Shelf Expiration Date Model / [...] P.A. LAB BLOO D ADD-ON Final Result [facility] [address] [place] [address], [facility] OWAT [facility] in [place] [address] [place] [address] * (ABNORMAL) Basic Metabolic Panel (04/29/2023 3:03 [...] P.A. LAB BLOO D ADD-ON Final Result [facility] [address] [place] [address], [facility] OW[facility] in [place] [address] [place] [address] from Last 3 Months or Most Recently Relevant to Health Maintenance Insurance [facility] BLUE [facility] MEDICARE
--- OUTSIDE RECORDS SUMMARY | 2024-07-07 08:46 | XMS_ITS | Clinical Summary ---
Author Organization [facility] Address [place], [place] [address] Care Team Providers Care Rubber Flap Tuber Machine Operator Name Role Phone Siri Quiroga MD Primary Care Provider [phone] Allergies Active Allergy Reactions Criticality Noted Date [...] by mouth once daily. 0 03/22/2014 Active Opnkdnuj-Wnvgcml-Anf n-Lutein (CENTRUM SILVER ULTRA WOMEN'S) tab Take [...] Influenza for age 65+ 05/17/2024 Care Teams Rubber Flap Tuber Machine Operator Relationship Specialty Start Date End Date Siri Quiroga MD [address] [place] [address] PCP - General Internal Medicine 06/21/22
--- NOTE | 2024-07-07 09:00 | CT_ITS ---
Patient: HARSHA MYERS Facility:?[facility] Patient ID:?[id number] Site Patient ID:?[id number]. Site :?1945 Study:?CT-Abdomen/Pelvis W/O-07/07/2024 8:56:22 AM Ordering Physician:Napoleon Horner Final Report: INDICATION: Periumbilical pain COMPARISON: October 26, 2023 TECHNIQUE: CT examination of the abdomen and pelvis was performed without intravenous contrast. Thin section axial images were obtained from the lung bases through the pubic symphysis. Oral contrast was not administered. Please note that all CT scans at this facility use dose modulation, iterative reconstruction, and/or weight-based dosing when appropriate to reduce radiation dose to as low as reasonably achievable. FINDINGS: LUNG BASES: The lung bases as visualized appear normal.The heart size is normal at the lung bases. Mitral annular calcification is noted. Small hiatal hernia LIVER/BILIARY SYSTEM:The liver is normal in size and configuration given the lack of intravenous contrast. There is no visible focal mass and there is no intra- or extra hepatic biliary ductal dilatation.The gall bladder appears normal. ADRENALS: Normal non-contrast appearance KIDNEYS, URETERS and BLADDER:Right renal cyst measuring 2.5 centimeters. No obstructive uropathy. Bladder is poorly evaluated due to streak artifact from bilateral hip arthroplasties SPLEEN:Normal non-contrast appearance. Renal artery calcifications noted but no visible aneurysm. PANCREAS: Normal non-contrast appearance. RETROPERITONEUM and MESENTERY: There is no mass, adenopathy or aortic aneurysm. Atherosclerotic vascular calcifications GASTROINTESTINAL SYSTEM: There is no evidence of diverticulitis, colitis, mechanical obstruction, or appendicitis. The small bowel as visualized appears normal.Scattered diverticulosis. The appendix is well seen and appears normal PELVIS: No mass, adenopathy or free fluid. OSSEOUS STRUCTURES and ABDOMINAL WALL: Degenerative changes of the spine. Degenerative anterolisthesis of L4 on L5 which was present previously. Postoperative changes at both hip joints. No significant abdominal wall abnormality OTHER: No free fluid or free air. IMPRESSION: No specific or reversible cause for periumbilical pain. No umbilical hernia. No calcified calculus or evidence of obstructive uropathy. The appendix is well seen and appears normal. There are incidental nonacute appearing findings as discussed in the body of the report. Please note that all CT scans at this facility use dose modulation, iterative reconstruction, and/or weight-based dosing when appropriate to reduce radiation dose to as low as reasonably achievable. Dictated by Shelton Martinez MD @ 07/07/2024 9:15:20 AM Signed by:?Shelton Martinez MD @07/07/2024 9:15:20 AM (Electronic Signature)
== END 2024-07-07 08:43 | disposition home or self-care (01) ==
LOC: CT 08:45
PROVIDERS: PCP Internal Medicine; Visit Provider Internal Medicine
DX: R10.33 Periumbilical pain (principal)
CPT/HCPCS: 74176

== ENCOUNTER 2025-03-29 15:41 | Outpatient (CLI) | payer MEDICARE, BC, SELFPAY | END 2025-03-29 15:42 | disposition home or self-care (01) | PROVIDERS: PCP Internal Medicine; Visit Provider Internal Medicine | DX: E03.9 Hypothyroidism, unspecified (principal); I10 Essential (primary) hypertension; R53.81 Other malaise; R53.83 Other fatigue | CPT/HCPCS: 80053; 82607; 84443 ==

== ENCOUNTER 2025-04-05 20:53 | Outpatient (CLI) | payer MEDICARE, BC, SELFPAY | END 2025-04-05 20:54 | disposition home or self-care (01) | LOC: SLEEP 20:53 | PROVIDERS: PCP Internal Medicine; Visit Provider Internal Medicine | DX: G47.33 Obstructive sleep apnea (adult) (pediatric) (principal); E66.9 Obesity, unspecified | CPT/HCPCS: 95811 ==

== ENCOUNTER 2025-04-30 06:46 | Outpatient (CLI) | payer MEDICARE, BC, SELFPAY ==
--- NOTE | 2025-04-30 07:15 | CRLHL7_ITS ---
For Patients: As a result of the Century Cures Act, medical imaging exams and procedure reports are released immediately into your electronic medical record. You may view this report before your referring provider. If you have questions, please contact your health care provider. INDICATION: Intermittent diarrhea; history of pancreatitis. COMPARISON: CT abdomen and pelvis with and without contrast 10/26/2023; CT abdomen and pelvis without intravenous contrast July 07, 2024. TECHNIQUE: Precontrast T1 and T2 weighted imaging; T2 haste imaging; diffusion-weighted imaging; in- and out of phase imaging; postcontrast imaging including subtraction; 20 cc of Dotarem contrast was injected IV. FINDINGS: Moderate diffuse fatty infiltration of the liver. A subcentimeter cavernous hemangioma in segment 5 of the liver. A sub cm simple hepatic cyst segment 6 of the liver. No splenic pathology. No pancreatic pathology. No evidence of pancreatic ductal dilatation. No peripancreatic inflammatory changes. Gallbladder is unremarkable. No evidence of biliary duct dilatation. No adrenal pathology. A 2.3 cm simple cortical cyst upper pole right kidney. No retroperitoneal lymphadenopathy. No evidence of abdominal ascites. IMPRESSION: 1. Mild diffuse fatty infiltration of the liver. 2. Subcentimeter cyst segment 6 of the liver. 3. A small cavernous hemangioma segment 5 of the liver. 4. Simple cortical cyst upper pole right kidney. 5. No pancreatic pathology. Dictated by Justin Kumar MD @ 05/03/2025 11:36:46 AM (Electronically Signed)
== END 2025-04-30 06:47 | disposition home or self-care (01) ==
PROVIDERS: PCP Internal Medicine; Visit Provider Internal Medicine
DX: R19.7 Diarrhea, unspecified (principal); K76.0 Fatty (change of) liver, not elsewhere classified; K76.89 Other specified diseases of liver; D18.09 Hemangioma of other sites; N28.1 Cyst of kidney, acquired; Z87.19 Personal history of other diseases of the digestive system; R15.2 Fecal urgency
CPT/HCPCS: 74183; A9575

== ENCOUNTER 2025-05-24 08:04 | Outpatient (CLI) | payer MEDICARE, BC, SELFPAY | END 2025-05-24 08:05 | disposition home or self-care (01) | LOC: RAD 08:05 | PROVIDERS: PCP Internal Medicine; Visit Provider Internal Medicine | DX: R53.1 Weakness (principal); I35.1 Nonrheumatic aortic (valve) insufficiency; I35.0 Nonrheumatic aortic (valve) stenosis; I34.0 Nonrheumatic mitral (valve) insufficiency; I07.1 Rheumatic tricuspid insufficiency; I37.1 Nonrheumatic pulmonary valve insufficiency; G47.33 Obstructive sleep apnea (adult) (pediatric) | CPT/HCPCS: 93306 ==

== ENCOUNTER 2025-06-01 10:05 | Outpatient (CLI) | payer MEDICARE, BC, SELFPAY | END 2025-06-01 10:06 | disposition home or self-care (01) | PROVIDERS: PCP Internal Medicine; Visit Provider Internal Medicine | DX: E11.319 Type 2 diabetes mellitus with unspecified diabetic retinopathy without macular edema (principal); E78.5 Hyperlipidemia, unspecified | CPT/HCPCS: 80061; 82043; 82570 ==